=== PATIENT | female | born 1970 | race Caucasian/White ===

== ENCOUNTER 2018-12-28 08:47 | Emergency (ER) | payer BC ==
[~2018-12-28] VITALS: Ht 157.5 cm; Wt 45.4 kg
[2018-12-28] MEDS ORDERED: SODIUM CHLORIDE 0.9% 1000ML 1,000 ML IV SCH (09:15)
[2018-12-28 09:34] LABS: BASOPHILS % 0.3 % (0.0-1.0); HEMATOCRIT 45.4 % (34.2-44.1); HEMOGLOBIN 15.7 g/dL (12.0-16.0); LYMPHOCYTES # (AUTO) 0.8 (1.0-3.2); LYMPHOCYTES % 10.3 % (18.0-39.1); MEAN CORPUSCULAR HEMOGLOBIN 34.6 pg (28-32); MEAN CORPUSCULAR HGB CONC 34.6 g/dL (31-35); MONOCYTES # (AUTO) 0.5 (0.2-0.8); MONOCYTES % 5.8 % (4.4-11.3); NEUTROPHILS # (AUTO) 6.4 (2.1-6.9); NEUTROPHILS % 83.2 % (38.7-80.0); PLATELET COUNT 272 x10e3/uL (140-360); RED BLOOD COUNT 4.54 x10e6/uL (3.6-5.1)
[2018-12-28 09:52] LABS: ALBUMIN/GLOBULIN RATIO 0.9 (0.8-2.0); ANION GAP 21.2 mmol/L (8-16); CALCIUM 9.9 mg/dL (8.4-10.2); CREATININE, SERUM 0.99 mg/dL (0.57-1.11)
[2018-12-28 09:56] LABS: POTASSIUM 2.2 mmol/L (3.5-5.1)
[2018-12-28] MEDS ORDERED: POTASSIUM CHLORIDE 20 MEQ TAB CR PO STA (10:09)
[2018-12-28] MEDS ORDERED: POTASSIUM CHLORIDE 20MEQ/100ML 100 ML IV ONE (10:15)
[2018-12-28 11:28] LABS: COLOR,URINE YELLOW (YELLOW)
[2018-12-28 11:29] LABS: CLARITY,URINE SL CLOUDY (CLEAR); KETONES,URINE NEGATIVE (NEGATIVE); LEUKOCYTE ESTERASE ,URINE 1+ (NEGATIVE); NITRITE,URINE NEGATIVE (NEGATIVE); PROTEIN,URINE DIPSTICK 1+ (NEGATIVE)
[2018-12-28 11:30] LABS: BILIRUBIN,URINE NEGATIVE (NEGATIVE); PREGNANCY TEST, URINE NEGATIVE (NEGATIVE); URINE UROBILINOGEN 0.2 mg/dL (0.2 - 1)
[2018-12-28] MEDS ORDERED: SODIUM CHLORIDE 0.9% 250ML 250 ML IV ONE (11:30)
[2018-12-28] MEDS ORDERED: SODIUM CHLORIDE 0.9% 250ML 250 ML ONE (11:40)
[2018-12-28 11:44] LABS: BACTERIA,URINE MANY /HPF; RBC,URINE 21-50 /HPF (0-5); WBC,URINE (MAN) 21-50 /HPF (0-5)
[2018-12-28 11:45] LABS: EPITHELIAL CELLS,URINE MANY /LPF
[2018-12-28] MEDS ORDERED: SODIUM CHLORIDE 0.9% 500ML 500 ML ONE (12:36)
[2018-12-28] MEDS ORDERED: SODIUM CHLORIDE 0.9% 500ML 500 ML IV ONE (13:00)
[2018-12-28 15:35] LABS: ANION GAP 13.5 mmol/L (8-16); BLOOD UREA NITROGEN 12 mg/dL (7-26); BUN/CREATININE RATIO 17 (6-25); CALCIUM 8.3 mg/dL (8.4-10.2); CARBON DIOXIDE 30 mmol/L (22-29); CHLORIDE 94 mmol/L (98-107); CREATININE, SERUM 0.72 mg/dL (0.57-1.11); EST GLOMERULAR FILTRATION RATE > 60 ML/MIN (60-); GLUCOSE 101 mg/dL (74-118); SODIUM 135 mmol/L (136-145)
[2018-12-28 15:38] LABS: POTASSIUM 2.5 mmol/L (3.5-5.1)
--- NOTE | 2018-12-28 16:05 | NUR ---
call placed to Le[facility] WATTS regarding patient eloping with IV; Report completed; Per Dr. Lopez, patient decided to leave AMA; Instructed by MD that RN would be at bedside shortly with AMA form; went to room, all patient items and patient were gone.
--- NOTE | 2018-12-28 16:14 | NUR ---
Attempted to call patient on phone in chart, no answer and VM states "Do not leave a VM, because I will not check it, leave a text."
== END 2018-12-28 16:15 | disposition home or self-care (01) ==
LOC: ER 08:47
DX: E87.6 Hypokalemia (principal); K52.9 Noninfective gastroenteritis and colitis, unspecified; F17.210 Nicotine dependence, cigarettes, uncomplicated
CPT/HCPCS: 36415; 80048; 80053; 81001; 81025; 83735; 84443; 85025; 93005; 99283; J3480; J7030; J7040; J7050

== ENCOUNTER 2019-01-18 16:29 | Observation (INO) | payer BC ==
[~2019-01-18] VITALS: Ht 154.9 cm; Wt 53.6 kg
[2019-01-18] MEDS ORDERED: ONDANSETRON HCL INJ 2MG/ML 2ML 2 MG/ML VIAL IV STA (17:35)
[2019-01-18] MEDS ORDERED: SODIUM CHLORIDE 0.9% 1000ML 1,000 ML ONE (17:38)
[2019-01-18] MEDS ORDERED: SODIUM CHLORIDE 0.9% 1000ML 1,000 ML IV SCH ×2 (17:45→19:00)
[2019-01-18 18:14] LABS: BASOPHILS % 0.2 % (0.0-1.0); EOSINOPHILS # (AUTO) 0.2 (0.0-0.4); EOSINOPHILS % 1.8 % (0.0-6.0); HEMATOCRIT 44.4 % (34.2-44.1); LYMPHOCYTES # (AUTO) 0.6 (1.0-3.2); LYMPHOCYTES % 6.6 % (18.0-39.1); MEAN CORPUSCULAR VOLUME 97.2 fL (81-99); MONOCYTES # (AUTO) 0.5 (0.2-0.8); MONOCYTES % 5.2 % (4.4-11.3); NEUTROPHILS # (AUTO) 7.5 (2.1-6.9); NEUTROPHILS % 85.7 % (38.7-80.0); PLATELET COUNT 256 x10e3/uL (140-360); RED BLOOD COUNT 4.57 x10e6/uL (3.6-5.1)
--- NOTE | 2019-01-18 18:16 | NUR ---
Pt roomed in ER 1 at this time. Pt placed on the cardiac monitoring, pulse ox and NIBP. NAD noted at the present time.
[2019-01-18 18:22] LABS: INR 0.9; PROTHROMBIN TIME 12.6 seconds (11.9-14.5)
--- NOTE | 2019-01-18 18:24 | Diagnostic Imaging Report ---
A single frontal view of the chest. HISTORY: CHEST PAIN COMPARISON: None available. DISCUSSION: Portable technique, limits sensitivity of the exam. Overlying monitoring leads. Tubes/Lines: None Lungs and pleura: Prominence of the peribronchial estrogen markings. No evidence of a consolidative pneumonia or pulmonary alveolar edema. No definite pleural effusion or pneumothorax is identified. Heart and mediastinum: The cardiomediastinal silhouette appears unremarkable. Bones and soft tissues: Appear unremarkable, given this limited exam. IMPRESSION: 1. Findings which can be seen in setting of a nonspecific bronchitis. 2. No consolidative pneumonia. Signed by: Dr. Jose Marino D.O., M.M.M. on 01/18/2019 6:21 PM
[2019-01-18 18:27] LABS: PARTIAL THROMBOPLASTIN TIME 20.4 seconds (23.8-35.5)
[2019-01-18 18:31] LABS: ALANINE AMINOTRANSFERASE 88 IU/L (0-55); ALBUMIN 4.3 g/dL (3.5-5.0); ALBUMIN/GLOBULIN RATIO 1.1 (0.8-2.0); ALKALINE PHOSPHATASE 141 IU/L (40-150); ANION GAP 25.9 mmol/L (8-16); BLOOD UREA NITROGEN 9 mg/dL (7-26); BUN/CREATININE RATIO 9 (6-25); CARBON DIOXIDE 28 mmol/L (22-29); CHLORIDE 90 mmol/L (98-107); CREATINE KINASE 243 IU/L (29-168); CREATININE, SERUM 0.97 mg/dL (0.57-1.11); EST GLOMERULAR FILTRATION RATE > 60 ML/MIN (60-); GLUCOSE 217 mg/dL (74-118); SODIUM 141 mmol/L (136-145)
[2019-01-18 18:36] LABS: POTASSIUM 2.9 mmol/L (3.5-5.1)
[2019-01-18 18:43] LABS: MAGNESIUM 1.2 MG/DL (1.3-2.1)
[2019-01-18] MEDS ORDERED: POTASSIUM CHLORIDE 20 MEQ TAB CR PO ONE (18:57)
[2019-01-18] MEDS ORDERED: POTASSIUM CHLORIDE 20MEQ/100ML 100 ML IV ONE (19:00)
[2019-01-18] MEDS ORDERED: MAGNESIUM SULFATE 2GM/50ML 50 ML IV ONE (19:00)
[2019-01-18] MEDS ORDERED: POTASSIUM CHLORIDE 20MEQ/15ML UDC ONE (19:32)
[2019-01-18] MEDS ORDERED: CLONIDINE HCL 0.1 MG TAB PO PRN (19:45)
[2019-01-18] MEDS ORDERED: IBUPROFEN 200 MG TAB PO PRN (19:45)
[2019-01-18] MEDS ORDERED: ZOLPIDEM TARTRATE 5 MG TAB PO PRN ×2 (19:45→22:30)
[2019-01-18] MEDS ORDERED: HYDROCODONE/APAP 7.5MG-325MG 1 EA TAB PO PRN (19:45)
[2019-01-18] MEDS ORDERED: ACETAMINOPHEN 325 MG TAB PO PRN (19:45)
[2019-01-18] MEDS ORDERED: ENALAPRILAT IV INJ 1.25 MG/ML VIAL IV PRN (19:45)
[2019-01-18] MEDS ORDERED: DIPHENHYDRAMINE HCL INJ 50 MG/ML VIAL IV PRN (19:45)
--- OUTSIDE RECORDS SUMMARY | 2019-01-18 19:52 | XMS REPORT ---
Author Author [facility] Address Unknown Phone Unavailable Care Team Providers [facility] Name Role Phone Marie KAPADIA Unavailable Unavailable Problems This patient has no known problems. Allergies, Adverse Reactions, Alerts This patient has no known allergies or adverse reactions. Medications This patient has no known medications. Results Test Description Test Time Test Comments Text Results Atomic Results Result Comments CHEST SINGLE (PORTABLE) 2019-01-18 18:19:[address] [address] Patient Name: AMILCAR CELIS MR #: [id number] : 1970 Age/Sex: 48/F Req #: [id number] Adm Physician: Ordered by: DARIEL KAPADIA MD Report #: [id number] Location: ER Room/Bed: Procedure: [id number] DX/CHEST SINGLE (PORTABLE) Exam Date: 01/18/19 Exam Time: 1758 REPORT STATUS: Signed A single frontal view of the chest. HISTORY: AARTI ST PAIN COMPARISON: None available. DISCUSSION: Portable technique, limits sensitivity of the exam. Overlying monitoring leads. Tubes/Lines: None Lungs and pleura: Prominence of the peribronchial estrogen markings. No evidence of a consolidative pneumonia or pulmonary alveolar edema. No definite pleural effusion or pneumothorax is identified. Heart and mediastinum: The cardiomediastinal silhouette appears unremarkable. Bones and soft tissues: Appear unremarkable, given this limited exam. IMPRESSION: 1. Findings which can be seen in setting of a nonspecific bronchitis. 2. No consolidative pneumonia. Signed by: Dr. Cici Marino D.O., M.M.M. on 01/18/2019 6:21 PM Dictated By: CICI MARINO DO 20 Transcribed By: GARY on 01/18/191820 COPY TO: DARIEL KAPADIA MD
[2019-01-18] MEDS ORDERED: CHLORDIAZEPOXIDE HCL 25 MG CAP PO ONE (20:00)
[2019-01-18] MEDS ORDERED: IBUPROFEN 400 MG TAB PO PRN (20:30)
[2019-01-18] MEDS: LACTATED RINGER'S 1,000 ML IV SCH (22:07)
[2019-01-18] MEDS ORDERED: LIDOCAINE VISC 2% SOLN 15 ML UDC ONE (22:25)
[2019-01-18] MEDS ORDERED: MAGNESIUM/ALUMINUM/SIMETHICONE 30 ML UDC ONE (22:25)
[2019-01-18] MEDS ORDERED: BELLADONNA ALK/PHENOBARBITAL 5 ML UDC ONE (22:25)
--- NOTE | 2019-01-18 22:25 | NUR ---
PT COMPLAINS OF EPIGASTRIC PAIN, HUNG VILLAFANA AWARE, MEDICATED PER ORDERS.
[2019-01-18] MEDS ORDERED: LACTULOSE SYRUP 20 GM/30 ML UDC PO PRN (22:30)
[2019-01-18] MEDS ORDERED: DONNATAL/LIDOCAINE/MAALOX 30 ML SUSP PO ONE (22:30)
--- NOTE | 2019-01-18 22:52 | NUR ---
Pt received from ER. Pt A&O and in no apparent distress. Pt on room air and no tele. Pt has no complaints of pain. All safety measures ensured, bed alarm on, and pt call hector near. Pt encouraged to use call hector for assistance.
[2019-01-18 22:55] VITALS: BP 121/62
[2019-01-19] VITALS: BP 121/62
[2019-01-19 04:00] VITALS: BP 124/67
[2019-01-19] MEDS: LACTATED RINGER'S 1,000 ML IV SCH (05:56)
--- NOTE | 2019-01-19 06:05 | NUR ---
Pt has had 2-3 liquid like stools. Pt has no complaints of N/V and no abdominal pain. Pt stated that her stools are normally soft and can be liquid like at times. Also attempted to collect UA but pt has BM at same time and unable to submit non-contaminated specimen. Pt states she will continue to drink water and is aware she needs to collect urine.
[2019-01-19 06:31] LABS: ANION GAP 9.9 mmol/L (8-16); BLOOD UREA NITROGEN 8 mg/dL (7-26); BUN/CREATININE RATIO 12 (6-25); CALCIUM 8.6 mg/dL (8.4-10.2); CARBON DIOXIDE 29 mmol/L (22-29); CHLORIDE 102 mmol/L (98-107); CREATININE, SERUM 0.68 mg/dL (0.57-1.11); EST GLOMERULAR FILTRATION RATE > 60 ML/MIN (60-); GLUCOSE 83 mg/dL (74-118); MAGNESIUM 2.2 MG/DL (1.3-2.1); SODIUM 138 mmol/L (136-145)
[2019-01-19 06:41] LABS: POTASSIUM 2.9 mmol/L (3.5-5.1)
--- NOTE | 2019-01-19 06:42 | NUR ---
Call placed to Dr. Arshad to report critical lab. Awaiting callback
--- NOTE | 2019-01-19 06:48 | NUR ---
Dr. Arshad returned call and reported +K of 2.9. Orders for 40meq of +K to give now and repeat +K and mag labs at 4pm.
[2019-01-19] MEDS ORDERED: POTASSIUM CHLORIDE 20 MEQ TAB CR PO NR (07:09)
--- NOTE | 2019-01-19 07:14 | NUR ---
Bedside report given and walking rounds complete. Pt sleeping in bed and in no apparent distress. All safety measured and pt call hector near.
[2019-01-19 07:30] VITALS: BP 121/70
[2019-01-19] MEDS: FAMOTIDINE 20 MG/2 ML VIAL IV SCH ×2 (08:15→17:32)
[2019-01-19 09:20] VITALS: BP 121/70
[2019-01-19 10:34] LABS: AMPHETAMINES SCREEN,URINE NEGATIVE (NEGATIVE); PHENCYCLIDINE SCREEN,URINE NEGATIVE (NEGATIVE)
[2019-01-19 10:35] LABS: BENZODIAZEPINES SCREEN,URINE POSITIVE (NEGATIVE)
[2019-01-19 10:41] LABS: CLARITY,URINE SL CLOUDY (CLEAR); COLOR,URINE YELLOW (YELLOW); LEUKOCYTE ESTERASE ,URINE NEGATIVE (NEGATIVE); NITRITE,URINE NEGATIVE (NEGATIVE)
[2019-01-19 10:42] LABS: BILIRUBIN,URINE NEGATIVE (NEGATIVE); EPITHELIAL CELLS,URINE RARE /LPF; KETONES,URINE NEGATIVE (NEGATIVE); PROTEIN,URINE DIPSTICK NEGATIVE (NEGATIVE); URINE UROBILINOGEN 0.2 mg/dL (0.2 - 1)
[2019-01-19 11:16] VITALS: BP 125/66
[2019-01-19] MEDS ORDERED: POTASSIUM CHLORIDE 20 MEQ TAB CR PO ONE (14:20)
[2019-01-19] MEDS ORDERED: LOPERAMIDE HCL 2 MG CAP PO PRN (14:30)
[2019-01-19 15:07] VITALS: BP 135/77
--- NOTE | 2019-01-19 17:50 | NUR ---
patient discharged home. IV canula removed with tip intact, Potassium level is 3.6 normal. not in any distress, denies any pain, patient got all personnel belongings with her, she got transportation with [employer].
--- NOTE | 2019-01-19 18:50 | History and Physical ---
HISTORY OF PRESENT ILLNESS: Kaitlin Perez is a 48-year-old female with past medical history essentially negative for any medical condition. According to the patient, she came here with diarrhea. She was found to have hypokalemia, hypomagnesemia, and also multiple cramps all over her body. She had potassium initially replaced. She is feeling better. All the symptoms are gone. REVIEW OF SYSTEMS: CARDIOVASCULAR: No chest pain or palpitation. RESPIRATORY: No shortness of breath. No cough. GASTROINTESTINAL: No nausea or vomiting. She had diarrhea, which resolved. MUSCULOSKELETAL: She has cramps all over her body, which had completely resolved. ALLERGIES: SHE IS NOT ALLERGIC TO ANYTHING. SOCIAL HISTORY: She drinks alcohol. She claims that she does not smoke. PAST MEDICAL HISTORY: Negative for any significant medical condition. PHYSICAL EXAMINATION: VITAL SIGNS: Blood pressure 135/66, temperature 98.4, heart rate 87 per minute, respiratory rate 19 per minute, and oxygen saturation 99%. HEART: Regular rhythm. No murmur or added sound. LUNGS: Clear bilaterally. ABDOMEN: Soft. EXTREMITIES: No evidence of cyanosis, edema, or trauma. LABORATORY DATA: On the BMP; sodium 138, potassium 2.9, chloride 102, CO2 29, BUN 8, creatinine 0.66, and glucose 83. On the CBC; white count 8.73, hemoglobin 16.0, hematocrit 44.4, and platelet count 256,000. PT 12.6, INR 0.80, PTT 20.4. AST 105, ALT 88, total bilirubin 1.8, alkaline phosphatase 141. FINAL IMPRESSION: 1. Episode of hypokalemia. 2. Hypomagnesemia. 3. Acute diarrhea. 4. Rhabdomyolysis. 5. Elevated LFTs, most likely secondary to alcoholic hepatitis. PLAN OF TREATMENT: The patient has been given potassium, magnesium, and IV fluids. The patient wants to go home today. I going to recheck the potassium and magnesium level today and if they are back to normal, the patient may be able to go home. The patient is to quit drinking of course. Followup with the primary care physician in a week. MD REI Darling/STACI /[id number]
--- NOTE | 2019-01-20 14:24 | Discharge Summary ---
HISTORY: The patient is a 48-year-old female, who has a past medical history negative for any significant medical condition except for alcohol abuse. The patient came to the hospital complaining of diarrhea. She was found to have hypokalemia, hypomagnesemia, elevated CKs, elevated liver function test. Symptoms are completely resolved and the patient wants to go home today. We are going to recheck the potassium, magnesium level to make sure they are under normal limits before the patient leaves. PHYSICAL EXAMINATION: HEART: Showed regular rhythm. Normal S1, S2 sound. LUNGS: Clear bilaterally. ABDOMEN: Soft. EXTREMITIES: Show no evidence of cyanosis or hematoma. VITAL SIGNS: Blood pressure 135/66, temperature 98.4, heart rate 87 per minute, respiratory rate 19 per minute, and oxygen saturation 99%. FINAL IMPRESSION: 1. Hypokalemia. 2. Hypomagnesemia. 3. Acute diarrhea. 4. Rhabdomyolysis. 5. Alcoholic hepatitis. PLAN OF TREATMENT: After potassium and magnesium had been repleted, we want to recheck the potassium and magnesium today. The patient is to abstain from drinking of course and if the potassium and magnesium levels are back to normal, then the patient might be able to go home today. Follow up with her primary care physician. MD REI Darling/STACI /[id number]
== END 2019-01-19 17:50 | disposition home or self-care (01) ==
LOC: ER 16:29 → ERHOLD 19:47 → IMCU 22:51
PROVIDERS: ADMIT Internal Medicine; ATTEND Internal Medicine
DX: E87.6 Hypokalemia (principal); E83.42 Hypomagnesemia; R19.7 Diarrhea, unspecified; M62.82 Rhabdomyolysis; K70.10 Alcoholic hepatitis without ascites
CPT/HCPCS: 36415 ×2; 71045; 80048; 80053; 80307; 81001; 82150; 82550; 82553; 82948; 83690; 83735 ×2; 83880; 84132; 84484; 84702; 85025; 85610; 85730; 93005; 99284; G0378 ×2; J2405; J3475; J3480; J7030; J7121 ×2

== ENCOUNTER 2019-06-18 09:47 | Inpatient (IN) | payer BC ==
[~2019-06-18] VITALS: Ht 167.6 cm; Wt 52.3 kg
[2019-06-18 10:15] LABS: BASOPHILS % 0.1 % (0.0-1.0); EOSINOPHILS % 0.3 % (0.0-6.0); HEMATOCRIT 35.6 % (34.2-44.1); HEMOGLOBIN 12.7 g/dL (12.0-16.0); LYMPHOCYTES # (AUTO) 1.6 (1.0-3.2); LYMPHOCYTES % 21.8 % (18.0-39.1); MEAN CORPUSCULAR HEMOGLOBIN 34.7 pg (28-32); MEAN CORPUSCULAR HGB CONC 35.7 g/dL (31-35); MEAN CORPUSCULAR VOLUME 97.3 fL (81-99); MONOCYTES # (AUTO) 0.3 (0.2-0.8); MONOCYTES % 4.6 % (4.4-11.3); NEUTROPHILS # (AUTO) 5.2 (2.1-6.9); NEUTROPHILS % 72.6 % (38.7-80.0); PLATELET COUNT 142 x10e3/uL (140-360); RED BLOOD COUNT 3.66 x10e6/uL (3.6-5.1); RED CELL DISTRIBUTION WIDTH 11.5 % (11.7-14.4)
[2019-06-18] MEDS ORDERED: MULTIVITAMINS- 12 INJECTION 10 ML, FOLIC ACID MDV 5 MG, THIAMINE HCL INJ 100 MG in SODI... IV ONE (10:15)
[2019-06-18 10:27] LABS: ALBUMIN 3.7 g/dL (3.5-5.0); ALBUMIN/GLOBULIN RATIO 1.1 (0.8-2.0); CALCIUM 9.2 mg/dL (8.4-10.2); CREATININE, SERUM 1.6 mg/dL (0.57-1.11)
[2019-06-18 10:42] LABS: ANION GAP 19.4 mmol/L (8-16)
[2019-06-18 10:45] LABS: LIPASE 98 U/L (8-78)
[2019-06-18] MEDS ORDERED: POTASSIUM CHLORIDE 10MEQ/100ML 200 ML IV ONE (10:45)
[2019-06-18 10:46] LABS: POTASSIUM 2.4 mmol/L (3.5-5.1)
[2019-06-18] MEDS ORDERED: POTASSIUM CHLORIDE 20 MEQ TAB CR PO ONE ×2 (10:51→11:30)
[2019-06-18] MEDS ORDERED: POTASSIUM CHLORIDE 20MEQ/100ML 100 ML ONE (10:51)
--- NOTE | 2019-06-18 10:57 | NUR ---
PATIENT UNABLE TO SWALLOW TABLETS, REFUSED TO TRY. REQUESTED LIQUID
[2019-06-18 11:09] LABS: CREATINE KINASE MB 0.3 ng/mL (0-5.0)
--- NOTE | 2019-06-18 11:15 | NUR ---
RECIEVED REPORT FROM KEYLA CHEN; WALKING ROUNDS COMPLETED, PT UPDATED ON PLAN OF CARE; BED LOW/LOCKED, CALL LIGHT IN REACH, NO NEEDS VERBALIZED AT THIS TIME.
--- NOTE | 2019-06-18 11:20 | NUR ---
PATIENT REQUESTING FOOD. LUNCH TRAY ORDERED
[2019-06-18] MEDS ORDERED: ONDANSETRON HCL INJ 2MG/ML 2ML 2 MG/ML VIAL IV ONE (12:00)
[2019-06-18] MEDS ORDERED: LORAZEPAM INJ 2 MG/ML VIAL IV ONE (12:00)
[2019-06-18] MEDS ORDERED: POTASSIUM CHLORIDE 20MEQ/15ML UDC NG ONE (12:00)
[2019-06-18] MEDS ORDERED: LORAZEPAM INJ 2 MG/ML VIAL IV PRN (12:15)
[2019-06-18] MEDS: SODIUM CHLORIDE 0.9% 1000ML 1,000 ML IV SCH ×2 (13:35→21:24)
[2019-06-18 19:44] LABS: CREATINE KINASE MB 0.3 ng/mL (0-5.0)
[2019-06-18 20:00] VITALS: BP 145/89
[2019-06-18 20:01] LABS: ALBUMIN 3.2 g/dL (3.5-5.0); ALBUMIN/GLOBULIN RATIO 1.1 (0.8-2.0); ANION GAP 11.8 mmol/L (8-16); CALCIUM 8.7 mg/dL (8.4-10.2); CREATININE, SERUM 1.21 mg/dL (0.57-1.11)
[2019-06-18 20:38] LABS: POTASSIUM 2.8 mmol/L (3.5-5.1)
[2019-06-18 21:00] VITALS: BP 145/89
[2019-06-18] MEDS ORDERED: POTASSIUM CHLORIDE 20MEQ/15ML UDC PO ONE (22:15)
[2019-06-18] MEDS ORDERED: NICOTINE 14 MG/EA PATCH TOP ONE (23:30)
[2019-06-19] VITALS (8 sets, daily range): BP systolic 115–145; BP diastolic 76–89
[2019-06-19 03:55] LABS: BASOPHILS % 0.3 % (0.0-1.0); EOSINOPHILS % 0.6 % (0.0-6.0); HEMATOCRIT 30.5 % (34.2-44.1); HEMOGLOBIN 10.4 g/dL (12.0-16.0); LYMPHOCYTES % 30.2 % (18.0-39.1); MEAN CORPUSCULAR HEMOGLOBIN 34.4 pg (28-32); MEAN CORPUSCULAR HGB CONC 34.1 g/dL (31-35); MONOCYTES # (AUTO) 0.3 (0.2-0.8); MONOCYTES % 4.9 % (4.4-11.3); NEUTROPHILS # (AUTO) 4.3 (2.1-6.9); NEUTROPHILS % 63.7 % (38.7-80.0); PLATELET COUNT 121 x10e3/uL (140-360); RED BLOOD COUNT 3.02 x10e6/uL (3.6-5.1); RED CELL DISTRIBUTION WIDTH 11.9 % (11.7-14.4)
[2019-06-19 04:15] LABS: CREATINE KINASE MB 0.6 ng/mL (0-5.0)
[2019-06-19 04:33] LABS: ALANINE AMINOTRANSFERASE 165 IU/L (0-55); ALBUMIN 2.9 g/dL (3.5-5.0); ALBUMIN/GLOBULIN RATIO 1.1 (0.8-2.0); ALKALINE PHOSPHATASE 64 IU/L (40-150); BLOOD UREA NITROGEN 22 mg/dL (7-26); BUN/CREATININE RATIO 28 (6-25); CALCIUM 8.3 mg/dL (8.4-10.2); CARBON DIOXIDE 23 mmol/L (22-29); CHLORIDE 101 mmol/L (98-107); CREATININE, SERUM 0.78 mg/dL (0.57-1.11); EST GLOMERULAR FILTRATION RATE > 60 ML/MIN (60-); GLUCOSE 100 mg/dL (74-118); SODIUM 133 mmol/L (136-145)
[2019-06-19] MEDS ORDERED: POTASSIUM CHLORIDE 20 MEQ TAB CR PO STA (05:31)
[2019-06-19] MEDS: SODIUM CHLORIDE 0.9% 1000ML 1,000 ML IV SCH ×5 (05:38→19:41)
[2019-06-19] MEDS ORDERED: POTASSIUM CHLORIDE 20MEQ/15ML UDC PO STA (05:42)
[2019-06-19] MEDS: NICOTINE 14 MG/EA PATCH TOP SCH (08:18)
--- NOTE | 2019-06-19 09:10 | NUR ---
Called Dr Nash's office to notify of consult.
--- NOTE | 2019-06-19 09:13 | NUR ---
Transfer to room 215. Report called to Zeny RAMIRES. Transported with wheelchair, no complications noted.
--- NOTE | 2019-06-19 10:09 | Diagnostic Imaging Report ---
EXAM: US ABDOMEN COMPLETE INDICATION: Elevated LFTs. COMPARISON: None TECHNIQUE: Transverse and longitudinal gordon scale and color doppler sonographic images of the abdomen were obtained. FINDINGS: LIVER 14.9 cm in the right midclavicular line. Increased echogenicity of the liver with normal contour, no masses. SPLEEN 7.8 cm in maximum diameter. Normal echogenicity, no masses. GALLBLADDER No gallbladder wall thickening, distension, stone, or pericholecystic fluid. Negative reported sonographic Amaya's sign. BILE DUCTS No intra nor extra-hepatic biliary dilation. Common bile duct measures 0.2 cm PANCREAS: Visualized portions are normal. RIGHT KIDNEY: 11.6 cm Echogenicity: Normal Collecting System: No hydronephrosis Stones: None Cyst/Mass: None LEFT KIDNEY: 11.1 cm Echogenicity: Normal Collecting System: No hydronephrosis Stones: None Cyst/Mass: None VESSELS: Aorta: Visualized portions are within normal size limits Inferior Vena Cava: Visualized portions are normal Main Portal Vein: 1.0 cm, normal size with hepatopetal flow. FREE FLUID: None IMPRESSION: Hepatic steatosis. Signed by: Dr. Ramonita Zhang MD on 06/19/2019 10:06 AM
[2019-06-19] MEDS: PANTOPRAZOLE 40 MG 10ML VIAL IV SCH (17:16)
--- NOTE | 2019-06-19 19:42 | NUR ---
RECEIVED PT IN BED AOX3 .RESPIRATIONS ARE EVEN AND UNLABORED /DENIES PAIN .CALL LIGHT WITH IN REACH .CONTINUE TO MONITOR
[2019-06-20] VITALS (7 sets, daily range): BP systolic 118–168; BP diastolic 71–97
[2019-06-20 06:03] LABS: BASOPHILS % 0.6 % (0.0-1.0); EOSINOPHILS # (AUTO) 0.1 (0.0-0.4); EOSINOPHILS % 0.9 % (0.0-6.0); HEMATOCRIT 33.9 % (34.2-44.1); HEMOGLOBIN 11.4 g/dL (12.0-16.0); LYMPHOCYTES # (AUTO) 2.6 (1.0-3.2); LYMPHOCYTES % 37.3 % (18.0-39.1); MEAN CORPUSCULAR HEMOGLOBIN 34.3 pg (28-32); MEAN CORPUSCULAR HGB CONC 33.6 g/dL (31-35); MEAN CORPUSCULAR VOLUME 102.1 fL (81-99); MONOCYTES # (AUTO) 0.4 (0.2-0.8); MONOCYTES % 6.3 % (4.4-11.3); NEUTROPHILS # (AUTO) 3.8 (2.1-6.9); NEUTROPHILS % 54.5 % (38.7-80.0); PLATELET COUNT 130 x10e3/uL (140-360); RED BLOOD COUNT 3.32 x10e6/uL (3.6-5.1); RED CELL DISTRIBUTION WIDTH 11.7 % (11.7-14.4)
[2019-06-20 06:09] LABS: ALANINE AMINOTRANSFERASE 220 IU/L (0-55); ALBUMIN 3.1 g/dL (3.5-5.0); ALKALINE PHOSPHATASE 70 IU/L (40-150); ANION GAP 11.8 mmol/L (8-16); BLOOD UREA NITROGEN 9 mg/dL (7-26); BUN/CREATININE RATIO 13 (6-25); CALCIUM 8.8 mg/dL (8.4-10.2); CARBON DIOXIDE 29 mmol/L (22-29); CHLORIDE 98 mmol/L (98-107); CREATININE, SERUM 0.72 mg/dL (0.57-1.11); EST GLOMERULAR FILTRATION RATE > 60 ML/MIN (60-); GLUCOSE 76 mg/dL (74-118); SODIUM 136 mmol/L (136-145)
[2019-06-20 06:13] LABS: MAGNESIUM 1.1 MG/DL (1.3-2.1); POTASSIUM 2.8 mmol/L (3.5-5.1)
--- NOTE | 2019-06-20 07:00 | NUR ---
received am report from nurse and morning rounds done. pt is alert sitting up in bed, no s/s of distress. pt is complaining that the IV site is tender and red. new IV will need to be inserted. call light within reach and instructed pt to call nurse for help.
[2019-06-20] MEDS ORDERED: POTASSIUM CHLORIDE 20MEQ/100ML 200 ML IV ONE (07:15)
--- NOTE | 2019-06-20 07:43 | NUR ---
K-2.8 AND MG-1.[address] ARREOLA AND DR ARREOLA GIVEN ORDER TO GIVE K AND MG .PT RESTED DURING THE NIGHT .BEDSIDE REPORT GIVEN TO THE ONCOMING NURSE
[2019-06-20] MEDS ORDERED: MAGNESIUM SULFATE 2GM/50ML 50 ML IV ONE ×2 (07:45→09:45)
[2019-06-20] MEDS: PANTOPRAZOLE 40 MG 10ML VIAL IV SCH (08:28)
[2019-06-20] MEDS: NICOTINE 14 MG/EA PATCH TOP SCH (08:28)
[2019-06-20] MEDS ORDERED: LORAZEPAM INJ 2 MG/ML VIAL IM PRN (12:45)
[2019-06-20] MEDS ORDERED: LORAZEPAM 0.5 MG TAB PO PRN (12:45)
--- NOTE | 2019-06-20 15:21 | NUR ---
Nutrition Screen Note RD Recommendation for Physician: -Continue current diet per MD. -Consider M/ with minerals, B12, thiamine supplementation if medically feasible. Plan of Care: RD following, monitoring for tolerance and adequacy. Ensure Enlive TID. Nutrition reason for involvement: Nutrition Risk Trigger- MST 5 Primary Diagnose(s): Alcohol withdrawal PMH: No H and P recorded in EMR Ht: 66 in Wt: 115 lb BMI: 18.6 kg/m2 IBW: [address] Assessment 06/20: 49 YOF admitted for alcohol withdrawal with PMH listed below. Pt was seen resting in bed. Pt reported she has had a decreased appetite for about 6 months and lost 30 lbs. PT reports her UBW is 118-122 . Pt was admitted her in January and was 118 lbs, suggesting there has not been any significant weight loss. Pt reports she has been eating poorly d/t depression. Recommend Ensure, pt says she drinks this at home sometimes and would like to receive it in the hospital as well-spoke to nurse about supplement order. Pt reports she has been eating well here in the hospital so far. Pt did mention she does not eat any birds and that she can self select from the menu. Pt had no more questions or concerns. Pt has been consuming 100% of her meals per EMR. K and Mg are being replaced.Will continue to monitor. Chart reviewed. Labs and meds reviewed. Current Diet: regular Malnutrition Evaluation (06/20) The patient does not meet criteria for a specified degree of malnutrition at this time. Will re-evaluate at follow-up as appropriate. Energy intake: <75% of estimated energy requirements for >3 months Weight loss: -minor weight loss Fat loss: Mild Muscle loss: Mild Diet Education Needs Assessment: Diet education not indicated. Nutrition Care Level: mod Signed: Niharika Wood, RUFINA, LD
[2019-06-20 18:58] LABS: ALANINE AMINOTRANSFERASE 225 IU/L (0-55); ALBUMIN 3.1 g/dL (3.5-5.0); ALBUMIN/GLOBULIN RATIO 1.1 (0.8-2.0); ALKALINE PHOSPHATASE 62 IU/L (40-150); ANION GAP 12.2 mmol/L (8-16); BLOOD UREA NITROGEN 10 mg/dL (7-26); BUN/CREATININE RATIO 14 (6-25); CALCIUM 8.8 mg/dL (8.4-10.2); CARBON DIOXIDE 25 mmol/L (22-29); CHLORIDE 100 mmol/L (98-107); CREATININE, SERUM 0.74 mg/dL (0.57-1.11); EST GLOMERULAR FILTRATION RATE > 60 ML/MIN (60-); GLUCOSE 110 mg/dL (74-118); POTASSIUM 3.2 mmol/L (3.5-5.1); SODIUM 134 mmol/L (136-145)
--- NOTE | 2019-06-20 19:38 | NUR ---
PAGED AND SPOKE WITH DR ARREOLA NOTIFIED ABOUT PT REQUESTING TO BE DISCHARGED.ALSO NOTIFIED DR ARREOLA ABOUT PT'S POTASSIUM LEVEL OF 3.2,MAGNESIUM LEVEL OF 1.6 . N/O'S RECEIVED AND ENTERED.
[2019-06-20] MEDS ORDERED: POTASSIUM CHLORIDE 20MEQ/15ML UDC PO ONE (19:45)
--- NOTE | 2019-06-20 19:51 | Consultation ---
DATE OF CONSULTATION: 06/20/2019 Psychiatric Consultation The patient evaluated and events noted. REASON FOR CONSULTATION: To evaluate the patient's anxiety and alcohol withdrawal. HISTORY OF PRESENT ILLNESS: The patient is a 49-year-old female admitted to the hospital for alcohol withdrawal. Psychiatric consultation is called to evaluate patient for mood, psychosis, and alcohol withdrawal. Upon evaluation today, the patient was found to be lying on the bed. She is alert, awake, and oriented to situation, self, place and year. She is calm and cooperative. She is not confused. She is not agitated or restless. She admits to abusing alcohol for last 30 years. She claims she drinks about 4 drinks per day that consists of anything between beer, wine or liquor. She claims her last drink was on Thursday last week, which would be 7 or 8 days. She claims that she started to feel bad and asked her neighbor to call 911. The patient claims she has been feeling depressed and anxious due to ongoing divorce after 30 years of marriage. She denies feelings of hopelessness or helplessness. She denies any suicidal or homicidal ideation. She denies any hallucination. She reported poor sleep and poor appetite, which she attributes to the alcohol abuse. She has very mild tremors. The patient is reluctant to be on medication, but after discussion, she agrees to be started on some medication for mood and something to help her stay away from alcohol. PAST PSYCHIATRIC HISTORY: The patient denies past psychiatric history. She denies past suicide attempts. She drinks alcohol 3 or 4 days a week. She drinks about drinks per day and she claims she drinks anything that she has found in the house, which could be beer, wine, or liquor. She claims that her last drink was on Thursday. She denies any drug use. FAMILY HISTORY: The patient states her sister with bipolar. SOCIAL HISTORY: The patient states she lives alone. MENTAL STATUS EXAM: The patient is a middle-aged female. She is alert, awake, and oriented to situation. Mood is depressed and anxious. Affect is blunt. Psychomotor state is calm. She denies any suicidal or homicidal ideation. She denies any hallucination. Thought process is concrete, linear and goal oriented. No delusion or paranoia elicited. Insight and judgment are fair. Memory appears to be grossly intact. CURRENT MEDICATIONS: 1. Protonix. 2. Nicoderm. 3. Sodium chloride. LABORATORY DATA: Current labs; WBC 6.9, RBC 3.32, hemoglobin 11.4, hematocrit 33.9, platelets 130. Sodium 136, potassium 2.8, chloride 98, CO2 29, BUN 9, creatinine 0.72, AST 174, ALT 220. ASSESSMENT: 1. Adjustment disorder, mixed mood, depression, anxiety. 2. Alcohol abuse/dependence. PLAN: 1. Add Remeron 7.5 mg p.o. at bedtime. 2. Add Ativan 0.5 mg IM q.4 as needed for withdrawal. 3. Add Ativan 0.5 mg p.o. q.4 as needed. 4. Considered adding Topamax to help with the alcohol cessation. 5. Recommend alcohol cessation and alcohol counseling. 6. Recommend alcohol rehab. 7. Supportive therapy. Thank you for this consultation. Dictated by Reina Kennedy PA-C Arlyn Nash MD QTV/MODL /[id number]
--- NOTE | 2019-06-20 20:03 | NUR ---
IV CATH TO LEFT FA REMOVED WITH TIP INTACT,DRESSING APPLIED.PT DISCHARGED AT THIS TIME IN STABLE CONDITION WITH ALL HER BELONGINGS.PT'S TELE BOX RETURNED TO RESPONSIBLE DEPARTMENT.
[2019-06-20] MEDS ORDERED: MIRTAZAPINE 15 MG TAB PO SCH (21:00)
== END 2019-06-20 20:10 | disposition home or self-care (01) | DRG 897 ==
LOC: ER 09:47 → ERHOLD 12:05 → IMCU 19:52 → MED/SURG2 06-19 09:14
PROVIDERS: ADMIT Internal Medicine; ATTEND Internal Medicine
DX: F10.221 Alcohol dependence with intoxication delirium (principal); F10.231 Alcohol dependence with withdrawal delirium; Y90.0 Blood alcohol level of less than 20 mg/100 ml; E86.0 Dehydration; F41.9 Anxiety disorder, unspecified; K70.0 Alcoholic fatty liver; F43.23 Adjustment disorder with mixed anxiety and depressed mood
CPT/HCPCS: 36415; 76700; 80053; 80320; 82550; 82553; 83690; 83735; 84484; 84702; 85025; 93005; 99285; J2060; J2405; J3411; J3475; J3480; J7030

== ENCOUNTER 2019-07-06 09:04 | Emergency (ER) | payer BC ==
[~2019-07-06] VITALS: Ht 167.6 cm; Wt 52.2 kg
[2019-07-06] MEDS ORDERED: ASPIRIN 81 MG CHEW TAB PO ONE (09:30)
[2019-07-06] MEDS ORDERED: MULTIVITAMINS- 12 INJECTION 10 ML, FOLIC ACID MDV 5 MG, THIAMINE HCL INJ 100 MG in SODI... IV ONE (09:30)
[2019-07-06 09:36] LABS: EOSINOPHILS % 0.5 % (0.0-6.0); HEMATOCRIT 37.2 % (34.2-44.1); HEMOGLOBIN 12.8 g/dL (12.0-16.0); LYMPHOCYTES # (AUTO) 2.1 (1.0-3.2); LYMPHOCYTES % 51.2 % (18.0-39.1); MEAN CORPUSCULAR HEMOGLOBIN 34.9 pg (28-32); MEAN CORPUSCULAR HGB CONC 34.4 g/dL (31-35); MEAN CORPUSCULAR VOLUME 101.4 fL (81-99); MONOCYTES # (AUTO) 0.3 (0.2-0.8); MONOCYTES % 6.7 % (4.4-11.3); NEUTROPHILS # (AUTO) 1.7 (2.1-6.9); NEUTROPHILS % 40.4 % (38.7-80.0); PLATELET COUNT 240 x10e3/uL (140-360); RED BLOOD COUNT 3.67 x10e6/uL (3.6-5.1); RED CELL DISTRIBUTION WIDTH 13.1 % (11.7-14.4)
[2019-07-06] MEDS ORDERED: LORAZEPAM INJ 2 MG/ML VIAL IV ONE (09:45)
[2019-07-06 09:49] LABS: BILIRUBIN,URINE NEGATIVE (NEGATIVE); CLARITY,URINE SL CLOUDY (CLEAR); COLOR,URINE YELLOW (YELLOW); KETONES,URINE NEGATIVE (NEGATIVE); LEUKOCYTE ESTERASE ,URINE NEGATIVE (NEGATIVE); NITRITE,URINE NEGATIVE (NEGATIVE); PROTEIN,URINE DIPSTICK NEGATIVE (NEGATIVE); URINE UROBILINOGEN 0.2 mg/dL (0.2 - 1)
[2019-07-06 09:53] LABS: AMPHETAMINES SCREEN,URINE NEGATIVE (NEGATIVE); BENZODIAZEPINES SCREEN,URINE NEGATIVE (NEGATIVE); PHENCYCLIDINE SCREEN,URINE NEGATIVE (NEGATIVE)
[2019-07-06 09:59] LABS: ALANINE AMINOTRANSFERASE 112 IU/L (0-55); ALBUMIN 3.8 g/dL (3.5-5.0); ALKALINE PHOSPHATASE 93 IU/L (40-150); BLOOD UREA NITROGEN 6 mg/dL (7-26); BUN/CREATININE RATIO 9 (6-25); CALCIUM 9.7 mg/dL (8.4-10.2); CARBON DIOXIDE 28 mmol/L (22-29); CHLORIDE 101 mmol/L (98-107); CREATINE KINASE 122 IU/L (29-168); CREATININE, SERUM 0.69 mg/dL (0.57-1.11); EST GLOMERULAR FILTRATION RATE > 60 ML/MIN (60-); GLUCOSE 104 mg/dL (74-118); MAGNESIUM 1.9 MG/DL (1.3-2.1); SODIUM 143 mmol/L (136-145)
[2019-07-06 10:04] LABS: INR 0.77; PROTHROMBIN TIME 11.2 seconds (11.9-14.5)
[2019-07-06 10:05] LABS: PARTIAL THROMBOPLASTIN TIME 23.6 seconds (23.8-35.5)
[2019-07-06] MEDS ORDERED: POTASSIUM CHLORIDE 20 MEQ TAB CR PO STA (10:12)
[2019-07-06 10:15] LABS: AMORPHOUS SEDIMENT,URINE MANY (FEW); BACTERIA,URINE MODERATE /HPF; EPITHELIAL CELLS,URINE MODERATE /LPF; RBC,URINE 0-5 /HPF (0-5); WBC,URINE (MAN) 0-5 /HPF (0-5)
[2019-07-06 10:21] LABS: THYROID STIMULATING HORMONE 0.454 uIU/mL (0.350-4.940)
--- NOTE | 2019-07-06 11:15 | Diagnostic Imaging Report ---
EXAMINATION: CHEST SINGLE (PORTABLE) INDICATION: Chest pain COMPARISON: Chest radiograph of 01/18/2019 FINDINGS: LINES/TUBES:EKG leads overlie the chest. LUNGS:The lungs are well-inflated. No focal consolidation or pulmonary edema. PLEURA:No pleural effusion or pneumothorax. MEDIASTINUM:The cardiomediastinal silhouette appears normal in size and shape. BONES/SOFT TISSUES:No acute osseous injury. ABDOMEN:No free air under the diaphragm. IMPRESSION: No focal pneumonia or pulmonary edema. Signed by: Bud Gutierrez MD on 07/06/2019 11:11 AM
[2019-07-06 11:40] VITALS: BP 126/74
== END 2019-07-06 11:47 | disposition home or self-care (01) ==
LOC: ER 09:04
DX: F41.1 Generalized anxiety disorder (principal); F10.229 Alcohol dependence with intoxication, unspecified; F17.210 Nicotine dependence, cigarettes, uncomplicated
CPT/HCPCS: 36415; 71045; 80053; 80307; 80320; 81001; 82550; 82553; 83735; 83880; 84443; 84484; 85025; 85379; 85610; 85730; 87086; 93005; 99284; J2060; J3411; J7030

== ENCOUNTER 2019-10-11 11:30 | Emergency (ER) | payer BC ==
[~2019-10-11] VITALS: Ht 167.6 cm; Wt 52.2 kg
[2019-10-11] MEDS ORDERED: MULTIVITAMINS- 12 INJECTION 10 ML, FOLIC ACID MDV 5 MG, THIAMINE HCL INJ 100 MG in SODI... IV ONE (12:00)
[2019-10-11] MEDS ORDERED: ONDANSETRON HCL INJ 2MG/ML 2ML 2 MG/ML VIAL IV NR (12:15)
[2019-10-11] MEDS ORDERED: LORAZEPAM INJ 2 MG/ML VIAL IV NR (12:15)
--- NOTE | 2019-10-11 12:23 | Diagnostic Imaging Report ---
EXAMINATION: CHEST SINGLE (PORTABLE) INDICATION: Alcohol withdrawal, dehydration COMPARISON: Chest radiograph 07/06/2019 FINDINGS: LINES/TUBES:EKG leads overlie the chest. LUNGS:The lungs are well-inflated. No focal consolidation or pulmonary edema. PLEURA:No pleural effusion or pneumothorax. MEDIASTINUM:The cardiomediastinal silhouette appears normal in size and shape. BONES/SOFT TISSUES:No acute osseous injury. ABDOMEN:No free air under the diaphragm. IMPRESSION: No focal pneumonia or pulmonary edema. Signed by: Bud Gutierrez MD on 10/11/2019 12:20 PM
--- NOTE | 2019-10-11 12:39 | NUR ---
per patient, consumes alcohol daily normally but has recently been and reports that she has been drinkin more than normal. reports she last drank on thursday.
[2019-10-11 12:43] LABS: BASOPHILS % 0.1 % (0.0-1.0); HEMATOCRIT 34.1 % (34.2-44.1); HEMOGLOBIN 12.1 g/dL (12.0-16.0); LYMPHOCYTES # (AUTO) 0.6 (1.0-3.2); LYMPHOCYTES % 8.1 % (18.0-39.1); MEAN CORPUSCULAR HEMOGLOBIN 34.8 pg (28-32); MEAN CORPUSCULAR HGB CONC 35.5 g/dL (31-35); MONOCYTES # (AUTO) 0.4 (0.2-0.8); MONOCYTES % 4.6 % (4.4-11.3); NEUTROPHILS # (AUTO) 6.5 (2.1-6.9); NEUTROPHILS % 86.4 % (38.7-80.0); PLATELET COUNT 170 x10e3/uL (140-360); RED BLOOD COUNT 3.48 x10e6/uL (3.6-5.1); RED CELL DISTRIBUTION WIDTH 12.2 % (11.7-14.4)
[2019-10-11 13:14] LABS: ALANINE AMINOTRANSFERASE 71 IU/L (0-55); ALBUMIN/GLOBULIN RATIO 1.4 (0.8-2.0); ALKALINE PHOSPHATASE 72 IU/L (40-150); ANION GAP 24.7 mmol/L (8-16); BLOOD UREA NITROGEN 27 mg/dL (7-26); BUN/CREATININE RATIO 25 (6-25); CALCIUM 8.7 mg/dL (8.4-10.2); CARBON DIOXIDE 29 mmol/L (22-29); CHLORIDE 85 mmol/L (98-107); CREATINE KINASE 224 IU/L (29-168); CREATININE, SERUM 1.09 mg/dL (0.57-1.11); EST GLOMERULAR FILTRATION RATE 53 ML/MIN (60-); GLUCOSE 92 mg/dL (74-118); MAGNESIUM 1.2 MG/DL (1.3-2.1); SODIUM 136 mmol/L (136-145)
[2019-10-11 13:23] LABS: POTASSIUM 2.7 mmol/L (3.5-5.1)
[2019-10-11] MEDS ORDERED: POTASSIUM CHLORIDE 20 MEQ TAB CR PO STA (13:23)
[2019-10-11] MEDS ORDERED: POTASSIUM CHLORIDE 20MEQ/100ML 100 ML IV ONE (13:30)
[2019-10-11] MEDS ORDERED: SODIUM CHLORIDE 0.9% 500ML 500 ML ONE (14:28)
[2019-10-11 14:54] LABS: CLARITY,URINE SL CLOUDY (CLEAR); COLOR,URINE AMBER (YELLOW)
[2019-10-11 14:55] LABS: AMPHETAMINES SCREEN,URINE NEGATIVE (NEGATIVE); BENZODIAZEPINES SCREEN,URINE NEGATIVE (NEGATIVE); BILIRUBIN,URINE 3+ (NEGATIVE); KETONES,URINE 2+ (NEGATIVE); LEUKOCYTE ESTERASE ,URINE NEGATIVE (NEGATIVE); NITRITE,URINE NEGATIVE (NEGATIVE); PHENCYCLIDINE SCREEN,URINE NEGATIVE (NEGATIVE); PROTEIN,URINE DIPSTICK 3+ (NEGATIVE); URINE UROBILINOGEN 1 mg/dL (0.2 - 1)
[2019-10-11 15:03] LABS: AMORPHOUS SEDIMENT,URINE MODERATE (FEW); BACTERIA,URINE MODERATE /HPF; EPITHELIAL CELLS,URINE FEW /LPF
[2019-10-11] MEDS ORDERED: MAGNESIUM SULFATE 2GM/50ML 50 ML IV ONE (15:15)
== END 2019-10-11 18:36 | disposition home or self-care (01) ==
LOC: ER 11:30
DX: F10.10 Alcohol abuse, uncomplicated (principal); R11.2 Nausea with vomiting, unspecified; E86.0 Dehydration; R20.2 Paresthesia of skin
CPT/HCPCS: 36415; 71045; 80053; 80307; 80320; 81001; 82550; 82553; 83735; 84484; 85025; 93005; 99284; J2405; J3411; J3475; J3480; J7030; J7040

== ENCOUNTER 2020-02-04 04:18 | Observation (INO) | payer SELFPAY ==
[2020-02-04] VITALS (7 sets, daily range): BP systolic 112–152; BP diastolic 77–98
[~2020-02-04] VITALS: Ht 154.9 cm; Wt 45.1 kg
--- OUTSIDE RECORDS SUMMARY | 2020-02-04 04:20 | XMS REPORT | Clinical Summary ---
Author Author [facility] Address Unknown Phone Unavailable Care Team Providers Care Warehouse Associate Driver Name Role Phone Asked, No Pcp PCP Unavailable Allergies No Known Allergies Medications No known medications Active Problems Problem Noted Date Alcohol withdrawal syndrome without complication Alcoholic ketoacidosis 12/26/2019 Elevated LFTs 12/26/2019 Gastritis 12/26/2019 Encounters Care Team Description Date Type Specialty Noemi Heath MD Syed, Doug Burk, Alcohol withdrawal syndrome without comp lication (HCC) (Primary Dx); Other acute gastritis without hemorrhage; Elevated LFTs; Alcoholic ketoacidosis 12/25/2019 [facility] Internal Fl dicine - Encounter 12/28/2019 12/25/2019 Travel after 02/03/2019 Social History Date Tobacco Use Types Packs/Day Years Used Current Every Day Smoker 1.5 Smokeless Tobacco: Never Used Comments: started when pt was 11 Drinks/Week oz/Week Comments Alcohol Use a pint of vodka Yes Sex Assigned at Date Recorded Not on file Industry Job Start Date Occupation Not on file Not on file Not on file Travel End Travel History Travel Start No recent travel history available. Last Filed Vital Signs Reading Time Taken Comments Vital Sign 117/64 12/28/2019 7:42 PM CDT Blood Pressure 101 12/28/2019 7:42 PM CDT Pulse 36.9 C (98.4 F) 12/28/2019 7:42 PM CDT Temperature 16 12/28/2019 7:42 PM CDT Respiratory Rate 99% 12/28/2019 7:42 PM CDT Oxygen Saturation - - Inhaled Oxygen Concentration 49.9 kg (110 lb) 12/26/2019 12:41 AM CDT Weight 157.5 cm (5' 2") 12/26/2019 12:41 AM CDT Height 20.12 12/26/2019 12:41 AM CDT Body Mass Index Plan of Treatment Not on file Procedures Comments Procedure Name Priority Date/Time Associated Diag nosis MAGNESIUM LEVEL Routine 12/28/2019 5:40 AM CDT ESTIMATED GFR Routine 12/28/2019 5:40 AM CDT BASIC METABOLIC PANEL Routine 12/28/2019 5:40 AM CDT ESTIMATED GFR Routine 12/27/2019 5:00 AM CDT COMPREHENSIVE METABOLIC Routine 12/27/2019 PANEL 5:00 AM CDT PHOSPHORUS LEVEL Routine 12/26/2019 5:15 AM CDT ESTIMATED GFR Routine 12/26/2019 5:15 AM CDT BASIC METABOLIC PANEL Routine 12/26/2019 5:15 AM CDT ALCOHOL LEVEL, BLOOD STAT 12/25/2019 11:54 PM CDT MANUAL DIFFERENTIAL STAT 12/25/2019 11:05 PM CDT ESTIMATED GFR STAT 12/25/2019 11:05 PM CDT MAGNESIUM LEVEL STAT 12/25/2019 11:05 PM CDT LIPASE LEVEL STAT 12/25/2019 11:05 PM CDT COMPREHENSIVE METABOLIC STAT 12/25/2019 PANEL 11:05 PM CDT CBC WITH PLATELET AND STAT 12/25/2019 DIFFERENTIAL 11:05 PM CDT after 02/03/2019 Results * Estimated GFR (12/28/2019 5:40 AM CDT) Only the most recent of 4 results within the time period is included. Estimated GFR >=90 mL/min/1.73 m2 [facility] Comment: PENTECOSTAL CLE[facility] Interpretation G1 >=90 Normal or high G2 60-89 Mildly decreased G3a 45-59 Mildly to moderately decreased G3b 30-44 Moderately to severely decreased G4 15-29 Severely decreased G5 <15 Kidney failure The eGFR was calculated using the Chronic Kidney Disease Epidemiology Collaboration (CKD-EPI) equation. Interpretation is based on recommendations of the National Kidney Foundation-Kidney Disease Outcomes Quality Initiative (NKF-KDOQI) published in 2014. Specimen Performing Organization Address City/State/[facility] [email or web address] Ph one Number [facility] [place] [address] [place], [place] [address] PATHOLOGY AND GENOMIC MEDICINE [facility] [address] * Magnesium level (12/28/2019 5:40 AM CDT) Only the most recent of 2 results within the time period is included. Magnesium 1.4 (L) 1.6 - 2.6 mg/dL [facility] Specimen Blood Performing Organization Address City/[facility] Ph one Number [facility] DEPARTMENT OF [address] [place], [place] [address] [place] [phone] PATHOLOGY AND GENOMIC MEDICINE [facility] [address] * Basic metabolic panel (12/28/2019 5:40 AM CDT) Only the most recent of 2 results within the time period is included. Sodium 135 135 - 148 mEq/L [facility] Potassium 2.9 (LL) 3.5 - 5.0 mEq/L [facility] Comment: [facility] Results called to and read [facility] back by BUNNY VALVERDE @ NM3 at 12/28/2019 06:38 by _NR_. Chloride 96 (L) 98 - 112 mEq/L [facility] CO2 26 24 - 31 mEq/L [facility] Anion gap 13@ANIO 7 - 15 mEq/L [facility] BUN 9 6 - 20 mg/dL [facility] Creatinine 0.40 (L) 0.50 - 0.90 mg/dL [facility] Glucose 110 (H) 65 - 99 mg/dL [facility] Calcium 9.9 8.3 - 10.2 mg/dL [facility] Specimen Blood Performing Organization Address City/[facility] Ph one Number [facility] [place] [address] [place], [place] [address] PATHOLOGY AND GENOMIC MEDICINE [facility] [address] * Comprehensive metabolic panel (12/27/2019 5:00 AM CDT) Only the most recent of 2 results within the time period is included. Sodium 133 (L) 135 - 148 mEq/L [facility] Potassium 2.8 (LL) 3.5 - 5.0 mEq/L [facility] Comment: [facility] Results called to and read [facility] back by OSMIN VELOZ @ CO3 at 12/27/2019 06:11 by __NR. Chloride 91 (L) 98 - 112 mEq/L [facility] CO2 24 24 - 31 mEq/L [facility] Anion gap 18@ANIO (H) 7 - 15 mEq/L [facility] BUN 13 6 - 20 mg/dL [facility] Creatinine 0.60 0.50 - 0.90 mg/dL [facility] Glucose 94 65 - 99 mg/dL [facility] Calcium 9.8 8.3 - 10.2 mg/dL [facility] Protein 7.4 6.3 - 8.3 g/dL [facility] [place] Comment: [facility] Alpine 4.6-7.0 g/dL 1 week 4.4-7.6 g/dL 7 months-1year 5.1-7.3 g/dL 1-2 years 5.6-7.5 g/dL >3 years 6.0-8.0 g/dL 18-150 6.3-8.3 g/dL Albumin 4.5 3.5 - 5.0 g/dL [facility] A/G ratio 1.6 0.7 - 3.8 [facility] Alkaline 90 35 - 104 U/L [facility] phosphatase [facility] AST 152 (H) 10 - 35 U/L [facility] ALT 150 (H) 5 - 50 U/L [facility] Total bilirubin 1.3 (H) 0.0 - 1.2 mg/dL [facility] Specimen Blood Performing Organization Address City/State/Zipcode [place] [address] [address] [place], [place] [address] PATHOLOGY AND GENOMIC MEDICINE [facility] [address] * Phosphorus level (12/26/2019 5:15 AM CDT) Pathologist [facility] Phosphorus 2.7 2.4 - 4.5 mg/dL [facility] Specimen Blood Performing Organization Address City/[facility] Ph one Number [facility] [place] [address] [place], [place] [address] PATHOLOGY AND GENOMIC MEDICINE [facility] [id number] [place] [address] [place] [phone] [facility] * Alcohol level, blood (12/25/2019 11:54 PM CDT) Pathologist [facility] Alcohol 106.0 mg/dL [facility] Comment: [facility] None Detected Legal Intoxication in [place] 80 mg/dL (0.08%) - Whole Blood Toxic Concentration 200 mg/dL (0.2%) Potentially Fatal 350 - 500 mg/dL (0.35 - 0.5%) Alcohol percent 0.106 % [facility] Specimen Blood Performing Organization Address [facility] one Number [facility] DEPARTMENT OF [address] [place] [address] [place] [phone] PATHOLOGY AND GENOMIC MEDICINE [address] * Manual differential (12/25/2019 11:05 PM CDT) [facility] Manual PERFORMED [place] differential [facility] Neutrophils 76.0 (H) 39.0 - 69.0 % [facility] Lymphocytes 23.0 (L) 25.0 - 45.0 % [facility] Monocytes 1.0 0.0 - 10.0 % [facility] Eosinophils 0.0 0.0 - 5.0 % [facility] Basophils 0.0 0.0 - 1.0 % [facility] Metamyelocytes 0 % [facility] Promyelocytes 0 % [facility] Platelet slide Palmer adequate [facility] [place] review [facility] Specimen Performing Organization Address City/[facility] Ph one Number [facility] [place] [address] [place] [address] PATHOLOGY AND GENOMIC MEDICINE [facility] [address] * CBC with platelet and differential (12/25/2019 11:05 PM CDT) WBC 6.15 4.50 - 11.00 k/uL [facility] RBC 4.07 (L) 4.20 - 5.50 m/uL [facility] HGB 14.0 12.0 - 16.0 g/dL [facility] HCT 41.5 37.0 - 47.0 % [facility] MCV 102.0 (H) 82.0 - 100.[address] [facility] MCH 34.4 (H) 27.0 - 34.[address] [facility] MCHC 33.7 31.0 - 37.0 g/dL [facility] RDW - SD 50.3 37.0 - 55.[address] [facility] MPV 9.9 8.8 - 13.[address] [facility] Platelet count 359 150 - 400 k/uL [facility] Nucleated RBC 0.00 /[address] [facility] Neutrophils 76.0 (H) 39.0 - 69.0 % [facility] Lymphocytes 23.0 (L) 25.0 - 45.0 % [facility] Monocytes 1.0 0.0 - 10.0 % [facility] Eosinophils 0.0 0.0 - 5.0 % [facility] Basophils 0.0 0.0 - 1.0 % [facility] Specimen Blood Performing Organization Address City/[facility] Ph one Number [facility] DEPARTMENT OF [address] [place] [address] [place], [place] [address] PATHOLOGY AND GENOMIC MEDICINE [address] * Lipase level (12/25/2019 11:05 PM CDT) Lipase 41 13 - 60 U/L 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
--- OUTSIDE RECORDS SUMMARY | 2020-02-04 04:21 | XMS REPORT ---
Author Author [facility] t Organization [facility] Address [address] [place] [address] Phone Unavailable Care Team Providers Care Bill Of Lading Clerk Name Role Phone NO, PCP PCP Unavailable Noemi Heath MD Attphys Murali Bhargavi PALOMO Attphys ARMANI ARREOLA Attphys Unavailable Marie KAPADIA Attphys Unavailable NOEMI HEATH Admphys Unavailable ARMANI ARREOLA Admphys Unavailable Payers Payer Name Policy Type Policy Number Effective Date Expiration Date S karan [employer] Ppo [id number] I [facility] Problems Condition Name Condition Details Condition Category Status Onset Date Resolution Date Last Treatment Date Treating Clinician Comments Source Alcohol withdrawal syndrome without complication Alcoh ol withdrawal syndrome without complication Disease Active 2019-12-26 00:00:00 Gabriel Sorensen Alcoholic ketoacidosis Alcoholic ketoacidosis Disease Active 2019-12-26 00:00:[address] Elevated LFTs Elevated LFTs Disease Active 2019-12-26 00:00:00 Gabriel Sorensen Gastritis Gastritis Disease Active 2019-12-26 00:00:00 Gabriel Sorensen Dehydration Dehydration Problem Active [facility] Hypokalemia Hypokalemia Problem Active [facility] Hypomagnesemia Hypomagnesemia Problem Active [facility] Allergies, Adverse Reactions, Alerts Allergy Name Allergy Type Status Severity Reaction(s) Onset Date Inacti ve Date Treating Clinician Comments Source No Known Allergies DA Active U 2019-02-03 00:00:00 [facility] No Known Allergies DA Active U 2017-05-19 00:00:00 [facility] Social History Social Habit Start Date Stop Date Quantity Comments Source Sex Assigned At Leo Sorensen Cigarettes smoked current (pack per day) - Reported 00:00:00 2019-12-26 00:00:00 Gabriel Sorensen Alcohol intake 2019-12-26 00:00:00 2019-12-26 00:00:00 Current drinker of alcohol (finding) Gabriel Sorensen Tobacco Comment 2019-12-26 00:00:00 2019-12-26 00:00:00 started whe n pt was 11 Gabriel Sorensen Alcohol Comment 2019-12-25 00:00:00 2019-12-25 00:00:00 a pint of vod ka Gabriel Sorensen Smoking Status Start Date Stop Date Source Current every day smoker 2019-12-26 00:00:00 Leo Sorensen Medications This patient has no known medications. Vital Signs Vital Name Observation Time Observation Value Comments Source Systolic blood pressure 2019-12-28 19:42:32 117 mm[Hg] Gabriel Sorensen Diastolic blood pressure 2019-12-28 19:42:32 64 mm[Hg] Gabriel Sorensen Heart rate 2019-12-28 19:42:32 101 /min Gabriel Sorensen Body temperature 2019-12-28 19:42:32 36.89 Marcelle Elis ton [facility] Respiratory rate 2019-12-28 19:42:32 16 /min Elis Sorensen Oxygen saturation in Arterial blood by Pulse oximetry 12-27 19:42:32 99 /min Gabriel Sorensen Body height 2019-12-26 00:41:00 157.5 cm Gabriel Sorensen Body weight 2019-12-26 00:41:00 49.896 kg Gabriel Sorensen BMI 2019-12-26 00:41:00 20.12 kg/m2 Gabriel Sorensen Procedures Procedure Date / Time Performed Performing Clinician Sour e BASIC METABOLIC PANEL 2019-12-28 05:40:00 Noemi Heath ESTIMATED GFR 2019-12-28 05:40:00 Noemi Heath Meth odparminder MAGNESIUM LEVEL 2019-12-28 05:40:00 Noemi Heath Catherine odparminder COMPREHENSIVE METABOLIC PANEL 2019-12-27 05:00:00 Noemi Heath [facility] ESTIMATED GFR 2019-12-27 05:00:00 Noemi Heath Meth odparminder BASIC METABOLIC PANEL 2019-12-26 05:15:00 Darrin Lopez ESTIMATED GFR 2019-12-26 05:15:00 Darrin Lopez [facility] PHOSPHORUS LEVEL 2019-12-26 05:15:00 Noemi Heath Met esqueda ALCOHOL LEVEL, BLOOD 2019-12-25 23:54:00 Darrin Lopez CBC WITH PLATELET AND DIFFERENTIAL 2019-12-25 23:05:00 Hanh Lopez COMPREHENSIVE METABOLIC PANEL 2019-12-25 23:05:00 Elsa Lopez LIPASE LEVEL 2019-12-25 23:05:00 Darrin Lopez [facility] MAGNESIUM LEVEL 2019-12-25 23:05:00 Darrin Lopez [facility] ESTIMATED GFR 2019-12-25 23:05:00 Darrin Lopez [facility] MANUAL DIFFERENTIAL 2019-12-25 23:05:00 Darrin Lopez [facility] Computed tomography of brain without radiopaque contrast 00:00:00 ALYCIA HOWARD [facility] US abdomen complete 2019-06-19 00:00:00 ARMANI ARREOLA [facility] Encounters Start Date/Time End Date/Time Encounter Type Admission Type [facility] Care Department Encounter ID Source 2019-12-25 00:00:00 2019-12-28 00:00:00 Inpatient NOEMI HEATH [facility] [id number] Gabriel Sorensen 2019-12-14 21:19:00 2019-12-15 20:17:00 Discharged Inpatient [address] [facility] [id number] [facility] 2019-10-11 11:30:00 2019-10-11 18:36:00 Departed Emergency Room [address] [facility] [id number] [facility] 2019-07-06 09:04:00 2019-07-06 11:47:00 Departed Emergency Room [address] [facility] [id number] [facility] 2019-06-18 12:05:00 2019-06-20 20:10:00 Discharged Inpatient [address] [facility] [id number] [facility] 2019-01-18 19:47:00 2019-01-19 17:50:00 Discharged Inpatient (obs) [address] [facility] [id number] [facility] 2018-12-28 08:47:00 2018-12-28 16:15:00 Departed Emergency Room [facility] [id number] [facility] Results Test Description Test Time Test Comments Results Result Comments Source Magnesium level 2019-12-28 10:18:06 Test Item Magnesium (test code = 23182-2) 1.4 mg/dL 1.6-2.6 L Lab Interpretation (test code = 57294-0) [facility]normal [facility] tjebs3586-77-01 06:38:54* Test Item Value Reference Range Interpretation Comments Sodium (test code = 2951-2) 135 135- 148 mEq/L Potassium (test code = 2823-3) 2.9 3.5- 5.0 mEq/L LL Results called to and read back by BUNNY VALVERDE @ [facility] at 12/28/2019 06:38 by _NR_. Chloride (test code = 2075-0) 96 98- 112 mEq/L L CO2 (test code = 8-9) 26 24- 31 mEq/L Anion gap (test code = 62366-5) 13@ANIO 7- 15 mEq/L BUN (test code = 3094-0) 9 mg/dL 6-20 Creatinine (test code = 2160-0) 0.40 mg/dL 0.5-0.9 L Glucose (test code = 2345-7) 110 mg/dL 65-99 H Calcium (test code = 24047-2) 9.9 mg/dL 8.3-10.2 Lab Interpretation (test code = 43408-1) Abnormal [facility] [id number] 06:38:54* Test Item Value Reference Range Interpretation Comments Estimated GFR (test code = 5488) >=90 mL/min/1.73 m2 Catergory Units InterpretationG1 >=90 Normal or highG2 60-89 Mildly ltngguvsvP4x 45-59 Mildly to moderately gphasvgiqD6i 30-44 Moderately to severely decreasedG4 15-29 Severely decreasedG5 <15 Kidney failureThe eGFR was calculated using the Chronic Kidney Disease Epidemiology Collaboration (CKD-EPI) equation. Interpretation is based on recommendations of the National Kidney Foundation-Kidney Disease Outcomes Quality Initiative (NKF-KDOQI) published in 2014. [facility] jsjyq9638-09-43 06:12:15* Test Item Value Reference Range Interpretation Comments Sodium (test code = 2951-2) 133 135- 148 mEq/L L Potassium (test code = 2823-3) 2.8 3.5- 5.0 mEq/L LL Results called to and read back by OSMIN VELOZ @ [facility] at 12/27/2019 06:11 by __NR. Chloride (test code = 2075-0) 91 98- 112 mEq/L L CO2 (test code = 2027-9) 24 24- 31 mEq/L Anion gap (test code = 80045-8) 18@ANIO 7- 15 mEq/L H BUN (test code = 3094-0) 13 mg/dL 6-20 Creatinine (test code = 2160-0) 0.60 mg/dL 0.5-0.9 Glucose (test code = 2345-7) 94 mg/dL 65-99 Calcium (test code = 83535-9) 9.8 mg/dL 8.3-10.2 Protein (test code = 2885-2) 7.4 g/dL 6.3-8.3 - 4.6- 7.0 g/dL1 week 4.4-7.6 g/dL7 months-1year 5.1-7.3 g/dL1-2 years 5.6-7.5 g/dL>3 years 6.0-8.0 g/uV35-111 6.3-8.3 g/dL Albumin (test code = 1751-7) 4.5 g/dL 3.5-5 A/G ratio (test code = 1759-0) 1.6 0.7-3.8 Alkaline phosphatase (test code = 6768-6) 90 U/L 35-104 AST (test code = 1920-8) 152 U/L 10-35 H ALT (test code = 1742-6) 150 U/L 5-50 H Total bilirubin (test code = 1975-2) 1.3 mg/dL 0-1.2 H Lab Interpretation (test code = 42350-1) Abnormal [facility]osphorus zjrbi5013-21-08 10:20:20* Test Item Value Reference Range Interpretation Comments Phosphorus (test code = 2777-1) 2.7 mg/dL 2.4-4.5 [facility] MethodistAlcohol level, derts8094-00-84 00:02:11* Test Item Value Reference Range Interpretation Comments Alcohol percent (test code = 5643-2) 0.106 % Normal None DetectedLegal Intoxication in [place] 80 mg/dL (0.08%) - Whole BloodToxic Concentration 200 mg/dL (0.2%)Potentially Fatal 350 - 500 mg/dL (0.35 - 0.5%) [facility] with platelet and lyrcodbbosrh9052-69-86 23:51:51* Test Item Value Reference Range Interpretation Comments WBC (test code = 65463-1) 6.15 4.50- 11.00 k/uL RBC (test code = 27472-1) 4.07 m/uL 4.2-5.5 L HGB (test code = 718-7) 14.0 g/dL 12-16 HCT (test code = 4544-3) 41.5 % 37-47 MCV (test code = 787-2) 102.0 fL 82-100 H MCH (test code = 785-6) 34.4 pg 27-34 H MCHC (test code = 786-4) 33.7 g/dL 31-37 RDW - SD (test code = 06025-6) 50.3 fL 37-55 MPV (test code = 58473-1) 9.9 fL 8.8-13.2 Platelet count (test code = 50620-6) 359 150- 400 k/uL Nucleated RBC (test code = 57599-5) 0.00 /100 WBC Neutrophils (test code = 72281-3) 76.0 % 39-69 H Lymphocytes (test code = 54579-5) 23.0 % 25-45 L Monocytes (test code = 19772-3) 1.0 % 0-10 Eosinophils (test code = 34888-0) 0.0 % 0-5 Basophils (test code = 32543-9) 0.0 % 0-1 Lab Interpretation (test code = 23003-7) Abnormal [facility]Manual jnzhhrtdlohl0177-63-18 23:51:51* Test Item Value Reference Range Interpretation Comments Manual differential (test code = 06465-4) PERFORMED Neutrophils (test code = 00849-4) 76.0 % 39-69 H Lymphocytes (test code = 97795-4) 23.0 % 25-45 L Monocytes (test code = 79480-0) 1.0 % 0-10 Eosinophils (test code = 89664-8) 0.0 % 0-5 Basophils (test code = 25497-9) 0.0 % 0-1 Metamyelocytes (test code = 740-1) 0 % Promyelocytes (test code = 783-1) 0 % Platelet slide review (test code = 59914-0) Palmer adequate Lab Interpretation (test code = 93289-3) Abnormal [facility] MethodistLipase cvedx6083-73-78 23:35:59* Test Item Value Reference Range Interpretation Comments Lipase (test code = 3040-3) 41 U/L 13-60 [facility] MethodistBedside Lwnitpc4278-01-27 20:41:00* Test Item Value Reference Range Interpretation Comments Bedside Glucose (test code = 47955-3) 176 70-120 H Meter ID: [id number] Healthcare CenterPotassium Level 2019-12-15 15:04:00* Test Item Value Reference Range Interpretation Comments Potassium Level (test code = 2823-3) 3.1 3.5-5.1 L [facility] CenterMagnesium Ssure5365-73-22 06:25:00* Test Item Value Reference Range Interpretation Comments Magnesium Level (test code = 23186-8) 1.2 1.3-2.1 L [facility] Udwae2769-58-15 05:54:00* Test Item Value Reference Range Interpretation Comments Sodium Level (test code = 2951-2) 137 136-145 [facility] CenterChloride Moeig4890-96-16 05:54:00* Test Item Value Reference Range Interpretation Comments Chloride Level (test code = 2075-0) 101 98-107 [facility] CenterCarbon Dioxide Yucee5181-76-17 05:54:00* Test Item Value Reference Range Interpretation Comments Carbon Dioxide Level (test code = 2028-9) 28 22-29 [facility] CenterAnion Mbd7689-01-50 05:54:00* Test Item Value Reference Range Interpretation Comments Anion Gap (test code = 76554-5) 10.4 8-16 [facility] CenterBlood Urea Rsngjfty7637-93-40 05:54:00* Test Item Value Reference Range Interpretation Comments Blood Urea Nitrogen (test code = 3094-0) 10 7-26 [facility] CenterCreatinine2020-04-09 05:54:00* Test Item Value Reference Range Interpretation Comments Creatinine (test code = 2160-0) 0.63 0.57-1.11 [facility] CenterBUN/Creatinine Umbrp7774-87-94 05:54:00* Test Item Value Reference Range Interpretation Comments BUN/Creatinine Ratio (test code = 3097-3) 16 6-25 [facility] CenterEstimat Glomerular Filtration Rate 2019-12-15 05:54:00* Test Item Value Reference Range Interpretation Comments Estimat Glomerular Filtration Rate (test code = 804010129) > 60 >60 Ranges were taken from the National Kidney Disease Education Program and the [facility] Kidney Foundation literature.Reference ranges:60 or greater: Vgpecy16-05 ( for 3 consecutive months): Chronic kidney disease 15 or less: Kidney failureLamb Healthcare CenterGlucose Sdiyu6958-99-02 05:54:00* Test Item Value Reference Range Interpretation Comments Glucose Level (test code = SKJ1689) 85 74-118 [facility] CenterCalcium Jgydh1269-47-01 05:54:00* Test Item Value Reference Range Interpretation Comments Calcium Level (test code = 00674-7) 7.6 8.4-10.2 L [facility] CenterTotal Uwlttisio3689-17-20 05:54:00* Test Item Value Reference Range Interpretation Comments Total Bilirubin (test code = 1975-2) 1.0 0.2-1.2 [facility] CenterAspartate Amino Transf (AST/SGOT) 2019-12-15 05:54:00* Test Item Value Reference Range Interpretation Comments Aspartate Amino Transf (AST/SGOT) (test code = Aspartate Amino Transf (AST/SGOT)) 242 5-34 H [facility] CenterAlanine Aminotransferase (ALT/SGPT) 2019-12-15 05:54:00* Test Item Value Reference Range Interpretation Comments Alanine Aminotransferase (ALT/SGPT) (test code = 1742-6) 186 0-55 H [facility] CenterTotal Wskprgd8982-01-52 05:54:00* Test Item Value Reference Range Interpretation Comments Total Protein (test code = 2885-2) 6.0 6.5-8.1 L [facility] CenterAlbumin2020-04-09 05:54:00* Test Item Value Reference Range Interpretation Comments Albumin (test code = 1751-7) 3.2 3.5-5.0 L [facility] CenterGlobulin2020-04-09 05:54:00* Test Item Value Reference Range Interpretation Comments Globulin (test code = 69182-4) 2.8 2.3-3.5 [facility] CenterAlbumin/Globulin Zrtvc7066-63-35 05:54:00 * Test Item Value Reference Range Interpretation Comments Albumin/Globulin Ratio (test code = 1759-0) 1.1 0.8-2.0 [facility] CenterAlkaline Ippcnepiakm2461-66-28 05:54:00* Test Item Value Reference Range Interpretation Comments Alkaline Phosphatase (test code = 6768-6) 79 40-150 [facility] CenterWhite Blood Msger5010-76-02 05:39:00* Test Item Value Reference Range Interpretation Comments White Blood Count (test code = 6690-2) 7.05 4.8-10.8 [facility] CenterRed Blood Wvufe0527-93-51 05:39:00* Test Item Value Reference Range Interpretation Comments Red Blood Count (test code = 789-8) 3.37 3.6-5.1 L [facility] CenterHemoglobin2020-04-09 05:39:00* Test Item Value Reference Range Interpretation Comments Hemoglobin (test code = 46064-9) 11.9 12.0-16.0 L [facility] CenterHematocrit2020-04-09 05:39:00* Test Item Value Reference Range Interpretation Comments Hematocrit (test code = 4544-3) 33.6 34.2-44.1 L [facility] CenterMean Corpuscular Pritgk4016-90-13 05:39:00* Test Item Value Reference Range Interpretation Comments Mean Corpuscular Volume (test code = 787-2) 99.7 81-99 H [facility] CenterMean Corpuscular Tgkcamkjdq7074-54-38 05:39:00* Test Item Value Reference Range Interpretation Comments Mean Corpuscular Hemoglobin (test code = 785-6) 35.3 28-32 H [facility] CenterMean Corpuscular Hemoglobin Concent 2019-12-15 05:39:00* Test Item Value Reference Range Interpretation Comments Mean Corpuscular Hemoglobin Concent (test code = 786-4) 35.4 31-35 H [facility] CenterRed Cell Distribution Erkel5918-58-22 05:39:00* Test Item Value Reference Range Interpretation Comments Red Cell Distribution Width (test code = 07325-9) 12.2 11.7 -14.4 [facility] CenterPlatelet Mnghs8353-79-76 05:39:00* Test Item Value Reference Range Interpretation Comments Platelet Count (test code = 777-3) 140 140-360 [facility] CenterNeutrophils (%) (Auto)2019-12-15 05:39:00 * Test Item Value Reference Range Interpretation Comments Neutrophils (%) (Auto) (test code = 97464-0) 70.7 38.7-80.0 [facility] CenterLymphocytes (%) (Auto)2019-12-15 05:39:00 * Test Item Value Reference Range Interpretation Comments Lymphocytes (%) (Auto) (test code = 736-9) 24.7 18.0-39.1 [facility] CenterMonocytes (%) (Auto)2019-12-15 05:39:00* Test Item Value Reference Range Interpretation Comments Monocytes (%) (Auto) (test code = 5905-5) 3.8 4.4-11.3 L [facility] CenterEosinophils (%) (Auto)2019-12-15 05:39:00 * Test Item Value Reference Range Interpretation Comments Eosinophils (%) (Auto) (test code = 713-8) 0.1 0.0-6.0 [facility] CenterBasophils (%) (Auto)2019-12-15 05:39:00* Test Item Value Reference Range Interpretation Comments Basophils (%) (Auto) (test code = 706-2) 0.1 0.0-1.0 [facility] CenterIM GRANULOCYTES %2019-12-15 05:39:00* Test Item Value Reference Range Interpretation Comments IM GRANULOCYTES % (test code = IM GRANULOCYTES %) 0.6 0.0- 1.0 [facility] CenterNeutrophils # (Auto)2019-12-15 05:39:00* Test Item Value Reference Range Interpretation Comments Neutrophils # (Auto) (test code = 751-8) 5.0 2.1-6.9 [facility] CenterLymphocytes # (Auto)2019-12-15 05:39:00* Test Item Value Reference Range Interpretation Comments Lymphocytes # (Auto) (test code = 73305-3) 1.7 1.0-3.2 [facility] CenterMonocytes # (Auto)2019-12-15 05:39:00* Test Item Value Reference Range Interpretation Comments Monocytes # (Auto) (test code = 742-7) 0.3 0.2-0.8 [facility] CenterEosinophils # (Auto)2019-12-15 05:39:00* Test Item Value Reference Range Interpretation Comments Eosinophils # (Auto) (test code = 711-2) 0.0 0.0-0.4 [facility] CenterBasophils # (Auto)2019-12-15 05:39:00* Test Item Value Reference Range Interpretation Comments Basophils # (Auto) (test code = 704-7) 0.0 0.0-0.1 [facility] CenterAbsolute Immature Granulocyte (auto 2019-12-15 05:39:00* Test Item Value Reference Range Interpretation Comments Absolute Immature Granulocyte (auto (zneaida t code = Absolute Immature Granulocyte (auto) 0.04 0-0.1 [facility] CenterCT BRAIN YR3977-80-27 01:43:00 [place] [address] Patient Name: AMILCAR CELIS MR #: [id number] : 1970 Age/Sex: 49/F Req #: [id number] Adm Physician: ARMANI ARREOLA MD Ordered by: ALYCIA HOWARD DO Report #: [id number] Location: [facility] Procedure: [id number] CT/CT ARABELLA BAKER WO Exam Date: 12/14/19 Exam Time: 2245 REPORT STATUS: Signed History:Seizure, al cohol withdrawal Comparison studies: None Technique: Axial images were obtained from the skull base to the vertex. Coronal and sagittal images r econstructed from the axial data. Dose modulation, iterative reconstruction, a nd/or weight based adjustment of the mA/kV was utilized to reduce the radiati on dose to as low as reasonably achievable. Intravenous contrast: None Findings: Scalp/skull: No abnormalities. Extra-axial spaces: No masses. No fluid collections. Brain sulci: Mildly prominent. Ventric les: Mild compensatory dilatation. No hydrocephalus. Parenchyma: No abno rmal densities. No masses, hemorrhage, acute or chronic cortical vascular ins ults. Sellar/suprasellar region: No abnormalities. Craniocervical junctio n: Patent foramen magnum. No Chiari one malformation. Incidental findings: Atherosclerotic calcifications in the carotid siphons . Impression: 1. No acute abnormalities. 2. Mild age-related generalized volume loss. Signed by: Dr. Juan Carlos Levy M.D. on 12/15/2019 1:45 AM Dictated By : JUAN CARLOS LEVY MD, MD 4 Transcribed By: GARY on 12/15/19144 COPY TO: ALYCIA ZHU DO Urine [id number] 22:31:00* Test Item Value Reference Range Interpretation Comments Urine WBC (test code = 5821-4) 0-5 0-5 [facility] CenterUrine [id number] 22:31:00* Test Item Value Reference Range Interpretation Comments Urine RBC (test code = 26791-3) 0-5 0-5 [facility] CenterUrine Kepmjsje3038-34-22 22:31:00* Test Item Value Reference Range Interpretation Comments Urine Bacteria (test code = 93663-3) RARE NONE [facility] CenterUrine Epithelial Dfohj3628-08-95 22:31:00 * Test Item Value Reference Range Interpretation Comments Urine Epithelial Cells (test code = 99282-3) FEW NONE [facility] CenterUrine Transitional Epithelial Cells 2019-12-14 22:31:00* Test Item Value Reference Range Interpretation Comments Urine Transitional Epithelial Cells (test code = 8249-5) FEW NONE H [facility] CenterUrine Wyyor6141-42-86 22:31:00* Test Item Value Reference Range Interpretation Comments Urine Mucus (test code = 8247-9) FEW RARE H [facility] CenterUrine Xruqf3638-69-80 21:59:00* Test Item Value Reference Range Interpretation Comments Urine Color (test code = 5778-6) YELLOW YELLOW [facility] CenterUrine Onuwlew6513-96-64 21:59:00* Test Item Value Reference Range Interpretation Comments Urine Clarity (test code = 75353-0) CLOUDY CLEAR H [facility] CenterUrine Specific Wqqylsf0453-67-01 21:59:00 * Test Item Value Reference Range Interpretation Comments Urine Specific Millsap (test code = 5811-5) 1.020 1.010-1.02 5 [facility] CenterUrine [id number] 21:59:00* Test Item Value Reference Range Interpretation Comments Urine pH (test code = 22183-7) 7.5 5-7 [facility] CenterU[facility] Leukocyte Xtrwuypy0414-98-17 21:59:00* Test Item Value Reference Range Interpretation Comments Urine Leukocyte Esterase (test code = 5799-2) NEGATIVE NEGATIVE [facility] CenterUrine Msxqizi4655-24-50 21:59:00* Test Item Value Reference Range Interpretation Comments Urine Nitrite (test code = 33207-7) NEGATIVE NEGATIVE [facility] CenterUrine Cvnifyf3403-69-99 21:59:00* Test Item Value Reference Range Interpretation Comments Urine Protein (test code = 5804-0) 2+ NEGATIVE H [facility] CenterUrine Glucose (UA)2019-12-14 21:59:00* Test Item Value Reference Range Interpretation Comments Urine Glucose (UA) (test code = 2349-9) NEGATIVE NEGATIVE [facility] CenterUrine Wfentoi4836-95-53 21:59:00* Test Item Value Reference Range Interpretation Comments Urine Ketones (test code = 61811-8) TRACE NEGATIVE H [facility] CenterUrine Oxlsopxjmaeg5947-55-00 21:59:00* Test Item Value Reference Range Interpretation Comments Urine Urobilinogen (test code = 99919-0) 4 0.2-1 [facility] CenterUrine Eikfuhomi7556-60-93 21:59:00* Test Item Value Reference Range Interpretation Comments Urine Bilirubin (test code = 1978-6) MODERATE NEGATIVE [facility] CenterUrine Lgxnk6178-99-43 21:59:00* Test Item Value Reference Range Interpretation Comments Urine Blood (test code = 96370-8) TRACE NEGATIVE H [facility] CenterEthyl Alcohol Nauma3448-93-82 21:26:00* Test Item Value Reference Range Interpretation Comments Ethyl Alcohol Level (test code = 5643-2) < 10.0 0.0-10.0 [facility] CenterCHEST SINGLE (PORTABLE)2019-12-14 21:22:00 [facility] [address] [address] Patient Name: AMILCAR CELIS MR #: [id number] : 1970 Age/Sex: 49/F Req #: [id number] Adm Physician: Ordered by: ALYCIA HOWARD DO Report #: [id number] Location: ER Room/Bed: Procedure: [id number] DX/CHEST SINGLE (PORTABLE) Exam Date: 12/14/19 Exam Time: 27 08 REPORT STATUS: Signed EXAMINA TION: CHEST SINGLE (PORTABLE) INDICATION: Patient not communicating. COMPARISON: Chest radiograph 10/11/2019. FINDINGS: TUBES and LI ALEIDA: None. LUNGS: Low lung volumes. There is no evidence of pneumonia or pulmonary edema. PLEURA: No pleural effusion or pneumothorax. HEART AND MEDIASTINUM: The cardiomediastinal silhouette is unremarkable. BON ES AND SOFT TISSUES: No acute osseous lesion. Soft tissues are unremarkable. UPPER ABDOMEN: No free air under the diaphragm. IMPRESSION: No acute thoracic abnormality. Signed by: Dr. Zac Jasso MD on 12/14/2019 9:24 PM Dictated By: ZAC JASSO MD 23 COPY TO: ALYCIA HOWARD DO Creatine Kinase [id number] 21:14:00* Test Item Value Reference Range Interpretation Comments Creatine Kinase MB (test code = 40788-1) 0.70 0-5.0 [facility] CenterTroponin [id number] 21:14:00* Test Item Value Reference Range Interpretation Comments Troponin I (test code = 69722-1) < 0.001 0-0.300 [facility] CenterB-Type Natriuretic Jnbpven7914-73-12 21:12:00* Test Item Value Reference Range Interpretation Comments B-Type Natriuretic Peptide (test code = 40930-1) 19.6 0-100 [facility] CenterCreatine Xhogad9923-41-31 21:09:00* Test Item Value Reference Range Interpretation Comments Creatine Kinase (test code = 2157-6) 88 29-168 [facility] CenterUrine FPY8084-00-54 15:03:00* Test Item Value Reference Range Interpretation Comments Urine WBC (test code = 5821-4) NONE 0-5 [facility] CenterU[facility] IUI9640-54-57 15:03:00* Test Item Value Reference Range Interpretation Comments Urine RBC (test code = 27798-7) NONE 0-5 [facility] CenterU[facility] Gltkpckr5353-59-11 15:03:00* Test Item Value Reference Range Interpretation Comments Urine Bacteria (test code = 32718-7) MODERATE NONE H [facility] CenterU[facility] Epithelial Jsrqz8724-28-08 15:03:00 * Test Item Value Reference Range Interpretation Comments Urine Epithelial Cells (test code = 27038-8) FEW NONE [facility] CenterUrine Amorphous Nkimqtik5621-99-73 15:03:00* Test Item Value Reference Range Interpretation Comments Urine Amorphous Sediment (test code = 8246-1) MODERATE FEW H [facility] CenterUrine Amorphous Dwufevyh5291-55-59 15:03:00* Test Item Value Reference Range Interpretation Comments Urine Amorphous Sediment (test code = 8246-1) MODERATE FEW H [facility] CenterUrine Psfnt7847-24-43 14:56:00* Test Item Value Reference Range Interpretation Comments Urine Color (test code = 5778-6) ELLY YELLOW H [facility] CenterUrine Emcqnrf2672-74-81 14:56:00* Test Item Value Reference Range Interpretation Comments Urine Clarity (test code = 64634-5) SL CLOUDY CLEAR [facility] CenterUrine Specific Gyuqkxt1404-55-04 14:56:00 * Test Item Value Reference Range Interpretation Comments Urine Specific Millsap (test code = 5811-5) 1.020 1.010-1.02 5 [facility] CenterUrine eD0362-20-61 14:56:00* Test Item Value Reference Range Interpretation Comments Urine pH (test code = 73814-9) 8.5 5-7 [facility] Center[facility] Leukocyte Ikfjhzhw3510-63-17 14:56:00* Test Item Value Reference Range Interpretation Comments Urine Leukocyte Esterase (test code = 5799-2) NEGATIVE NEGATIVE [facility] CenterU[facility] Xuwerdp1007-14-29 14:56:00* Test Item Value Reference Range Interpretation Comments Urine Nitrite (test code = 34968-0) NEGATIVE NEGATIVE [facility] CenterU[facility] Sdrkaqc8616-17-27 14:56:00* Test Item Value Reference Range Interpretation Comments Urine Protein (test code = 5804-0) 3+ NEGATIVE H [facility] CenterU[facility] Glucose (UA)2019-10-11 14:56:00* Test Item Value Reference Range Interpretation Comments Urine Glucose (UA) (test code = 2349-9) NEGATIVE NEGATIVE [facility] CenterU[facility] Suvvznh5645-12-31 14:56:00* Test Item Value Reference Range Interpretation Comments Urine Ketones (test code = 15986-2) 2+ NEGATIVE H [facility] CenterU[facility] Opiates Jxeuly8517-03-44 14:56:00* Test Item Value Reference Range Interpretation Comments Urine Opiates Screen (test code = 06431-6) NEGATIVE NEGATIVE ALL TESTS PERFORMED MANUALLY ON NeurogesX TOX/SEE TESTLamb Healthcare CenterUrine Barbiturates Ikdvuv6952-79-83 14:56:00* Test Item Value Reference Range Interpretation Comments Urine Barbiturates Screen (test code = 134264642) NEGATIVE NEGA TIVE [facility] CenterUrine Phencyclidine Bbtudn3596-40-18 14:56:00* Test Item Value Reference Range Interpretation Comments Urine Phencyclidine Screen (test code = 22152-8) NEGATIVE NEGAT MERCEDEZ [facility] CenterUrine Amphetamines Kdjxdu9185-16-61 14:56:00* Test Item Value Reference Range Interpretation Comments Urine Amphetamines Screen (test code = 52346-4) NEGATIVE NEGATI VE [facility] CenterU[facility] Methamphetamines Gedfmg1385-29-15 14:56:00* Test Item Value Reference Range Interpretation Comments Urine Methamphetamines Screen (test code = Urine Metha mphetamines Screen) NEGATIVE NEGATIVE [facility] CenterU[facility] Benzodiazepines Wshpyj1354-96-44 14:56:00* Test Item Value Reference Range Interpretation Comments Urine Benzodiazepines Screen (test code = 12974-3) NEGATIVE NEG ATIVE [facility] CenterU[facility] Cocaine Mwtgks7073-56-78 14:56:00* Test Item Value Reference Range Interpretation Comments Urine Cocaine Screen (test code = 3398-5) NEGATIVE NEGATIVE [facility] CenterU[facility] Cannabinoids Buetmr3959-47-39 14:56:00* Test Item Value Reference Range Interpretation Comments Urine Cannabinoids Screen (test code = 10684-4) NEGATIVE NEGATI VE THESE RESULTS ARE FOR MEDICAL TREATMENT ONLYTHIS REPORT CONTAINS UNCONFIR MED SCREENING RESULTS*POSITIVE RESULTS WILL BE CONFIRMED BY REFERENCE LAB UPON R EQUEST CUT-OFFDRUG CLASS CONCENTRATION ng/mLAmphetamines 1000Methamphetamines 1000Cocaine 300Opiate 300Phencyc lidine 25Cannabinoid 50Barbiturates 300Benzodiazepine 300Methadone 300[facility] CenterUrine Methadone Pbxoyo7746-54-12 14:56:00* Test Item Value Reference Range Interpretation Comments Urine Methadone Screen (test code = 71830-3) NEGATIVE NEGATIVE THESE RESULTS ARE FOR MEDICAL TREATMENT ONLYTHIS REPORT CONTAINS UNCONFIR MED SCREENING RESULTS*POSITIVE RESULTS WILL BE CONFIRMED BY REFERENCE LAB UPON R EQUEST CUT-OFFDRUG CLASS CONCENTRATION ng/mLAmphetamines 1000Methamphetamines 1000Cocaine Metabolite 300Opiate 300Phencyc lidine 25Cannabinoid 50Barbiturates 300Benzodiazepine 300Methadone 300[facility] CenterUrine Fgpdityutewc6973-75-47 14:56:00* Test Item Value Reference Range Interpretation Comments Urine Urobilinogen (test code = 90853-0) 1 0.2-1 [facility] CenterU[facility] Akbadrymc7748-18-30 14:56:00* Test Item Value Reference Range Interpretation Comments Urine Bilirubin (test code = 1978-6) 3+ NEGATIVE H [facility] CenterUrine Avmom0985-20-92 14:56:00* Test Item Value Reference Range Interpretation Comments Urine Blood (test code = 70760-1) NEGATIVE NEGATIVE [facility] Opiates Zgijnz4310-17-82 14:56:00* Test Item Value Reference Range Interpretation Comments Urine Opiates Screen (test code = 47949-1) NEGATIVE NEGATIVE ALL TESTS PERFORMED MANUALLY ON NeurogesX TOX/SEE TESTLamb Healthcare CenterUrine Barbiturates Ywgspc1773-52-18 14:56:00* Test Item Value Reference Range Interpretation Comments Urine Barbiturates Screen (test code = 886867573) NEGATIVE NEGA TIVE [facility] CenterU[facility] Phencyclidine Kbjcxl2297-12-72 14:56:00* Test Item Value Reference Range Interpretation Comments Urine Phencyclidine Screen (test code = 13954-0) NEGATIVE NEGAT MERCEDEZ [facility] CenterUrine Amphetamines Tzzprr5009-00-72 14:56:00* Test Item Value Reference Range Interpretation Comments Urine Amphetamines Screen (test code = 06941-8) NEGATIVE NEGATI VE [facility] CenterUrine Methamphetamines Qsaoiy0795-74-07 14:56:00* Test Item Value Reference Range Interpretation Comments Urine Methamphetamines Screen (test code = Urine Metha mphetamines Screen) NEGATIVE NEGATIVE [facility] CenterUrine Benzodiazepines Gfuxan5921-48-44 14:56:00* Test Item Value Reference Range Interpretation Comments Urine Benzodiazepines Screen (test code = 41611-3) NEGATIVE NEG ATIVE [facility] CenterUrine Cocaine Acfxxu5437-60-31 14:56:00* Test Item Value Reference Range Interpretation Comments Urine Cocaine Screen (test code = 3398-5) NEGATIVE NEGATIVE [facility] CenterUrine Cannabinoids Jrmoie2850-60-42 14:56:00* Test Item Value Reference Range Interpretation Comments Urine Cannabinoids Screen (test code = 06909-9) NEGATIVE NEGATI VE THESE RESULTS ARE FOR MEDICAL TREATMENT ONLYTHIS REPORT CONTAINS UNCONFIR MED SCREENING RESULTS*POSITIVE RESULTS WILL BE CONFIRMED BY REFERENCE LAB UPON R EQUEST CUT-OFFDRUG CLASS CONCENTRATION ng/mLAmphetamines 1000Methamphetamines 1000Cocaine 300Opiate 300Phencyc lidine 25Cannabinoid 50Barbiturates 300Benzodiazepine 300Methadone 300[facility] CenterUrine Methadone Xxfyns5096-97-27 14:56:00* Test Item Value Reference Range Interpretation Comments Urine Methadone Screen (test code = 78417-9) NEGATIVE NEGATIVE THESE RESULTS ARE FOR MEDICAL TREATMENT ONLYTHIS REPORT CONTAINS UNCONFIR MED SCREENING RESULTS*POSITIVE RESULTS WILL BE CONFIRMED BY REFERENCE LAB UPON R EQUEST CUT-OFFDRUG CLASS CONCENTRATION ng/mLAmphetamines 1000Methamphetamines 1000Cocaine Metabolite 300Opiate 300Phencyc lidine 25Cannabinoid 50Barbiturates 300Benzodiazepine 300Methadone 300[facility] CenterEthyl Alcohol Doktr7968-94-18 13:40:00* Test Item Value Reference Range Interpretation Comments Ethyl Alcohol Level (test code = 5643-2) < 10.0 0.0-10.0 [facility] Radbj2177-49-73 13:23:00* Test Item Value Reference Range Interpretation Comments Sodium Level (test code = 2951-2) 136 136-145 [facility] CenterPotassium Lagur2900-10-17 13:23:00* Test Item Value Reference Range Interpretation Comments Potassium Level (test code = 2823-3) 2.7 3.5-5.1 LL Results repeated and called to Sirena Mckinley at 1321 on 10/11/19 by Nolvia edwards. Read back and verified.[facility] CenterChloride Level 2019-10-11 13:23:00* Test Item Value Reference Range Interpretation Comments Chloride Level (test code = 2075-0) 85 98-107 L [facility] CenterCarbon Dioxide Vxprp2257-27-75 13:23:00* Test Item Value Reference Range Interpretation Comments Carbon Dioxide Level (test code = 2028-9) 29 22-29 [facility] CenterAnion Ibb0438-49-98 13:23:00* Test Item Value Reference Range Interpretation Comments Anion Gap (test code = 53569-3) 24.7 8-16 H [facility] CenterBlood Urea Jkudllgy7890-25-01 13:23:00* Test Item Value Reference Range Interpretation Comments Blood Urea Nitrogen (test code = 3094-0) 27 7-26 H [facility] CenterCreatinine2020-02-04 13:23:00* Test Item Value Reference Range Interpretation Comments Creatinine (test code = 2160-0) 1.09 0.57-1.11 [facility] CenterBUN/Creatinine Wwadk7012-37-79 13:23:00* Test Item Value Reference Range Interpretation Comments BUN/Creatinine Ratio (test code = 3097-3) 25 6-25 [facility] CenterEstimat Glomerular Filtration Rate 2019-10-11 13:23:00* Test Item Value Reference Range Interpretation Comments Estimat Glomerular Filtration Rate (test code = 034672395) 53 >60 L Ranges were taken from the National Kidney Disease Education Program and the [facility] literature.Reference ranges:60 or greater: Awtpwn05-19 ( for 3 consecutive months): Chronic kidney disease 15 or less: Kidney failureLamb Healthcare CenterGlucose Dviar4007-12-11 13:23:00* Test Item Value Reference Range Interpretation Comments Glucose Level (test code = DHU0110) 92 74-118 [facility] CenterCalcium Jnibu2945-30-59 13:23:00* Test Item Value Reference Range Interpretation Comments Calcium Level (test code = 19950-5) 8.7 8.4-10.2 [facility] CenterMagnesium Wlnrr7410-92-31 13:23:00* Test Item Value Reference Range Interpretation Comments Magnesium Level (test code = 87388-9) 1.2 1.3-2.1 L [facility] CenterTotal Ktjkmgtnv1237-10-28 13:23:00* Test Item Value Reference Range Interpretation Comments Total Bilirubin (test code = 1975-2) 2.0 0.2-1.2 H [facility] CenterAspartate Amino Transf (AST/SGOT) 2019-10-11 13:23:00* Test Item Value Reference Range Interpretation Comments Aspartate Amino Transf (AST/SGOT) (test code = Aspartate Amino Transf (AST/SGOT)) 99 5-34 H [facility] CenterAlanine Aminotransferase (ALT/SGPT) 2019-10-11 13:23:00* Test Item Value Reference Range Interpretation Comments Alanine Aminotransferase (ALT/SGPT) (test code = 1742-6) 71 0-55 [facility] Emeqmlv0107-95-43 13:23:00* Test Item Value Reference Range Interpretation Comments Total Protein (test code = 2885-2) 6.8 6.5-8.1 [facility] CenterAlbumin2020-02-04 13:23:00* Test Item Value Reference Range Interpretation Comments Albumin (test code = 1751-7) 4.0 3.5-5.0 [facility] CenterGlobulin2020-02-04 13:23:00* Test Item Value Reference Range Interpretation Comments Globulin (test code = 21305-6) 2.8 2.3-3.5 [facility] CenterAlbumin/Globulin Eyvsr8806-55-75 13:23:00 * Test Item Value Reference Range Interpretation Comments Albumin/Globulin Ratio (test code = 1759-0) 1.4 0.8-2.0 [facility] CenterAlkaline Cpvpoisixbl4174-78-05 13:23:00* Test Item Value Reference Range Interpretation Comments Alkaline Phosphatase (test code = 6768-6) 72 40-150 [facility] CenterCreatine Hldleu1343-58-00 13:23:00* Test Item Value Reference Range Interpretation Comments Creatine Kinase (test code = 2157-6) 224 29-168 H [facility] CenterCreatine Kinase CB6553-16-47 13:23:00* Test Item Value Reference Range Interpretation Comments Creatine Kinase MB (test code = 25359-2) 0.60 0-5.0 [facility] CenterTroponin W7473-92-90 13:23:00* Test Item Value Reference Range Interpretation Comments Troponin I (test code = OHL5985) < 0.001 0-0.300 [facility] CenterWhite Blood Hjyzy5572-98-00 12:50:00* Test Item Value Reference Range Interpretation Comments White Blood Count (test code = 6690-2) 7.54 4.8-10.8 [facility] CenterRed Blood Zsmyo1907-55-52 12:50:00* Test Item Value Reference Range Interpretation Comments Red Blood Count (test code = 789-8) 3.48 3.6-5.1 L [facility] CenterHemoglobin2020-02-04 12:50:00* Test Item Value Reference Range Interpretation Comments Hemoglobin (test code = 56431-7) 12.1 12.0-16.0 [facility] CenterHematocrit2020-02-04 12:50:00* Test Item Value Reference Range Interpretation Comments Hematocrit (test code = 4544-3) 34.1 34.2-44.1 L [facility] CenterMean Corpuscular Loaqrw7331-80-56 12:50:00* Test Item Value Reference Range Interpretation Comments Mean Corpuscular Volume (test code = 787-2) 98.0 81-99 [facility] CenterMean Corpuscular Ltwftclwyp4019-80-54 12:50:00* Test Item Value Reference Range Interpretation Comments Mean Corpuscular Hemoglobin (test code = 785-6) 34.8 28-32 H [facility] CenterMean Corpuscular Hemoglobin Concent 2019-10-11 12:50:00* Test Item Value Reference Range Interpretation Comments Mean Corpuscular Hemoglobin Concent (test code = 786-4) 35.5 31-35 H [facility] CenterRed Cell Distribution Mcgzd6238-82-63 12:50:00* Test Item Value Reference Range Interpretation Comments Red Cell Distribution Width (test code = 50943-2) 12.2 11.7 -14.4 [facility] CenterPlatelet Dygmj5509-26-62 12:50:00* Test Item Value Reference Range Interpretation Comments Platelet Count (test code = 777-3) 170 140-360 [facility] CenterNeutrophils (%) (Auto)2019-10-11 12:50:00 * Test Item Value Reference Range Interpretation Comments Neutrophils (%) (Auto) (test code = 47113-4) 86.4 38.7-80.0 H [facility] CenterLymphocytes (%) (Auto)2019-10-11 12:50:00 * Test Item Value Reference Range Interpretation Comments Lymphocytes (%) (Auto) (test code = 736-9) 8.1 18.0-39.1 L [facility] CenterMonocytes (%) (Auto)2019-10-11 12:50:00* Test Item Value Reference Range Interpretation Comments Monocytes (%) (Auto) (test code = 5905-5) 4.6 4.4-11.3 [facility] CenterEosinophils (%) (Auto)2019-10-11 12:50:00 * Test Item Value Reference Range Interpretation Comments Eosinophils (%) (Auto) (test code = 713-8) 0.0 0.0-6.0 [facility] CenterBasophils (%) (Auto)2019-10-11 12:50:00* Test Item Value Reference Range Interpretation Comments Basophils (%) (Auto) (test code = 706-2) 0.1 0.0-1.0 [facility] CenterIM GRANULOCYTES %2019-10-11 12:50:00* Test Item Value Reference Range Interpretation Comments IM GRANULOCYTES % (test code = IM GRANULOCYTES %) 0.8 0.0- 1.0 [facility] CenterNeutrophils # (Auto)2019-10-11 12:50:00* Test Item Value Reference Range Interpretation Comments Neutrophils # (Auto) (test code = 751-8) 6.5 2.1-6.9 [facility] CenterLymphocytes # (Auto)2019-10-11 12:50:00* Test Item Value Reference Range Interpretation Comments Lymphocytes # (Auto) (test code = 11770-5) 0.6 1.0-3.2 L [facility] CenterMonocytes # (Auto)2019-10-11 12:50:00* Test Item Value Reference Range Interpretation Comments Monocytes # (Auto) (test code = 742-7) 0.4 0.2-0.8 [facility] CenterEosinophils # (Auto)2019-10-11 12:50:00* Test Item Value Reference Range Interpretation Comments Eosinophils # (Auto) (test code = 711-2) 0.0 0.0-0.4 [facility] CenterBasophils # (Auto)2019-10-11 12:50:00* Test Item Value Reference Range Interpretation Comments Basophils # (Auto) (test code = 704-7) 0.0 0.0-0.1 [facility] CenterAbsolute Immature Granulocyte (auto 2019-10-11 12:50:00* Test Item Value Reference Range Interpretation Comments Absolute Immature Granulocyte (auto (zenaida t code = Absolute Immature Granulocyte (auto) 0.06 0-0.1 [facility] CenterCHEST SINGLE (PORTABLE)2019-10-11 12:19:00 [place] [address] Patient Name: AMILCAR CELIS MR #: [id number] : 1970 Age/Sex: 49/F Req #: [id number] Adm Physician: Ordered by: SIRENA MCKINLEY NP Report #: [id number] Location: ER Room/Bed: Procedure: [id number] DX/CH EST SINGLE (PORTABLE) Exam Date: 10/11/19 Exam Time: 1150 REPORT STATUS: Signed EXAM INATION: CHEST SINGLE (PORTABLE) INDICATION: Alcohol withdrawal, dehyd ration COMPARISON: Chest radiograph 07/06/2019 FINDINGS: PRASANNA ES/TUBES:EKG leads overlie the chest. LUNGS:The lungs are well-inflated. No focal consolidation or pulmonary edema. PLEURA:No pleural effusion or pneu mothorax. MEDIASTINUM:The cardiomediastinal silhouette appears normal in si ze and shape. BONES/SOFT TISSUES:No acute osseous injury. ABDOMEN:No f ree air under the diaphragm. IMPRESSION: No focal pneumonia or pulmon sunday edema. Signed by: Pascual Shah MD on 10/11/2019 12:20 PM Dictated B y: PASCUAL SHAH MD [address] scribed By: GARY on 10/11/19 1220 COPY TO: SIRENA MCKINLEY NP CHEST SINGLE (PORTABLE)2019-07-06 11:10:00 [place] [address] Patient Name: AMILCAR CELIS MR #: [id number] : 1970 Age/Sex: 49/F Req #: [id number] Adm Physician: Ordered by: DARIEL KAPADIA MD Report #: [id number] Location: ER Room/Bed: Procedure: [id number] DX/CHES T SINGLE (PORTABLE) Exam Date: 07/06/19 Exam Time: 1 040 REPORT STATUS: Signed EXAMIN ATION: CHEST SINGLE (PORTABLE) INDICATION: Chest pain COMPARISON: Chest radiograph of 01/18/2019 FINDINGS: LINES/TUBES:EKG leads o verlie the chest. LUNGS:The lungs are well-inflated. No focal consolidation or pulmonary edema. PLEURA:No pleural effusion or pneumothorax. MEDIA STINUM:The cardiomediastinal silhouette appears normal in size and shape. B ONES/SOFT TISSUES:No acute osseous injury. ABDOMEN:No free air under the di aphragm. IMPRESSION: No focal pneumonia or pulmonary edema. Sign ed by: Pascual Shah MD on 07/06/2019 11:11 AM Dictated By: PASCUAL SHAH MD 1111 Transcribed By: KANDACE Cowart on 07/06/19 1111 COPY TO: DARIEL KAPADIA MD Troponin I 2019-07-06 10:37:00* Test Item Value Reference Range Interpretation Comments Troponin I (test code = HZU3493) < 0.001 0-0.300 [facility] CenterThyroid Stimulating Hormone (TSH) 2019-07-06 10:37:00* Test Item Value Reference Range Interpretation Comments Thyroid Stimulating Hormone (TSH) (test code = 40228-1) 0.454 0.350-4.940 [facility] CenterThyroid Stimulating Hormone (TSH) 2019-07-06 10:37:00* Test Item Value Reference Range Interpretation Comments Thyroid Stimulating Hormone (TSH) (test code = 17906-9) 0.454 0.350-4.940 [facility] CenterThyroid Stimulating Hormone (TSH) 2019-07-06 10:37:00* Test Item Value Reference Range Interpretation Comments Thyroid Stimulating Hormone (TSH) (test code = 72153-4) 0.454 0.350-4.940 [facility] CenterD-Dimer Quantitative (PE/DVT)2019-07-06 10:16:00* Test Item Value Reference Range Interpretation Comments D-Dimer Quantitative (PE/DVT) (test code = 03384-7) 0.40 0. 00-0.45 As with all in vitro diagnostic tests, the test results should be interpreted by the physician in conjunction with clinical findings and other test results.Test results are reported in NEW D-dimer units(ug/mLFEU).[facility] CenterUrine ZHE8872-33-79 10:16:00* Test Item Value Reference Range Interpretation Comments Urine WBC (test code = 5821-4) 0-5 0-5 [facility] CenterUrine MXO6885-55-54 10:16:00* Test Item Value Reference Range Interpretation Comments Urine RBC (test code = 62498-7) 0-5 0-5 [facility] CenterUrine Qmepvywf7957-38-97 10:16:00* Test Item Value Reference Range Interpretation Comments Urine Bacteria (test code = 54602-1) MODERATE NONE H [facility] CenterUrine Epithelial Ustog2068-94-23 10:16:00 * Test Item Value Reference Range Interpretation Comments Urine Epithelial Cells (test code = 54857-4) MODERATE NONE [facility] CenterUrine Transitional Epithelial Cells 2019-07-06 10:16:00* Test Item Value Reference Range Interpretation Comments Urine Transitional Epithelial Cells (test code = 8249-5) NONE NONE [facility] CenterUrine Amorphous Bbseodsq5422-95-57 10:16:00* Test Item Value Reference Range Interpretation Comments Urine Amorphous Sediment (test code = 8246-1) MANY FEW H [facility] CenterB-Type Natriuretic Awyctah4827-47-36 10:16:00* Test Item Value Reference Range Interpretation Comments B-Type Natriuretic Peptide (test code = 17721-8) < 10.0 0-100 [facility] CenterD-Dimer Quantitative (PE/DVT)2019-07-06 10:16:00* Test Item Value Reference Range Interpretation Comments D-Dimer Quantitative (PE/DVT) (test code = 88714-0) 0.40 0. 00-0.45 As with all in vitro diagnostic tests, the test results should be interpreted by the physician in conjunction with clinical findings and other test results.Test results are reported in NEW D-dimer units(ug/mLFEU).[facility] CenterUrine Transitional Epithelial Blcvj9077-83-73 10:16:00* Test Item Value Reference Range Interpretation Comments Urine Transitional Epithelial Cells (test code = 8249-5) NONE NONE [facility] CenterB-Type Natriuretic Aceidvl2981-47-82 10:16:00* Test Item Value Reference Range Interpretation Comments B-Type Natriuretic Peptide (test code = 57043-8) < 10.0 0-100 [facility] CenterD-Dimer Quantitative (PE/DVT)2019-07-06 10:16:00* Test Item Value Reference Range Interpretation Comments D-Dimer Quantitative (PE/DVT) (test code = 36426-4) 0.40 0. 00-0.45 As with all in vitro diagnostic tests, the test results should be interpreted by the physician in conjunction with clinical findings and other test results.Test results are reported in NEW D-dimer units(ug/mLFEU).[facility] CenterProthrombin Xgji0908-70-90 10:06:00* Test Item Value Reference Range Interpretation Comments Prothrombin Time (test code = 5902-2) 11.2 11.9-14.5 L [facility] CenterProthromb Time International Ratio 2019-07-06 10:06:00* Test Item Value Reference Range Interpretation Comments Prothromb Time International Ratio (test code = 6301-6) 0.77 Oral Anticoagulant Therapy INR Values:1. Low Intensity Therapy 1.5 - 2.02 . Moderate Intensity Therapy 2.0 - 3.03. High Intensity Therapy(1) 2.5 - 3. 54. High Intensity Therapy(2) 3.0 - 4.05. Panic Value INR > 5.0 [facility] CenterActivated Partial Thromboplast Time 2019-07-06 10:06:00* Test Item Value Reference Range Interpretation Comments Activated Partial Thromboplast Time (test code = 77585-7) 23.6 23.8-35.5 L [facility] CenterProthrombin Alfm2802-68-73 10:06:00* Test Item Value Reference Range Interpretation Comments Prothrombin Time (test code = 5902-2) 11.2 11.9-14.5 L [facility] CenterProthromb Time International Ratio 2019-07-06 10:06:00* Test Item Value Reference Range Interpretation Comments Prothromb Time International Ratio (test code = 6301-6) 0.77 Oral Anticoagulant Therapy INR Values:1. Low Intensity Therapy 1.5 - 2.02 . Moderate Intensity Therapy 2.0 - 3.03. High Intensity Therapy(1) 2.5 - 3. 54. High Intensity Therapy(2) 3.0 - 4.05. Panic Value INR > 5.0 [facility] CenterActivated Partial Thromboplast Time 2019-07-06 10:06:00* Test Item Value Reference Range Interpretation Comments Activated Partial Thromboplast Time (test code = 47951-1) 23.6 23.8-35.5 L [facility] CenterProthrombin Drii3943-13-27 10:06:00* Test Item Value Reference Range Interpretation Comments Prothrombin Time (test code = 5902-2) 11.2 11.9-14.5 L [facility] CenterProthromb Time International Ratio 2019-07-06 10:06:00* Test Item Value Reference Range Interpretation Comments Prothromb Time International Ratio (test code = 6301-6) 0.77 Oral Anticoagulant Therapy INR Values:1. Low Intensity Therapy 1.5 - 2.02 . Moderate Intensity Therapy 2.0 - 3.03. High Intensity Therapy(1) 2.5 - 3. 54. High Intensity Therapy(2) 3.0 - 4.05. Panic Value INR > 5.0 [facility] CenterActivated Partial Thromboplast Time 2019-07-06 10:06:00* Test Item Value Reference Range Interpretation Comments Activated Partial Thromboplast Time (test code = 72403-1) 23.6 23.8-35.5 L [facility] Vuxbg1914-49-49 10:00:00* Test Item Value Reference Range Interpretation Comments Sodium Level (test code = 2951-2) 143 136-145 [facility] CenterPotassium Vdkax2011-67-23 10:00:00* Test Item Value Reference Range Interpretation Comments Potassium Level (test code = 2823-3) 3.0 3.5-5.1 L [facility] CenterChloride Yoruu8371-87-40 10:00:00* Test Item Value Reference Range Interpretation Comments Chloride Level (test code = 2075-0) 101 98-107 [facility] CenterCarbon Dioxide Bsgtm0161-73-42 10:00:00* Test Item Value Reference Range Interpretation Comments Carbon Dioxide Level (test code = 8-9) 28 22-29 [facility] CenterAnion Dsz8907-71-53 10:00:00* Test Item Value Reference Range Interpretation Comments Anion Gap (test code = 73007-9) 17.0 8-16 H [facility] CenterBlood Urea Mktkozxm4386-72-88 10:00:00* Test Item Value Reference Range Interpretation Comments Blood Urea Nitrogen (test code = 3094-0) 6 7-26 L [facility] CenterCreatinine2019-10-30 10:00:00* Test Item Value Reference Range Interpretation Comments Creatinine (test code = 2160-0) 0.69 0.57-1.11 [facility] CenterBUN/Creatinine Nceki8317-96-21 10:00:00* Test Item Value Reference Range Interpretation Comments BUN/Creatinine Ratio (test code = 3097-3) 9 6-25 [facility] CenterEstimat Glomerular Filtration Rate 2019-07-06 10:00:00* Test Item Value Reference Range Interpretation Comments Estimat Glomerular Filtration Rate (test code = 163747812) > 60 >60 Ranges were taken from the National Kidney Disease Education Program and the [facility] literature.Reference ranges:60 or greater: Dgnfni36-42 ( for 3 consecutive months): Chronic kidney disease 15 or less: Kidney failureLamb Healthcare CenterGlucose Lufum0003-64-74 10:00:00* Test Item Value Reference Range Interpretation Comments Glucose Level (test code = IEC6994) 104 74-118 [facility] CenterCalcium Hlgkm2257-37-72 10:00:00* Test Item Value Reference Range Interpretation Comments Calcium Level (test code = 92358-8) 9.7 8.4-10.2 [facility] CenterMagnesium Ztvyl7129-32-82 10:00:00* Test Item Value Reference Range Interpretation Comments Magnesium Level (test code = 97170-9) 1.9 1.3-2.1 [facility] CenterTotal Dsvosmtml3583-04-47 10:00:00* Test Item Value Reference Range Interpretation Comments Total Bilirubin (test code = 1975-2) 0.3 0.2-1.2 [facility] CenterAspartate Amino Transf (AST/SGOT) 2019-07-06 10:00:00* Test Item Value Reference Range Interpretation Comments Aspartate Amino Transf (AST/SGOT) (test code = Aspartate Amino Transf (AST/SGOT)) 166 5-34 H [facility] CenterAlanine Aminotransferase (ALT/SGPT) 2019-07-06 10:00:00* Test Item Value Reference Range Interpretation Comments Alanine Aminotransferase (ALT/SGPT) (test code = 1742-6) 112 0-55 H [facility] CenterTotal Nfvwdwb0702-73-25 10:00:00* Test Item Value Reference Range Interpretation Comments Total Protein (test code = 2885-2) 7.6 6.5-8.1 [facility] CenterAlbumin2019-10-30 10:00:00* Test Item Value Reference Range Interpretation Comments Albumin (test code = 1751-7) 3.8 3.5-5.0 [facility] CenterGlobulin2019-10-30 10:00:00* Test Item Value Reference Range Interpretation Comments Globulin (test code = 24290-2) 3.8 2.3-3.5 H [facility] CenterAlbumin/Globulin Oazzl3129-47-26 10:00:00 * Test Item Value Reference Range Interpretation Comments Albumin/Globulin Ratio (test code = 1759-0) 1.0 0.8-2.0 [facility] CenterAlkaline Lqpklzlpdya4186-37-27 10:00:00* Test Item Value Reference Range Interpretation Comments Alkaline Phosphatase (test code = 6768-6) 93 40-150 [facility] CenterCreatine Iyijbq7287-37-62 10:00:00* Test Item Value Reference Range Interpretation Comments Creatine Kinase (test code = 2157-6) 122 29-168 [facility] CenterEthyl Alcohol Gapuv9841-63-05 09:59:00* Test Item Value Reference Range Interpretation Comments Ethyl Alcohol Level (test code = 5643-2) 265.2 0.0-10.0 H [facility] CenterUrine Opiates Cngbpn2800-79-45 09:53:00* Test Item Value Reference Range Interpretation Comments Urine Opiates Screen (test code = 00424-6) NEGATIVE NEGATIVE ALL TESTS PERFORMED MANUALLY ON BIORAD TOX/SEE TESTLamb Healthcare CenterUrine Barbiturates Htohdu5944-68-86 09:53:00* Test Item Value Reference Range Interpretation Comments Urine Barbiturates Screen (test code = 816306206) NEGATIVE NEGA TIVE [facility] CenterUrine Phencyclidine Yrdayr2363-28-63 09:53:00* Test Item Value Reference Range Interpretation Comments Urine Phencyclidine Screen (test code = 57536-4) NEGATIVE NEGAT MERCEDEZ [facility] CenterUrine Amphetamines Eyajrc5228-32-36 09:53:00* Test Item Value Reference Range Interpretation Comments Urine Amphetamines Screen (test code = 50733-3) NEGATIVE NEGATI VE [facility] CenterUrine Methamphetamines Ejxpsi5138-33-46 09:53:00* Test Item Value Reference Range Interpretation Comments Urine Methamphetamines Screen (test code = Urine Metha mphetamines Screen) NEGATIVE NEGATIVE [facility] CenterUrine Benzodiazepines Lbfees6937-83-52 09:53:00* Test Item Value Reference Range Interpretation Comments Urine Benzodiazepines Screen (test code = 15515-8) NEGATIVE NEG ATIVE [facility] CenterUrine Cocaine Nuklss0953-63-50 09:53:00* Test Item Value Reference Range Interpretation Comments Urine Cocaine Screen (test code = 3398-5) NEGATIVE NEGATIVE [facility] CenterUrine Cannabinoids Tuolsk1323-68-66 09:53:00* Test Item Value Reference Range Interpretation Comments Urine Cannabinoids Screen (test code = 30969-5) NEGATIVE NEGATI VE THESE RESULTS ARE FOR MEDICAL TREATMENT ONLYTHIS REPORT CONTAINS UNCONFIR MED SCREENING RESULTS*POSITIVE RESULTS WILL BE CONFIRMED BY REFERENCE LAB UPON R EQUEST CUT-OFFDRUG CLASS CONCENTRATION ng/mLAmphetamines 1000Methamphetamines 1000Cocaine 300Opiate 300Phencyc lidine 25Cannabinoid 50Barbiturates 300Benzodiazepine 300Methadone 300[facility] HospitalU[facility] Methadone Iaxyvj5787-83-61 09:53:00* Test Item Value Reference Range Interpretation Comments Urine Methadone Screen (test code = 94110-8) NEGATIVE NEGATIVE THESE RESULTS ARE FOR MEDICAL TREATMENT ONLYTHIS REPORT CONTAINS UNCONFIR MED SCREENING RESULTS*POSITIVE RESULTS WILL BE CONFIRMED BY REFERENCE LAB UPON R EQUEST CUT-OFFDRUG CLASS CONCENTRATION ng/mLAmphetamines 1000Methamphetamines 1000Cocaine Metabolite 300Opiate 300Phencyc lidine 25Cannabinoid 50Barbiturates 300Benzodiazepine 300Methadone 300[facility] HospitalUrine Ndsuc9489-86-51 09:50:00* Test Item Value Reference Range Interpretation Comments Urine Color (test code = 5778-6) YELLOW YELLOW [facility] CenterUrine Crscczn8212-56-69 09:50:00* Test Item Value Reference Range Interpretation Comments Urine Clarity (test code = 96958-9) SL CLOUDY CLEAR [facility] CenterUrine Specific Nopndjn4400-98-72 09:50:00 * Test Item Value Reference Range Interpretation Comments Urine Specific Millsap (test code = 5811-5) 1.015 1.010-1.02 5 [facility] CenterUrine kD0140-26-71 09:50:00* Test Item Value Reference Range Interpretation Comments Urine pH (test code = 13351-0) 7 5-7 [facility] CenterUrine Leukocyte Uikxbcpl6744-06-01 09:50:00* Test Item Value Reference Range Interpretation Comments Urine Leukocyte Esterase (test code = 91186-0) NEGATIVE NEGATIV E [facility] CenterUrine Osywrmw3706-54-78 09:50:00* Test Item Value Reference Range Interpretation Comments Urine Nitrite (test code = 70399-1) NEGATIVE NEGATIVE [facility] CenterUrine Jfgbmwy4612-57-73 09:50:00* Test Item Value Reference Range Interpretation Comments Urine Protein (test code = 47774-7) NEGATIVE NEGATIVE [facility] CenterUrine Glucose (UA)2019-07-06 09:50:00* Test Item Value Reference Range Interpretation Comments Urine Glucose (UA) (test code = 34325-0) NEGATIVE NEGATIVE [facility] CenterUrine Htaxgct7085-87-77 09:50:00* Test Item Value Reference Range Interpretation Comments Urine Ketones (test code = 66195-4) NEGATIVE NEGATIVE [facility] CenterUrine Mnouhwblcaaq9861-50-60 09:50:00* Test Item Value Reference Range Interpretation Comments Urine Urobilinogen (test code = 63862-5) 0.2 0.2-1 [facility] CenterUrine Otulfrrpn9149-59-58 09:50:00* Test Item Value Reference Range Interpretation Comments Urine Bilirubin (test code = 1977-8) NEGATIVE NEGATIVE [facility] CenterUrine Xgiwl5367-20-18 09:50:00* Test Item Value Reference Range Interpretation Comments Urine Blood (test code = 68166-6) NEGATIVE NEGATIVE [facility] CenterWhite Blood Mnzfy0473-81-74 09:37:00* Test Item Value Reference Range Interpretation Comments White Blood Count (test code = 6690-2) 4.18 4.8-10.8 L [facility] CenterRed Blood Imwou5187-67-26 09:37:00* Test Item Value Reference Range Interpretation Comments Red Blood Count (test code = 789-8) 3.67 3.6-5.1 [facility] CenterHemoglobin2019-10-30 09:37:00* Test Item Value Reference Range Interpretation Comments Hemoglobin (test code = 53109-6) 12.8 12.0-16.0 [facility] CenterHematocrit2019-10-30 09:37:00* Test Item Value Reference Range Interpretation Comments Hematocrit (test code = 4544-3) 37.2 34.2-44.1 [facility] CenterMean Corpuscular Nxqmjm5639-90-65 09:37:00* Test Item Value Reference Range Interpretation Comments Mean Corpuscular Volume (test code = 787-2) 101.4 81-99 H [facility] CenterMean Corpuscular Fejzqxicty1094-33-64 09:37:00* Test Item Value Reference Range Interpretation Comments Mean Corpuscular Hemoglobin (test code = 785-6) 34.9 28-32 H [facility] CenterMean Corpuscular Hemoglobin Concent 2019-07-06 09:37:00* Test Item Value Reference Range Interpretation Comments Mean Corpuscular Hemoglobin Concent (test code = 786-4) 34.4 31-35 [facility] CenterRed Cell Distribution Avnxn7695-93-90 09:37:00* Test Item Value Reference Range Interpretation Comments Red Cell Distribution Width (test code = 79198-4) 13.1 11.7 -14.4 [facility] CenterPlatelet Veqzy1328-01-87 09:37:00* Test Item Value Reference Range Interpretation Comments Platelet Count (test code = 777-3) 240 140-360 [facility] CenterNeutrophils (%) (Auto)2019-07-06 09:37:00 * Test Item Value Reference Range Interpretation Comments Neutrophils (%) (Auto) (test code = 02016-7) 40.4 38.7-80.0 [facility] CenterLymphocytes (%) (Auto)2019-07-06 09:37:00 * Test Item Value Reference Range Interpretation Comments Lymphocytes (%) (Auto) (test code = 736-9) 51.2 18.0-39.1 H [facility] CenterMonocytes (%) (Auto)2019-07-06 09:37:00* Test Item Value Reference Range Interpretation Comments Monocytes (%) (Auto) (test code = 5905-5) 6.7 4.4-11.3 [facility] CenterEosinophils (%) (Auto)2019-07-06 09:37:00 * Test Item Value Reference Range Interpretation Comments Eosinophils (%) (Auto) (test code = 713-8) 0.5 0.0-6.0 [facility] CenterBasophils (%) (Auto)2019-07-06 09:37:00* Test Item Value Reference Range Interpretation Comments Basophils (%) (Auto) (test code = 706-2) 1.0 0.0-1.0 [facility] CenterIM GRANULOCYTES %2019-07-06 09:37:00* Test Item Value Reference Range Interpretation Comments IM GRANULOCYTES % (test code = IM GRANULOCYTES %) 0.2 0.0- 1.0 [facility] CenterNeutrophils # (Auto)2019-07-06 09:37:00* Test Item Value Reference Range Interpretation Comments Neutrophils # (Auto) (test code = 751-8) 1.7 2.1-6.9 L [facility] CenterLymphocytes # (Auto)2019-07-06 09:37:00* Test Item Value Reference Range Interpretation Comments Lymphocytes # (Auto) (test code = 44396-9) 2.1 1.0-3.2 [facility] CenterMonocytes # (Auto)2019-07-06 09:37:00* Test Item Value Reference Range Interpretation Comments Monocytes # (Auto) (test code = 742-7) 0.3 0.2-0.8 [facility] CenterEosinophils # (Auto)2019-07-06 09:37:00* Test Item Value Reference Range Interpretation Comments Eosinophils # (Auto) (test code = 711-2) 0.0 0.0-0.4 [facility] CenterBasophils # (Auto)2019-07-06 09:37:00* Test Item Value Reference Range Interpretation Comments Basophils # (Auto) (test code = 704-7) 0.0 0.0-0.1 [facility] CenterAbsolute Immature Granulocyte (auto 2019-07-06 09:37:00* Test Item Value Reference Range Interpretation Comments Absolute Immature Granulocyte (auto (zenaida t code = Absolute Immature Granulocyte (auto) 0.01 0-0.1 [facility] CenterMagnesium Hweuj1303-25-24 19:25:00* Test Item Value Reference Range Interpretation Comments Magnesium Level (test code = 56116-5) 1.6 1.3-2.1 [facility] Bwkwd7278-62-03 18:59:00* Test Item Value Reference Range Interpretation Comments Sodium Level (test code = 2951-2) 134 136-145 L [facility] CenterPotassium Apotq5022-52-60 18:59:00* Test Item Value Reference Range Interpretation Comments Potassium Level (test code = 2823-3) 3.2 3.5-5.1 L [facility] CenterChloride Fyjdc9121-83-22 18:59:00* Test Item Value Reference Range Interpretation Comments Chloride Level (test code = 2075-0) 100 98-107 [facility] CenterCarbon Dioxide Hjbvy9545-94-21 18:59:00* Test Item Value Reference Range Interpretation Comments Carbon Dioxide Level (test code = 2028-9) 25 22-29 [facility] CenterAnion Yjf9757-81-37 18:59:00* Test Item Value Reference Range Interpretation Comments Anion Gap (test code = 87583-6) 12.2 8-16 [facility] CenterBlood Urea Gkewtwso5393-69-92 18:59:00* Test Item Value Reference Range Interpretation Comments Blood Urea Nitrogen (test code = 3094-0) 10 7-26 [facility] CenterCreatinine2019-10-14 18:59:00* Test Item Value Reference Range Interpretation Comments Creatinine (test code = 2160-0) 0.74 0.57-1.11 [facility] CenterBUN/Creatinine Arqkj4226-51-59 18:59:00* Test Item Value Reference Range Interpretation Comments BUN/Creatinine Ratio (test code = 3097-3) 14 6-25 [facility] CenterEstimat Glomerular Filtration Rate 2019-06-20 18:59:00* Test Item Value Reference Range Interpretation Comments Estimat Glomerular Filtration Rate (test code = 523188112) > 60 >60 Ranges were taken from the National Kidney Disease Education Program and the [facility] Kid[facility] literature.Reference ranges:60 or greater: Ucjmma57-90 ( for 3 consecutive months): Chronic kidney disease 15 or less: Kidney failureLamb Healthcare CenterGlucose Jadlm6900-45-31 18:59:00* Test Item Value Reference Range Interpretation Comments Glucose Level (test code = DFQ5961) 110 74-118 [facility] CenterCalcium Hvicj1718-85-90 18:59:00* Test Item Value Reference Range Interpretation Comments Calcium Level (test code = 45210-9) 8.8 8.4-10.2 [facility] CenterTotal Hfoudsuag6706-03-12 18:59:00* Test Item Value Reference Range Interpretation Comments Total Bilirubin (test code = 1975-2) 0.5 0.2-1.2 [facility] CenterAspartate Amino Transf (AST/SGOT) 2019-06-20 18:59:00* Test Item Value Reference Range Interpretation Comments Aspartate Amino Transf (AST/SGOT) (test code = Aspartate Amino Transf (AST/SGOT)) 153 5-34 H [facility] CenterAlanine Aminotransferase (ALT/SGPT) 2019-06-20 18:59:00* Test Item Value Reference Range Interpretation Comments Alanine Aminotransferase (ALT/SGPT) (test code = 1742-6) 225 0-55 H [facility] CenterTotal Jhqlyya8945-15-59 18:59:00* Test Item Value Reference Range Interpretation Comments Total Protein (test code = 2885-2) 5.9 6.5-8.1 L [facility] CenterAlbumin2019-10-14 18:59:00* Test Item Value Reference Range Interpretation Comments Albumin (test code = 1751-7) 3.1 3.5-5.0 L [facility] CenterGlobulin2019-10-14 18:59:00* Test Item Value Reference Range Interpretation Comments Globulin (test code = 37506-8) 2.8 2.3-3.5 [facility] CenterAlbumin/Globulin Gslsx5199-34-54 18:59:00 * Test Item Value Reference Range Interpretation Comments Albumin/Globulin Ratio (test code = 1759-0) 1.1 0.8-2.0 [facility] CenterAlkaline Eqrcrgbxjwm8437-57-39 18:59:00* Test Item Value Reference Range Interpretation Comments Alkaline Phosphatase (test code = 6768-6) 62 40-150 [facility] CenterWhite Blood Dggtm1762-01-10 06:17:00* Test Item Value Reference Range Interpretation Comments White Blood Count (test code = 6690-2) 6.94 4.8-10.8 [facility] CenterRed Blood Aifun6218-22-77 06:17:00* Test Item Value Reference Range Interpretation Comments Red Blood Count (test code = 789-8) 3.32 3.6-5.1 L [facility] CenterHemoglobin2019-10-14 06:17:00* Test Item Value Reference Range Interpretation Comments Hemoglobin (test code = 49599-0) 11.4 12.0-16.0 L [facility] CenterHematocrit2019-10-14 06:17:00* Test Item Value Reference Range Interpretation Comments Hematocrit (test code = 4544-3) 33.9 34.2-44.1 L [facility] CenterMean Corpuscular Hgjucb8675-60-61 06:17:00* Test Item Value Reference Range Interpretation Comments Mean Corpuscular Volume (test code = 787-2) 102.1 81-99 H [facility] CenterMean Corpuscular Hmkyvczcjd9787-30-44 06:17:00* Test Item Value Reference Range Interpretation Comments Mean Corpuscular Hemoglobin (test code = 785-6) 34.3 28-32 H [facility] Corpuscular Hemoglobin Concent 2019-06-20 06:17:00* Test Item Value Reference Range Interpretation Comments Mean Corpuscular Hemoglobin Concent (test code = 786-4) 33.6 31-35 [facility] CenterRed Cell Distribution Knker1760-96-88 06:17:00* Test Item Value Reference Range Interpretation Comments Red Cell Distribution Width (test code = 98023-6) 11.7 11.7 -14.4 [facility] CenterPlatelet Wrqop5604-03-65 06:17:00* Test Item Value Reference Range Interpretation Comments Platelet Count (test code = 777-3) 130 140-360 L [facility] CenterNeutrophils (%) (Auto)2019-06-20 06:17:00 * Test Item Value Reference Range Interpretation Comments Neutrophils (%) (Auto) (test code = 82892-9) 54.5 38.7-80.0 [facility] CenterLymphocytes (%) (Auto)2019-06-20 06:17:00 * Test Item Value Reference Range Interpretation Comments Lymphocytes (%) (Auto) (test code = 736-9) 37.3 18.0-39.1 [facility] CenterMonocytes (%) (Auto)2019-06-20 06:17:00* Test Item Value Reference Range Interpretation Comments Monocytes (%) (Auto) (test code = 5905-5) 6.3 4.4-11.3 [facility] CenterEosinophils (%) (Auto)2019-06-20 06:17:00 * Test Item Value Reference Range Interpretation Comments Eosinophils (%) (Auto) (test code = 713-8) 0.9 0.0-6.0 [facility] CenterBasophils (%) (Auto)2019-06-20 06:17:00* Test Item Value Reference Range Interpretation Comments Basophils (%) (Auto) (test code = 706-2) 0.6 0.0-1.0 [facility] CenterIM GRANULOCYTES %2019-06-20 06:17:00* Test Item Value Reference Range Interpretation Comments IM GRANULOCYTES % (test code = IM GRANULOCYTES %) 0.4 0.0- 1.0 [facility] CenterNeutrophils # (Auto)2019-06-20 06:17:00* Test Item Value Reference Range Interpretation Comments Neutrophils # (Auto) (test code = 751-8) 3.8 2.1-6.9 [facility] CenterLymphocytes # (Auto)2019-06-20 06:17:00* Test Item Value Reference Range Interpretation Comments Lymphocytes # (Auto) (test code = 29224-4) 2.6 1.0-3.2 [facility] CenterMonocytes # (Auto)2019-06-20 06:17:00* Test Item Value Reference Range Interpretation Comments Monocytes # (Auto) (test code = 742-7) 0.4 0.2-0.8 [facility] CenterEosinophils # (Auto)2019-06-20 06:17:00* Test Item Value Reference Range Interpretation Comments Eosinophils # (Auto) (test code = 711-2) 0.1 0.0-0.4 [facility] CenterBasophils # (Auto)2019-06-20 06:17:00* Test Item Value Reference Range Interpretation Comments Basophils # (Auto) (test code = 704-7) 0.0 0.0-0.1 [facility] CenterAbsolute Immature Granulocyte (auto 2019-06-20 06:17:00* Test Item Value Reference Range Interpretation Comments Absolute Immature Granulocyte (auto (zenaida t code = Absolute Immature Granulocyte (auto) 0.03 0-0.1 [facility] CenterUS ABDOMEN ABDPBUPL2424-49-35 10:03:00 [place] [address] Patient Name: AMILCAR CELIS MR #: [id number] : 1970 Age/Sex: 49/F Req #: [id number] Adm Physician: ARMANI ARREOLA MD Ordered by: ARMANI ARREOLA MD Report #: [id number] Location: MED/SURG[address] [place] [address]/Bed: [facility] Procedure: [id number] US/US AB DARDEN COMPLETE Exam Date: 06/19/19 Exam Time: 928 REPORT STATUS: Signed EXAM: US AB DARDEN COMPLETE INDICATION: Elevated LFTs. COMPARISON: None OMID HNIQUE: Transverse and longitudinal gordon scale and color doppler sonographic i mages of the abdomen were obtained. FINDINGS: LIVER 14.9 cm in the ri ght midclavicular line. Increased echogenicity of the liver with normal contou r, no masses. SPLEEN 7.8 cm in maximum diameter. Normal echogenicity, n o masses. GALLBLADDER No gallbladder wall thickening, distension, stone, or pericholecystic fluid. Negative reported sonographic Amaya's sign. BI LE DUCTS No intra nor extra-hepatic biliary dilation. Common bile duct measu res 0.2 cm PANCREAS: Visualized portions are normal. RIGHT KIDNEY: 11. 6 cm Echogenicity: Normal Collecting System: No hydronephrosis Stones: N one Cyst/Mass: None LEFT KIDNEY: 11.1 cm Echogenicity: Normal Collect ing System: No hydronephrosis Stones: None Cyst/Mass: None VESSELS: Aorta: Visualized portions are within normal size limits Inferior Vena Cava: Visualized portions are normal Main Portal Vein: 1.0 cm, normal size with hepa topetal flow. FREE FLUID: None IMPRESSION: Hepatic steatosis. S igned by: Dr. Zac Jasso MD on 06/19/2019 10:06 AM Dictated By: ZAC AMARAL MD 1006 Transcribed By: GARY on 06/19/19 1006 COPY TO: ARMANI ARREOLA MD Creatine Ppaabp3911-31-43 04:17:00* Test Item Value Reference Range Interpretation Comments Creatine Kinase (test code = 2157-6) 54 29-168 [facility] CenterCreatine Kinase LX2102-06-52 04:17:00* Test Item Value Reference Range Interpretation Comments Creatine Kinase MB (test code = 27750-3) 0.60 0-5.0 [facility] CenterTroponin D5059-76-87 04:17:00* Test Item Value Reference Range Interpretation Comments Troponin I (test code = FLB4702) 0.002 0-0.300 [facility] CenterCreatine Kinase OJ6660-06-10 04:17:00* Test Item Value Reference Range Interpretation Comments Creatine Kinase MB (test code = 91184-4) 0.60 0-5.0 [facility] CenterLipase2019-10-12 10:46:00* Test Item Value Reference Range Interpretation Comments Lipase (test code = 3040-3) 98 8-78 H [facility] CenterLipase2019-10-12 10:46:00* Test Item Value Reference Range Interpretation Comments Lipase (test code = 3040-3) 98 8-78 H [facility]2019-10-12 10:46:00* Test Item Value Reference Range Interpretation Comments Lipase (test code = 3040-3) 98 8-78 H [facility] CenterLipase2019-10-12 10:46:00* Test Item Value Reference Range Interpretation Comments Lipase (test code = 3040-3) 98 8-78 H [facility] Chorionic Gonadotropin, Qual 2019-06-18 10:44:00* Test Item Value Reference Range Interpretation Comments Human Chorionic Gonadotropin, Qual (test code = 2118-8) NEGATIVE NEGATIVE [facility] Chorionic Gonadotropin, [facility] 2019-06-18 10:44:00* Test Item Value Reference Range Interpretation Comments Human Chorionic Gonadotropin, Qual (test code = 2118-8) NEGATIVE NEGATIVE [facility] Chorionic Gonadotropin, [facility] 2019-06-18 10:44:00* Test Item Value Reference Range Interpretation Comments Human Chorionic Gonadotropin, Qual (test code = 2118-8) NEGATIVE NEGATIVE [facility] Chorionic Gonadotropin, [facility] 2019-06-18 10:44:00* Test Item Value Reference Range Interpretation Comments Human Chorionic Gonadotropin, Qual (test code = 2118-8) NEGATIVE NEGATIVE [facility] CenterEthyl Alcohol Ouvku5730-39-73 10:33:00* Test Item Value Reference Range Interpretation Comments Ethyl Alcohol Level (test code = 5643-2) < 10.0 0.0-10.0 [facility] [id number] 18:02:00 * Test Item Value Reference Range Interpretation Comments SODIUM (test code = NA) 144 mmol/L 136-145 N POTASSIUM (test code = K) 2.7 mmol/L 3.5-5.1 Re sults called to [id number] by V.LAB.HP 05/02/19 1801Critical results verified and read back by Nurse? Y CHLORIDE (test code = CL) 102.0 mmol/L 98-107 N CARBON DIOXIDE (test code = CO2) 24.0 mmol/L 21-32 N ANION GAP (test code = GAP) 20.7 10-20 H GLUCOSE (test code = GLU) 133 mg/dL 74-106 H BLOOD UREA NITROGEN (test code = BUN) 9 mg/dL 7-18 N GLOMERULAR FILTRATION RATE (test code = GFR) > 60 mL/min >=60 Estimated GFR by using Modified MDRD formula.Chronic kidney disease is defined as either kidney damageor GFR <60 mL/min/1.73 m2 for >3 months. CREATININE (test code = CREAT) 0.60 mg/dL 0.55-1.02 N Note change in reference range due to change in reagent. BUN/CREATININE RATIO (test code = BUN/CREA) 15.0 10-20 N CALCIUM (test code = CA) 9.4 mg/dL 8.5-10.1 N HEPATIC FUNCTION [id number] 18:02:00* Test Item Value Reference Range Interpretation Comments TOTAL PROTEIN (test code = PROT) 7.9 gram/dL 6.4-8.2 N ALBUMIN (test code = ALB) 3.9 g/dL 3.4-5.0 N GLOBULIN (test code = GLOB) 4.0 gram/dL 2.7-4.2 N ALBUMIN/GLOBULIN RATIO (test code = A/G) 1.0 0.75-1.50 N BILIRUBIN TOTAL (test code = BILT) 1.10 mg/dL 0.0-1.0 H BILIRUBIN DIRECT (test code = BILD) 0.31 mg/dL 0.0-0.20 H SGOT/AST (test code = AST) 120 IUnit/L 15-37 H SGPT/ALT (test code = ALT) 94 IUnit/L 12-78 H ALKALINE PHOSPHATASE TOTAL (test code = ALKP) 101 IUnit/L 45-117 N Note change in reference range due to change in reagent. [id number] 18:02:00* Test Item Value Reference Range Interpretation Comments LIPASE (test code = LIP) 203 U/L 73.0-393.0 N HCG SERUM [id number] 18:02:00* Test Item Value Reference Range Interpretation Comments HCG SERUM QUAL (test code = HCGQL) NEGATIVE NEGATIVE This HCGQL test is NOT applicable for MALE patients.Check with nurse about probable order error.If Tumor Marker Test needed, nurse should order test "HCGTU"(Test #550.40118) [id number] 18:02:00* Test Item Value Reference Range Interpretation Comments TROPONIN-I (test code = TROPI) <0.015 ng/mL 0-0.045 N CBC W/O [id number] 17:57:00* Test Item Value Reference Range Interpretation Comments WHITE BLOOD CELL (test code = WBC) 6.5 K/mm3 4.5-12.5 N RED BLOOD CELL (test code = RBC) 3.84 mill/mm3 3.7-5.2 N HEMOGLOBIN (test code = HGB) 13.3 gram/dL 11.5-15.5 N HEMATOCRIT (test code = HCT) 37.9 % 36.0-46.0 N MEAN CELL VOLUME (test code = MCV) 98.7 fL 80-98 H MEAN CELL HGB (test code = MCH) 34.6 picogram 27.0-33.0 H MEAN CELL HGB CONCETRATION (test code = MCHC) 35.1 gram/dL 33.0-36. 0 N RED CELL DISTRIBUTION WIDTH (test code = RDW) 13.2 % 11.6-16. 2 N PLATELET COUNT (test code = PLT) 191 K/mm3 150-450 N MEAN PLATELET VOLUME (test code = MPV) 10.1 fL 6.7-11.0 N BASIC METABOLIC [id number] 17:44:00* Test Item Value Reference Range Interpretation Comments SODIUM (test code = NA) mmol/L 136-145 POTASSIUM (test code = K) mmol/L 3.5-5.1 CHLORIDE (test code = CL) mmol/L 98-107 CARBON DIOXIDE (test code = CO2) mmol/L 21-32 ANION GAP (test code = GAP) 10-20 GLUCOSE (test code = GLU) mg/dL 74-106 BLOOD UREA NITROGEN (test code = BUN) mg/dL 7-18 GLOMERULAR FILTRATION RATE (test code = GFR) mL/min >=60 CREATININE (test code = CREAT) mg/dL 0.55-1.02 BUN/CREATININE RATIO (test code = BUN/CREA) 10-20 CALCIUM (test code = CA) mg/dL 8.5-10.1 HEPATIC FUNCTION [id number] 17:44:00* Test Item Value Reference Range Interpretation Comments TOTAL PROTEIN (test code = PROT) gram/dL 6.4-8.2 ALBUMIN (test code = ALB) g/dL 3.4-5.0 GLOBULIN (test code = GLOB) gram/dL 2.7-4.2 ALBUMIN/GLOBULIN RATIO (test code = A/G) 0.75-1.50 BILIRUBIN TOTAL (test code = BILT) mg/dL 0.0-1.0 BILIRUBIN DIRECT (test code = BILD) mg/dL 0.0-0.20 SGOT/AST (test code = AST) IUnit/L 15-37 SGPT/ALT (test code = ALT) IUnit/L 12-78 ALKALINE PHOSPHATASE TOTAL (test code = ALKP) IUnit/L 45-117 [id number] 17:44:00* Test Item Value Reference Range Interpretation Comments LIPASE (test code = LIP) U/L 73.0-393.0 HCG SERUM [id number] 17:44:00* Test Item Value Reference Range Interpretation Comments HCG SERUM QUAL (test code = HCGQL) NEGATIVE NEGATIVE This HCGQL test is NOT applicable for MALE patients.Check with nurse about probable order error.If Tumor Marker Test needed, nurse should order test "HCGTU"(Test #550.09086) [id number] 17:44:00* Test Item Value Reference Range Interpretation Comments TROPONIN-I (test code = TROPI) ng/mL 0-0.045 CBC W/O [id number] 17:31:00* Test Item Value Reference Range Interpretation Comments WHITE BLOOD CELL (test code = WBC) K/mm3 4.5-12.5 RED BLOOD CELL (test code = RBC) mill/mm3 3.7-5.2 HEMOGLOBIN (test code = HGB) 13.3 gram/dL 11.5-15.5 N HEMATOCRIT (test code = HCT) 37.9 % 36.0-46.0 N MEAN CELL VOLUME (test code = MCV) fL 80-98 MEAN CELL HGB (test code = MCH) picogram 27.0-33.0 MEAN CELL HGB CONCETRATION (test code = MCHC) gram/dL 33.0-36. 0 RED CELL DISTRIBUTION WIDTH (test code = RDW) % 11.6-16. 2 PLATELET COUNT (test code = PLT) K/mm3 150-450 MEAN PLATELET VOLUME (test code = MPV) fL 6.7-11.0 BASIC METABOLIC [id number] 19:52:00* Test Item Value Reference Range Interpretation Comments SODIUM (test code = NA) 139 mmol/L 136-145 N POTASSIUM (test code = K) 2.7 mmol/L 3.5-5.1 [facility] sults called to [id number] by V.LAB. 03/02/19 1952Critical results verified and read back by Nurse? Y CHLORIDE (test code = CL) 101.0 mmol/L 98-107 N CARBON DIOXIDE (test code = CO2) 31.0 mmol/L 21-32 N ANION GAP (test code = GAP) 9.7 10-20 L GLUCOSE (test code = GLU) 100 mg/dL 74-106 N BLOOD UREA NITROGEN (test code = BUN) 6 mg/dL 7-18 L GLOMERULAR FILTRATION RATE (test code = GFR) > 60 mL/min >=60 Estimated GFR by using Modified MDRD formula.Chronic kidney disease is defined as either kidney damageor GFR <60 mL/min/1.73 m2 for >3 months. CREATININE (test code = CREAT) 0.70 mg/dL 0.55-1.02 N Note change in reference range due to change in reagent. BUN/CREATININE RATIO (test code = BUN/CREA) 8.6 10-20 L CALCIUM (test code = CA) 8.1 mg/dL 8.5-10.1 L COMPREHENSIVE METABOLIC [id number] 09:51:00* Test Item Value Reference Range Interpretation Comments SODIUM (test code = NA) 138 mmol/L 136-145 N POTASSIUM (test code = K) 2.5 mmol/L 3.5-5.1 LL Re sults called to [id number] by YAN 03/02/19 0951Critical results verified and read back by Nurse? Y CHLORIDE (test code = CL) 97.0 mmol/L 98-107 L CARBON DIOXIDE (test code = CO2) 34.0 mmol/L 21-32 H ANION GAP (test code = GAP) 9.5 10-20 L GLUCOSE (test code = GLU) 79 mg/dL 74-106 N BLOOD UREA NITROGEN (test code = BUN) 8 mg/dL 7-18 N GLOMERULAR FILTRATION RATE (test code = GFR) > 60 mL/min >=60 Estimated GFR by using Modified MDRD formula.Chronic kidney disease is defined as either kidney damageor GFR <60 mL/min/1.73 m2 for >3 months. CREATININE (test code = CREAT) 0.70 mg/dL 0.55-1.02 N Note change in reference range due to change in reagent. BUN/CREATININE RATIO (test code = BUN/CREA) 11.4 10-20 N TOTAL PROTEIN (test code = PROT) 6.4 gram/dL 6.4-8.2 N ALBUMIN (test code = ALB) 3.1 g/dL 3.4-5.0 L GLOBULIN (test code = GLOB) 3.3 gram/dL 2.7-4.2 N ALBUMIN/GLOBULIN RATIO (test code = A/G) 0.9 0.75-1.50 N CALCIUM (test code = CA) 8.0 mg/dL 8.5-10.1 L BILIRUBIN TOTAL (test code = BILT) 1.40 mg/dL 0.0-1.0 H SGOT/AST (test code = AST) 85 IUnit/L 15-37 H SGPT/ALT (test code = ALT) 56 IUnit/L 12-78 N ALKALINE PHOSPHATASE TOTAL (test code = ALKP) 86 IUnit/L 45-117 N Note change in reference range due to change in reagent. [id number] 09:38:00* Test Item Value Reference Range Interpretation Comments PHOSPHORUS (test code = PHOS) mg/dL 2.5-4.9 [id number] 09:38:00* Test Item Value Reference Range Interpretation Comments MAGNESIUM (test code = MAG) 2.0 mg/dL 1.8-2.4 N [id number] 09:38:00* Test Item Value Reference Range Interpretation Comments PHOSPHORUS (test code = PHOS) 2.4 mg/dL 2.5-4.9 L [id number] 09:38:00* Test Item Value Reference Range Interpretation Comments MAGNESIUM (test code = MAG) 2.0 mg/dL 1.8-2.4 N URINALYSIS [id number] 07:59:00* Test Item Value Reference Range Interpretation Comments UA COLOR (test code = COLU) Light-[place]ander YELLOW UA APPEARANCE (test code = APPU) Cloudy CLEAR A UA GLUCOSE DIPSTICK (test code = DGLUU) NEGATIVE mg/dL NEGATIVE UA BILIRUBIN DIPSTICK (test code = BILU) NEGATIVE mg/dL NEGATIVE UA KETONE DIPSTICK (test code = KETU) 20 (1+) mg/dL NEGATIVE A UA SPECIFIC GRAVITY (test code = SGU) 1.020 1.001-1.035 UA BLOOD DIPSTICK (test code = STEPHANIE) Negative mg/dL NEGATIVE UA PH DIPSTICK (test code = CINDY) 8.0 5.0-8.0 UA PROTEIN DIPSTICK (test code = PROU) 50 (1+) mg/dL NEGATIVE A UA UROBILINIOGEN DIPSTICK (test code = URO) 3.0 (1+) mg/dL NEGATIVE A UA NITRITE DIPSTICK (test code = MICAH) NEGATIVE NEGATIVE UA LEUKOCYTE ESTERASE W REFLEX (test code = LEUUR) NEGATIVE Sanjay/uL NEGATIVE UA WBC (test code = WBCU) per HPF 0-5 UA RBC (test code = RBCU) per HPF 0-5 UA EPITHELIAL CELLS (test code = EPIU) per HPF Few UA BACTERIA (test code = BACU) per HPF NONE Urine Source? Clean CatchURINALYSIS [id number] 07:59:00* Test Item Value Reference Range Interpretation Comments UA COLOR (test code = COLU) [place] YELLOW UA APPEARANCE (test code = APPU) Cloudy CLEAR A UA GLUCOSE DIPSTICK (test code = DGLUU) NEGATIVE mg/dL NEGATIVE UA BILIRUBIN DIPSTICK (test code = BILU) NEGATIVE mg/dL NEGATIVE UA KETONE DIPSTICK (test code = KETU) 20 (1+) mg/dL NEGATIVE A UA SPECIFIC GRAVITY (test code = SGU) 1.020 1.001-1.035 UA BLOOD DIPSTICK (test code = STEPHANIE) Negative mg/dL NEGATIVE UA PH DIPSTICK (test code = CINDY) 8.0 5.0-8.0 UA PROTEIN DIPSTICK (test code = PROU) 50 (1+) mg/dL NEGATIVE A UA UROBILINIOGEN DIPSTICK (test code = URO) 3.0 (1+) mg/dL NEGATIVE A UA NITRITE DIPSTICK (test code = MICAH) NEGATIVE NEGATIVE UA LEUKOCYTE ESTERASE W REFLEX (test code = LEUUR) NEGATIVE Sanjay/uL NEGATIVE UA WBC (test code = WBCU) 0-5 per HPF 0-5 UA RBC (test code = RBCU) 0-2 #/HPF 0-5 UA EPITHELIAL CELLS (test code = EPIU) FEW per HPF FEW UA BACTERIA (test code = BACU) FEW #/HPF NONE UA HYALINE CAST (test code = HYALU) 3-5 #/LPF 0-5 UA MUCUS (test code = MUCU) MANY #/LPF FEW A Urine Source? Clean CatchBASIC METABOLIC [id number] 21:49:00* Test Item Value Reference Range Interpretation Comments SODIUM (test code = NA) 137 mmol/L 136-145 N POTASSIUM (test code = K) 2.2 mmol/L 3.5-5.1 LL Re sults called to KEITH/ROJ9147or V.LAB. 03/01/192148Critical results verified and read back by Nurse? Y CHLORIDE (test code = CL) 93.0 mmol/L 98-107 L CARBON DIOXIDE (test code = CO2) 36.0 mmol/L 21-32 H ANION GAP (test code = GAP) 10.2 10-20 N GLUCOSE (test code = GLU) 115 mg/dL 74-106 H BLOOD UREA NITROGEN (test code = BUN) 15 mg/dL 7-18 N GLOMERULAR FILTRATION RATE (test code = GFR) > 60 mL/min >=60 Estimated GFR by using Modified MDRD formula.Chronic kidney disease is defined as either kidney damageor GFR <60 mL/min/1.73 m2 for >3 months. CREATININE (test code = CREAT) 0.90 mg/dL 0.55-1.02 N Note change in reference range due to change in reagent. BUN/CREATININE RATIO (test code = BUN/CREA) 16.7 10-20 N CALCIUM (test code = CA) 8.3 mg/dL 8.5-10.1 L HEPATIC FUNCTION [id number] 21:49:00* Test Item Value Reference Range Interpretation Comments TOTAL PROTEIN (test code = PROT) 7.3 gram/dL 6.4-8.2 N ALBUMIN (test code = ALB) 3.7 g/dL 3.4-5.0 N GLOBULIN (test code = GLOB) 3.6 gram/dL 2.7-4.2 N ALBUMIN/GLOBULIN RATIO (test code = A/G) 1.0 0.75-1.50 N BILIRUBIN TOTAL (test code = BILT) 1.60 mg/dL 0.0-1.0 H BILIRUBIN DIRECT (test code = BILD) 0.55 mg/dL 0.0-0.20 H SGOT/AST (test code = AST) 69 IUnit/L 15-37 H SGPT/ALT (test code = ALT) 62 IUnit/L 12-78 N ALKALINE PHOSPHATASE TOTAL (test code = ALKP) 97 IUnit/L 45-117 N Note change in reference range due to change in reagent. [id number] 21:49:00* Test Item Value Reference Range Interpretation Comments PHOSPHORUS (test code = PHOS) 1.7 mg/dL 2.5-4.9 L CREATINE KINASE (CK)2019-03-01 21:49:00* Test Item Value Reference Range Interpretation Comments CREATINE KINASE (CK) (test code = CK) 354 IUnit/L 26-208 H [id number] 21:49:00* Test Item Value Reference Range Interpretation Comments LIPASE (test code = LIP) 184 U/L 73.0-393.0 N [id number] 21:49:00* Test Item Value Reference Range Interpretation Comments MAGNESIUM (test code = MAG) 1.4 mg/dL 1.8-2.4 L CBC W/O [id number] 21:12:00* Test Item Value Reference Range Interpretation Comments WHITE BLOOD CELL (test code = WBC) 7.5 K/mm3 4.5-12.5 N RED BLOOD CELL (test code = RBC) 3.85 mill/mm3 3.7-5.2 N HEMOGLOBIN (test code = HGB) 13.2 gram/dL 11.5-15.5 N HEMATOCRIT (test code = HCT) 37.8 % 36.0-46.0 N MEAN CELL VOLUME (test code = MCV) 98.2 fL 80-98 H MEAN CELL HGB (test code = MCH) 34.3 picogram 27.0-33.0 H MEAN CELL HGB CONCETRATION (test code = MCHC) 34.9 gram/dL 33.0-36. 0 N RED CELL DISTRIBUTION WIDTH (test code = RDW) 13.2 % 11.6-16. 2 N PLATELET COUNT (test code = PLT) 173 K/mm3 150-450 N MEAN PLATELET VOLUME (test code = MPV) 10.3 fL 6.7-11.0 N CBC W/O [id number] 21:00:00* Test Item Value Reference Range Interpretation Comments WHITE BLOOD CELL (test code = WBC) K/mm3 4.5-12.5 RED BLOOD CELL (test code = RBC) mill/mm3 3.7-5.2 HEMOGLOBIN (test code = HGB) 13.2 gram/dL 11.5-15.5 N HEMATOCRIT (test code = HCT) 37.8 % 36.0-46.0 N MEAN CELL VOLUME (test code = MCV) fL 80-98 MEAN CELL HGB (test code = MCH) picogram 27.0-33.0 MEAN CELL HGB CONCETRATION (test code = MCHC) gram/dL 33.0-36. 0 RED CELL DISTRIBUTION WIDTH (test code = RDW) % 11.6-16. 2 PLATELET COUNT (test code = PLT) K/mm3 150-450 MEAN PLATELET VOLUME (test code = MPV) fL 6.7-11.0 TROPONIN I [id number] 09:50:00* Test Item Value Reference Range Interpretation Comments TROPONIN I RAPID (test code = TROPIRAP) 0.00 ng/mL <0.08 Please Note New Reference Range 0.00-0.079 ng/mL - Negative>or= 0.08 ng/mL - Positive The use of serial sampling and testing protocol is arecommended practice.An elevated troponin level alone is often not sufficient fordiagnosis of myocardial infarction. Troponin results obtained by different assays may vary.Evaluation of the extent of myocardial damage based onincrease of troponin would be valid only if similarmethodology is used. BASIC METABOLIC [id number] 08:06:00* Test Item Value Reference Range Interpretation Comments SODIUM (test code = NA) 138 mmol/L 136-145 N POTASSIUM (test code = K) 3.6 mmol/L 3.5-5.1 N CHLORIDE (test code = CL) 104.0 mmol/L 98-107 N CARBON DIOXIDE (test code = CO2) 22.0 mmol/L 21-32 N ANION GAP (test code = GAP) 15.6 10-20 N GLUCOSE (test code = GLU) 81 mg/dL 74-106 N BLOOD UREA NITROGEN (test code = BUN) 7 mg/dL 7-18 N GLOMERULAR FILTRATION RATE (test code = GFR) > 60 mL/min >=60 Estimated GFR by using Modified MDRD formula.Chronic kidney disease is defined as either kidney damageor GFR <60 mL/min/1.73 m2 for >3 months. CREATININE (test code = CREAT) 0.60 mg/dL 0.55-1.02 N Note change in reference range due to change in reagent. BUN/CREATININE RATIO (test code = BUN/CREA) 11.7 10-20 N CALCIUM (test code = CA) 8.9 mg/dL 8.5-10.1 N [id number] 08:06:00* Test Item Value Reference Range Interpretation Comments TROPONIN-I (test code = TROPI) <0.015 ng/mL 0-0.045 N [id number] 08:06:00* Test Item Value Reference Range Interpretation Comments ALCOHOL (test code = ALC) 223 mg/dL 0.0-3.0 H -- INTERPRETIVE DATA NOTE: POSITIVE SCREENING RESULTS SHOULD BE CONSIDERED PRESUMPTIVE.WHEN COLLECTED FOR MEDICAL PURPOSES ONLY. SPECIMEN WILL NOTBE COLLECTED BY CHAIN OF CUSTODY.IF A CONFIRMATION OF POSITIVE RESULTS IS DESIRED, ACONFIRMATION TEST MUST BE REQUESTED BY THE PHYSICIAN AT ANADDITIONAL CHARGE TO THE PATIENT. [id number] 07:57:00* Test Item Value Reference Range Interpretation Comments MAGNESIUM (test code = MAG) 1.9 mg/dL 1.8-2.4 N BASIC METABOLIC [id number] 07:55:00* Test Item Value Reference Range Interpretation Comments SODIUM (test code = NA) 138 mmol/L 136-145 N POTASSIUM (test code = K) 3.6 mmol/L 3.5-5.1 N CHLORIDE (test code = CL) 104.0 mmol/L 98-107 N CARBON DIOXIDE (test code = CO2) mmol/L 21-32 ANION GAP (test code = GAP) 10-20 GLUCOSE (test code = GLU) mg/dL 74-106 BLOOD UREA NITROGEN (test code = BUN) mg/dL 7-18 GLOMERULAR FILTRATION RATE (test code = GFR) mL/min >=60 CREATININE (test code = CREAT) mg/dL 0.55-1.02 BUN/CREATININE RATIO (test code = BUN/CREA) 10-20 CALCIUM (test code = CA) mg/dL 8.5-10.1 [id number] 07:55:00* Test Item Value Reference Range Interpretation Comments TROPONIN-I (test code = TROPI) ng/mL 0-0.045 [id number] 07:55:00* Test Item Value Reference Range Interpretation Comments ALCOHOL (test code = ALC) mg/dL 0-3 CBC W/O [id number] 07:47:00* Test Item Value Reference Range Interpretation Comments WHITE BLOOD CELL (test code = WBC) 4.8 K/mm3 4.5-12.5 N RED BLOOD CELL (test code = RBC) 4.19 mill/mm3 3.7-5.2 N HEMOGLOBIN (test code = HGB) 14.2 gram/dL 11.5-15.5 N HEMATOCRIT (test code = HCT) 42.4 % 36.0-46.0 N MEAN CELL VOLUME (test code = MCV) 101.2 fL 80-98 H MEAN CELL HGB (test code = MCH) 33.9 picogram 27.0-33.0 H MEAN CELL HGB CONCETRATION (test code = MCHC) 33.5 gram/dL 33.0-36. 0 N RED CELL DISTRIBUTION WIDTH (test code = RDW) 12.6 % 11.6-16. 2 N PLATELET COUNT (test code = PLT) 379 K/mm3 150-450 N MEAN PLATELET VOLUME (test code = MPV) 9.3 fL 6.7-11.0 N - XR CHEST 1 [id number] 07:37:00 FAX: Ankur Sinclair DO [place]: B St: PRE Name: AMILCAR HARRINGTON [facility] : [birth year] Age/S: 48/F [address] [facility] Unit #: [id number] Loc: [place] [address] Phys: Ankur Sinclair DO Acct: [id number] Dis Date: Status: PRE ER PHONE #: [phone] Exam Date: 02/03/2019719 FAX #: [phone] Reason: CHEST PAIN EXAMS: CPT CODE: [id number] XR CHEST 1 V 88810 HISTORY: CHEST PAIN TECHNIQUE: AP chest x-ray COMPARISON: None FINDINGS: No airspace consolidation or pleural effusion. Normal heart size. Mediastinal silhouette is unremarkable. Mild thoracic levoscoliosis. IMPRESSION: No radiographic evidence of acute card iopulmonary process. Electronically Signed by Heidi Fonseca D.O. on 01/07 at 0737 Reported and signed by: Heidi Fonseca D.O. CC: Ankur Sinclair DO Technologist: NITHYA THOMAS JR Trnscrd Date/Time/By: 02/03/2019 (0737) : By: [email or web address] Orig Print D/T: S: (0700) PAGE 1 Signed Repo rt Bedside [id number] 08:31:00* Test Item Value Reference Range Interpretation Comments Bedside Glucose (test code = 35828-4) 299 70-120 H Meter ID: [id number] Glucose 2019-01-21 08:31:00* Test Item Value Reference Range Interpretation Comments Bedside Glucose (test code = 16988-0) 299 70-120 H Meter ID: [id number] Scott & [facility] Glucose 2019-01-21 08:31:00* Test Item Value Reference Range Interpretation Comments Bedside Glucose (test code = 74499-1) 299 70-120 H Meter ID: [id number] Healthcare CenterMagnesium Level 2019-01-19 16:03:00* Test Item Value Reference Range Interpretation Comments Magnesium Level (test code = 62760-8) 1.8 1.3-2.1 [facility] [id number] 16:02:00* Test Item Value Reference Range Interpretation Comments Potassium Level (test code = 2823-3) 3.6 3.5-5.1 [facility] Center[facility] [id number] 10:42:00* Test Item Value Reference Range Interpretation Comments Urine Color (test code = 5778-6) YELLOW YELLOW [facility] Center[facility] [id number] 10:42:00* Test Item Value Reference Range Interpretation Comments Urine Clarity (test code = 41567-3) SL CLOUDY CLEAR [facility] CenterU[facility] Specific [id number] 10:42:00 * Test Item Value Reference Range Interpretation Comments Urine Specific [place] (test code = 5811-5) 1.020 1.010-1.02 5 [facility] Center[facility] [id number] 10:42:00* Test Item Value Reference Range Interpretation Comments Urine pH (test code = 92101-8) 8 5-7 H [facility] Leukocyte [id number] 10:42:00* Test Item Value Reference Range Interpretation Comments Urine Leukocyte Esterase (test code = 5799-2) NEGATIVE NEGATIVE [facility] Center[facility] [id number] 10:42:00* Test Item Value Reference Range Interpretation Comments Urine Nitrite (test code = 00735-0) NEGATIVE NEGATIVE [facility] [id number] 10:42:00* Test Item Value Reference Range Interpretation Comments Urine Protein (test code = 5804-0) NEGATIVE NEGATIVE [facility] Glucose (UA)2019-01-19 10:42:00* Test Item Value Reference Range Interpretation Comments Urine Glucose (UA) (test code = 2349-9) NEGATIVE NEGATIVE [facility] [id number] 10:42:00* Test Item Value Reference Range Interpretation Comments Urine Ketones (test code = 23583-5) NEGATIVE NEGATIVE [facility] [id number] 10:42:00* Test Item Value Reference Range Interpretation Comments Urine Urobilinogen (test code = 26366-3) 0.2 0.2-1 [facility] [id number] 10:42:00* Test Item Value Reference Range Interpretation Comments Urine Bilirubin (test code = 1978-6) NEGATIVE NEGATIVE [facility] [id number] 10:42:00* Test Item Value Reference Range Interpretation Comments Urine Blood (test code = 25156-5) NEGATIVE NEGATIVE [facility] [id number] 10:42:00* Test Item Value Reference Range Interpretation Comments Urine WBC (test code = 5821-4) NONE 0-5 [facility] [id number] 10:42:00* Test Item Value Reference Range Interpretation Comments Urine RBC (test code = 54541-5) NONE 0-5 [facility] Kqnlodzm6545-02-14 10:42:00* Test Item Value Reference Range Interpretation Comments Urine Bacteria (test code = 11307-1) NONE NONE [facility] Epithelial [id number] 10:42:00 * Test Item Value Reference Range Interpretation Comments Urine Epithelial Cells (test code = 62998-0) RARE NONE [facility] [id number] 10:42:00* Test Item Value Reference Range Interpretation Comments Urine Color (test code = 5778-6) YELLOW YELLOW [facility] [id number] 10:42:00* Test Item Value Reference Range Interpretation Comments Urine Clarity (test code = 22317-4) SL CLOUDY CLEAR [facility] Zjadpvj0180-83-61 10:42:00 * Test Item Value Reference Range Interpretation Comments Urine Specific [place] (test code = 5811-5) 1.020 1.010-1.02 5 [facility] [id number] 10:42:00* Test Item Value Reference Range Interpretation Comments Urine pH (test code = 00748-2) 8 5-7 [facility] Leukocyte Eapgvpva2008-93-93 10:42:00* Test Item Value Reference Range Interpretation Comments Urine Leukocyte Esterase (test code = 5799-2) NEGATIVE NEGATIVE [facility] Aqxpohq9627-79-27 10:42:00* Test Item Value Reference Range Interpretation Comments Urine Nitrite (test code = 80346-4) NEGATIVE NEGATIVE [facility] [id number] 10:42:00* Test Item Value Reference Range Interpretation Comments Urine Protein (test code = 5804-0) NEGATIVE NEGATIVE [facility] Glucose (UA)2019-01-19 10:42:00* Test Item Value Reference Range Interpretation Comments Urine Glucose (UA) (test code = 2349-9) NEGATIVE [facility]GATIVE [facility] Dllpanf3732-32-74 10:42:00* Test Item Value Reference Range Interpretation Comments Urine Ketones (test code = 21435-4) NEGATIVE NEGATIVE [facility] Piqunwfedwod0418-09-46 10:42:00* Test Item Value Reference Range Interpretation Comments Urine Urobilinogen (test code = 85164-6) 0.2 0.2-1 [facility] Zcgfxgnjj1969-51-35 10:42:00* Test Item Value Reference Range Interpretation Comments Urine Bilirubin (test code = 1978-6) NEGATIVE NEGATIVE [facility] Xtnld7521-81-59 10:42:00* Test Item Value Reference Range Interpretation Comments Urine Blood (test code = 49365-6) NEGATIVE [facility]GATIVE [facility] [id number] 10:42:00* Test Item Value Reference Range Interpretation Comments Urine WBC (test code = 5821-4) NONE 0-5 [facility] Center[facility] [id number] 10:42:00* Test Item Value Reference Range Interpretation Comments Urine RBC (test code = 17022-5) NONE 0-5 [facility] CenterU[facility] Ckxyylin6144-38-37 10:42:00* Test Item Value Reference Range Interpretation Comments Urine Bacteria (test code = 28042-6) NONE NONE [facility] CenterUrine Epithelial Soxse2183-55-85 10:42:00 * Test Item Value Reference Range Interpretation Comments Urine Epithelial Cells (test code = 51757-3) RARE NONE [facility] CenterUrine Opiates Lzerpe9628-35-70 10:36:00* Test Item Value Reference Range Interpretation Comments Urine Opiates Screen (test code = 60878-1) NEGATIVE NEGATIVE ALL TESTS PERFORMED MANUALLY ON NeurogesX TOX/SEE TESTLamb Healthcare CenterUrine Barbiturates Xfmgiu8991-58-21 10:36:00* Test Item Value Reference Range Interpretation Comments Urine Barbiturates Screen (test code = 837392591) POSITIVE NEGA TIVE H This test provides only a screen. Positive results should be repeated by a confi rmatory test.[facility] CenterUrine Phencyclidine Screen 2019-01-19 10:36:00* Test Item Value Reference Range Interpretation Comments Urine Phencyclidine Screen (test code = 55117-2) NEGATIVE NEGAT MERCEDEZ [facility] CenterUrine Amphetamines Ixrsvk3007-43-22 10:36:00* Test Item Value Reference Range Interpretation Comments Urine Amphetamines Screen (test code = 53860-1) NEGATIVE NEGATI VE [facility] CenterUrine Methamphetamines Yzrlti0930-57-41 10:36:00* Test Item Value Reference Range Interpretation Comments Urine Methamphetamines Screen (test code = Urine Metha mphetamines Screen) NEGATIVE NEGATIVE [facility] CenterUrine Benzodiazepines Itofao8465-88-45 10:36:00* Test Item Value Reference Range Interpretation Comments Urine Benzodiazepines Screen (test code = 15921-9) POSITIVE NEG ATIVE H This test provides only a screen. Positive results should be repeated by a confi rmatory test.[facility] CenterUrine Cocaine Screen 2019-01-19 10:36:00* Test Item Value Reference Range Interpretation Comments Urine Cocaine Screen (test code = 3398-5) NEGATIVE NEGATIVE [facility] CenterUrine Cannabinoids Zzawra1223-51-09 10:36:00* Test Item Value Reference Range Interpretation Comments Urine Cannabinoids Screen (test code = 29358-4) NEGATIVE NEGATI VE THESE RESULTS ARE FOR MEDICAL TREATMENT ONLYTHIS REPORT CONTAINS UNCONFIR MED SCREENING RESULTS*POSITIVE RESULTS WILL BE CONFIRMED BY REFERENCE LAB UPON R EQUEST CUT-OFFDRUG CLASS CONCENTRATION ng/mLAmphetamines 1000Methamphetamines 1000Cocaine 300Opiate 300Phencyc lidine 25Cannabinoid 50Barbiturates 300Benzodiazepine 300Methadone 300[facility] Meth[facility]one Ebvyxr4049-70-48 10:36:00* Test Item Value Reference Range Interpretation Comments Urine Methadone Screen (test code = 84800-1) NEGATIVE NEGATIVE This test provides only a screen. Positive results should be repeated by a confi rmatory test.THESE RESULTS ARE FOR MEDICAL TREATMENT ONLYTHIS REPORT CONT AINS UNCONFIRMED SCREENING RESULTS*POSITIVE RESULTS WILL BE CONFIRMED BY REFEREN CE LAB UPON REQUEST CUT-OFFDRUG CLASS CON CENTRATION ng/mLAmphetamines 1000Methamp hetamines 1000Cocaine Metabolite 300Opiate 300Phencyclidine 25Cannabinoid 50Barbiturates 300Benzodiazepine 300Methadone 30 0[facility] CenterUrine Opiates Wjnonp0642-82-65 10:36:00 * Test Item Value Reference Range Interpretation Comments Urine Opiates Screen (test code = 72976-7) NEGATIVE NEGATIVE ALL TESTS PERFORMED MANUALLY ON NeurogesX TOX/SEE TESTLamb Healthcare CenterUrine Barbiturates Hkytdn6323-35-76 10:36:00* Test Item Value Reference Range Interpretation Comments Urine Barbiturates Screen (test code = 030134057) POSITIVE NEGA TIVE H This test provides only a screen. Positive results should be repeated by a confi rmatory test.[facility] CenterUrine Phencyclidine Screen 2019-01-19 10:36:00* Test Item Value Reference Range Interpretation Comments Urine Phencyclidine Screen (test code = 98125-3) NEGATIVE NEGAT MERCEDEZ [facility] CenterUrine Amphetamines Zxzrpg8654-37-83 10:36:00* Test Item Value Reference Range Interpretation Comments Urine Amphetamines Screen (test code = 28485-8) NEGATIVE NEGATI VE [facility] CenterUrine Methamphetamines Kqdhxh2058-57-22 10:36:00* Test Item Value Reference Range Interpretation Comments Urine Methamphetamines Screen (test code = Urine Metha mphetamines Screen) NEGATIVE NEGATIVE [facility] CenterUrine Benzodiazepines Zhfflf3468-72-82 10:36:00* Test Item Value Reference Range Interpretation Comments Urine Benzodiazepines Screen (test code = 23918-5) POSITIVE NEG ATIVE H This test provides only a screen. Positive results should be repeated by a confi rmatory test.[facility] CenterUrine Cocaine Screen 2019-01-19 10:36:00* Test Item Value Reference Range Interpretation Comments Urine Cocaine Screen (test code = 3398-5) NEGATIVE NEGATIVE [facility] CenterUrine Cannabinoids Tiodfi4744-55-14 10:36:00* Test Item Value Reference Range Interpretation Comments Urine Cannabinoids Screen (test code = 03168-8) NEGATIVE NEGATI VE THESE RESULTS ARE FOR MEDICAL TREATMENT ONLYTHIS REPORT CONTAINS UNCONFIR MED SCREENING RESULTS*POSITIVE RESULTS WILL BE CONFIRMED BY REFERENCE LAB UPON R EQUEST CUT-OFFDRUG CLASS CONCENTRATION ng/mLAmphetamines 1000Methamphetamines 1000Cocaine 300Opiate 300Phencyc lidine 25Cannabinoid 50Barbiturates 300Benzodiazepine 300Methadone 300[facility] HospitalU[facility] Methadone Wwqeoi1465-51-00 10:36:00* Test Item Value Reference Range Interpretation Comments Urine Methadone Screen (test code = 92622-5) NEGATIVE NEGATIVE This test provides only a screen. Positive results should be repeated by a confi rmatory test.THESE RESULTS ARE FOR MEDICAL TREATMENT ONLYTHIS REPORT CONT AINS UNCONFIRMED SCREENING RESULTS*POSITIVE RESULTS WILL BE CONFIRMED BY REFEREN CE LAB UPON REQUEST CUT-OFFDRUG CLASS CON CENTRATION ng/mLAmphetamines 1000Methamp hetamines 1000Cocaine Metabolite 300Opiate 300Phencyclidine 25Cannabinoid 50Barbiturates 300Benzodiazepine 300Methadone 30 0[facility]odium Vwokz2136-91-85 06:41:00* Test Item Value Reference Range Interpretation Comments Sodium Level (test code = 2951-2) 138 136-145 [facility] CenterChloride Cfzla8049-83-04 06:41:00* Test Item Value Reference Range Interpretation Comments Chloride Level (test code = 2075-0) 102 98-107 [facility] CenterCarbon Dioxide Zpgqh5140-17-75 06:41:00* Test Item Value Reference Range Interpretation Comments Carbon Dioxide Level (test code = 2028-9) 29 22-29 [facility] CenterAnion Jbe8309-85-15 06:41:00* Test Item Value Reference Range Interpretation Comments Anion Gap (test code = 33680-0) 9.9 8-16 [facility] CenterBlood Urea Jyrntzkf3433-05-51 06:41:00* Test Item Value Reference Range Interpretation Comments Blood Urea Nitrogen (test code = 3094-0) 8 7-26 [facility] CenterCreatinine2019-05-15 06:41:00* Test Item Value Reference Range Interpretation Comments Creatinine (test code = 2160-0) 0.68 0.57-1.11 [facility] CenterBUN/Creatinine Alypb0648-34-56 06:41:00* Test Item Value Reference Range Interpretation Comments BUN/Creatinine Ratio (test code = 3097-3) 12 6-25 [facility] CenterEstimat Glomerular Filtration Rate 2019-01-19 06:41:00* Test Item Value Reference Range Interpretation Comments Estimat Glomerular Filtration Rate (test code = 027408336) > 60 >60 Ranges were taken from the National Kidney Disease Education Program and the [facility] Foundation literature.Reference ranges:60 or greater: Ganjij90-06 ( for 3 consecutive months): Chronic kidney disease 15 or less: Kidney failureLamb Healthcare CenterGlucose Tyrap9294-12-19 06:41:00* Test Item Value Reference Range Interpretation Comments Glucose Level (test code = SZB0108) 83 74-118 [facility] CenterCalcium Optio2835-00-96 06:41:00* Test Item Value Reference Range Interpretation Comments Calcium Level (test code = 47659-3) 8.6 8.4-10.2 [facility] CenterB-Type Natriuretic Eubvskg5591-71-75 18:49:00* Test Item Value Reference Range Interpretation Comments B-Type Natriuretic Peptide (test code = 01555-6) 10.9 0-100 [facility] CenterB-Type Natriuretic Nclvxnb5851-86-02 18:49:00* Test Item Value Reference Range Interpretation Comments B-Type Natriuretic Peptide (test code = 10466-7) 10.9 0-100 [facility] CenterAmylase Ddwfb0953-09-34 18:44:00* Test Item Value Reference Range Interpretation Comments Amylase Level (test code = 1798-8) 116 25-125 [facility] CenterLipase2019-05-14 18:44:00* Test Item Value Reference Range Interpretation Comments Lipase (test code = 3040-3) 33 8-78 [facility] CenterAmylase Qkdqj1155-13-35 18:44:00* Test Item Value Reference Range Interpretation Comments Amylase Level (test code = 1798-8) 116 25-125 [facility] CenterAmylase Mzdih3132-31-17 18:44:00* Test Item Value Reference Range Interpretation Comments Amylase Level (test code = 1798-8) 116 25-125 [facility] CenterAmylase Zedsz3800-96-37 18:44:00* Test Item Value Reference Range Interpretation Comments Amylase Level (test code = 1798-8) 116 25-125 [facility] CenterCreatine Kinase ZT6317-88-91 18:38:00* Test Item Value Reference Range Interpretation Comments Creatine Kinase MB (test code = 50390-0) 1.10 0-5.0 [facility] CenterTroponin I9382-97-78 18:38:00* Test Item Value Reference Range Interpretation Comments Troponin I (test code = WQQ6406) < 0.001 0-0.300 [facility] CenterTotal Tzblbjgxy8828-56-27 18:37:00* Test Item Value Reference Range Interpretation Comments Total Bilirubin (test code = 1975-2) 1.8 0.2-1.2 H [facility] CenterAspartate Amino Transf (AST/SGOT) 2019-01-18 18:37:00* Test Item Value Reference Range Interpretation Comments Aspartate Amino Transf (AST/SGOT) (test code = Aspartate Amino Transf (AST/SGOT)) 105 5-34 H [facility] CenterAlanine Aminotransferase (ALT/SGPT) 2019-01-18 18:37:00* Test Item Value Reference Range Interpretation Comments Alanine Aminotransferase (ALT/SGPT) (test code = 1742-6) 88 0-55 H [facility] Gldbyem5876-24-75 18:37:00* Test Item Value Reference Range Interpretation Comments Total Protein (test code = 2885-2) 8.3 6.5-8.1 H [facility] CenterAlbumin2019-05-14 18:37:00* Test Item Value Reference Range Interpretation Comments Albumin (test code = 1751-7) 4.3 3.5-5.0 [facility] CenterGlobulin2019-05-14 18:37:00* Test Item Value Reference Range Interpretation Comments Globulin (test code = 05249-1) 4.0 2.3-3.5 H [facility] CenterAlbumin/Globulin Mkpza3560-47-98 18:37:00 * Test Item Value Reference Range Interpretation Comments Albumin/Globulin Ratio (test code = 1759-0) 1.1 0.8-2.0 [facility] CenterAlkaline Fcvtxxrgpgs0945-85-55 18:37:00* Test Item Value Reference Range Interpretation Comments Alkaline Phosphatase (test code = 6768-6) 141 40-150 [facility] CenterCreatine Skhhky8617-67-50 18:37:00* Test Item Value Reference Range Interpretation Comments Creatine Kinase (test code = 2157-6) 243 29-168 H [facility] CenterHuman Chorionic Gonadotropin, Qual 2019-01-18 18:31:00* Test Item Value Reference Range Interpretation Comments Human Chorionic Gonadotropin, Qual (test code = 2118-8) NEGATIVE NEGATIVE [facility] CenterProthrombin Tltj5539-98-98 18:27:00* Test Item Value Reference Range Interpretation Comments Prothrombin Time (test code = 5902-2) 12.6 11.9-14.5 [facility] CenterProthromb Time International Ratio 2019-01-18 18:27:00* Test Item Value Reference Range Interpretation Comments Prothromb Time International Ratio (test code = 6301-6) 0.90 Oral Anticoagulant Therapy INR Values:1. Low Intensity Therapy 1.5 - 2.02 . Moderate Intensity Therapy 2.0 - 3.03. High Intensity Therapy(1) 2.5 - 3. 54. High Intensity Therapy(2) 3.0 - 4.05. Panic Value INR > 5.0 [facility] CenterActivated Partial Thromboplast Time 2019-01-18 18:27:00* Test Item Value Reference Range Interpretation Comments Activated Partial Thromboplast Time (test code = 83014-8) 20.4 23.8-35.5 L NO CLOT DETECTED [facility] CenterProthrombin Time 2019-01-18 18:27:00* Test Item Value Reference Range Interpretation Comments Prothrombin Time (test code = 5902-2) 12.6 11.9-14.5 [facility] CenterProthromb Time International Ratio 2019-01-18 18:27:00* Test Item Value Reference Range Interpretation Comments Prothromb Time International Ratio (test code = 6301-6) 0.90 Oral Anticoagulant Therapy INR Values:1. Low Intensity Therapy 1.5 - 2.02 . Moderate Intensity Therapy 2.0 - 3.03. High Intensity Therapy(1) 2.5 - 3. 54. High Intensity Therapy(2) 3.0 - 4.05. Panic Value INR > 5.0 [facility] CenterActivated Partial Thromboplast Time 2019-01-18 18:27:00* Test Item Value Reference Range Interpretation Comments Activated Partial Thromboplast Time (test code = 21061-6) 20.4 23.8-35.5 L NO CLOT DETECTED [facility] CenterCHEST SINGLE (PORTABLE) 2019-01-18 18:19:00 [place] [address] Patient Name: AMILCAR CELIS MR #: [id number] : 1970 Age/Sex: 48/F Req #: [id number] Adm Physician: Ordered by: DARIEL KAPADIA MD Report #: [id number] Location: ER Room/Bed: Procedure: [id number] DX/CHES T SINGLE (PORTABLE) Exam Date: 01/18/19 Exam Time: 1 758 REPORT STATUS: Signed A sing le frontal view of the chest. HISTORY: CHEST PAIN COMPARISON: None a vailable. DISCUSSION: Portable technique, limits sensitivity of the exam. Overlying monitoring leads. Tubes/Lines: None Lungs and pleura: Prominence of the peribronchial estrogen markings. No evidence of a con solidative pneumonia or pulmonary alveolar edema. No definite pleural effusion or pneumothorax is identified. Heart and mediastinum: The cardiomedias tinal silhouette appears unremarkable. Bones and soft tissues: Appear u nremarkable, given this limited exam. IMPRESSION: 1. Findings which can be seen in setting of a nonspecific bronchitis. 2. No consolidative pneum onia. Signed by: Dr. Jose Yee D.O., M.M.M. on 01/18/2019 6:2 1 PM Dictated By: JOSE YEE DO 20 Transcribed By: GARY on 01/18/191820 COPY TO: DARIEL SHEIKH MD White Blood Yuloy7275-57-29 18:15:00* Test Item Value Reference Range Interpretation Comments White Blood Count (test code = 6690-2) 8.73 4.8-10.8 [facility] CenterRed Blood Joffw5472-80-52 18:15:00* Test Item Value Reference Range Interpretation Comments Red Blood Count (test code = 789-8) 4.57 3.6-5.1 [facility] CenterHemoglobin2019-05-14 18:15:00* Test Item Value Reference Range Interpretation Comments Hemoglobin (test code = 84269-8) 16.0 12.0-16.0 [facility] CenterHematocrit2019-05-14 18:15:00* Test Item Value Reference Range Interpretation Comments Hematocrit (test code = 4544-3) 44.4 34.2-44.1 H [facility] CenterMean Corpuscular Vcrbdz8966-89-82 18:15:00* Test Item Value Reference Range Interpretation Comments Mean Corpuscular Volume (test code = 787-2) 97.2 81-99 [facility] CenterMean Corpuscular Hfpmvidkli8861-63-92 18:15:00* Test Item Value Reference Range Interpretation Comments Mean Corpuscular Hemoglobin (test code = 785-6) 35.0 28-32 H [facility] CenterMean Corpuscular Hemoglobin Concent 2019-01-18 18:15:00* Test Item Value Reference Range Interpretation Comments Mean Corpuscular Hemoglobin Concent (test code = 786-4) 36.0 31-35 H [facility] CenterRed Cell Distribution Jrolb5295-40-08 18:15:00* Test Item Value Reference Range Interpretation Comments Red Cell Distribution Width (test code = 54041-6) 13.0 11.7 -14.4 [facility] CenterPlatelet Eubsh0931-21-71 18:15:00* Test Item Value Reference Range Interpretation Comments Platelet Count (test code = 777-3) 256 140-360 [facility] CenterNeutrophils (%) (Auto)2019-01-18 18:15:00 * Test Item Value Reference Range Interpretation Comments Neutrophils (%) (Auto) (test code = 08786-7) 85.7 38.7-80.0 H [facility] CenterLymphocytes (%) (Auto)2019-01-18 18:15:00 * Test Item Value Reference Range Interpretation Comments Lymphocytes (%) (Auto) (test code = 736-9) 6.6 18.0-39.1 L [facility] CenterMonocytes (%) (Auto)2019-01-18 18:15:00* Test Item Value Reference Range Interpretation Comments Monocytes (%) (Auto) (test code = 5905-5) 5.2 4.4-11.3 [facility] CenterEosinophils (%) (Auto)2019-01-18 18:15:00 * Test Item Value Reference Range Interpretation Comments Eosinophils (%) (Auto) (test code = 713-8) 1.8 0.0-6.0 [facility] CenterBasophils (%) (Auto)2019-01-18 18:15:00* Test Item Value Reference Range Interpretation Comments Basophils (%) (Auto) (test code = 706-2) 0.2 0.0-1.0 [facility] CenterIM GRANULOCYTES %2019-01-18 18:15:00* Test Item Value Reference Range Interpretation Comments IM GRANULOCYTES % (test code = IM GRANULOCYTES %) 0.5 0.0- 1.0 [facility] CenterNeutrophils # (Auto)2019-01-18 18:15:00* Test Item Value Reference Range Interpretation Comments Neutrophils # (Auto) (test code = 751-8) 7.5 2.1-6.9 H [facility] CenterLymphocytes # (Auto)2019-01-18 18:15:00* Test Item Value Reference Range Interpretation Comments Lymphocytes # (Auto) (test code = 45147-5) 0.6 1.0-3.2 L [facility] CenterMonocytes # (Auto)2019-01-18 18:15:00* Test Item Value Reference Range Interpretation Comments Monocytes # (Auto) (test code = 742-7) 0.5 0.2-0.8 [facility] CenterEosinophils # (Auto)2019-01-18 18:15:00* Test Item Value Reference Range Interpretation Comments Eosinophils # (Auto) (test code = 711-2) 0.2 0.0-0.4 [facility] CenterBasophils # (Auto)2019-01-18 18:15:00* Test Item Value Reference Range Interpretation Comments Basophils # (Auto) (test code = 704-7) 0.0 0.0-0.1 [facility] CenterAbsolute Immature Granulocyte (auto 2019-01-18 18:15:00* Test Item Value Reference Range Interpretation Comments Absolute Immature Granulocyte (auto (zenaida t code = Absolute Immature Granulocyte (auto) 0.04 0-0.1 [facility]odium Kmqdx6658-35-43 15:38:00* Test Item Value Reference Range Interpretation Comments Sodium Level (test code = 2951-2) 135 136-145 L [facility] CenterPotassium Wauip6757-97-50 15:38:00* Test Item Value Reference Range Interpretation Comments Potassium Level (test code = 2823-3) 2.5 3.5-5.1 LL Results repeated and called to CRISTIAN MOISE at 1536 on 12/28/18 by DANE GAGNON. Read back and verified.[facility] CenterChloride Qcabl0120-26-16 15:38:00* Test Item Value Reference Range Interpretation Comments Chloride Level (test code = 2075-0) 94 98-107 L [facility] CenterCarbon Dioxide Uldfb4720-44-96 15:38:00* Test Item Value Reference Range Interpretation Comments Carbon Dioxide Level (test code = 2028-9) 30 22-29 H [facility] CenterAnion Dhi7450-93-26 15:38:00* Test Item Value Reference Range Interpretation Comments Anion Gap (test code = 70330-2) 13.5 8-16 [facility] CenterBlood Urea Owhzqznk2079-41-60 15:38:00* Test Item Value Reference Range Interpretation Comments Blood Urea Nitrogen (test code = 3094-0) 12 7-26 [facility] CenterCreatinine2019-04-23 15:38:00* Test Item Value Reference Range Interpretation Comments Creatinine (test code = 2160-0) 0.72 0.57-1.11 [facility] CenterBUN/Creatinine Issbr6485-99-40 15:38:00* Test Item Value Reference Range Interpretation Comments BUN/Creatinine Ratio (test code = 3097-3) 17 6-25 [facility] CenterEstimat Glomerular Filtration Rate 2018-12-28 15:38:00* Test Item Value Reference Range Interpretation Comments Estimat Glomerular Filtration Rate (test code = 806198468) > 60 >60 Ranges were taken from the National Kidney Disease Education Program and the [facility] Kidney Foundation literature.Reference ranges:60 or greater: Dkrfhs07-95 ( for 3 consecutive months): Chronic kidney disease 15 or less: Kidney failureLamb Healthcare CenterGlucose Dyslm8360-61-84 15:38:00* Test Item Value Reference Range Interpretation Comments Glucose Level (test code = LJA3759) 101 74-118 [facility] CenterCalcium Tghlc7138-56-36 15:38:00* Test Item Value Reference Range Interpretation Comments Calcium Level (test code = 70093-5) 8.3 8.4-10.2 L [facility] CenterThyroid Stimulating Hormone (TSH) 2018-12-28 12:09:00* Test Item Value Reference Range Interpretation Comments Thyroid Stimulating Hormone (TSH) (test code = 51979-4) 1.087 0.350-4.940 [facility] CenterThyroid Stimulating Hormone (TSH) 2018-12-28 12:09:00* Test Item Value Reference Range Interpretation Comments Thyroid Stimulating Hormone (TSH) (test code = 16963-2) 1.087 0.350-4.940 [facility] CenterThyroid Stimulating Hormone (TSH) 2018-12-28 12:09:00* Test Item Value Reference Range Interpretation Comments Thyroid Stimulating Hormone (TSH) (test code = 93561-3) 1.087 0.350-4.940 [facility] CenterUrine RCM0584-13-29 11:45:00* Test Item Value Reference Range Interpretation Comments Urine WBC (test code = 5821-4) 21-50 0-5 H [facility] CenterUrine LLD1409-20-46 11:45:00* Test Item Value Reference Range Interpretation Comments Urine RBC (test code = 05901-0) 21-50 0-5 H [facility] CenterUrine Yfaxavhu1195-14-87 11:45:00* Test Item Value Reference Range Interpretation Comments Urine Bacteria (test code = 15989-2) MANY NONE H [facility] CenterUrine Epithelial Ugekg3444-49-40 11:45:00 * Test Item Value Reference Range Interpretation Comments Urine Epithelial Cells (test code = 94487-3) MANY NONE [facility] CenterUrine Czffj3922-64-45 11:30:00* Test Item Value Reference Range Interpretation Comments Urine Color (test code = 5778-6) YELLOW YELLOW [facility] CenterUrine Yecbzqm5546-13-50 11:30:00* Test Item Value Reference Range Interpretation Comments Urine Clarity (test code = 55668-7) SL CLOUDY CLEAR [facility] CenterUrine Specific Bilkwrc7307-26-29 11:30:00 * Test Item Value Reference Range Interpretation Comments Urine Specific Millsap (test code = 5811-5) 1.025 1.010-1.02 5 [facility] CenterUrine gE0702-20-18 11:30:00* Test Item Value Reference Range Interpretation Comments Urine pH (test code = 36518-9) 5 5-7 [facility] CenterUrine Leukocyte Puebfsai1378-97-80 11:30:00* Test Item Value Reference Range Interpretation Comments Urine Leukocyte Esterase (test code = 5799-2) 1+ NEGATIVE H [facility] CenterUrine Cybahbr4846-08-63 11:30:00* Test Item Value Reference Range Interpretation Comments Urine Nitrite (test code = 48243-1) NEGATIVE NEGATIVE [facility] CenterUrine Blbwlae7282-00-59 11:30:00* Test Item Value Reference Range Interpretation Comments Urine Protein (test code = 5804-0) 1+ NEGATIVE H [facility] CenterUrine Glucose (UA)2018-12-28 11:30:00* Test Item Value Reference Range Interpretation Comments Urine Glucose (UA) (test code = 2349-9) NEGATIVE NEGATIVE [facility] CenterUrine Xnikrbx5395-13-05 11:30:00* Test Item Value Reference Range Interpretation Comments Urine Ketones (test code = 71949-7) NEGATIVE NEGATIVE [facility] CenterUrine Thfvticqfoxj7231-39-68 11:30:00* Test Item Value Reference Range Interpretation Comments Urine Urobilinogen (test code = 13256-9) 0.2 0.2-1 [facility] CenterUrine Xykzrhrfy3344-47-90 11:30:00* Test Item Value Reference Range Interpretation Comments Urine Bilirubin (test code = 1978-6) NEGATIVE NEGATIVE [facility] Pvoew1254-83-43 11:30:00* Test Item Value Reference Range Interpretation Comments Urine Blood (test code = 33793-4) 3+ NEGATIVE H [facility] Avfc7918-88-03 11:30:00* Test Item Value Reference Range Interpretation Comments Urine Test (test code = 2106-3) NEGATIVE NEGATIVE [facility] Nyym9498-48-98 11:30:00* Test Item Value Reference Range Interpretation Comments Urine Test (test code = 2106-3) NEGATIVE NEGATIVE [facility] CenterUrine Ykvj1154-75-30 11:30:00* Test Item Value Reference Range Interpretation Comments Urine Test (test code = 2106-3) NEGATIVE NEGATIVE [facility] Najl9680-73-25 11:30:00* Test Item Value Reference Range Interpretation Comments Urine Test (test code = 2106-3) NEGATIVE NEGATIVE [facility] CenterUrine Kged5949-99-94 11:30:00* Test Item Value Reference Range Interpretation Comments Urine Test (test code = 2106-3) NEGATIVE NEGATIVE [facility] [id number] 11:17:00* Test Item Value Reference Range Interpretation Comments Magnesium Level (test code = 59817-4) 1.5 1.3-2.1 [facility] CenterTotal [id number] 09:56:00* Test Item Value Reference Range Interpretation Comments Total Bilirubin (test code = 1975-2) 1.9 0.2-1.2 H [facility] CenterAspartate Amino Transf (AST/SGOT) 2018-12-28 09:56:00* Test Item Value Reference Range Interpretation Comments Aspartate Amino Transf (AST/SGOT) (test code = Aspartate Amino Transf (AST/SGOT)) 70 5-34 H [facility] CenterAlanine Aminotransferase (ALT/SGPT) 2018-12-28 09:56:00* Test Item Value Reference Range Interpretation Comments Alanine Aminotransferase (ALT/SGPT) (test code = 1742-6) 51 0-55 [facility] CenterTotal [id number] 09:56:00* Test Item Value Reference Range Interpretation Comments Total Protein (test code = 2885-2) 8.3 6.5-8.1 H [facility] CenterAlbumin2019-04-23 09:56:00* Test Item Value Reference Range Interpretation Comments Albumin (test code = 1751-7) 4.0 3.5-5.0 [facility] CenterGlobulin2019-04-23 09:56:00* Test Item Value Reference Range Interpretation Comments Globulin (test code = 27811-5) 4.3 2.3-3.5 H [facility] CenterAlbumin/Globulin [id number] 09:56:00 * Test Item Value Reference Range Interpretation Comments Albumin/Globulin Ratio (test code = 1759-0) 0.9 0.8-2.0 [facility] CenterAlkaline [id number] 09:56:00* Test Item Value Reference Range Interpretation Comments Alkaline Phosphatase (test code = 6768-6) 117 40-150 [facility] CenterWhite Blood [id number] 09:38:00* Test Item Value Reference Range Interpretation Comments White Blood Count (test code = 6690-2) 7.74 4.8-10.8 [facility] CenterRed Blood [id number] 09:38:00* Test Item Value Reference Range Interpretation Comments Red Blood Count (test code = 789-8) 4.54 3.6-5.1 [facility] CenterHemoglobin2019-04-23 09:38:00* Test Item Value Reference Range Interpretation Comments Hemoglobin (test code = 41062-7) 15.7 12.0-16.0 [facility] CenterHematocrit2019-04-23 09:38:00* Test Item Value Reference Range Interpretation Comments Hematocrit (test code = 4544-3) 45.4 34.2-44.1 H [facility] CenterMean Corpuscular [id number] 09:38:00* Test Item Value Reference Range Interpretation Comments Mean Corpuscular Volume (test code = 787-2) 100.0 81-99 H [facility] CenterMean Corpuscular [id number] 09:38:00* Test Item Value Reference Range Interpretation Comments Mean Corpuscular Hemoglobin (test code = 785-6) 34.6 28-32 H [facility] CenterMean Corpuscular Hemoglobin Concent 2018-12-28 09:38:00* Test Item Value Reference Range Interpretation Comments Mean Corpuscular Hemoglobin Concent (test code = 786-4) 34.6 31-35 [facility] CenterRed Cell Distribution [id number] 09:38:00* Test Item Value Reference Range Interpretation Comments Red Cell Distribution Width (test code = 93311-0) 13.0 11.7 -14.4 [facility] CenterPlatelet [id number] 09:38:00* Test Item Value Reference Range Interpretation Comments Platelet Count (test code = 777-3) 272 140-360 [facility] CenterNeutrophils (%) (Auto)2018-12-28 09:38:00 * Test Item Value Reference Range Interpretation Comments Neutrophils (%) (Auto) (test code = 13318-7) 83.2 38.7-80.0 H [facility] CenterLymphocytes (%) (Auto)2018-12-28 09:38:00 * Test Item Value Reference Range Interpretation Comments Lymphocytes (%) (Auto) (test code = 736-9) 10.3 18.0-39.1 L [facility] CenterMonocytes (%) (Auto)2018-12-28 09:38:00* Test Item Value Reference Range Interpretation Comments Monocytes (%) (Auto) (test code = 5905-5) 5.8 4.4-11.3 [facility] CenterEosinophils (%) (Auto)2018-12-28 09:38:00 * Test Item Value Reference Range Interpretation Comments Eosinophils (%) (Auto) (test code = 713-8) 0.0 0.0-6.0 [facility] CenterBasophils (%) (Auto)2018-12-28 09:38:00* Test Item Value Reference Range Interpretation Comments Basophils (%) (Auto) (test code = 706-2) 0.3 0.0-1.0 [facility] CenterIM GRANULOCYTES %2018-12-28 09:38:00* Test Item Value Reference Range Interpretation Comments IM GRANULOCYTES % (test code = IM GRANULOCYTES %) 0.4 0.0- 1.0 [facility] CenterNeutrophils # (Auto)2018-12-28 09:38:00* Test Item Value Reference Range Interpretation Comments Neutrophils # (Auto) (test code = 751-8) 6.4 2.1-6.9 [facility] CenterLymphocytes # (Auto)2018-12-28 09:38:00* Test Item Value Reference Range Interpretation Comments Lymphocytes # (Auto) (test code = 13140-6) 0.8 1.0-3.2 L [facility] CenterMonocytes # (Auto)2018-12-28 09:38:00* Test Item Value Reference Range Interpretation Comments Monocytes # (Auto) (test code = 742-7) 0.5 0.2-0.8 [facility] CenterEosinophils # (Auto)2018-12-28 09:38:00* Test Item Value Reference Range Interpretation Comments Eosinophils # (Auto) (test code = 711-2) 0.0 0.0-0.4 [facility] CenterBasophils # (Auto)2018-12-28 09:38:00* Test Item Value Reference Range Interpretation Comments Basophils # (Auto) (test code = 704-7) 0.0 0.0-0.1 [facility] CenterAbsolute Immature Granulocyte (auto 2018-12-28 09:38:00* Test Item Value Reference Range Interpretation Comments Absolute Immature Granulocyte (auto (zenaida t code = Absolute Immature Granulocyte (auto) 0.03 0-0.1 [facility]
--- NOTE | 2020-02-04 04:30 | NUR ---
pt arrived by ems, transferred to [facility]. pt noted c fist clenched. pt states that unable to relax arms. no tremors noted at this time. pt states that stop drinking 2 days ago and is "severely dehydrated" and requesting "two banana bags and two bags of iv fluids." md at bedside and informed pt of plan of care.
[2020-02-04] MEDS ORDERED: SODIUM CHLORIDE 0.9% 1000ML 1,000 ML IV STA (04:38)
[2020-02-04] MEDS ORDERED: LORAZEPAM INJ 2 MG/ML VIAL IV ONE (05:00)
[2020-02-04 05:09] LABS: BASOPHILS % 0.3 % (0.0-1.0); HEMATOCRIT 38.8 % (34.2-44.1); HEMOGLOBIN 13.2 g/dL (12.0-16.0); LYMPHOCYTES # (AUTO) 1.1 (1.0-3.2); LYMPHOCYTES % 30.1 % (18.0-39.1); MEAN CORPUSCULAR HEMOGLOBIN 34.1 pg (28-32); MEAN CORPUSCULAR VOLUME 100.3 fL (81-99); MONOCYTES # (AUTO) 0.3 (0.2-0.8); MONOCYTES % 7.2 % (4.4-11.3); NEUTROPHILS # (AUTO) 2.3 (2.1-6.9); NEUTROPHILS % 61.9 % (38.7-80.0); PLATELET COUNT 143 x10e3/uL (140-360); RED BLOOD COUNT 3.87 x10e6/uL (3.6-5.1); RED CELL DISTRIBUTION WIDTH 12.5 % (11.7-14.4)
[2020-02-04 05:18] LABS: ALANINE AMINOTRANSFERASE 105 IU/L (0-55); ALBUMIN 4.3 g/dL (3.5-5.0); ALBUMIN/GLOBULIN RATIO 1.1 (0.8-2.0); ALKALINE PHOSPHATASE 98 IU/L (40-150); ANION GAP 25.5 mmol/L (8-16); BLOOD UREA NITROGEN 13 mg/dL (7-26); BUN/CREATININE RATIO 14 (6-25); CALCIUM 9.3 mg/dL (8.4-10.2); CARBON DIOXIDE 31 mmol/L (22-29); CHLORIDE 87 mmol/L (98-107); EST GLOMERULAR FILTRATION RATE > 60 ML/MIN (60-); GLUCOSE 110 mg/dL (74-118); SODIUM 141 mmol/L (136-145)
[2020-02-04 05:20] LABS: POTASSIUM 2.5 mmol/L (3.5-5.1)
[2020-02-04] MEDS ORDERED: POTASSIUM CHLORIDE 20 MEQ TAB CR PO STA (06:00)
[2020-02-04] MEDS ORDERED: LORAZEPAM INJ 2 MG/ML VIAL IV PRN ×2 (06:30→11:45)
--- NOTE | 2020-02-04 06:59 | Emergency Department Note ---
History of Present Illnes History of Present Illness Chief Complaint: Alcohol Abuse/Intoxication History of Present Illness This is a 49 year old female arrives to the ED stating she is withdrawing from alcohol and needs 2 L of MS and 2 banana bag and subsequently wants to go home. Patient admits to a pint per day of vodka daily, last drink 4 days ago. Patient states she has tried Alcoholics Anonymous with no success. Patient denies any chest pain shortness of breath or any other complaints. . Historian: Patient, Physician Executive/EMS Arrival Mode: Alexei Past Medical/Family History Physician Review I have reviewed the patient's past medical and family history. Any updates have been documented here. Past Medical History Recent Fever: No Clinical Suspicion of Infectio: No New/Unexplained Change in Ment: No Past Medical History: None Other Medical History: ETOH ABUSE Past Surgical History: Back Surgery Other Surgery: UTERINE SURGERY Social History Smoking Cessation: Current every day smoker Counseling Performed: Yes Alcohol Use: Daily Any Illegal Drug Use: No TB Exposure/Symptoms: No Physically hurt or threatened: No Family History Family history of heart diseas: No Other Last Tetanus: UNK Any Pre-Existing Lines (PICC,: No Is patient up to date on immun: Yes Last Flu: utd Last Pneumovax: utd Review of Systems Review of Systems Review of other systems All other systems reviewed and negative. Physical Exam Related Data Allergies: Coded Allergies: No Known Allergies (Unverified , 01/18/19) Triage Vital Signs Vital Signs Date Time Temp Pulse Resp B/P (MAP) Pulse Ox O2 Delivery O2 Flow Rate FiO2 02/04/20 04:30 98.2 109 17 158/97 98 Vital signs reviewed: Yes Physical Exam CONSTITUTIONAL Constitutional: well-developed, well-nourished HENT HENT: normocephalic, atraumatic, oropharynx clear/moist, nose normal HENT L/R: left ext ear normal, right ext ear normal EYES Eyes: PERRL, conjunctivae normal NECK Neck: ROM normal PULMONARY Pulmonary: effort normal, breath sounds normal CARDIOVASCULAR Cardiovascular: regular rhythm, heart sounds normal, capillary refill normal, normal rate, tachycardia GASTROINTESTINAL Abdominal: soft, nontender, bowel sounds normal GENITOURINARY Genitourinary: exam deferred SKIN Skin: warm, dry MUSCULOSKELETAL Musculoskeletal: ROM normal NEUROLOGICAL Neurological: alert, oriented x 3, no gross motor or sensory deficits PSYCHOLOGICAL Results Laboratory Result Diagram: 02/04/20 0402 02/04/20 0402 Laboratory Laboratory Tests Test 02/04/20 06:00 02/04/20 04:02 White Blood Count 3.76 x10e3/uL (4.8-10.8) Red Blood Count 3.87 x10e6/uL (3.6-5.1) Hemoglobin 13.2 g/dL (12.0-16.0) Hematocrit 38.8 % (34.2-44.1) Mean Corpuscular Volume 100.3 fL (81-99) Mean Corpuscular Hemoglobin 34.1 pg (28-32) Mean Corpuscular Hemoglobin Concent 34.0 g/dL (31-35) Red Cell Distribution Width 12.5 % (11.7-14.4) Platelet Count 143 x10e3/uL (140-360) Neutrophils (%) (Auto) 61.9 % (38.7-80.0) Lymphocytes (%) (Auto) 30.1 % (18.0-39.1) Monocytes (%) (Auto) 7.2 % (4.4-11.3) Eosinophils (%) (Auto) 0.0 % (0.0-6.0) Basophils (%) (Auto) 0.3 % (0.0-1.0) Neutrophils # (Auto) 2.3 (2.1-6.9) Lymphocytes # (Auto) 1.1 (1.0-3.2) Monocytes # (Auto) 0.3 (0.2-0.8) Eosinophils # (Auto) 0.0 (0.0-0.4) Basophils # (Auto) 0.0 (0.0-0.1) Absolute Immature Granulocyte (auto 0.02 x10e3/uL (0-0.1) Sodium Level 141 mmol/L (136-145) Potassium Level 2.5 mmol/L (3.5-5.1) Chloride Level 87 mmol/L (98-107) Carbon Dioxide Level 31 mmol/L (22-29) Anion Gap 25.5 mmol/L (8-16) Blood Urea Nitrogen 13 mg/dL (7-26) Creatinine 0.90 mg/dL (0.57-1.11) Estimat Glomerular Filtration Rate > 60 ML/MIN (60-) BUN/Creatinine Ratio 14 (6-25) Glucose Level 110 mg/dL (74-118) Calcium Level 9.3 mg/dL (8.4-10.2) Total Bilirubin 1.7 mg/dL (0.2-1.2) Aspartate Amino Transf (AST/SGOT) 180 IU/L (5-34) Alanine Aminotransferase (ALT/SGPT) 105 IU/L (0-55) Alkaline Phosphatase 98 IU/L (40-150) Total Protein 8.3 g/dL (6.5-8.1) Albumin 4.3 g/dL (3.5-5.0) Globulin 4.0 g/dL (2.3-3.5) Albumin/Globulin Ratio 1.1 (0.8-2.0) Ethyl Alcohol Level < 10.0 mg/dL (0.0-10.0) Lab results reviewed: Yes Laboratory comments Hypokalemia noted, by mouth replacement given Critical Care Time Subsequent provider I assumed direction of critical care for this patient from another provider of my specialty. Assessment & Plan Assessment & Plan Final Impression: (1) Hypokalemia (2) Alcohol withdrawal Assessment & Plan CBC, CMP Potassium noted to be low replaced orally Patient given Ativan to prevent DTs Fluid resuscitation done patient admitted Last Vital Signs Date Time Temp Pulse Resp B/P (MAP) Pulse Ox O2 Delivery O2 Flow Rate FiO2 02/04/20 06:45 96 16 117/74 96 02/04/20 04:30 98.2 Medications in the ED Sodium Chloride 1,000 ml @ 0 mls/hr Q0M STAT IV Last administered on 02/04/20at 04:46; Admin Dose 1,000 MLS/HR; Start 02/04/20 at 04:38; Stop 02/04/20 at 04:51; Status DC Lorazepam 2 mg ONCE ONCE IV Last administered on 02/04/20at 04:56; Admin Dose 2 MG; Start 02/04/20 at 05:00; Stop 02/04/20 at 05:11; Status DC Potassium Chloride 40 meq NOW STAT PO Last administered on 02/04/20at 06:11; Admin Dose 40 MEQ; Start 02/04/20 at 06:00; Stop 02/04/20 at 06:31; Status DC Lorazepam 2 mg Q8H PRN IV AGITATION; Start 02/04/20 at 06:30; Stop 02/11/20 at 06:29 JOEL KLINE, February 04, 2020 06:59
--- OUTSIDE RECORDS SUMMARY | 2020-02-04 07:57 | XMS REPORT | Clinical Summary ---
Author Author [facility] Address Unknown Phone Unavailable Care Team Providers Care Emotional Disabilities Teacher Name Role Phone Asked, No Pcp PCP [...] without hemorrhage; Elevated LFTs; Alcoholic ketoacidosis 12/25/2019 [facility] Internal [place] dicine - Encounter 12/28/2019 12/25/2019 Travel after [...] is included. Estimated GFR >=90 mL/min/1.73 m2 [place] Comment: JAIN CLEAR Catergory [facility] Interpretation G1 >=90 Normal or high G2 [...] published in 2014. Specimen Performing Organization Address City/State/Rustcode Ph one Number [facility] [place] [address] [place], [place] [address] PATHOLOGY AND GENOMIC MEDICINE [facility] [address] [address] * Magnesium level (12/28/2019 5:40 AM CDT) Only the most recent of 2 results within the time period is included. Magnesium 1.4 (L) 1.6 - 2.6 mg/dL [facility] Specimen Blood Performing Organization Address City/[facility] Ph one Number [facility] DEPARTMENT OF [address] [place] [address] [place] [phone] PATHOLOGY AND GENOMIC MEDICINE [facility] [address] * Basic metabolic panel (12/28/2019 5:40 AM CDT) Only the most recent of 2 results within the time period is included. Sodium 135 135 - 148 mEq/L [facility] Potassium 2.9 (LL) 3.5 - 5.0 mEq/L [place] Comment: [facility] Results called to and read [facility] back by BUNNY VALVERDE @ NM3 at 12/28/2019 06:38 by _NR_. Chloride 96 (L) 98 - 112 mEq/L [facility] CO2 26 24 - 31 mEq/L [facility] Anion gap 13@ANIO 7 - 15 mEq/L [facility] BUN 9 6 - 20 mg/dL [facility] Creatinine 0.40 (L) 0.50 - 0.90 mg/dL [facility] Glucose 110 (H) 65 - 99 mg/dL [facility] Calcium 9.9 8.3 - 10.2 mg/dL [facility] Specimen Blood Performing Organization Address City/[facility] Ph one Number [facility] [place] [address] [address] [place] [address] PATHOLOGY AND GENOMIC MEDICINE [facility] [address] * Comprehensive metabolic panel (12/27/2019 5:00 AM CDT) Only the most recent of 2 results within the time period is included. Sodium 133 (L) 135 - 148 mEq/L [facility] Potassium 2.8 (LL) 3.5 - 5.0 mEq/L [place] Comment: [facility] Results called to and read [facility] back by OSMIN VELOZ @ AR3 at 12/27/2019 06:11 by __NR. Chloride 91 (L) 98 - 112 mEq/L [facility] CO2 24 24 - 31 mEq/L [facility] Anion gap 18@ANIO (H) 7 - 15 mEq/L [facility] BUN 13 6 - 20 mg/dL [facility] Creatinine 0.60 0.50 - 0.90 mg/dL [facility] Glucose 94 65 - 99 mg/dL [facility] Calcium 9.8 8.3 - 10.2 mg/dL [facility] Protein 7.4 6.3 - 8.3 g/dL [place] Comment: [facility] [place] 4.6-7.0 g/dL 1 week 4.4-7.6 g/dL 7 months-1year 5.1-7.3 g/dL 1-2 years 5.6-7.5 g/dL >3 years 6.0-8.0 g/dL 18-150 6.3-8.3 g/dL Albumin 4.5 3.5 - 5.0 g/dL [facility] A/G ratio 1.6 0.7 - 3.8 [facility] Alkaline 90 35 - 104 U/L [place] phosphatase [facility] AST 152 (H) 10 - 35 U/L [facility] ALT 150 (H) 5 - 50 U/L [facility] Total bilirubin 1.3 (H) 0.0 - 1.2 mg/dL [facility] Specimen Blood Performing Organization Address City/State/Zipcode [place] [facility] [address] [employer] [place] [address] PATHOLOGY AND GENOMIC MEDICINE [facility] [address] [employer] [address] * Phosphorus level (12/26/2019 5:15 AM CDT) Pathologist [facility] Phosphorus 2.7 2.4 - 4.5 mg/dL [facility] Specimen Blood Performing Organization Address City/[facility] Ph one Number [facility] [place] [address] [address] [place] [address] PATHOLOGY AND GENOMIC MEDICINE [facility] [id number] [place] [address] [place] [phone] [facility] * Alcohol level, blood (12/25/2019 11:54 PM CDT) Pathologist [facility] Alcohol 106.0 mg/dL [place] Comment: [facility] None Detected Legal Intoxication in [place] 80 mg/dL (0.08%) - Whole Blood Toxic Concentration 200 mg/dL (0.2%) Potentially Fatal 350 - 500 mg/dL (0.35 - 0.5%) Alcohol percent 0.106 % [facility] Specimen Blood Performing Organization Address [facility] one Number [facility] DEPARTMENT OF [address] [place] [address] [place] [phone] PATHOLOGY AND GENOMIC MEDICINE [address] * Manual differential (12/25/2019 11:05 PM CDT) [facility] [address] Manual PERFORMED [place] differential [facility] Neutrophils 76.0 (H) 39.0 - 69.0 % [facility] Lymphocytes 23.0 (L) 25.0 - 45.0 % [facility] Monocytes 1.0 0.0 - 10.0 % [facility] Eosinophils 0.0 0.0 - 5.0 % [facility] Basophils 0.0 0.0 - 1.0 % [facility] Metamyelocytes 0 % [facility] Promyelocytes 0 % [facility] Platelet slide Palmer adequate [place] review [facility] Specimen Performing Organization Address City/[facility] Ph one Number [facility] [place] [address] [place] [address] PATHOLOGY AND GENOMIC MEDICINE [facility] [address] [employer] [address] * CBC with platelet and differential (12/25/2019 11:05 PM CDT) WBC 6.15 4.50 - 11.00 k/uL [facility] RBC 4.07 (L) 4.20 - 5.50 m/uL [facility] HGB 14.0 12.0 - 16.0 g/dL [facility] HCT 41.5 37.0 - 47.0 % [facility] MCV 102.0 (H) 82.0 - 100.0 fL [facility] MCH 34.4 (H) 27.0 - 34.0 pg [facility] MCHC 33.7 31.0 - 37.0 g/dL [facility] RDW - SD 50.3 37.0 - 55.0 fL [facility] MPV 9.9 8.8 - 13.2 fL [facility] Platelet count 359 150 - 400 k/uL [facility] Nucleated RBC 0.00 /100 WBC [facility] Neutrophils 76.0 (H) 39.0 - 69.0 % [facility] Lymphocytes 23.0 (L) 25.0 - 45.0 % [facility] Monocytes 1.0 0.0 - 10.0 % [facility] Eosinophils 0.0 0.0 - 5.0 % [facility] Basophils 0.0 0.0 - 1.0 % [facility] Specimen Blood Performing Organization Address City/[facility] Ph one Number [facility] DEPARTMENT OF [address] [place] [address] [place], [place] [address] PATHOLOGY AND GENOMIC MEDICINE [address] * Lipase level (12/25/2019 11:05 PM CDT) Lipase 41 13 - 60 U/L [facility] Specimen Blood Performing Organization Address City/[facility] Ph one Number [facility] [place] [id number] [place] [address] [place] [address] PATHOLOGY AND GENOMIC MEDICINE [facility] [id number] [place] [address] after 02/03/2019 Advance Directives For more information, please contact: [phone] 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
--- OUTSIDE RECORDS SUMMARY | 2020-02-04 07:58 | XMS REPORT ---
Author Author [facility] t Organization [facility] Address [address] [place] [address] Phone Unavailable Care Team Providers Care Volleyball Assembler Name Role Phone NO, PCP PCP Unavailable Noemi Heath MD Attphys Bhargavi Carrion DO Attphys ARMANI ARREOLA Attphys Unavailable Marie KAPADIA Attphys Unavailable NOEMI HEATH Admphys Unavailable ARMANI ARREOLA Admphys Unavailable Payers Payer Name Policy Type Policy Number Effective Date Expiration Date S [employer] Ppo [id number] I [facility] Problems Condition Name Condition Details Condition Category Status Onset Date Resolution Date Last Treatment Date Treating Clinician Comments Source Alcohol withdrawal syndrome without complication Alcoh ol withdrawal syndrome without complication Disease Active 2019-12-26 00:00:00 Gabriel Sorensen Alcoholic ketoacidosis Alcoholic ketoacidosis Disease Active 2019-12-26 00:00:[address] Elevated LFTs Elevated LFTs Disease Active 2019-12-26 00:00:00 Gabriel Sorensen Gastritis Gastritis Disease Active 2019-12-26 00:00:00 Gabriel Sorensen Dehydration Dehydration Problem Active [facility] Hypokalemia Hypokalemia Problem Active [facility] Hypomagnesemia Hypomagnesemia Problem Active [facility] Allergies, Adverse Reactions, Alerts Allergy Name Allergy Type Status Severity Reaction(s) Onset Date Inacti ve Date Treating Clinician Comments Source No Known Allergies DA Active U 2019-02-03 00:00:00 [facility] No Known Allergies DA Active U 2017-05-19 00:00:00 [facility] Social History Social Habit Start Date Stop [...] Body temperature 2019-12-28 19:42:32 36.89 Marcelle Elis Sorensen Respiratory rate 2019-12-28 19:42:32 16 /min Elis [...] Heath Meth odparminder MAGNESIUM LEVEL 2019-12-28 05:40:00 Noeim Heath Catherine odparminder COMPREHENSIVE METABOLIC PANEL 2019-12-27 05:00:00 Noemi Heath Yarsani ESTIMATED GFR 2019-12-27 05:00:00 Noemi Heath Catherine odparminder BASIC METABOLIC PANEL 2019-12-26 05:15:00 Darrin Lopez ESTIMATED GFR 2019-12-26 05:15:00 Darrin Lopez Yarsani PHOSPHORUS LEVEL 2019-12-26 05:15:00 Noemi Heath Met esqueda ALCOHOL LEVEL, BLOOD 2019-12-25 23:54:00 Darrin Lopez CBC WITH PLATELET AND DIFFERENTIAL 2019-12-25 23:05:00 Hanh Lopez COMPREHENSIVE METABOLIC PANEL 2019-12-25 23:05:00 Elsa Lopez LIPASE LEVEL 2019-12-25 23:05:00 Darrin Lopez Yarsani MAGNESIUM LEVEL 2019-12-25 23:05:00 Darrin Lopez ESTIMATED GFR 2019-12-25 23:05:00 Darrin Lopez Yarsani MANUAL DIFFERENTIAL 2019-12-25 23:05:00 Darrin Lopez Yarsani Computed tomography of brain without radiopaque contrast 00:00:00 ALYCIA HOWARD [facility] US abdomen complete 2019-06-19 00:00:00 ARMANI ARREOLA [facility] Encounters Start Date/Time End Date/Time [facility] ID Source 2019-12-25 00:00:00 2019-12-28 00:00:00 Inpatient NOEMI HEATH [facility] [id number] Gabriel Sorensen 2019-12-14 21:19:00 2019-12-15 20:17:00 Discharged Inpatient 1 ARMANI ARREOLA [facility] [id number] [facility] 2019-10-11 11:30:00 2019-10-11 18:36:00 Departed Emergency Room 1 DARIEL KAPADIA [facility] [id number] [facility] 2019-07-06 09:04:00 2019-07-06 11:47:00 Departed Emergency Room 1 DARIEL KAPADIA [facility] [id number] [facility] 2019-06-18 12:05:00 2019-06-20 20:10:00 Discharged Inpatient 1 ARMANI ARREOLA [facility] [id number] [facility] 2019-01-18 19:47:00 2019-01-19 17:50:00 [facility] [id number] [facility] 2018-12-28 08:47:00 2018-12-28 16:15:00 Departed Emergency Room [facility] [id number] [facility] Results Test Description Test Time Test Comments Results Result Comments Source Magnesium level 2019-12-28 10:18:06 Test Item Magnesium (test code = 42265-8) 1.4 mg/dL 1.6-2.6 L Lab Interpretation (test code = 53443-1) Abnormal [place] [facility] iwoit0989-87-99 06:38:54* Test Item Value Reference Range Interpretation Comments Sodium (test code = 2951-2) 135 135- 148 mEq/L Potassium (test code = 2823-3) 2.9 3.5- 5.0 mEq/L LL Results called to and read back by BUNNY VALVERDE @ [facility] at 12/28/2019 06:38 by _NR_. Chloride (test code = 2075-0) 96 98- 112 mEq/L L CO2 (test code = 2027-9) 26 24- 31 mEq/L Anion gap (test code = 95515-0) 13@ANIO 7- 15 mEq/L BUN (test code = 3094-0) 9 mg/dL 6-20 Creatinine (test code = 2160-0) 0.40 mg/dL 0.5-0.9 L Glucose (test code = 2345-7) 110 mg/dL 65-99 H Calcium (test code = 09299-4) 9.9 mg/dL 8.3-10.2 Lab Interpretation (test code = 58508-4) Abnormal [facility] MethodistEstimated [id number] 06:38:54* Test Item Value Reference Range Interpretation Comments Estimated GFR (test code = 5488) >=90 mL/min/1.73 m2 Catergory Units InterpretationG1 >=90 Normal or highG2 60-89 Mildly bamruvgjdK9x 45-59 Mildly to moderately eiyfxrdlmQ5g 30-44 Moderately to severely decreasedG4 15-29 Severely decreasedG5 <15 Kidney failureThe eGFR was calculated using the Chronic Kidney Disease Epidemiology Collaboration (CKD-EPI) equation. Interpretation is based on recommendations of the National Kidney Foundation-Kidney Disease Outcomes Quality Initiative (NKF-KDOQI) published in 2014. [facility]Com[facility] metabolic rgcto8187-70-77 06:12:15* Test Item Value Reference Range Interpretation Comments Sodium (test code = 2951-2) 133 135- 148 mEq/L L Potassium (test code = 2823-3) 2.8 3.5- 5.0 mEq/L LL Results called to and read back by OSMIN VELOZ @ [facility] at 12/27/2019 06:11 by __NR. Chloride (test code = 2075-0) 91 98- 112 mEq/L L CO2 (test code = 2027-9) 24 24- 31 mEq/L Anion gap (test code = 30984-5) 18@ANIO 7- 15 mEq/L H BUN (test code = 3094-0) 13 mg/dL 6-20 Creatinine (test code = 2160-0) 0.60 mg/dL 0.5-0.9 Glucose (test code = 2345-7) 94 mg/dL 65-99 Calcium (test code = 12799-2) 9.8 mg/dL 8.3-10.2 Protein (test code = 2885-2) 7.4 g/dL 6.3-8.3 -[place] 4.6- 7.0 g/dL1 week 4.4-7.6 g/dL7 months-1year 5.1-7.3 g/dL1-2 years 5.6-7.5 g/dL>3 years 6.0-8.0 g/cF25-725 6.3-8.3 g/dL Albumin (test code = 1751-7) 4.5 g/dL 3.5-5 A/G ratio (test code = 1759-0) 1.6 0.7-3.8 Alkaline phosphatase (test code = 6768-6) 90 U/L 35-104 AST (test code = 1920-8) 152 U/L 10-35 H ALT (test code = 1742-6) 150 U/L 5-50 H Total bilirubin (test code = 1975-2) 1.3 mg/dL 0-1.2 H Lab Interpretation (test code = 90819-7) Abnormal [place] MethodistPhosphorus cepot7500-98-88 10:20:20* Test Item Value Reference Range Interpretation Comments Phosphorus (test code = 2777-1) 2.7 mg/dL 2.4-4.5 [place] MethodistAlcohol level, bweby8391-00-82 00:02:11* Test Item Value Reference Range Interpretation Comments Alcohol percent (test code = 5643-2) 0.106 % Normal None DetectedLegal Intoxication in [place] 80 mg/dL (0.08%) - Whole BloodToxic Concentration 200 mg/dL (0.2%)Potentially Fatal 350 - 500 mg/dL (0.35 - 0.5%) [place] [facility] MethodistCBC with platelet and gbvvznrqtobx0861-63-59 23:51:51* Test Item Value Reference Range Interpretation Comments WBC (test code = 17070-3) 6.15 4.50- 11.00 k/uL RBC (test code = 63224-5) 4.07 m/uL 4.2-5.5 L HGB (test code = 718-7) 14.0 g/dL 12-16 HCT (test code = 4544-3) 41.5 % 37-47 MCV (test code = 787-2) 102.0 fL 82-100 H MCH (test code = 785-6) 34.4 pg 27-34 H MCHC (test code = 786-4) 33.7 g/dL 31-37 RDW - SD (test code = 62110-5) 50.3 fL 37-55 MPV (test code = 10302-3) 9.9 fL 8.8-13.2 Platelet count (test code = 46239-8) 359 150- 400 k/uL Nucleated RBC (test code = 96376-6) 0.00 /100 WBC Neutrophils (test code = 03397-7) 76.0 % 39-69 H Lymphocytes (test code = 97092-7) 23.0 % 25-45 L Monocytes (test code = 20313-8) 1.0 % 0-10 Eosinophils (test code = 99194-5) 0.0 % 0-5 Basophils (test code = 40233-3) 0.0 % 0-1 Lab Interpretation (test code = 23168-7) Abnormal [place] MethodistManual rdajhgnirpgi3743-70-31 23:51:51* Test Item Value Reference Range Interpretation Comments Manual differential (test code = 08585-7) PERFORMED Neutrophils (test code = 65289-7) 76.0 % 39-69 H Lymphocytes (test code = 24251-7) 23.0 % 25-45 L Monocytes (test code = 32605-8) 1.0 % 0-10 Eosinophils (test code = 20223-7) 0.0 % 0-5 Basophils (test code = 04388-1) 0.0 % 0-1 Metamyelocytes (test code = 740-1) 0 % Promyelocytes (test code = 783-1) 0 % Platelet slide review (test code = 47632-1) Palmer adequate Lab Interpretation (test code = 24474-6) Abnormal [place] MethodistLipase bghqz0933-98-68 23:35:59* Test Item Value Reference Range Interpretation Comments Lipase (test code = 3040-3) 41 U/L 13-60 [place] MethodistBedside Plthwnh4793-96-86 20:41:00* Test Item Value Reference Range Interpretation Comments Bedside Glucose (test code = 14039-1) 176 70-120 H Meter ID: [id number] Hospitals of [facility] CampusPotassium Level 2019-12-15 15:04:00* Test Item Value Reference Range Interpretation Comments Potassium Level (test code = 2823-3) 3.1 3.5-5.1 L [facility] CampusMagnesium Vzali7042-86-97 06:25:00* Test Item Value Reference Range Interpretation Comments Magnesium Level (test code = 27273-8) 1.2 1.3-2.1 L [facility]woododium Nnxtr6032-49-17 05:54:00* Test Item Value Reference Range Interpretation Comments Sodium Level (test code = 2951-2) 137 136-145 [facility] CampusChloride Xmzut7426-18-97 05:54:00* Test Item Value Reference Range Interpretation Comments Chloride Level (test code = 2075-0) 101 98-107 [facility] CampusCarbon Dioxide Ifxgy5546-53-68 05:54:00* Test Item Value Reference Range Interpretation Comments Carbon Dioxide Level (test code = 2028-9) 28 22-29 [facility] CampusAnion Ybg0453-00-11 05:54:00* Test Item Value Reference Range Interpretation Comments Anion Gap (test code = 33283-4) 10.4 8-16 [facility] CampusBlood Urea Fcnvmcqe7920-38-54 05:54:00* Test Item Value Reference Range Interpretation Comments Blood Urea Nitrogen (test code = 3094-0) 10 7-26 [facility] CampusCreatinine2020-04-09 05:54:00* Test Item Value Reference Range Interpretation Comments Creatinine (test code = 2160-0) 0.63 0.57-1.11 [facility] CampusBUN/Creatinine Smtzi8005-52-11 05:54:00* Test Item Value Reference Range Interpretation Comments BUN/Creatinine Ratio (test code = 3097-3) 16 6-25 [facility] CampusEstimat Glomerular Filtration Rate 2019-12-15 05:54:00* Test Item Value Reference Range Interpretation Comments Estimat Glomerular Filtration Rate (test code = 074010512) > 60 >60 Ranges were taken from the National Kidney Disease Education Program and the [facility] Kid[facility] Foundation literature.Reference ranges:60 or greater: Kjhkif36-57 ( for 3 consecutive months): Chronic kidney disease 15 or less: Kidney failureThe Hospitals of Providence Memorial CampusGlucose Aawqe1105-44-95 05:54:00* Test Item Value Reference Range Interpretation Comments Glucose Level (test code = BVD5938) 85 74-118 [facility] CampusCalcium Hottm0365-90-97 05:54:00* Test Item Value Reference Range Interpretation Comments Calcium Level (test code = 29698-8) 7.6 8.4-10.2 L [facility] CampusTotal Ypicagbgu5715-80-01 05:54:00* Test Item Value Reference Range Interpretation Comments Total Bilirubin (test code = 1975-2) 1.0 0.2-1.2 [facility] CampusAspartate Amino Transf (AST/SGOT) 2019-12-15 05:54:00* Test Item Value Reference Range Interpretation Comments Aspartate Amino Transf (AST/SGOT) (test code = Aspartate Amino Transf (AST/SGOT)) 242 5-34 H [facility] CampusAlanine Aminotransferase (ALT/SGPT) 2019-12-15 05:54:00* Test Item Value Reference Range Interpretation Comments Alanine Aminotransferase (ALT/SGPT) (test code = 1742-6) 186 0-55 H [facility] CampusTotal Ltxlqcw9850-36-87 05:54:00* Test Item Value Reference Range Interpretation Comments Total Protein (test code = 2885-2) 6.0 6.5-8.1 L [facility] CampusAlbumin2020-04-09 05:54:00* Test Item Value Reference Range Interpretation Comments Albumin (test code = 1751-7) 3.2 3.5-5.0 L [facility] CampusGlobulin2020-04-09 05:54:00* Test Item Value Reference Range Interpretation Comments Globulin (test code = 98163-3) 2.8 2.3-3.5 [facility] CampusAlbumin/Globulin Bikai1810-38-47 05:54:00 * Test Item Value Reference Range Interpretation Comments Albumin/Globulin Ratio (test code = 1759-0) 1.1 0.8-2.0 [facility] CampusAlkaline Tsghnutztpq6552-79-96 05:54:00* Test Item Value Reference Range Interpretation Comments Alkaline Phosphatase (test code = 6768-6) 79 40-150 [facility] CampusWhite Blood Pqdui9000-78-46 05:39:00* Test Item Value Reference Range Interpretation Comments White Blood Count (test code = 6690-2) 7.05 4.8-10.8 [facility] CampusRed Blood Oidng9186-87-08 05:39:00* Test Item Value Reference Range Interpretation Comments Red Blood Count (test code = 789-8) 3.37 3.6-5.1 L [facility] CampusHemoglobin2020-04-09 05:39:00* Test Item Value Reference Range Interpretation Comments Hemoglobin (test code = 16584-4) 11.9 12.0-16.0 L [facility] CampusHematocrit2020-04-09 05:39:00* Test Item Value Reference Range Interpretation Comments Hematocrit (test code = 4544-3) 33.6 34.2-44.1 L [facility] CampusMean Corpuscular Jnnoci9720-74-46 05:39:00* Test Item Value Reference Range Interpretation Comments Mean Corpuscular Volume (test code = 787-2) 99.7 81-99 H [facility] CampusMean Corpuscular Ockyrevtjf1385-53-49 05:39:00* Test Item Value Reference Range Interpretation Comments Mean Corpuscular Hemoglobin (test code = 785-6) 35.3 28-32 H [facility] CampusMean Corpuscular Hemoglobin Concent 2019-12-15 05:39:00* Test Item Value Reference Range Interpretation Comments Mean Corpuscular Hemoglobin Concent (test code = 786-4) 35.4 31-35 H [facility] CampusRed Cell Distribution Bqhni6897-85-51 05:39:00* Test Item Value Reference Range Interpretation Comments Red Cell Distribution Width (test code = 56287-2) 12.2 11.7 -14.4 [facility] CampusPlatelet Pxnpw0931-53-26 05:39:00* Test Item Value Reference Range Interpretation Comments Platelet Count (test code = 777-3) 140 140-360 [facility] CampusNeutrophils (%) (Auto)2019-12-15 05:39:00 * Test Item Value Reference Range Interpretation Comments Neutrophils (%) (Auto) (test code = 74082-1) 70.7 38.7-80.0 [facility] CampusLymphocytes (%) (Auto)2019-12-15 05:39:00 * Test Item Value Reference Range Interpretation Comments Lymphocytes (%) (Auto) (test code = 736-9) 24.7 18.0-39.1 [facility] CampusMonocytes (%) (Auto)2019-12-15 05:39:00* Test Item Value Reference Range Interpretation Comments Monocytes (%) (Auto) (test code = 5905-5) 3.8 4.4-11.3 L [facility] CampusEosinophils (%) (Auto)2019-12-15 05:39:00 * Test Item Value Reference Range Interpretation Comments Eosinophils (%) (Auto) (test code = 713-8) 0.1 0.0-6.0 [facility] CampusBasophils (%) (Auto)2019-12-15 05:39:00* Test Item Value Reference Range Interpretation Comments Basophils (%) (Auto) (test code = 706-2) 0.1 0.0-1.0 [facility] CampusIM GRANULOCYTES %2019-12-15 05:39:00* Test Item Value Reference Range Interpretation Comments IM GRANULOCYTES % (test code = IM GRANULOCYTES %) 0.6 0.0- 1.0 [facility] CampusNeutrophils # (Auto)2019-12-15 05:39:00* Test Item Value Reference Range Interpretation Comments Neutrophils # (Auto) (test code = 751-8) 5.0 2.1-6.9 [facility] CampusLymphocytes # (Auto)2019-12-15 05:39:00* Test Item Value Reference Range Interpretation Comments Lymphocytes # (Auto) (test code = 94841-9) 1.7 1.0-3.2 [facility] CampusMonocytes # (Auto)2019-12-15 05:39:00* Test Item Value Reference Range Interpretation Comments Monocytes # (Auto) (test code = 742-7) 0.3 0.2-0.8 [facility] CampusEosinophils # (Auto)2019-12-15 05:39:00* Test Item Value Reference Range Interpretation Comments Eosinophils # (Auto) (test code = 711-2) 0.0 0.0-0.4 [facility] CampusBasophils # (Auto)2019-12-15 05:39:00* Test Item Value Reference Range Interpretation Comments Basophils # (Auto) (test code = 704-7) 0.0 0.0-0.1 [facility] CampusAbsolute Immature Granulocyte (auto 2019-12-15 05:39:00* Test Item Value Reference Range Interpretation Comments Absolute Immature Granulocyte (auto (zenaida t code = Absolute Immature Granulocyte (auto) 0.04 0-0.1 [facility] CampusCT BRAIN PW6850-29-27 01:43:00 [place] [address] Patient Name: AMILCAR CELIS MR #: [id number] : 1970 Age/Sex: 49/F Req #: [id number] Adm Physician: ARMANI ARREOLA MD Ordered by: ALYCIA HOWARD DO Report #: [id number] Location: [facility]/Bed: [place] [address] Procedure: [id number] CT/CT ARABELLA BAKER WO Exam Date: 12/14/19 Exam Time: 2765 REPORT STATUS: Signed History:Seizure, al cohol withdrawal [...] 12/15/19144 COPY TO: ALYCIA ZHU DO Urine WVT3090-88-47 22:31:00* Test Item Value Reference Range Interpretation Comments Urine WBC (test code = 5821-4) 0-5 0-5 [facility] CampusUrine EMG2546-56-02 22:31:00* Test Item Value Reference Range Interpretation Comments Urine RBC (test code = 26398-1) 0-5 0-5 [facility] CampusUrine Xrjoolog7012-07-59 22:31:00* Test Item Value Reference Range Interpretation Comments Urine Bacteria (test code = 50118-3) RARE NONE [facility] CampusUrine Epithelial Axnrw4553-89-66 22:31:00 * Test Item Value Reference Range Interpretation Comments Urine Epithelial Cells (test code = 43890-9) FEW NONE [facility] CampusUrine Transitional Epithelial Cells 2019-12-14 22:31:00* Test Item Value Reference Range Interpretation Comments Urine Transitional Epithelial Cells (test code = 8249-5) FEW NONE H [facility] CampusUrine Jnoyi4617-82-98 22:31:00* Test Item Value Reference Range Interpretation Comments Urine Mucus (test code = 8247-9) FEW RARE H [facility] CampusUrine Ailrl7395-91-28 21:59:00* Test Item Value Reference Range Interpretation Comments Urine Color (test code = 5778-6) YELLOW YELLOW [facility] CampusUrine Yawqffv7219-30-56 21:59:00* Test Item Value Reference Range Interpretation Comments Urine Clarity (test code = 12156-2) CLOUDY CLEAR H [facility] CampusUrine Specific Bialhyb9467-15-73 21:59:00 * Test Item Value Reference Range Interpretation Comments Urine Specific [place] (test code = 5811-5) 1.020 1.010-1.02 5 [facility] CampusUrine eV2424-93-01 21:59:00* Test Item Value Reference Range Interpretation Comments Urine pH (test code = 98523-4) 7.5 5-7 [facility] CampusU[facility] Leukocyte Ryceissf9019-55-28 21:59:00* Test Item Value Reference Range Interpretation Comments Urine Leukocyte Esterase (test code = 5799-2) NEGATIVE NEGATIVE [facility] CampusUrine Mhkepuy5840-16-09 21:59:00* Test Item Value Reference Range Interpretation Comments Urine Nitrite (test code = 78413-5) NEGATIVE NEGATIVE [facility] CampusUrine Nrbdcrx7479-45-67 21:59:00* Test Item Value Reference Range Interpretation Comments Urine Protein (test code = 5804-0) 2+ NEGATIVE H [facility] CampusUrine Glucose (UA)2019-12-14 21:59:00* Test Item Value Reference Range Interpretation Comments Urine Glucose (UA) (test code = 2349-9) NEGATIVE NEGATIVE [facility] CampusUrine Ujgqzhd2153-35-70 21:59:00* Test Item Value Reference Range Interpretation Comments Urine Ketones (test code = 03470-9) TRACE NEGATIVE H [facility] CampusUrine Nlnwruagvbuh2589-69-20 21:59:00* Test Item Value Reference Range Interpretation Comments Urine Urobilinogen (test code = 37509-9) 4 0.2-1 [facility] CampusUrine Kikktiqvy3050-42-24 21:59:00* Test Item Value Reference Range Interpretation Comments Urine Bilirubin (test code = 1978-6) MODERATE NEGATIVE [facility] CampusUrine Crdqx3684-46-79 21:59:00* Test Item Value Reference Range Interpretation Comments Urine Blood (test code = 71717-4) TRACE NEGATIVE H [facility] CampusEthyl Alcohol Xjhlq6249-00-16 21:26:00* Test Item Value Reference Range Interpretation Comments Ethyl Alcohol Level (test code = 5643-2) < 10.0 0.0-10.0 [facility] CampusCHEST SINGLE (PORTABLE)2019-12-14 21:22:00 [facility] [address] [place] [address] Patient Name: AMILCAR CELIS MR #: [id number] : 1970 Age/Sex: 49/F Req #: [id number] Adm Physician: Ordered by: ALYCIA HOWARD DO Report #: [id number] Location: ER Room/Bed: Procedure: [id number] DX/CHEST SINGLE (PORTABLE) Exam Date: 12/14/19 Exam [...] COPY TO: ALYCIA HOWARD DO Creatine Kinase [id number] 21:14:00* Test Item Value Reference Range Interpretation Comments Creatine Kinase MB (test code = 39166-9) 0.70 0-5.0 [facility] CampusTroponin J6443-49-64 21:14:00* Test Item Value Reference Range Interpretation Comments Troponin I (test code = 43952-2) < 0.001 0-0.300 [facility] CampusB-Type Natriuretic Ycwseuy9682-18-67 21:12:00* Test Item Value Reference Range Interpretation Comments B-Type Natriuretic Peptide (test code = 24559-7) 19.6 0-100 [facility] CampusCreatine Thhcbs4735-83-55 21:09:00* Test Item Value Reference Range Interpretation Comments Creatine Kinase (test code = 2157-6) 88 29-168 [facility] CampusUrine OQI8069-88-13 15:03:00* Test Item Value Reference Range Interpretation Comments Urine WBC (test code = 5821-4) NONE 0-5 [facility] CampusUrine YFQ1204-30-65 15:03:00* Test Item Value Reference Range Interpretation Comments Urine RBC (test code = 30785-9) NONE 0-5 [facility] CampusUrine Wfucwuiw4961-57-19 15:03:00* Test Item Value Reference Range Interpretation Comments Urine Bacteria (test code = 32737-7) MODERATE NONE H [facility] CampusUrine Epithelial Rlruc5742-95-97 15:03:00 * Test Item Value Reference Range Interpretation Comments Urine Epithelial Cells (test code = 77704-5) FEW NONE [facility] CampusUrine Amorphous Hglevqip4600-36-25 15:03:00* Test Item Value Reference Range Interpretation Comments Urine Amorphous Sediment (test code = 8246-1) MODERATE FEW H [facility] CampusUrine Amorphous Tzwyqhbg9276-97-96 15:03:00* Test Item Value Reference Range Interpretation Comments Urine Amorphous Sediment (test code = 8246-1) MODERATE FEW H [facility] CampusUrine Tccxx2268-76-81 14:56:00* Test Item Value Reference Range Interpretation Comments Urine Color (test code = 5778-6) ELLY YELLOW H [facility] CampusUrine Uohivkk0264-56-34 14:56:00* Test Item Value Reference Range Interpretation Comments Urine Clarity (test code = 94875-2) SL CLOUDY CLEAR [facility] Specific Bkktmtt5626-16-32 14:56:00 * Test Item Value Reference Range Interpretation Comments Urine Specific [place] (test code = 5811-5) 1.020 1.010-1.02 5 [facility] yR5983-92-99 14:56:00* Test Item Value Reference Range Interpretation Comments Urine pH (test code = 66255-8) 8.5 5-7 [facility] Leukocyte Sfrskqqp3042-26-76 14:56:00* Test Item Value Reference Range Interpretation Comments Urine Leukocyte Esterase (test code = 5799-2) NEGATIVE NEGATIVE [facility] Yoeffmw8279-05-96 14:56:00* Test Item Value Reference Range Interpretation Comments Urine Nitrite (test code = 50887-4) NEGATIVE NEGATIVE [facility] Lxbgoih4069-33-71 14:56:00* Test Item Value Reference Range Interpretation Comments Urine Protein (test code = 5804-0) 3+ NEGATIVE H [facility] CampusUrine Glucose (UA)2019-10-11 14:56:00* Test Item Value Reference Range Interpretation Comments Urine Glucose (UA) (test code = 2349-9) NEGATIVE NEGATIVE [facility] Psehowd4105-96-37 14:56:00* Test Item Value Reference Range Interpretation Comments Urine Ketones (test code = 73603-0) 2+ NEGATIVE H [facility] CampusU[facility] Opiates Oillyi5030-03-08 14:56:00* Test Item Value Reference Range Interpretation Comments Urine Opiates Screen (test code = 32382-0) NEGATIVE NEGATIVE ALL TESTS PERFORMED MANUALLY ON [employer] TOX/SEE TESTThe [facility]als [facility] CampusUrine Barbiturates Blxlgt7579-50-47 14:56:00* Test Item Value Reference Range Interpretation Comments Urine Barbiturates Screen (test code = 974136262) NEGATIVE NEGA TIVE [facility] Phencyclidine Ougodf8361-51-84 14:56:00* Test Item Value Reference Range Interpretation Comments Urine Phencyclidine Screen (test code = 43701-5) NEGATIVE NEGAT MERCEDEZ [facility] CampusU[facility] Amphetamines Dknvhq1951-90-22 14:56:00* Test Item Value Reference Range Interpretation Comments Urine Amphetamines Screen (test code = 98980-5) NEGATIVE NEGATI VE [facility] CampusU[facility] Methamphetamines Cdbluw3421-38-69 14:56:00* Test Item Value Reference Range Interpretation Comments Urine Methamphetamines Screen (test code = Urine Metha mphetamines Screen) NEGATIVE NEGATIVE [facility] CampusU[facility] Benzodiazepines Kdeams9327-06-40 14:56:00* Test Item Value Reference Range Interpretation Comments Urine Benzodiazepines Screen (test code = 92841-7) NEGATIVE NEG ATIVE [facility] CampusU[facility] Cocaine Ueexcy4376-50-43 14:56:00* Test Item Value Reference Range Interpretation Comments Urine Cocaine Screen (test code = 3398-5) NEGATIVE NEGATIVE [facility] CampusU[facility] Cannabinoids Bhijrt7766-40-08 14:56:00* Test Item Value Reference Range Interpretation Comments Urine Cannabinoids Screen (test code = 44580-0) NEGATIVE NEGATI VE THESE RESULTS ARE FOR MEDICAL TREATMENT ONLYTHIS REPORT CONTAINS UNCONFIR MED SCREENING RESULTS*POSITIVE RESULTS WILL BE CONFIRMED BY REFERENCE LAB UPON R EQUEST CUT-OFFDRUG CLASS CONCENTRATION ng/mLAmphetamines 1000Methamphetamines 1000Cocaine 300Opiate 300Phencyc lidine 25Cannabinoid 50Barbiturates 300Benzodiazepine 300Methadone 300[facility] CampusUrine Methadone Rxzsba9817-13-26 14:56:00* Test Item Value Reference Range Interpretation Comments Urine Methadone Screen (test code = 39178-0) NEGATIVE NEGATIVE THESE RESULTS ARE FOR MEDICAL TREATMENT ONLYTHIS REPORT CONTAINS UNCONFIR MED SCREENING RESULTS*POSITIVE RESULTS WILL BE CONFIRMED BY REFERENCE LAB UPON R EQUEST CUT-OFFDRUG CLASS CONCENTRATION ng/mLAmphetamines 1000Methamphetamines 1000Cocaine Metabolite 300Opiate 300Phencyc lidine 25Cannabinoid 50Barbiturates 300Benzodiazepine 300Methadone 300[facility] CampusUrine Kaugbtryngzr8929-26-73 14:56:00* Test Item Value Reference Range Interpretation Comments Urine Urobilinogen (test code = 31860-6) 1 0.2-1 [facility] Vvsddfhnc2634-42-55 14:56:00* Test Item Value Reference Range Interpretation Comments Urine Bilirubin (test code = 1978-6) 3+ NEGATIVE H [facility] CampusUrine Gyods0583-10-30 14:56:00* Test Item Value Reference Range Interpretation Comments Urine Blood (test code = 11352-1) NEGATIVE NEGATIVE [facility] Opiates Hmmvtw3695-86-47 14:56:00* Test Item Value Reference Range Interpretation Comments Urine Opiates Screen (test code = 14919-6) NEGATIVE NEGATIVE ALL TESTS PERFORMED MANUALLY ON [employer] TOX/SEE TESTThe [facility]als of [facility] CampusUrine Barbiturates Kwebpa2308-11-07 14:56:00* Test Item Value Reference Range Interpretation Comments Urine Barbiturates Screen (test code = 185174565) NEGATIVE NEGA TIVE [facility] CampusUrine Phencyclidine Lmgvdc1038-69-97 14:56:00* Test Item Value Reference Range Interpretation Comments Urine Phencyclidine Screen (test code = 63762-8) NEGATIVE NEGAT MERCEDEZ [facility] CampusUrine Amphetamines Hxwngy4775-83-70 14:56:00* Test Item Value Reference Range Interpretation Comments Urine Amphetamines Screen (test code = 08059-0) NEGATIVE NEGATI VE [facility] CampusUrine Methamphetamines Guclrx4190-09-90 14:56:00* Test Item Value Reference Range Interpretation Comments Urine Methamphetamines Screen (test code = Urine Metha mphetamines Screen) NEGATIVE NEGATIVE [facility] CampusUrine Benzodiazepines Vtytqk6694-34-40 14:56:00* Test Item Value Reference Range Interpretation Comments Urine Benzodiazepines Screen (test code = 19804-9) NEGATIVE NEG ATIVE [facility] CampusU[facility] Cocaine Bwprdj2007-94-63 14:56:00* Test Item Value Reference Range Interpretation Comments Urine Cocaine Screen (test code = 3398-5) NEGATIVE NEGATIVE [facility] CampusUrine Cannabinoids Fseqzz1987-59-82 14:56:00* Test Item Value Reference Range Interpretation Comments Urine Cannabinoids Screen (test code = 46755-7) NEGATIVE NEGATI VE THESE RESULTS ARE FOR MEDICAL TREATMENT ONLYTHIS REPORT CONTAINS UNCONFIR MED SCREENING RESULTS*POSITIVE RESULTS WILL BE CONFIRMED BY REFERENCE LAB UPON R EQUEST CUT-OFFDRUG CLASS CONCENTRATION ng/mLAmphetamines 1000Methamphetamines 1000Cocaine 300Opiate 300Phencyc lidine 25Cannabinoid 50Barbiturates 300Benzodiazepine 300Methadone 300[facility] CampusUrine Methadone Gaadcs7573-97-74 14:56:00* Test Item Value Reference Range Interpretation Comments Urine Methadone Screen (test code = 95648-2) NEGATIVE NEGATIVE THESE RESULTS ARE FOR MEDICAL TREATMENT ONLYTHIS REPORT CONTAINS UNCONFIR MED SCREENING RESULTS*POSITIVE RESULTS WILL BE CONFIRMED BY REFERENCE LAB UPON R EQUEST CUT-OFFDRUG CLASS CONCENTRATION ng/mLAmphetamines 1000Methamphetamines 1000Cocaine Metabolite 300Opiate 300Phencyc lidine 25Cannabinoid 50Barbiturates 300Benzodiazepine 300Methadone 300[facility] CampusEthyl Alcohol Uevno2036-86-25 13:40:00* Test Item Value Reference Range Interpretation Comments Ethyl Alcohol Level (test code = 5643-2) < 10.0 0.0-10.0 [facility]wood[facility] Qefxa6995-38-29 13:23:00* Test Item Value Reference Range Interpretation Comments Sodium Level (test code = 2951-2) 136 136-145 [facility] CampusPotassium Bglrz7681-94-70 13:23:00* Test Item Value Reference Range Interpretation Comments Potassium Level (test code = 2823-3) 2.7 3.5-5.1 LL Results repeated and called to Sirena Mckinley at 1321 on 10/11/19 by Nolvia edwards. Read back and verified.[facility] CampusChloride Level 2019-10-11 13:23:00* Test Item Value Reference Range Interpretation Comments Chloride Level (test code = 2075-0) 85 98-107 L [facility] CampusCarbon Dioxide Rcgcw0342-30-04 13:23:00* Test Item Value Reference Range Interpretation Comments Carbon Dioxide Level (test code = 2028-9) 29 22-29 [facility] CampusAnion Rwe0044-99-17 13:23:00* Test Item Value Reference Range Interpretation Comments Anion Gap (test code = 66005-9) 24.7 8-16 H [facility] CampusBlood Urea Vqzjmxij6954-28-29 13:23:00* Test Item Value Reference Range Interpretation Comments Blood Urea Nitrogen (test code = 3094-0) 27 7-26 H [facility] CampusCreatinine2020-02-04 13:23:00* Test Item Value Reference Range Interpretation Comments Creatinine (test code = 2160-0) 1.09 0.57-1.11 [facility] CampusBUN/Creatinine Inowg8316-62-79 13:23:00* Test Item Value Reference Range Interpretation Comments BUN/Creatinine Ratio (test code = 3097-3) 25 6-25 [facility] CampusEstimat Glomerular Filtration Rate 2019-10-11 13:23:00* Test Item Value Reference Range Interpretation Comments Estimat Glomerular Filtration Rate (test code = 542813530) 53 >60 L Ranges were taken from the National Kidney Disease Education Program and the [facility] [employer] literature.Reference ranges:60 or greater: Cmpypr65-42 ( for 3 consecutive months): Chronic kidney disease 15 or less: Kidney failureThe Hospitals of [facility] CampusGlucose Bwsxb4424-84-17 13:23:00* Test Item Value Reference Range Interpretation Comments Glucose Level (test code = ZAZ0089) 92 74-118 [facility] CampusCalcium Brhya9556-33-66 13:23:00* Test Item Value Reference Range Interpretation Comments Calcium Level (test code = 99169-3) 8.7 8.4-10.2 [facility] CampusMagnesium Xvehg4976-40-68 13:23:00* Test Item Value Reference Range Interpretation Comments Magnesium Level (test code = 18398-4) 1.2 1.3-2.1 L [facility] CampusTotal Ahbaquvdt9125-00-37 13:23:00* Test Item Value Reference Range Interpretation Comments Total Bilirubin (test code = 1975-2) 2.0 0.2-1.2 H [facility] CampusAspartate Amino Transf (AST/SGOT) 2019-10-11 13:23:00* Test Item Value Reference Range Interpretation Comments Aspartate Amino Transf (AST/SGOT) (test code = Aspartate Amino Transf (AST/SGOT)) 99 5-34 H [facility] CampusAlanine Aminotransferase (ALT/SGPT) 2019-10-11 13:23:00* Test Item Value Reference Range Interpretation Comments Alanine Aminotransferase (ALT/SGPT) (test code = 1742-6) 71 0-55 H [facility] CampusTotal Anbifnu5797-00-72 13:23:00* Test Item Value Reference Range Interpretation Comments Total Protein (test code = 2885-2) 6.8 6.5-8.1 [facility] CampusAlbumin2020-02-04 13:23:00* Test Item Value Reference Range Interpretation Comments Albumin (test code = 1751-7) 4.0 3.5-5.0 [facility] CampusGlobulin2020-02-04 13:23:00* Test Item Value Reference Range Interpretation Comments Globulin (test code = 72627-2) 2.8 2.3-3.5 [facility] CampusAlbumin/Globulin Jtcwk4343-25-43 13:23:00 * Test Item Value Reference Range Interpretation Comments Albumin/Globulin Ratio (test code = 1759-0) 1.4 0.8-2.0 [facility] CampusAlkaline Ulavyfvjwgf6512-66-55 13:23:00* Test Item Value Reference Range Interpretation Comments Alkaline Phosphatase (test code = 6768-6) 72 40-150 [facility] CampusCreatine Qxolrp6430-21-03 13:23:00* Test Item Value Reference Range Interpretation Comments Creatine Kinase (test code = 2157-6) 224 29-168 H [facility] CampusCreatine Kinase MZ5205-60-72 13:23:00* Test Item Value Reference Range Interpretation Comments Creatine Kinase MB (test code = 31389-2) 0.60 0-5.0 [facility] CampusTroponin D6837-10-29 13:23:00* Test Item Value Reference Range Interpretation Comments Troponin I (test code = XAN6836) < 0.001 0-0.300 [facility] CampusWhite Blood Caqqs4094-79-92 12:50:00* Test Item Value Reference Range Interpretation Comments White Blood Count (test code = 6690-2) 7.54 4.8-10.8 [facility] CampusRed Blood Kkvhn3515-91-40 12:50:00* Test Item Value Reference Range Interpretation Comments Red Blood Count (test code = 789-8) 3.48 3.6-5.1 L [facility] CampusHemoglobin2020-02-04 12:50:00* Test Item Value Reference Range Interpretation Comments Hemoglobin (test code = 08567-0) 12.1 12.0-16.0 [facility] CampusHematocrit2020-02-04 12:50:00* Test Item Value Reference Range Interpretation Comments Hematocrit (test code = 4544-3) 34.1 34.2-44.1 L [facility] CampusMean Corpuscular Kkhyzl7889-85-62 12:50:00* Test Item Value Reference Range Interpretation Comments Mean Corpuscular Volume (test code = 787-2) 98.0 81-99 [facility] CampusMean Corpuscular Iwfulndpiv3962-16-97 12:50:00* Test Item Value Reference Range Interpretation Comments Mean Corpuscular Hemoglobin (test code = 785-6) 34.8 28-32 H [facility] CampusMean Corpuscular Hemoglobin Concent 2019-10-11 12:50:00* Test Item Value Reference Range Interpretation Comments Mean Corpuscular Hemoglobin Concent (test code = 786-4) 35.5 31-35 H [facility] CampusRed Cell Distribution Izqlt2858-13-85 12:50:00* Test Item Value Reference Range Interpretation Comments Red Cell Distribution Width (test code = 38855-0) 12.2 11.7 -14.4 [facility] CampusPlatelet Dtxnu9334-70-71 12:50:00* Test Item Value Reference Range Interpretation Comments Platelet Count (test code = 777-3) 170 140-360 [facility] CampusNeutrophils (%) (Auto)2019-10-11 12:50:00 * Test Item Value Reference Range Interpretation Comments Neutrophils (%) (Auto) (test code = 89815-6) 86.4 38.7-80.0 H [facility] CampusLymphocytes (%) (Auto)2019-10-11 12:50:00 * Test Item Value Reference Range Interpretation Comments Lymphocytes (%) (Auto) (test code = 736-9) 8.1 18.0-39.1 L [facility] CampusMonocytes (%) (Auto)2019-10-11 12:50:00* Test Item Value Reference Range Interpretation Comments Monocytes (%) (Auto) (test code = 5905-5) 4.6 4.4-11.3 [facility] CampusEosinophils (%) (Auto)2019-10-11 12:50:00 * Test Item Value Reference Range Interpretation Comments Eosinophils (%) (Auto) (test code = 713-8) 0.0 0.0-6.0 [facility] CampusBasophils (%) (Auto)2019-10-11 12:50:00* Test Item Value Reference Range Interpretation Comments Basophils (%) (Auto) (test code = 706-2) 0.1 0.0-1.0 [facility] CampusIM GRANULOCYTES %2019-10-11 12:50:00* Test Item Value Reference Range Interpretation Comments IM GRANULOCYTES % (test code = IM GRANULOCYTES %) 0.8 0.0- 1.0 [facility] CampusNeutrophils # (Auto)2019-10-11 12:50:00* Test Item Value Reference Range Interpretation Comments Neutrophils # (Auto) (test code = 751-8) 6.5 2.1-6.9 [facility] CampusLymphocytes # (Auto)2019-10-11 12:50:00* Test Item Value Reference Range Interpretation Comments Lymphocytes # (Auto) (test code = 98340-1) 0.6 1.0-3.2 L [facility] CampusMonocytes # (Auto)2019-10-11 12:50:00* Test Item Value Reference Range Interpretation Comments Monocytes # (Auto) (test code = 742-7) 0.4 0.2-0.8 [facility] CampusEosinophils # (Auto)2019-10-11 12:50:00* Test Item Value Reference Range Interpretation Comments Eosinophils # (Auto) (test code = 711-2) 0.0 0.0-0.4 [facility] CampusBasophils # (Auto)2019-10-11 12:50:00* Test Item Value Reference Range Interpretation Comments Basophils # (Auto) (test code = 704-7) 0.0 0.0-0.1 [facility] CampusAbsolute Immature Granulocyte (auto 2019-10-11 12:50:00* Test Item Value Reference Range Interpretation Comments Absolute Immature Granulocyte (auto (zenaida t code = Absolute Immature Granulocyte (auto) 0.06 0-0.1 [facility] CampusCHEST SINGLE (PORTABLE)2019-10-11 12:19:00 [facility] [address] [place] [address] Patient Name: AMILCAR CELIS MR #: [id number] : 1970 Age/Sex: 49/F Req #: [id number] Adm Physician: Ordered by: SIRENA MCKINLEY NP Report #: [id number] Location: ER Room/Bed: Procedure: [id number] DX/CH EST SINGLE (PORTABLE) Exam Date: 10/11/19 [...] SIRENA MCKINLEY NP CHEST SINGLE (PORTABLE)2019-07-06 11:10:00 [place] [address] Patient Name: AMILCAR CELIS MR #: [id number] : 1970 Age/Sex: 49/F Req #: [id number] Adm Physician: Ordered by: DARIEL KAPADIA MD Report #: [id number] Location: ER Room/Bed: Procedure: [id number] DX/CHES T SINGLE (PORTABLE) Exam Date: 07/06/19 [...] Interpretation Comments Troponin I (test code = HGN1298) < 0.001 0-0.300 [facility] CampusThyroid Stimulating Hormone (TSH) 2019-07-06 10:37:00* Test Item Value Reference Range Interpretation Comments Thyroid Stimulating Hormone (TSH) (test code = 39195-4) 0.454 0.350-4.940 [facility] CampusThyroid Stimulating Hormone (TSH) 2019-07-06 10:37:00* Test Item Value Reference Range Interpretation Comments Thyroid Stimulating Hormone (TSH) (test code = 46395-1) 0.454 0.350-4.940 [facility] CampusThyroid Stimulating Hormone (TSH) 2019-07-06 10:37:00* Test Item Value Reference Range Interpretation Comments Thyroid Stimulating Hormone (TSH) (test code = 79957-7) 0.454 0.350-4.940 [facility] CampusD-Dimer Quantitative (PE/DVT)2019-07-06 10:16:00* Test Item Value Reference Range Interpretation Comments D-Dimer Quantitative (PE/DVT) (test code = 60190-2) 0.40 0. 00-0.45 As with all in vitro diagnostic tests, the test results should be interpreted by the physician in conjunction with clinical findings and other test results.Test results are reported in NEW D-dimer units(ug/mLFEU).[facility] CampusUrine NQF9824-71-83 10:16:00* Test Item Value Reference Range Interpretation Comments Urine WBC (test code = 5821-4) 0-5 0-5 [facility] CampusUrine MAU5321-70-59 10:16:00* Test Item Value Reference Range Interpretation Comments Urine RBC (test code = 60091-1) 0-5 0-5 [facility] CampusUrine Lcfvpxoz1580-07-65 10:16:00* Test Item Value Reference Range Interpretation Comments Urine Bacteria (test code = 93349-6) MODERATE NONE H [facility] CampusUrine Epithelial Hcvhh2610-60-79 10:16:00 * Test Item Value Reference Range Interpretation Comments Urine Epithelial Cells (test code = 69134-4) MODERATE NONE [facility] CampusUrine Transitional Epithelial Cells 2019-07-06 10:16:00* Test Item Value Reference Range Interpretation Comments Urine Transitional Epithelial Cells (test code = 8249-5) NONE NONE [facility] CampusUrine Amorphous Lgxjgbje0021-02-02 10:16:00* Test Item Value Reference Range Interpretation Comments Urine Amorphous Sediment (test code = 8246-1) MANY FEW H [facility] CampusB-Type Natriuretic Sueutpp2592-76-92 10:16:00* Test Item Value Reference Range Interpretation Comments B-Type Natriuretic Peptide (test code = 89909-2) < 10.0 0-100 [facility] CampusD-Dimer Quantitative (PE/DVT)2019-07-06 10:16:00* Test Item Value Reference Range Interpretation Comments D-Dimer Quantitative (PE/DVT) (test code = 72495-1) 0.40 0. 00-0.45 As with all in vitro diagnostic tests, the test results should be interpreted by the physician in conjunction with clinical findings and other test results.Test results are reported in NEW D-dimer units(ug/mLFEU).[facility] CampusUrine Transitional Epithelial Ktmbl3771-74-03 10:16:00* Test Item Value Reference Range Interpretation Comments Urine Transitional Epithelial Cells (test code = 8249-5) NONE NONE [facility] CampusB-Type Natriuretic Yxxguop1534-53-04 10:16:00* Test Item Value Reference Range Interpretation Comments B-Type Natriuretic Peptide (test code = 01375-7) < 10.0 0-100 [facility] CampusD-Dimer Quantitative (PE/DVT)2019-07-06 10:16:00* Test Item Value Reference Range Interpretation Comments D-Dimer Quantitative (PE/DVT) (test code = 16853-2) 0.40 0. 00-0.45 As with all in vitro diagnostic tests, the test results should be interpreted by the physician in conjunction with clinical findings and other test results.Test results are reported in NEW D-dimer units(ug/mLFEU).[facility] CampusProthrombin Pbny5947-35-22 10:06:00* Test Item Value Reference Range Interpretation Comments Prothrombin Time (test code = 5902-2) 11.2 11.9-14.5 L [facility] CampusProthromb Time International Ratio 2019-07-06 10:06:00* Test Item Value Reference Range Interpretation Comments Prothromb Time International Ratio (test code = 6301-6) 0.77 Oral Anticoagulant Therapy INR Values:1. Low Intensity Therapy 1.5 - 2.02 . Moderate Intensity Therapy 2.0 - 3.03. High Intensity Therapy(1) 2.5 - 3. 54. High Intensity Therapy(2) 3.0 - 4.05. Panic Value INR > 5.0 [facility] CampusActivated Partial Thromboplast Time 2019-07-06 10:06:00* Test Item Value Reference Range Interpretation Comments Activated Partial Thromboplast Time (test code = 25554-4) 23.6 23.8-35.5 L [facility] CampusProthrombin Hxds3045-63-39 10:06:00* Test Item Value Reference Range Interpretation Comments Prothrombin Time (test code = 5902-2) 11.2 11.9-14.5 L [facility] CampusProthromb Time International Ratio 2019-07-06 10:06:00* Test Item Value Reference Range Interpretation Comments Prothromb Time International Ratio (test code = 6301-6) 0.77 Oral Anticoagulant Therapy INR Values:1. Low Intensity Therapy 1.5 - 2.02 . Moderate Intensity Therapy 2.0 - 3.03. High Intensity Therapy(1) 2.5 - 3. 54. High Intensity Therapy(2) 3.0 - 4.05. Panic Value INR > 5.0 [facility] CampusActivated Partial Thromboplast Time 2019-07-06 10:06:00* Test Item Value Reference Range Interpretation Comments Activated Partial Thromboplast Time (test code = 86017-2) 23.6 23.8-35.5 L [facility] CampusProthrombin Rtzn9201-68-29 10:06:00* Test Item Value Reference Range Interpretation Comments Prothrombin Time (test code = 5902-2) 11.2 11.9-14.5 L [facility] CampusProthromb Time International Ratio 2019-07-06 10:06:00* Test Item Value Reference Range Interpretation Comments Prothromb Time International Ratio (test code = 6301-6) 0.77 Oral Anticoagulant Therapy INR Values:1. Low Intensity Therapy 1.5 - 2.02 . Moderate Intensity Therapy 2.0 - 3.03. High Intensity Therapy(1) 2.5 - 3. 54. High Intensity Therapy(2) 3.0 - 4.05. Panic Value INR > 5.0 [facility] CampusActivated Partial Thromboplast Time 2019-07-06 10:06:00* Test Item Value Reference Range Interpretation Comments Activated Partial Thromboplast Time (test code = 72775-7) 23.6 23.8-35.5 L [facility] Brownwoododium Vawrg3300-51-82 10:00:00* Test Item Value Reference Range Interpretation Comments Sodium Level (test code = 2951-2) 143 136-145 [facility] CampusPotassium Znpyd0612-51-01 10:00:00* Test Item Value Reference Range Interpretation Comments Potassium Level (test code = 2823-3) 3.0 3.5-5.1 L [facility] CampusChloride Kpjbw7339-18-30 10:00:00* Test Item Value Reference Range Interpretation Comments Chloride Level (test code = 2075-0) 101 98-107 [facility] CampusCarbon Dioxide Xevgo7440-54-94 10:00:00* Test Item Value Reference Range Interpretation Comments Carbon Dioxide Level (test code = 8-9) 28 22-29 [facility] CampusAnion Cji8037-56-92 10:00:00* Test Item Value Reference Range Interpretation Comments Anion Gap (test code = 18621-7) 17.0 8-16 H [facility] CampusBlood Urea Ysgynwvb6687-46-51 10:00:00* Test Item Value Reference Range Interpretation Comments Blood Urea Nitrogen (test code = 3094-0) 6 7-26 L [facility] CampusCreatinine2019-10-30 10:00:00* Test Item Value Reference Range Interpretation Comments Creatinine (test code = 2160-0) 0.69 0.57-1.11 [facility] CampusBUN/Creatinine Ieulh8488-70-73 10:00:00* Test Item Value Reference Range Interpretation Comments BUN/Creatinine Ratio (test code = 3097-3) 9 6-25 [facility] CampusEstimat Glomerular Filtration Rate 2019-07-06 10:00:00* Test Item Value Reference Range Interpretation Comments Estimat Glomerular Filtration Rate (test code = 968095161) > 60 >60 Ranges were taken from the National Kidney Disease Education Program and the [facility] literature.Reference ranges:60 or greater: Cobbpo17-86 ( for 3 consecutive months): Chronic kidney disease 15 or less: Kidney failureThe Hospitals of Providence Memorial CampusGlucose Frbdx4624-98-20 10:00:00* Test Item Value Reference Range Interpretation Comments Glucose Level (test code = BFH5098) 104 74-118 [facility] CampusCalcium Hlbrh0268-30-78 10:00:00* Test Item Value Reference Range Interpretation Comments Calcium Level (test code = 71842-6) 9.7 8.4-10.2 [facility] CampusMagnesium Dswxe0524-43-24 10:00:00* Test Item Value Reference Range Interpretation Comments Magnesium Level (test code = 15333-9) 1.9 1.3-2.1 [facility] CampusTotal Texyonytw2273-57-84 10:00:00* Test Item Value Reference Range Interpretation Comments Total Bilirubin (test code = 1975-2) 0.3 0.2-1.2 [facility] CampusAspartate Amino Transf (AST/SGOT) 2019-07-06 10:00:00* Test Item Value Reference Range Interpretation Comments Aspartate Amino Transf (AST/SGOT) (test code = Aspartate Amino Transf (AST/SGOT)) 166 5-34 H [facility] CampusAlanine Aminotransferase (ALT/SGPT) 2019-07-06 10:00:00* Test Item Value Reference Range Interpretation Comments Alanine Aminotransferase (ALT/SGPT) (test code = 1742-6) 112 0-55 H [facility] CampusTotal Ilpqdkj3526-21-49 10:00:00* Test Item Value Reference Range Interpretation Comments Total Protein (test code = 2885-2) 7.6 6.5-8.1 [facility] CampusAlbumin2019-10-30 10:00:00* Test Item Value Reference Range Interpretation Comments Albumin (test code = 1751-7) 3.8 3.5-5.0 [facility] CampusGlobulin2019-10-30 10:00:00* Test Item Value Reference Range Interpretation Comments Globulin (test code = 98259-4) 3.8 2.3-3.5 H [facility] CampusAlbumin/Globulin Rvxpx1791-70-84 10:00:00 * Test Item Value Reference Range Interpretation Comments Albumin/Globulin Ratio (test code = 1759-0) 1.0 0.8-2.0 [facility] CampusAlkaline Apqbrirbvuk6660-39-92 10:00:00* Test Item Value Reference Range Interpretation Comments Alkaline Phosphatase (test code = 6768-6) 93 40-150 [facility] CampusCreatine Aqftoq5655-98-73 10:00:00* Test Item Value Reference Range Interpretation Comments Creatine Kinase (test code = 2157-6) 122 29-168 [facility] CampusEthyl Alcohol Trlus4683-06-43 09:59:00* Test Item Value Reference Range Interpretation Comments Ethyl Alcohol Level (test code = 5643-2) 265.2 0.0-10.0 H [facility] CampusUrine Opiates Vshzwr2712-94-58 09:53:00* Test Item Value Reference Range Interpretation Comments Urine Opiates Screen (test code = 84504-4) NEGATIVE NEGATIVE ALL TESTS PERFORMED MANUALLY ON [employer] TOX/SEE TESTThe Hospitals of Providence Memorial CampusUrine Barbiturates Hzsjod3470-23-35 09:53:00* Test Item Value Reference Range Interpretation Comments Urine Barbiturates Screen (test code = 610730269) NEGATIVE NEGA TIVE [facility] CampusUrine Phencyclidine Braiun1425-36-52 09:53:00* Test Item Value Reference Range Interpretation Comments Urine Phencyclidine Screen (test code = 14733-0) NEGATIVE NEGAT MERCDEEZ [facility] CampusUrine Amphetamines Heawrq8584-72-15 09:53:00* Test Item Value Reference Range Interpretation Comments Urine Amphetamines Screen (test code = 70853-9) NEGATIVE NEGATI VE [facility] CampusUrine Methamphetamines Ujsdnl1407-72-80 09:53:00* Test Item Value Reference Range Interpretation Comments Urine Methamphetamines Screen (test code = Urine Metha mphetamines Screen) NEGATIVE NEGATIVE [facility] CampusUrine Benzodiazepines Rbgnxj7616-98-21 09:53:00* Test Item Value Reference Range Interpretation Comments Urine Benzodiazepines Screen (test code = 80681-9) NEGATIVE NEG ATIVE [facility] CampusUrine Cocaine Fdwsux7819-05-82 09:53:00* Test Item Value Reference Range Interpretation Comments Urine Cocaine Screen (test code = 3398-5) NEGATIVE NEGATIVE [facility] CampusUrine Cannabinoids Qshooq5150-04-68 09:53:00* Test Item Value Reference Range Interpretation Comments Urine Cannabinoids Screen (test code = 49736-3) NEGATIVE NEGATI VE THESE RESULTS ARE FOR MEDICAL TREATMENT ONLYTHIS REPORT CONTAINS UNCONFIR MED SCREENING RESULTS*POSITIVE RESULTS WILL BE CONFIRMED BY REFERENCE LAB UPON R EQUEST CUT-OFFDRUG CLASS CONCENTRATION ng/mLAmphetamines 1000Methamphetamines 1000Cocaine 300Opiate 300Phencyc lidine 25Cannabinoid 50Barbiturates 300Benzodiazepine 300Methadone 300[facility] Meth[facility]one Jvcdgb2070-21-71 09:53:00* Test Item Value Reference Range Interpretation Comments Urine Methadone Screen (test code = 38913-3) NEGATIVE NEGATIVE THESE RESULTS ARE FOR MEDICAL TREATMENT ONLYTHIS REPORT CONTAINS UNCONFIR MED SCREENING RESULTS*POSITIVE RESULTS WILL BE CONFIRMED BY REFERENCE LAB UPON R EQUEST CUT-OFFDRUG CLASS CONCENTRATION ng/mLAmphetamines 1000Methamphetamines 1000Cocaine Metabolite 300Opiate 300Phencyc lidine 25Cannabinoid 50Barbiturates 300Benzodiazepine 300Methadone 300[facility] AtlantaUrine Gzkmk2036-13-82 09:50:00* Test Item Value Reference Range Interpretation Comments Urine Color (test code = 5778-6) YELLOW YELLOW [facility] CampusUrine Lcftfso2115-79-07 09:50:00* Test Item Value Reference Range Interpretation Comments Urine Clarity (test code = 23540-7) SL CLOUDY CLEAR [facility] CampusUrine Specific Kdyuhnv7077-68-29 09:50:00 * Test Item Value Reference Range Interpretation Comments Urine Specific [place] (test code = 5811-5) 1.015 1.010-1.02 5 [facility] CampusUrine gB6036-01-95 09:50:00* Test Item Value Reference Range Interpretation Comments Urine pH (test code = 94835-4) 7 5-7 [facility] CampusUrine Leukocyte Xffnzxiz1676-63-70 09:50:00* Test Item Value Reference Range Interpretation Comments Urine Leukocyte Esterase (test code = 28471-5) NEGATIVE NEGATIV E [facility] CampusUrine Gepbqrx8336-96-35 09:50:00* Test Item Value Reference Range Interpretation Comments Urine Nitrite (test code = 20275-3) NEGATIVE NEGATIVE [facility] CampusUrine Ygavzgb5569-71-70 09:50:00* Test Item Value Reference Range Interpretation Comments Urine Protein (test code = 81431-8) NEGATIVE NEGATIVE [facility] CampusUrine Glucose (UA)2019-07-06 09:50:00* Test Item Value Reference Range Interpretation Comments Urine Glucose (UA) (test code = 85555-7) NEGATIVE NEGATIVE [facility] CampusUrine Mazdjbo9237-80-76 09:50:00* Test Item Value Reference Range Interpretation Comments Urine Ketones (test code = 76820-2) NEGATIVE NEGATIVE [facility] CampusUrine Rxodykyvrynj0596-63-75 09:50:00* Test Item Value Reference Range Interpretation Comments Urine Urobilinogen (test code = 93407-2) 0.2 0.2-1 [facility] CampusUrine Xfhygvewl5216-58-49 09:50:00* Test Item Value Reference Range Interpretation Comments Urine Bilirubin (test code = 1977-8) NEGATIVE NEGATIVE [facility] CampusUrine Oquoy4121-31-91 09:50:00* Test Item Value Reference Range Interpretation Comments Urine Blood (test code = 18482-2) NEGATIVE NEGATIVE [facility] CampusWhite Blood Jwbeb4429-68-75 09:37:00* Test Item Value Reference Range Interpretation Comments White Blood Count (test code = 6690-2) 4.18 4.8-10.8 L [facility] CampusRed Blood Fmjta3118-48-06 09:37:00* Test Item Value Reference Range Interpretation Comments Red Blood Count (test code = 789-8) 3.67 3.6-5.1 [facility] CampusHemoglobin2019-10-30 09:37:00* Test Item Value Reference Range Interpretation Comments Hemoglobin (test code = 79317-1) 12.8 12.0-16.0 [facility] CampusHematocrit2019-10-30 09:37:00* Test Item Value Reference Range Interpretation Comments Hematocrit (test code = 4544-3) 37.2 34.2-44.1 [facility] CampusMean Corpuscular Vpwipe2126-44-01 09:37:00* Test Item Value Reference Range Interpretation Comments Mean Corpuscular Volume (test code = 787-2) 101.4 81-99 H [facility] CampusMean Corpuscular Emsbelnqwr2830-43-78 09:37:00* Test Item Value Reference Range Interpretation Comments Mean Corpuscular Hemoglobin (test code = 785-6) 34.9 28-32 H [facility] CampusMean Corpuscular Hemoglobin Concent 2019-07-06 09:37:00* Test Item Value Reference Range Interpretation Comments Mean Corpuscular Hemoglobin Concent (test code = 786-4) 34.4 31-35 [facility] CampusRed Cell Distribution Xgbui3037-53-02 09:37:00* Test Item Value Reference Range Interpretation Comments Red Cell Distribution Width (test code = 79353-2) 13.1 11.7 -14.4 [facility] CampusPlatelet Weuhg2162-77-73 09:37:00* Test Item Value Reference Range Interpretation Comments Platelet Count (test code = 777-3) 240 140-360 [facility] CampusNeutrophils (%) (Auto)2019-07-06 09:37:00 * Test Item Value Reference Range Interpretation Comments Neutrophils (%) (Auto) (test code = 22375-0) 40.4 38.7-80.0 [facility] CampusLymphocytes (%) (Auto)2019-07-06 09:37:00 * Test Item Value Reference Range Interpretation Comments Lymphocytes (%) (Auto) (test code = 736-9) 51.2 18.0-39.1 H [facility] CampusMonocytes (%) (Auto)2019-07-06 09:37:00* Test Item Value Reference Range Interpretation Comments Monocytes (%) (Auto) (test code = 5905-5) 6.7 4.4-11.3 [facility] CampusEosinophils (%) (Auto)2019-07-06 09:37:00 * Test Item Value Reference Range Interpretation Comments Eosinophils (%) (Auto) (test code = 713-8) 0.5 0.0-6.0 [facility] CampusBasophils (%) (Auto)2019-07-06 09:37:00* Test Item Value Reference Range Interpretation Comments Basophils (%) (Auto) (test code = 706-2) 1.0 0.0-1.0 [facility] CampusIM GRANULOCYTES %2019-07-06 09:37:00* Test Item Value Reference Range Interpretation Comments IM GRANULOCYTES % (test code = IM GRANULOCYTES %) 0.2 0.0- 1.0 [facility] CampusNeutrophils # (Auto)2019-07-06 09:37:00* Test Item Value Reference Range Interpretation Comments Neutrophils # (Auto) (test code = 751-8) 1.7 2.1-6.9 L [facility] CampusLymphocytes # (Auto)2019-07-06 09:37:00* Test Item Value Reference Range Interpretation Comments Lymphocytes # (Auto) (test code = 67920-3) 2.1 1.0-3.2 [facility] CampusMonocytes # (Auto)2019-07-06 09:37:00* Test Item Value Reference Range Interpretation Comments Monocytes # (Auto) (test code = 742-7) 0.3 0.2-0.8 [facility] CampusEosinophils # (Auto)2019-07-06 09:37:00* Test Item Value Reference Range Interpretation Comments Eosinophils # (Auto) (test code = 711-2) 0.0 0.0-0.4 [facility] CampusBasophils # (Auto)2019-07-06 09:37:00* Test Item Value Reference Range Interpretation Comments Basophils # (Auto) (test code = 704-7) 0.0 0.0-0.1 [facility] CampusAbsolute Immature Granulocyte (auto 2019-07-06 09:37:00* Test Item Value Reference Range Interpretation Comments Absolute Immature Granulocyte (auto (zenaida t code = Absolute Immature Granulocyte (auto) 0.01 0-0.1 [facility] CampusMagnesium Afupf1060-28-52 19:25:00* Test Item Value Reference Range Interpretation Comments Magnesium Level (test code = 23168-2) 1.6 1.3-2.1 [facility] Brownwoododium Hdjfn5562-22-84 18:59:00* Test Item Value Reference Range Interpretation Comments Sodium Level (test code = 2951-2) 134 136-145 L [facility] CampusPotassium Rifqy3437-87-72 18:59:00* Test Item Value Reference Range Interpretation Comments Potassium Level (test code = 2823-3) 3.2 3.5-5.1 L [facility] CampusChloride Xafzl2321-19-30 18:59:00* Test Item Value Reference Range Interpretation Comments Chloride Level (test code = 2075-0) 100 98-107 [facility] CampusCarbon Dioxide Yeyyp6223-26-84 18:59:00* Test Item Value Reference Range Interpretation Comments Carbon Dioxide Level (test code = 2028-9) 25 22-29 [facility] CampusAnion Uwl7005-26-54 18:59:00* Test Item Value Reference Range Interpretation Comments Anion Gap (test code = 49658-4) 12.2 8-16 [facility] CampusBlood Urea Kkilhdbo8705-46-40 18:59:00* Test Item Value Reference Range Interpretation Comments Blood Urea Nitrogen (test code = 3094-0) 10 7-26 [facility] CampusCreatinine2019-10-14 18:59:00* Test Item Value Reference Range Interpretation Comments Creatinine (test code = 2160-0) 0.74 0.57-1.11 [facility] CampusBUN/Creatinine Nqjzl8204-50-91 18:59:00* Test Item Value Reference Range Interpretation Comments BUN/Creatinine Ratio (test code = 3097-3) 14 6-25 [facility] CampusEstimat Glomerular Filtration Rate 2019-06-20 18:59:00* Test Item Value Reference Range Interpretation Comments Estimat Glomerular Filtration Rate (test code = 757682193) > 60 >60 Ranges were taken from the National Kidney Disease Education Program and the [facility] literature.Reference ranges:60 or greater: Ndgzwi60-05 ( for 3 consecutive months): Chronic kidney disease 15 or less: Kidney failureThe Hospitals of [facility] CampusGlucose Iwwzz2815-28-43 18:59:00* Test Item Value Reference Range Interpretation Comments Glucose Level (test code = RKK5517) 110 74-118 [facility] CampusCalcium Cpthj9305-31-83 18:59:00* Test Item Value Reference Range Interpretation Comments Calcium Level (test code = 52632-5) 8.8 8.4-10.2 [facility] CampusTotal Cyqvkasnl8336-93-14 18:59:00* Test Item Value Reference Range Interpretation Comments Total Bilirubin (test code = 1975-2) 0.5 0.2-1.2 [facility] CampusAspartate Amino Transf (AST/SGOT) 2019-06-20 18:59:00* Test Item Value Reference Range Interpretation Comments Aspartate Amino Transf (AST/SGOT) (test code = Aspartate Amino Transf (AST/SGOT)) 153 5-34 H [facility] CampusAlanine Aminotransferase (ALT/SGPT) 2019-06-20 18:59:00* Test Item Value Reference Range Interpretation Comments Alanine Aminotransferase (ALT/SGPT) (test code = 1742-6) 225 0-55 H [facility] CampusTotal Cdzhkfj0076-27-90 18:59:00* Test Item Value Reference Range Interpretation Comments Total Protein (test code = 2885-2) 5.9 6.5-8.1 L [facility] CampusAlbumin2019-10-14 18:59:00* Test Item Value Reference Range Interpretation Comments Albumin (test code = 1751-7) 3.1 3.5-5.0 L [facility] CampusGlobulin2019-10-14 18:59:00* Test Item Value Reference Range Interpretation Comments Globulin (test code = 24602-1) 2.8 2.3-3.5 [facility] CampusAlbumin/Globulin Hblkk8809-19-76 18:59:00 * Test Item Value Reference Range Interpretation Comments Albumin/Globulin Ratio (test code = 1759-0) 1.1 0.8-2.0 [facility] CampusAlkaline Kmlzlahcmrg7699-33-53 18:59:00* Test Item Value Reference Range Interpretation Comments Alkaline Phosphatase (test code = 6768-6) 62 40-150 [facility] CampusWhite Blood Wucpy3848-05-10 06:17:00* Test Item Value Reference Range Interpretation Comments White Blood Count (test code = 6690-2) 6.94 4.8-10.8 [facility] CampusRed Blood Kxlre3624-82-90 06:17:00* Test Item Value Reference Range Interpretation Comments Red Blood Count (test code = 789-8) 3.32 3.6-5.1 L [facility] CampusHemoglobin2019-10-14 06:17:00* Test Item Value Reference Range Interpretation Comments Hemoglobin (test code = 06056-5) 11.4 12.0-16.0 L [facility] CampusHematocrit2019-10-14 06:17:00* Test Item Value Reference Range Interpretation Comments Hematocrit (test code = 4544-3) 33.9 34.2-44.1 L [facility] CampusMean Corpuscular Bqyvua8186-59-72 06:17:00* Test Item Value Reference Range Interpretation Comments Mean Corpuscular Volume (test code = 787-2) 102.1 81-99 H [facility] CampusMean Corpuscular Jsbfstspgw5724-64-32 06:17:00* Test Item Value Reference Range Interpretation Comments Mean Corpuscular Hemoglobin (test code = 785-6) 34.3 28-32 H [facility] CampusMean Corpuscular Hemoglobin Concent 2019-06-20 06:17:00* Test Item Value Reference Range Interpretation Comments Mean Corpuscular Hemoglobin Concent (test code = 786-4) 33.6 31-35 [facility] CampusRed Cell Distribution Flktu5749-28-55 06:17:00* Test Item Value Reference Range Interpretation Comments Red Cell Distribution Width (test code = 07768-5) 11.7 11.7 -14.4 [facility] CampusPlatelet Prgiu8409-76-04 06:17:00* Test Item Value Reference Range Interpretation Comments Platelet Count (test code = 777-3) 130 140-360 L [facility] CampusNeutrophils (%) (Auto)2019-06-20 06:17:00 * Test Item Value Reference Range Interpretation Comments Neutrophils (%) (Auto) (test code = 01763-5) 54.5 38.7-80.0 [facility] CampusLymphocytes (%) (Auto)2019-06-20 06:17:00 * Test Item Value Reference Range Interpretation Comments Lymphocytes (%) (Auto) (test code = 736-9) 37.3 18.0-39.1 [facility] CampusMonocytes (%) (Auto)2019-06-20 06:17:00* Test Item Value Reference Range Interpretation Comments Monocytes (%) (Auto) (test code = 5905-5) 6.3 4.4-11.3 [facility] CampusEosinophils (%) (Auto)2019-06-20 06:17:00 * Test Item Value Reference Range Interpretation Comments Eosinophils (%) (Auto) (test code = 713-8) 0.9 0.0-6.0 [facility] CampusBasophils (%) (Auto)2019-06-20 06:17:00* Test Item Value Reference Range Interpretation Comments Basophils (%) (Auto) (test code = 706-2) 0.6 0.0-1.0 [facility] CampusIM GRANULOCYTES %2019-06-20 06:17:00* Test Item Value Reference Range Interpretation Comments IM GRANULOCYTES % (test code = IM GRANULOCYTES %) 0.4 0.0- 1.0 [facility] CampusNeutrophils # (Auto)2019-06-20 06:17:00* Test Item Value Reference Range Interpretation Comments Neutrophils # (Auto) (test code = 751-8) 3.8 2.1-6.9 [facility] CampusLymphocytes # (Auto)2019-06-20 06:17:00* Test Item Value Reference Range Interpretation Comments Lymphocytes # (Auto) (test code = 09881-4) 2.6 1.0-3.2 [facility] CampusMonocytes # (Auto)2019-06-20 06:17:00* Test Item Value Reference Range Interpretation Comments Monocytes # (Auto) (test code = 742-7) 0.4 0.2-0.8 [facility] CampusEosinophils # (Auto)2019-06-20 06:17:00* Test Item Value Reference Range Interpretation Comments Eosinophils # (Auto) (test code = 711-2) 0.1 0.0-0.4 [facility] CampusBasophils # (Auto)2019-06-20 06:17:00* Test Item Value Reference Range Interpretation Comments Basophils # (Auto) (test code = 704-7) 0.0 0.0-0.1 [facility] CampusAbsolute Immature Granulocyte (auto 2019-06-20 06:17:00* Test Item Value Reference Range Interpretation Comments Absolute Immature Granulocyte (auto (zenaida t code = Absolute Immature Granulocyte (auto) 0.03 0-0.1 [facility] CampusUS ABDOMEN OVEMWBQG2449-96-17 10:03:00 [place] [address] Patient Name: AMILCAR CELIS MR #: [id number] : 1970 Age/Sex: 49/F Req #: [id number] Adm Physician: ARMANI ARREOLA MD Ordered by: ARMANI ARREOLA MD Report #: [id number] Location: MED/SURG[address] [place] [address]/Bed: [facility] Procedure: [id number] US/US AB DARDEN COMPLETE Exam Date: 06/19/19 Exam Time: 928 REPORT STATUS: Signed EXAM: US AB DARDEN COMPLETE INDICATION: Elevated LFTs. COMPARISON: None OMID HNIQUE: Transverse and longitudinal gordon scale and color doppler sonographic i mages of the abdomen were obtained. FINDINGS: LIVER 14.9 [facility] midclavicular line. Increased echogenicity of the liver [...] 1006 COPY TO: ARMANI ARREOLA MD Creatine Eacugd7543-28-21 04:17:00* Test Item Value Reference Range Interpretation Comments Creatine Kinase (test code = 2157-6) 54 29-168 [facility] CampusCreatine Kinase VL2395-38-86 04:17:00* Test Item Value Reference Range Interpretation Comments Creatine Kinase MB (test code = 11383-3) 0.60 0-5.0 [facility] CampusTroponin E3073-67-67 04:17:00* Test Item Value Reference Range Interpretation Comments Troponin I (test code = TFH8408) 0.002 0-0.300 [facility] CampusCreatine Kinase AL1714-44-16 04:17:00* Test Item Value Reference Range Interpretation Comments Creatine Kinase MB (test code = 39335-2) 0.60 0-5.0 [facility] CampusLipase2019-10-12 10:46:00* Test Item Value Reference Range Interpretation Comments Lipase (test code = 3040-3) 98 8-78 [facility] 10:46:00* Test Item Value Reference Range Interpretation Comments Lipase (test code = 3040-3) 98 8-78 H [facility] CampusLipase2019-10-12 10:46:00* Test Item Value Reference Range Interpretation Comments Lipase (test code = 3040-3) 98 8-78 H [facility] CampusLipase2019-10-12 10:46:00* Test Item Value Reference Range Interpretation Comments Lipase (test code = 3040-3) 98 8-78 H [facility] Chorionic Gonadotropin, Qual 2019-06-18 10:44:00* Test Item Value Reference Range Interpretation Comments Human Chorionic Gonadotropin, Qual (test code = 2118-8) NEGATIVE NEGATIVE [facility] Chorionic Gonadotropin, Qual 2019-06-18 10:44:00* Test Item Value Reference Range Interpretation Comments Human Chorionic Gonadotropin, Qual (test code = 2118-8) NEGATIVE NEGATIVE [facility] Chorionic Gonadotropin, Qual 2019-06-18 10:44:00* Test Item Value Reference Range Interpretation Comments Human Chorionic Gonadotropin, Qual (test code = 2118-8) NEGATIVE NEGATIVE [facility] Chorionic Gonadotropin, [facility] 2019-06-18 10:44:00* Test Item Value Reference Range Interpretation Comments Human Chorionic Gonadotropin, Qual (test code = 2118-8) NEGATIVE NEGATIVE [facility] CampusEthyl Alcohol Ekhgx8447-90-27 10:33:00* Test Item Value Reference Range Interpretation Comments Ethyl Alcohol Level (test code = 5643-2) < 10.0 0.0-10.0 [facility] CampusBASIC METABOLIC [id number] 18:02:00 * Test Item Value Reference Range Interpretation Comments SODIUM (test code = NA) 144 mmol/L 136-145 N POTASSIUM (test code = K) 2.7 mmol/L 3.5-5.1 Re sults called to [id number] by V.LAB. 05/02/19 1801Critical results verified and read back [...] CA) 9.4 mg/dL 8.5-10.1 N HEPATIC FUNCTION [id number] 18:02:00* Test Item Value Reference Range Interpretation [...] reference range due to change in reagent. [id number] 18:02:00* Test Item Value Reference Range Interpretation Comments LIPASE (test code = LIP) 203 U/L 73.0-393.0 N HCG SERUM [id number] 18:02:00* Test Item Value Reference Range Interpretation Comments HCG SERUM QUAL (test code = HCGQL) NEGATIVE NEGATIVE This HCGQL test is NOT applicable for MALE patients.Check with nurse about probable order error.If Tumor Marker Test needed, nurse should order test "HCGTU"(Test #550.00826) [id number] 18:02:00* Test Item Value Reference Range Interpretation Comments TROPONIN-I (test code = TROPI) <0.015 ng/mL 0-0.045 N CBC W/O [id number] 17:57:00* Test Item Value Reference Range Interpretation [...] MPV) 10.1 fL 6.7-11.0 N BASIC METABOLIC [id number] 17:44:00* Test Item Value Reference Range Interpretation [...] code = CA) mg/dL 8.5-10.1 HEPATIC FUNCTION [id number] 17:44:00* Test Item Value Reference Range Interpretation [...] TOTAL (test code = ALKP) IUnit/L 45-117 [id number] 17:44:00* Test Item Value Reference Range Interpretation Comments LIPASE (test code = LIP) U/L 73.0-393.0 HCG SERUM [id number] 17:44:00* Test Item Value Reference Range Interpretation Comments HCG SERUM QUAL (test code = HCGQL) NEGATIVE NEGATIVE This HCGQL test is NOT applicable for MALE patients.Check with nurse about probable order error.If Tumor Marker Test needed, nurse should order test "HCGTU"(Test #550.19815) [id number] 17:44:00* Test Item Value Reference Range Interpretation Comments TROPONIN-I (test code = TROPI) ng/mL 0-0.045 CBC W/O [id number] 17:31:00* Test Item Value Reference Range Interpretation [...] code = MPV) fL 6.7-11.0 BASIC METABOLIC [id number] 19:52:00* Test Item Value Reference Range Interpretation Comments SODIUM (test code = NA) 139 mmol/L 136-145 N POTASSIUM (test code = K) 2.7 mmol/L 3.5-5.1 [facility] sults called to [id number] by VConclusive AnalyticsLAB. 03/02/19 1952Critical results verified and read back [...] CA) 8.1 mg/dL 8.5-10.1 L COMPREHENSIVE METABOLIC [id number] 09:51:00* Test Item Value Reference Range Interpretation Comments SODIUM (test code = NA) 138 mmol/L 136-145 N POTASSIUM (test code = K) 2.5 mmol/L 3.5-5.1 Re sults called to [id number] by YAN 03/02/19 0951Critical results verified and [...] reference range due to change in reagent. [id number] 09:38:00* Test Item Value Reference Range Interpretation Comments PHOSPHORUS (test code = PHOS) mg/dL 2.5-4.9 [id number] 09:38:00* Test Item Value Reference Range Interpretation Comments MAGNESIUM (test code = MAG) 2.0 mg/dL 1.8-2.4 N [id number] 09:38:00* Test Item Value Reference Range Interpretation Comments PHOSPHORUS (test code = PHOS) 2.4 mg/dL 2.5-4.9 L [id number] 09:38:00* Test Item Value Reference Range Interpretation Comments MAGNESIUM (test code = MAG) 2.0 mg/dL 1.8-2.4 N URINALYSIS [id number] 07:59:00* Test Item Value Reference Range Interpretation Comments UA COLOR (test code = COLU) Light-[place] YELLOW UA APPEARANCE (test code = APPU) [...] per HPF NONE Urine Source? Clean CatchURINALYSIS [id number] 07:59:00* Test Item Value Reference Range Interpretation Comments UA COLOR (test code = COLU) Light-[place] YELLOW UA APPEARANCE (test code = APPU) [...] FEW A Urine Source? Clean CatchBASIC METABOLIC [id number] 21:49:00* Test Item Value Reference Range Interpretation Comments SODIUM (test code = NA) 137 mmol/L 136-145 N POTASSIUM (test code = K) 2.2 mmol/L 3.5-5.1 Re sults called to KEITH/[id number] V.LAB. 03/01/192148Critical results verified and read back [...] CA) 8.3 mg/dL 8.5-10.1 L HEPATIC FUNCTION [id number] 21:49:00* Test Item Value Reference Range Interpretation [...] reference range due to change in reagent. [id number] 21:49:00* Test Item Value Reference Range Interpretation Comments PHOSPHORUS (test code = PHOS) 1.7 mg/dL 2.5-4.9 L CREATINE KINASE (CK)2019-03-01 21:49:00* Test Item Value Reference Range Interpretation Comments CREATINE KINASE (CK) (test code = CK) 354 IUnit/L 26-208 H [id number] 21:49:00* Test Item Value Reference Range Interpretation Comments LIPASE (test code = LIP) 184 U/L 73.0-393.0 N [id number] 21:49:00* Test Item Value Reference Range Interpretation Comments MAGNESIUM (test code = MAG) 1.4 mg/dL 1.8-2.4 L CBC W/O [id number] 21:12:00* Test Item Value Reference Range Interpretation [...] MPV) 10.3 fL 6.7-11.0 N CBC W/O [id number] 21:00:00* Test Item Value Reference Range Interpretation [...] code = MPV) fL 6.7-11.0 TROPONIN I [id number] 09:50:00* Test Item Value Reference Range Interpretation [...] only if similarmethodology is used. BASIC METABOLIC [id number] 08:06:00* Test Item Value Reference Range Interpretation [...] code = CA) 8.9 mg/dL 8.5-10.1 N [id number] 08:06:00* Test Item Value Reference Range Interpretation Comments TROPONIN-I (test code = TROPI) <0.015 ng/mL 0-0.045 N [id number] 08:06:00* Test Item Value Reference Range Interpretation Comments ALCOHOL (test code = ALC) 223 mg/dL 0.0-3.0 H -- INTERPRETIVE DATA NOTE: POSITIVE SCREENING RESULTS SHOULD BE CONSIDERED PRESUMPTIVE.WHEN COLLECTED FOR MEDICAL PURPOSES ONLY. SPECIMEN WILL NOTBE COLLECTED BY CHAIN OF CUSTODY.IF A CONFIRMATION OF POSITIVE RESULTS IS DESIRED, ACONFIRMATION TEST MUST BE REQUESTED BY THE PHYSICIAN AT ANADDITIONAL CHARGE TO THE PATIENT. [id number] 07:57:00* Test Item Value Reference Range Interpretation Comments MAGNESIUM (test code = MAG) 1.9 mg/dL 1.8-2.4 N BASIC METABOLIC [id number] 07:55:00* Test Item Value Reference Range Interpretation [...] CALCIUM (test code = CA) mg/dL 8.5-10.1 [id number] 07:55:00* Test Item Value Reference Range Interpretation Comments TROPONIN-I (test code = TROPI) ng/mL 0-0.045 [id number] 07:55:00* Test Item Value Reference Range Interpretation Comments ALCOHOL (test code = ALC) mg/dL 0-3 CBC W/O [id number] 07:47:00* Test Item Value Reference Range Interpretation [...] fL 6.7-11.0 N - XR CHEST 1 [id number] 07:37:00 FAX: Ankur Sinclair DO [place]: B St: PRE Name: AMILCAR HARRINGTON [facility] : [birth year] Age/S: 48/F [address] [facility] Unit #: [id number] Loc: [place] [address] Phys: Ankur Sinclair DO Acct: [id number] Dis Date: Status: PRE ER PHONE #: [phone] Exam Date: 02/03/2019719 FAX #: [phone] Reason: CHEST PAIN EXAMS: CPT CODE: [id number] XR CHEST 1 V 81277 HISTORY: CHEST PAIN TECHNIQUE: AP chest x-ray [...] : By: [email or web address] Orig Print D/T: S: (0748) PAGE 1 Signed Repo rt Bedside Vbucocy5850-25-69 08:31:00* Test Item Value Reference Range Interpretation Comments Bedside Glucose (test code = 28721-0) 299 70-120 H Meter ID: [id number] [facility] Glucose 2019-01-21 08:31:00* Test Item Value Reference Range Interpretation Comments Bedside Glucose (test code = 41123-5) 299 70-120 H Meter ID: [id number] Glucose 2019-01-21 08:31:00* Test Item Value Reference Range Interpretation Comments Bedside Glucose (test code = 79493-2) 299 70-120 H Meter ID: [id number] [facility]als [facility] CampusMagnesium Level 2019-01-19 16:03:00* Test Item Value Reference Range Interpretation Comments Magnesium Level (test code = 40652-7) 1.8 1.3-2.1 [facility] CampusPotassium Pjdlp5370-29-05 16:02:00* Test Item Value Reference Range Interpretation Comments Potassium Level (test code = 2823-3) 3.6 3.5-5.1 [facility] CampusUrine Ovrvh7310-25-05 10:42:00* Test Item Value Reference Range Interpretation Comments Urine Color (test code = 5778-6) YELLOW YELLOW [facility] CampusUrine Xjgubah1097-06-16 10:42:00* Test Item Value Reference Range Interpretation Comments Urine Clarity (test code = 88173-7) SL CLOUDY CLEAR [facility] CampusUrine Specific Iwuzlgx7766-69-31 10:42:00 * Test Item Value Reference Range Interpretation Comments Urine Specific [place] (test code = 5811-5) 1.020 1.010-1.02 5 [facility] CampusUrine [id number] 10:42:00* Test Item Value Reference Range Interpretation Comments Urine pH (test code = 79785-3) 8 5-7 H [facility] CampusUrine Leukocyte Ztsldnnn7311-30-28 10:42:00* Test Item Value Reference Range Interpretation Comments Urine Leukocyte Esterase (test code = 5799-2) NEGATIVE NEGATIVE [facility] CampusUrine Xnudugj5643-98-19 10:42:00* Test Item Value Reference Range Interpretation Comments Urine Nitrite (test code = 74308-6) NEGATIVE NEGATIVE [facility] Ajofqvf5802-39-98 10:42:00* Test Item Value Reference Range Interpretation Comments Urine Protein (test code = 5804-0) NEGATIVE NEGATIVE [facility] Glucose (UA)2019-01-19 10:42:00* Test Item Value Reference Range Interpretation Comments Urine Glucose (UA) (test code = 2349-9) NEGATIVE NEGATIVE [facility] Xdyisor0275-61-56 10:42:00* Test Item Value Reference Range Interpretation Comments Urine Ketones (test code = 27184-3) NEGATIVE NEGATIVE [facility] Zrivrrzvvhng1778-66-43 10:42:00* Test Item Value Reference Range Interpretation Comments Urine Urobilinogen (test code = 84526-0) 0.2 0.2-1 [facility] Pwdocjkgq0051-87-00 10:42:00* Test Item Value Reference Range Interpretation Comments Urine Bilirubin (test code = 1978-6) NEGATIVE NEGATIVE [facility] Owqun3013-41-21 10:42:00* Test Item Value Reference Range Interpretation Comments Urine Blood (test code = 86889-4) NEGATIVE NEGATIVE [facility] CampusU[facility] [id number] 10:42:00* Test Item Value Reference Range Interpretation Comments Urine WBC (test code = 5821-4) NONE 0-5 [facility] CampusU[facility] [id number] 10:42:00* Test Item Value Reference Range Interpretation Comments Urine RBC (test code = 65198-8) NONE 0-5 [facility] CampusU[facility] Bpwwnpwq7245-37-23 10:42:00* Test Item Value Reference Range Interpretation Comments Urine Bacteria (test code = 69901-1) NONE NONE [facility] CampusU[facility] Epithelial Hkrvo1466-90-23 10:42:00 * Test Item Value Reference Range Interpretation Comments Urine Epithelial Cells (test code = 72062-4) RARE NONE [facility] Ztpfc0876-52-55 10:42:00* Test Item Value Reference Range Interpretation Comments Urine Color (test code = 5778-6) YELLOW YELLOW [facility] Zskoewh3051-39-11 10:42:00* Test Item Value Reference Range Interpretation Comments Urine Clarity (test code = 60443-7) SL CLOUDY CLEAR [facility] Specific Vmfvxyo5529-69-11 10:42:00 * Test Item Value Reference Range Interpretation Comments Urine Specific [place] (test code = 5811-5) 1.020 1.010-1.02 5 [facility] CampusUrine [id number] 10:42:00* Test Item Value Reference Range Interpretation Comments Urine pH (test code = 86808-2) 8 5-7 H [facility] Leukocyte Lgwzatkb2621-71-23 10:42:00* Test Item Value Reference Range Interpretation Comments Urine Leukocyte Esterase (test code = 5799-2) NEGATIVE NEGATIVE [facility] Thhccdm7269-93-69 10:42:00* Test Item Value Reference Range Interpretation Comments Urine Nitrite (test code = 43886-3) NEGATIVE NEGATIVE [facility] Ivtuhxh7092-97-33 10:42:00* Test Item Value Reference Range Interpretation Comments Urine Protein (test code = 5804-0) NEGATIVE NEGATIVE [facility] Glucose (UA)2019-01-19 10:42:00* Test Item Value Reference Range Interpretation Comments Urine Glucose (UA) (test code = 2349-9) NEGATIVE NEGATIVE [facility] Exroolu2492-42-86 10:42:00* Test Item Value Reference Range Interpretation Comments Urine Ketones (test code = 63551-4) NEGATIVE NEGATIVE [facility] Xrphjtutchho4753-17-51 10:42:00* Test Item Value Reference Range Interpretation Comments Urine Urobilinogen (test code = 96415-4) 0.2 0.2-1 [facility] Nlmlbpdtb3596-09-91 10:42:00* Test Item Value Reference Range Interpretation Comments Urine Bilirubin (test code = 1978-6) NEGATIVE NEGATIVE [facility] Xahjg3353-03-92 10:42:00* Test Item Value Reference Range Interpretation Comments Urine Blood (test code = 03007-6) NEGATIVE NEGATIVE [facility] CampusU[facility] YWH5014-68-01 10:42:00* Test Item Value Reference Range Interpretation Comments Urine WBC (test code = 5821-4) NONE 0-5 [facility] CampusU[facility] WWW3506-15-35 10:42:00* Test Item Value Reference Range Interpretation Comments Urine RBC (test code = 86658-3) NONE 0-5 [facility] CampusU[facility] Ugcuvvcz8411-99-07 10:42:00* Test Item Value Reference Range Interpretation Comments Urine Bacteria (test code = 72973-9) NONE NONE [facility] CampusU[facility] Epithelial Tgfpo2086-33-26 10:42:00 * Test Item Value Reference Range Interpretation Comments Urine Epithelial Cells (test code = 74470-5) RARE NONE [facility] CampusUrine Opiates Fbwhun5960-86-13 10:36:00* Test Item Value Reference Range Interpretation Comments Urine Opiates Screen (test code = 45033-2) NEGATIVE NEGATIVE ALL TESTS PERFORMED MANUALLY ON [employer] TOX/SEE TESTThe Hospitals of [facility] CampusUrine Barbiturates Huflbr0858-05-84 10:36:00* Test Item Value Reference Range Interpretation Comments Urine Barbiturates Screen (test code = 030834322) POSITIVE NEGA TIVE H This test provides only a screen. Positive results should be repeated by a confi rmatory test.[facility] CampusUrine Phencyclidine Screen 2019-01-19 10:36:00* Test Item Value Reference Range Interpretation Comments Urine Phencyclidine Screen (test code = 85859-7) NEGATIVE NEGAT MERCEDEZ [facility] CampusU[facility] Amphetamines Holkuu0594-38-45 10:36:00* Test Item Value Reference Range Interpretation Comments Urine Amphetamines Screen (test code = 97465-2) NEGATIVE NEGATI VE [facility] CampusU[facility] Methamphetamines Hghzua4130-11-75 10:36:00* Test Item Value Reference Range Interpretation Comments Urine Methamphetamines Screen (test code = Urine Metha mphetamines Screen) NEGATIVE NEGATIVE [facility] CampusU[facility] Benzodiazepines Pbnupc3010-57-20 10:36:00* Test Item Value Reference Range Interpretation Comments Urine Benzodiazepines Screen (test code = 42991-2) POSITIVE NEG ATIVE H This test provides only a screen. Positive results should be repeated by a confi rmatory test.[facility] CampusU[facility] Cocaine Screen 2019-01-19 10:36:00* Test Item Value Reference Range Interpretation Comments Urine Cocaine Screen (test code = 3398-5) NEGATIVE NEGATIVE [facility] CampusU[facility] Cannabinoids Avajso4286-32-12 10:36:00* Test Item Value Reference Range Interpretation Comments Urine Cannabinoids Screen (test code = 03223-5) NEGATIVE NEGATI VE THESE RESULTS ARE FOR MEDICAL TREATMENT ONLYTHIS REPORT CONTAINS UNCONFIR MED SCREENING RESULTS*POSITIVE RESULTS WILL BE CONFIRMED BY REFERENCE LAB UPON R EQUEST CUT-OFFDRUG CLASS CONCENTRATION ng/mLAmphetamines 1000Methamphetamines 1000Cocaine 300Opiate 300Phencyc lidine 25Cannabinoid 50Barbiturates 300Benzodiazepine 300Methadone 300[facility] CampusUrine Methadone Pbdeag3102-17-40 10:36:00* Test Item Value Reference Range Interpretation Comments Urine Methadone Screen (test code = 20706-2) NEGATIVE NEGATIVE This test provides only a screen. Positive results should be repeated by a confi rmatory test.THESE RESULTS ARE FOR MEDICAL TREATMENT ONLYTHIS REPORT CONT AINS UNCONFIRMED SCREENING RESULTS*POSITIVE RESULTS WILL BE CONFIRMED BY REFEREN CE LAB UPON REQUEST CUT-OFFDRUG CLASS CON CENTRATION ng/mLAmphetamines 1000Methamp hetamines 1000Cocaine Metabolite 300Opiate 300Phencyclidine 25Cannabinoid 50Barbiturates 300Benzodiazepine 300Methadone 30 0[facility] CampusUrine Opiates Xyqcuw6608-78-40 10:36:00 * Test Item Value Reference Range Interpretation Comments Urine Opiates Screen (test code = 36744-0) NEGATIVE NEGATIVE ALL TESTS PERFORMED MANUALLY ON [employer] TOX/SEE TESTThe Hospitals of [facility] CampusUrine Barbiturates Uzxscf3628-81-08 10:36:00* Test Item Value Reference Range Interpretation Comments Urine Barbiturates Screen (test code = 961846977) POSITIVE NEGA TIVE H This test provides only a screen. Positive results should be repeated by a confi rmatory test.[facility] CampusU[facility] Phencyclidine Screen 2019-01-19 10:36:00* Test Item Value Reference Range Interpretation Comments Urine Phencyclidine Screen (test code = 53260-2) NEGATIVE NEGAT MERCEDEZ [facility] CampusU[facility] Amphetamines Fujzbf6933-51-80 10:36:00* Test Item Value Reference Range Interpretation Comments Urine Amphetamines Screen (test code = 58543-9) NEGATIVE NEGATI VE [facility] CampusU[facility] Methamphetamines Jxfjnt3311-70-96 10:36:00* Test Item Value Reference Range Interpretation Comments Urine Methamphetamines Screen (test code = Urine Metha mphetamines Screen) NEGATIVE NEGATIVE [facility] CampusUrine Benzodiazepines Qbvyaa9624-75-13 10:36:00* Test Item Value Reference Range Interpretation Comments Urine Benzodiazepines Screen (test code = 27381-8) POSITIVE NEG ATIVE H This test provides only a screen. Positive results should be repeated by a confi rmatory test.[facility] CampusUrine Cocaine Screen 2019-01-19 10:36:00* Test Item Value Reference Range Interpretation Comments Urine Cocaine Screen (test code = 3398-5) NEGATIVE NEGATIVE [facility] CampusU[facility] Cannabinoids Nexikj5447-21-88 10:36:00* Test Item Value Reference Range Interpretation Comments Urine Cannabinoids Screen (test code = 29698-3) NEGATIVE NEGATI VE THESE RESULTS ARE FOR MEDICAL TREATMENT ONLYTHIS REPORT CONTAINS UNCONFIR MED SCREENING RESULTS*POSITIVE RESULTS WILL BE CONFIRMED BY REFERENCE LAB UPON R EQUEST CUT-OFFDRUG CLASS CONCENTRATION ng/mLAmphetamines 1000Methamphetamines 1000Cocaine 300Opiate 300Phencyc lidine 25Cannabinoid 50Barbiturates 300Benzodiazepine 300Methadone 300[facility] Iwnaau8380-87-36 10:36:00* Test Item Value Reference Range Interpretation Comments Urine Methadone Screen (test code = 86347-3) NEGATIVE NEGATIVE This test provides only a screen. Positive results should be repeated by a confi rmatory test.THESE RESULTS ARE FOR MEDICAL TREATMENT ONLYTHIS REPORT CONT AINS UNCONFIRMED SCREENING RESULTS*POSITIVE RESULTS WILL BE CONFIRMED BY REFEREN CE LAB UPON REQUEST CUT-OFFDRUG CLASS CON CENTRATION ng/mLAmphetamines 1000Methamp hetamines 1000Cocaine Metabolite 300Opiate 300Phencyclidine 25Cannabinoid 50Barbiturates 300Benzodiazepine 300Methadone 30 0[facility] Brownwoododium Wshjm1113-40-30 06:41:00* Test Item Value Reference Range Interpretation Comments Sodium Level (test code = 2951-2) 138 136-145 [facility] CampusChloride Sjdlb7814-62-90 06:41:00* Test Item Value Reference Range Interpretation Comments Chloride Level (test code = 2075-0) 102 98-107 [facility] CampusCarbon Dioxide Jfyag9715-94-57 06:41:00* Test Item Value Reference Range Interpretation Comments Carbon Dioxide Level (test code = 2028-9) 29 22-29 [facility] CampusAnion Zqi8583-53-80 06:41:00* Test Item Value Reference Range Interpretation Comments Anion Gap (test code = 01599-4) 9.9 8-16 [facility] CampusBlood Urea Ghicfnva2155-93-11 06:41:00* Test Item Value Reference Range Interpretation Comments Blood Urea Nitrogen (test code = 3094-0) 8 7-26 [facility] CampusCreatinine2019-05-15 06:41:00* Test Item Value Reference Range Interpretation Comments Creatinine (test code = 2160-0) 0.68 0.57-1.11 [facility] CampusBUN/Creatinine Xvrwy4846-22-00 06:41:00* Test Item Value Reference Range Interpretation Comments BUN/Creatinine Ratio (test code = 3097-3) 12 6-25 [facility] CampusEstimat Glomerular Filtration Rate 2019-01-19 06:41:00* Test Item Value Reference Range Interpretation Comments Estimat Glomerular Filtration Rate (test code = 286187416) > 60 >60 Ranges were taken from the National Kidney Disease Education Program and the [facility] [employer] literature.Reference ranges:60 or greater: Gkgbzz26-72 ( for 3 consecutive months): Chronic kidney disease 15 or less: Kidney failureThe Hospitals of Providence Memorial CampusGlucose Ozanz9423-29-01 06:41:00* Test Item Value Reference Range Interpretation Comments Glucose Level (test code = GCG8366) 83 74-118 [facility] CampusCalcium Hqcgn8357-03-67 06:41:00* Test Item Value Reference Range Interpretation Comments Calcium Level (test code = 78917-2) 8.6 8.4-10.2 [facility] CampusB-Type Natriuretic Zkstvke1531-26-64 18:49:00* Test Item Value Reference Range Interpretation Comments B-Type Natriuretic Peptide (test code = 19307-9) 10.9 0-100 [facility] CampusB-Type Natriuretic Uamplrh9848-33-13 18:49:00* Test Item Value Reference Range Interpretation Comments B-Type Natriuretic Peptide (test code = 78163-8) 10.9 0-100 [facility] CampusAmylase Eycfa0241-18-40 18:44:00* Test Item Value Reference Range Interpretation Comments Amylase Level (test code = 1798-8) 116 25-125 [facility] CampusLipase2019-05-14 18:44:00* Test Item Value Reference Range Interpretation Comments Lipase (test code = 3040-3) 33 8-78 [facility] CampusAmylase Fidne2307-64-82 18:44:00* Test Item Value Reference Range Interpretation Comments Amylase Level (test code = 1798-8) 116 25-125 [facility] CampusAmylase Nsomv0275-68-88 18:44:00* Test Item Value Reference Range Interpretation Comments Amylase Level (test code = 1798-8) 116 25-125 [facility] CampusAmylase Lwqwm5699-05-18 18:44:00* Test Item Value Reference Range Interpretation Comments Amylase Level (test code = 1798-8) 116 25-125 [facility] CampusCreatine Kinase FY6122-33-60 18:38:00* Test Item Value Reference Range Interpretation Comments Creatine Kinase MB (test code = 55038-4) 1.10 0-5.0 [facility] CampusTroponin R6414-11-91 18:38:00* Test Item Value Reference Range Interpretation Comments Troponin I (test code = BVC9066) < 0.001 0-0.300 [facility] CampusTotal Xuwsxjbva8768-50-65 18:37:00* Test Item Value Reference Range Interpretation Comments Total Bilirubin (test code = 1975-2) 1.8 0.2-1.2 H [facility] CampusAspartate Amino Transf (AST/SGOT) 2019-01-18 18:37:00* Test Item Value Reference Range Interpretation Comments Aspartate Amino Transf (AST/SGOT) (test code = Aspartate Amino Transf (AST/SGOT)) 105 5-34 H [facility] CampusAlanine Aminotransferase (ALT/SGPT) 2019-01-18 18:37:00* Test Item Value Reference Range Interpretation Comments Alanine Aminotransferase (ALT/SGPT) (test code = 1742-6) 88 0-55 H [facility] Xskcytr2651-38-03 18:37:00* Test Item Value Reference Range Interpretation Comments Total Protein (test code = 2885-2) 8.3 6.5-8.1 H [facility] CampusAlbumin2019-05-14 18:37:00* Test Item Value Reference Range Interpretation Comments Albumin (test code = 1751-7) 4.3 3.5-5.0 [facility] CampusGlobulin2019-05-14 18:37:00* Test Item Value Reference Range Interpretation Comments Globulin (test code = 36649-7) 4.0 2.3-3.5 H [facility] CampusAlbumin/Globulin Xgweh6611-82-75 18:37:00 * Test Item Value Reference Range Interpretation Comments Albumin/Globulin Ratio (test code = 1759-0) 1.1 0.8-2.0 [facility] CampusAlkaline Qjualyohiyt1287-82-77 18:37:00* Test Item Value Reference Range Interpretation Comments Alkaline Phosphatase (test code = 6768-6) 141 40-150 [facility] CampusCreatine Sxloer3247-29-05 18:37:00* Test Item Value Reference Range Interpretation Comments Creatine Kinase (test code = 2157-6) 243 29-168 H [facility] CampusHuman Chorionic Gonadotropin, Qual 2019-01-18 18:31:00* Test Item Value Reference Range Interpretation Comments Human Chorionic Gonadotropin, Qual (test code = 2118-8) NEGATIVE NEGATIVE [facility] CampusProthrombin Tjjo5525-45-35 18:27:00* Test Item Value Reference Range Interpretation Comments Prothrombin Time (test code = 5902-2) 12.6 11.9-14.5 [facility] CampusProthromb Time International Ratio 2019-01-18 18:27:00* Test Item Value Reference Range Interpretation Comments Prothromb Time International Ratio (test code = 6301-6) 0.90 Oral Anticoagulant Therapy INR Values:1. Low Intensity Therapy 1.5 - 2.02 . Moderate Intensity Therapy 2.0 - 3.03. High Intensity Therapy(1) 2.5 - 3. 54. High Intensity Therapy(2) 3.0 - 4.05. Panic Value INR > 5.0 [facility] CampusActivated Partial Thromboplast Time 2019-01-18 18:27:00* Test Item Value Reference Range Interpretation Comments Activated Partial Thromboplast Time (test code = 02957-3) 20.4 23.8-35.5 L NO CLOT DETECTED [facility] CampusProthrombin Time 2019-01-18 18:27:00* Test Item Value Reference Range Interpretation Comments Prothrombin Time (test code = 5902-2) 12.6 11.9-14.5 [facility] CampusProthromb Time International Ratio 2019-01-18 18:27:00* Test Item Value Reference Range Interpretation Comments Prothromb Time International Ratio (test code = 6301-6) 0.90 Oral Anticoagulant Therapy INR Values:1. Low Intensity Therapy 1.5 - 2.02 . Moderate Intensity Therapy 2.0 - 3.03. High Intensity Therapy(1) 2.5 - 3. 54. High Intensity Therapy(2) 3.0 - 4.05. Panic Value INR > 5.0 [facility] CampusActivated Partial Thromboplast Time 2019-01-18 18:27:00* Test Item Value Reference Range Interpretation Comments Activated Partial Thromboplast Time (test code = 46634-2) 20.4 23.8-35.5 L NO CLOT DETECTED [facility] CampusCHEST SINGLE (PORTABLE) 2019-01-18 18:19:00 [place] [address] Patient Name: AMILCAR CELIS MR #: [id number] : 1970 Age/Sex: 48/F Req #: [id number] Adm Physician: Ordered by: DARIEL KAPADIA MD Report #: [id number] Location: ER Room/Bed: Procedure: [id number] DX/CHES T SINGLE (PORTABLE) Exam Date: 01/18/19 [...] COPY TO: DARIEL SHEIKH MD White Blood Kqbob8503-85-50 18:15:00* Test Item Value Reference Range Interpretation Comments White Blood Count (test code = 6690-2) 8.73 4.8-10.8 [facility] CampusRed Blood Hyumu5240-39-72 18:15:00* Test Item Value Reference Range Interpretation Comments Red Blood Count (test code = 789-8) 4.57 3.6-5.1 [facility] CampusHemoglobin2019-05-14 18:15:00* Test Item Value Reference Range Interpretation Comments Hemoglobin (test code = 19320-4) 16.0 12.0-16.0 [facility] CampusHematocrit2019-05-14 18:15:00* Test Item Value Reference Range Interpretation Comments Hematocrit (test code = 4544-3) 44.4 34.2-44.1 H [facility] CampusMean Corpuscular Jigiqk0382-41-20 18:15:00* Test Item Value Reference Range Interpretation Comments Mean Corpuscular Volume (test code = 787-2) 97.2 81-99 [facility] CampusMean Corpuscular Bfluoegmdp2482-71-50 18:15:00* Test Item Value Reference Range Interpretation Comments Mean Corpuscular Hemoglobin (test code = 785-6) 35.0 28-32 H [facility] CampusMean Corpuscular Hemoglobin Concent 2019-01-18 18:15:00* Test Item Value Reference Range Interpretation Comments Mean Corpuscular Hemoglobin Concent (test code = 786-4) 36.0 31-35 H [facility] CampusRed Cell Distribution Vlujg3976-04-68 18:15:00* Test Item Value Reference Range Interpretation Comments Red Cell Distribution Width (test code = 12787-3) 13.0 11.7 -14.4 [facility] CampusPlatelet Tedln2467-43-64 18:15:00* Test Item Value Reference Range Interpretation Comments Platelet Count (test code = 777-3) 256 140-360 [facility] CampusNeutrophils (%) (Auto)2019-01-18 18:15:00 * Test Item Value Reference Range Interpretation Comments Neutrophils (%) (Auto) (test code = 20634-9) 85.7 38.7-80.0 H [facility] CampusLymphocytes (%) (Auto)2019-01-18 18:15:00 * Test Item Value Reference Range Interpretation Comments Lymphocytes (%) (Auto) (test code = 736-9) 6.6 18.0-39.1 L [facility] CampusMonocytes (%) (Auto)2019-01-18 18:15:00* Test Item Value Reference Range Interpretation Comments Monocytes (%) (Auto) (test code = 5905-5) 5.2 4.4-11.3 [facility] CampusEosinophils (%) (Auto)2019-01-18 18:15:00 * Test Item Value Reference Range Interpretation Comments Eosinophils (%) (Auto) (test code = 713-8) 1.8 0.0-6.0 [facility] CampusBasophils (%) (Auto)2019-01-18 18:15:00* Test Item Value Reference Range Interpretation Comments Basophils (%) (Auto) (test code = 706-2) 0.2 0.0-1.0 [facility] CampusIM GRANULOCYTES %2019-01-18 18:15:00* Test Item Value Reference Range Interpretation Comments IM GRANULOCYTES % (test code = IM GRANULOCYTES %) 0.5 0.0- 1.0 [facility] CampusNeutrophils # (Auto)2019-01-18 18:15:00* Test Item Value Reference Range Interpretation Comments Neutrophils # (Auto) (test code = 751-8) 7.5 2.1-6.9 H [facility] CampusLymphocytes # (Auto)2019-01-18 18:15:00* Test Item Value Reference Range Interpretation Comments Lymphocytes # (Auto) (test code = 92565-3) 0.6 1.0-3.2 L [facility] CampusMonocytes # (Auto)2019-01-18 18:15:00* Test Item Value Reference Range Interpretation Comments Monocytes # (Auto) (test code = 742-7) 0.5 0.2-0.8 [facility] CampusEosinophils # (Auto)2019-01-18 18:15:00* Test Item Value Reference Range Interpretation Comments Eosinophils # (Auto) (test code = 711-2) 0.2 0.0-0.4 [facility] CampusBasophils # (Auto)2019-01-18 18:15:00* Test Item Value Reference Range Interpretation Comments Basophils # (Auto) (test code = 704-7) 0.0 0.0-0.1 [facility] CampusAbsolute Immature Granulocyte (auto 2019-01-18 18:15:00* Test Item Value Reference Range Interpretation Comments Absolute Immature Granulocyte (auto (zenaida t code = Absolute Immature Granulocyte (auto) 0.04 0-0.1 [facility]woododium Botwz0834-19-82 15:38:00* Test Item Value Reference Range Interpretation Comments Sodium Level (test code = 2951-2) 135 136-145 L [facility] CampusPotassium Ouchb6539-78-19 15:38:00* Test Item Value Reference Range Interpretation Comments Potassium Level (test code = 2823-3) 2.5 3.5-5.1 LL Results repeated and called to CRISTIAN MOISE at 1536 on 12/28/18 by DANE GAGNON. Read back and verified.[facility] CampusChloride Zvkdb8213-35-20 15:38:00* Test Item Value Reference Range Interpretation Comments Chloride Level (test code = 2075-0) 94 98-107 L [facility] CampusCarbon Dioxide Ofytd7089-57-01 15:38:00* Test Item Value Reference Range Interpretation Comments Carbon Dioxide Level (test code = 2028-9) 30 22-29 H [facility] CampusAnion Pzk5010-99-44 15:38:00* Test Item Value Reference Range Interpretation Comments Anion Gap (test code = 53214-5) 13.5 8-16 [facility] CampusBlood Urea Zzvvcrxj2070-36-42 15:38:00* Test Item Value Reference Range Interpretation Comments Blood Urea Nitrogen (test code = 3094-0) 12 7-26 [facility] CampusCreatinine2019-04-23 15:38:00* Test Item Value Reference Range Interpretation Comments Creatinine (test code = 2160-0) 0.72 0.57-1.11 [facility] CampusBUN/Creatinine Shitp6757-56-30 15:38:00* Test Item Value Reference Range Interpretation Comments BUN/Creatinine Ratio (test code = 3097-3) 17 6-25 [facility] CampusEstimat Glomerular Filtration Rate 2018-12-28 15:38:00* Test Item Value Reference Range Interpretation Comments Estimat Glomerular Filtration Rate (test code = 243760004) > 60 >60 Ranges were taken from the National Kidney Disease Education Program and the [facility]ney Foundation literature.Reference ranges:60 or greater: Rsugtn62-94 ( for 3 consecutive months): Chronic kidney disease 15 or less: Kidney failureThe Hospitals of Providence Memorial CampusGlucose Jkzte3698-62-17 15:38:00* Test Item Value Reference Range Interpretation Comments Glucose Level (test code = HWU4715) 101 74-118 [facility] CampusCalcium Fqxvz1662-96-70 15:38:00* Test Item Value Reference Range Interpretation Comments Calcium Level (test code = 35874-5) 8.3 8.4-10.2 L [facility] CampusThyroid Stimulating Hormone (TSH) 2018-12-28 12:09:00* Test Item Value Reference Range Interpretation Comments Thyroid Stimulating Hormone (TSH) (test code = 37413-5) 1.087 0.350-4.940 [facility] CampusThyroid Stimulating Hormone (TSH) 2018-12-28 12:09:00* Test Item Value Reference Range Interpretation Comments Thyroid Stimulating Hormone (TSH) (test code = 58126-6) 1.087 0.350-4.940 [facility] CampusThyroid Stimulating Hormone (TSH) 2018-12-28 12:09:00* Test Item Value Reference Range Interpretation Comments Thyroid Stimulating Hormone (TSH) (test code = 77688-9) 1.087 0.350-4.940 [facility] CampusUrine VDV0469-63-37 11:45:00* Test Item Value Reference Range Interpretation Comments Urine WBC (test code = 5821-4) 21-50 0-5 H [facility] CampusUrine YPI6668-54-70 11:45:00* Test Item Value Reference Range Interpretation Comments Urine RBC (test code = 36711-2) 21-50 0-5 H [facility] CampusUrine Ygopwrmw3229-92-80 11:45:00* Test Item Value Reference Range Interpretation Comments Urine Bacteria (test code = 00226-8) MANY NONE H [facility] CampusUrine Epithelial Sxhzi1677-08-96 11:45:00 * Test Item Value Reference Range Interpretation Comments Urine Epithelial Cells (test code = 01440-3) MANY NONE [facility] CampusUrine Bufve7474-20-87 11:30:00* Test Item Value Reference Range Interpretation Comments Urine Color (test code = 5778-6) YELLOW YELLOW [facility] CampusUrine Msbrnry4365-11-28 11:30:00* Test Item Value Reference Range Interpretation Comments Urine Clarity (test code = 19652-2) SL CLOUDY CLEAR [facility] CampusUrine Specific Jggpxui6220-79-26 11:30:00 * Test Item Value Reference Range Interpretation Comments Urine Specific [place] (test code = 5811-5) 1.025 1.010-1.02 5 [facility] CampusUrine vH4231-08-88 11:30:00* Test Item Value Reference Range Interpretation Comments Urine pH (test code = 87722-5) 5 5-7 [facility] CampusUrine Leukocyte Zrvcamzr5488-66-06 11:30:00* Test Item Value Reference Range Interpretation Comments Urine Leukocyte Esterase (test code = 5799-2) 1+ NEGATIVE H [facility] CampusUrine Dasgtlo7973-42-33 11:30:00* Test Item Value Reference Range Interpretation Comments Urine Nitrite (test code = 96806-8) NEGATIVE NEGATIVE [facility] CampusUrine Srxbopd1549-98-28 11:30:00* Test Item Value Reference Range Interpretation Comments Urine Protein (test code = 5804-0) 1+ NEGATIVE H [facility] CampusUrine Glucose (UA)2018-12-28 11:30:00* Test Item Value Reference Range Interpretation Comments Urine Glucose (UA) (test code = 2349-9) NEGATIVE NEGATIVE [facility] CampusUrine Jxpuluc7881-93-41 11:30:00* Test Item Value Reference Range Interpretation Comments Urine Ketones (test code = 51830-4) NEGATIVE NEGATIVE [facility] Ztlcovqcjyui4543-04-37 11:30:00* Test Item Value Reference Range Interpretation Comments Urine Urobilinogen (test code = 94107-4) 0.2 0.2-1 [facility] CampusUrine Ftmwpvwbf0800-98-22 11:30:00* Test Item Value Reference Range Interpretation Comments Urine Bilirubin (test code = 1978-6) NEGATIVE NEGATIVE [facility] Ypwjr3348-45-76 11:30:00* Test Item Value Reference Range Interpretation Comments Urine Blood (test code = 08827-5) 3+ NEGATIVE H [facility] Ielq0729-89-40 11:30:00* Test Item Value Reference Range Interpretation Comments Urine Test (test code = 2106-3) NEGATIVE NEGATIVE [facility] Rmba1194-04-66 11:30:00* Test Item Value Reference Range Interpretation Comments Urine Test (test code = 2106-3) NEGATIVE NEGATIVE [facility] CampusUrine Pliz4438-68-88 11:30:00* Test Item Value Reference Range Interpretation Comments Urine Test (test code = 2106-3) NEGATIVE NEGATIVE [facility] Onra8476-73-52 11:30:00* Test Item Value Reference Range Interpretation Comments Urine Test (test code = 2106-3) NEGATIVE NEGATIVE [facility] CampusUrine Wcsh3052-35-92 11:30:00* Test Item Value Reference Range Interpretation Comments Urine Test (test code = 2106-3) NEGATIVE NEGATIVE [facility] CampusMagnesium Lgixc7913-51-62 11:17:00* Test Item Value Reference Range Interpretation Comments Magnesium Level (test code = 56407-5) 1.5 1.3-2.1 [facility] CampusTotal Wkckrepco6047-67-60 09:56:00* Test Item Value Reference Range Interpretation Comments Total Bilirubin (test code = 1975-2) 1.9 0.2-1.2 H [facility] CampusAspartate Amino Transf (AST/SGOT) 2018-12-28 09:56:00* Test Item Value Reference Range Interpretation Comments Aspartate Amino Transf (AST/SGOT) (test code = Aspartate Amino Transf (AST/SGOT)) 70 5-34 H [facility] CampusAlanine Aminotransferase (ALT/SGPT) 2018-12-28 09:56:00* Test Item Value Reference Range Interpretation Comments Alanine Aminotransferase (ALT/SGPT) (test code = 1742-6) 51 0-55 [facility] CampusTotal Owjtkzl5961-56-85 09:56:00* Test Item Value Reference Range Interpretation Comments Total Protein (test code = 2885-2) 8.3 6.5-8.1 H [facility] CampusAlbumin2019-04-23 09:56:00* Test Item Value Reference Range Interpretation Comments Albumin (test code = 1751-7) 4.0 3.5-5.0 [facility] CampusGlobulin2019-04-23 09:56:00* Test Item Value Reference Range Interpretation Comments Globulin (test code = 82522-2) 4.3 2.3-3.5 H [facility] CampusAlbumin/Globulin Dpqzx2364-89-11 09:56:00 * Test Item Value Reference Range Interpretation Comments Albumin/Globulin Ratio (test code = 1759-0) 0.9 0.8-2.0 [facility] CampusAlkaline Utdhmatdugp8307-27-77 09:56:00* Test Item Value Reference Range Interpretation Comments Alkaline Phosphatase (test code = 6768-6) 117 40-150 [facility] CampusWhite Blood Ovurp7245-70-05 09:38:00* Test Item Value Reference Range Interpretation Comments White Blood Count (test code = 6690-2) 7.74 4.8-10.8 [facility] CampusRed Blood Mjkap6266-40-84 09:38:00* Test Item Value Reference Range Interpretation Comments Red Blood Count (test code = 789-8) 4.54 3.6-5.1 [facility] CampusHemoglobin2019-04-23 09:38:00* Test Item Value Reference Range Interpretation Comments Hemoglobin (test code = 37795-3) 15.7 12.0-16.0 [facility] CampusHematocrit2019-04-23 09:38:00* Test Item Value Reference Range Interpretation Comments Hematocrit (test code = 4544-3) 45.4 34.2-44.1 H [facility] CampusMean Corpuscular Kypokk9339-80-70 09:38:00* Test Item Value Reference Range Interpretation Comments Mean Corpuscular Volume (test code = 787-2) 100.0 81-99 H [facility] CampusMean Corpuscular Epkjhmehfy2503-43-88 09:38:00* Test Item Value Reference Range Interpretation Comments Mean Corpuscular Hemoglobin (test code = 785-6) 34.6 28-32 H [facility] CampusMean Corpuscular Hemoglobin Concent 2018-12-28 09:38:00* Test Item Value Reference Range Interpretation Comments Mean Corpuscular Hemoglobin Concent (test code = 786-4) 34.6 31-35 [facility] CampusRed Cell Distribution Eqljf0258-48-02 09:38:00* Test Item Value Reference Range Interpretation Comments Red Cell Distribution Width (test code = 92940-1) 13.0 11.7 -14.4 [facility] CampusPlatelet Kvmqq6770-62-78 09:38:00* Test Item Value Reference Range Interpretation Comments Platelet Count (test code = 777-3) 272 140-360 [facility] CampusNeutrophils (%) (Auto)2018-12-28 09:38:00 * Test Item Value Reference Range Interpretation Comments Neutrophils (%) (Auto) (test code = 82169-5) 83.2 38.7-80.0 H [facility] CampusLymphocytes (%) (Auto)2018-12-28 09:38:00 * Test Item Value Reference Range Interpretation Comments Lymphocytes (%) (Auto) (test code = 736-9) 10.3 18.0-39.1 L [facility] CampusMonocytes (%) (Auto)2018-12-28 09:38:00* Test Item Value Reference Range Interpretation Comments Monocytes (%) (Auto) (test code = 5905-5) 5.8 4.4-11.3 [facility] CampusEosinophils (%) (Auto)2018-12-28 09:38:00 * Test Item Value Reference Range Interpretation Comments Eosinophils (%) (Auto) (test code = 713-8) 0.0 0.0-6.0 [facility] CampusBasophils (%) (Auto)2018-12-28 09:38:00* Test Item Value Reference Range Interpretation Comments Basophils (%) (Auto) (test code = 706-2) 0.3 0.0-1.0 [facility] CampusIM GRANULOCYTES %2018-12-28 09:38:00* Test Item Value Reference Range Interpretation Comments IM GRANULOCYTES % (test code = IM GRANULOCYTES %) 0.4 0.0- 1.0 [facility] CampusNeutrophils # (Auto)2018-12-28 09:38:00* Test Item Value Reference Range Interpretation Comments Neutrophils # (Auto) (test code = 751-8) 6.4 2.1-6.9 [facility] CampusLymphocytes # (Auto)2018-12-28 09:38:00* Test Item Value Reference Range Interpretation Comments Lymphocytes # (Auto) (test code = 08799-5) 0.8 1.0-3.2 L [facility] CampusMonocytes # (Auto)2018-12-28 09:38:00* Test Item Value Reference Range Interpretation Comments Monocytes # (Auto) (test code = 742-7) 0.5 0.2-0.8 [facility] CampusEosinophils # (Auto)2018-12-28 09:38:00* Test Item Value Reference Range Interpretation Comments Eosinophils # (Auto) (test code = 711-2) 0.0 0.0-0.4 [facility] CampusBasophils # (Auto)2018-12-28 09:38:00* Test Item Value Reference Range Interpretation Comments Basophils # (Auto) (test code = 704-7) 0.0 0.0-0.1 [facility] CampusAbsolute Immature Granulocyte (auto 2018-12-28 09:38:00* Test Item Value Reference Range Interpretation Comments Absolute Immature Granulocyte (auto (zenaida t code = Absolute Immature Granulocyte (auto) 0.03 0-0.1 [facility]
--- NOTE | 2020-02-04 10:30 | NUR ---
RCD PT FROM ER BY BED PT IS ALERT AND ORIENTED VITALS CHECKED PT RESTING ON BED IV PATENT BY SALINE FLUSH ADMISSION ASSESSMENT AND HISTORY DONE PT DENIED ANY KIND OF PAIN.INSTRUCTED THE PT AND REGARDING HOSPITAL POLICY AND ROUTINE AND VISITING POLICY BED LOW AND LOCKED CALL LIGHT IN REACH PT SAID SHE DONT NEED ANY VISITORS AND SHE SIGNED THE PAPER
[2020-02-04] MEDS ORDERED: POTASSIUM CHLORIDE 20MEQ/100ML 300 ML IV ONE (11:45)
[2020-02-04] MEDS ORDERED: MAGNESIUM SULF 1GRAM/DEXTROSE 100 ML IV ONE (12:00)
[2020-02-04] MEDS ORDERED: ACETAMINOPHEN 325 MG TAB PO PRN (12:00)
[2020-02-04] MEDS ORDERED: ONDANSETRON HCL INJ 2MG/ML 2ML 2 MG/ML VIAL IV PRN (12:00)
[2020-02-04] MEDS ORDERED: HYDRALAZINE HCL 20 MG/ML VIAL IV PRN (12:00)
[2020-02-04] MEDS: CHLORDIAZEPOXIDE HCL 25 MG CAP PO SCH ×2 (12:00→18:00)
[2020-02-04] MEDS ORDERED: SODIUM CHLORIDE 0.9% 1000ML 1,000 ML ONE (12:17)
[2020-02-04] MEDS ORDERED: FAMOTIDINE 20 MG/2 ML VIAL IV SCH (17:00)
--- NOTE | 2020-02-04 18:42 | NUR ---
PT RESTING ON BED BED SIDE REPORT GIVEN TO ONCOMING NURSE
--- NOTE | 2020-02-04 20:30 | NUR ---
PATIENT RESTING IN BED AOX4, NO SIGNS OF DISTRESS NOTED. IV FLUIDS RUNNING AT ORDERED RATE AND PATIENT VOICES NO PAIN AT THIS TIME. BED IS IN LOWEST POSITION, BOTH SIDE RAILS ARE UP, CALL LIGHT IS WITHIN EASY REACH, WILL CONTINUE TO MONITOR.
[2020-02-05] MEDS: CHLORDIAZEPOXIDE HCL 25 MG CAP PO SCH
--- NOTE | 2020-02-05 00:25 | NUR ---
PATIENT HAS DECIDED TO GO AMA, SHE IS AOX4, SHOWS NO SIGNS OF DISTRESS AND HAS LEFT THE BUILDING. MULTIPLE ATTEMPTS WERE MADE TO ENCOURAGE PATIENT TO STAY FOR HER SAFETY AND EDUCATED HER ON POTASSIUM LEVEL. GUSTAVO JEFFERY WAS INFORMED OF PATIENTS DESIRE TO LEAVE AND INVAS TECH WAS INFORMED WELL. IV WAS REMOVED BY PATIENT NO EXCESS BLEEDING NOTED AFTER ASSESSMENT. WHEELCHAIR ACCESS WAS OFFERED AND PATIENT REFUSED, WALKED SAFELY OUT OF ROOM IN TO ELEVATORS. INFORMED THAT SHE WILL CALL AN UBER LANCE CREWMEMBER/MLRS SERGEANT TO GET HOME.
--- NOTE | 2020-02-05 11:23 | Discharge Summary ---
ADMISSION DIAGNOSES: Ethyl alcohol abuse, hypokalemia, and transaminitis secondary to her ethyl alcohol abuse. DISCHARGE DIAGNOSES: Ethyl alcohol abuse, hypokalemia, and transaminitis secondary to her ethyl alcohol abuse. MEDICAL HISTORY: EtOH abuse. SURGICAL HISTORY: None. FAMILY HISTORY: None. SOCIAL HISTORY: The patient admits to smoking 1 pack cigarettes a day and drinking one pint of vodka per day or a six-pack of beer a day. HOSPITAL COURSE: A 49-year-old female, admits with complaints of two days of vomiting because she is trying to quit drinking alcohol. She drinks one pint of vodka a day. Her last drink was two days ago. On admission, the patient's ETOH was less than 10. Potassium was 2.5. Liver enzymes were elevated. The patient was started on Librium and lorazepam p.r.n. withdrawal. Electrolytes were replenished and the patient was started on a diet. The patient is tolerating diet and demanding to leave AMA despite being encouraged to stay. The patient understands risks associated with going AMA and accepts responsibility. Dictated by Alia Delcid NP MD SHADY Pollard/MODL /[id number]
== END 2020-02-05 00:44 | disposition left against medical advice (07) ==
LOC: ER 04:18 → ERHOLD 05:27 → MED/SURG2 09:40
PROVIDERS: ADMIT Internal Medicine; ATTEND Internal Medicine
DX: F10.229 Alcohol dependence with intoxication, unspecified (principal); F10.288 Alcohol dependence with other alcohol-induced disorder; Y90.0 Blood alcohol level of less than 20 mg/100 ml; F17.210 Nicotine dependence, cigarettes, uncomplicated; E87.6 Hypokalemia; R74.0 Nonspecific elevation of levels of transaminase and lactic acid dehydrogenase [LDH]; Z11.59 Encounter for screening for other viral diseases
CPT/HCPCS: 36415; 80053; 80320; 83690; 85025; 87635; 99284; G0378; J0360; J2060; J3475; J3480; J7030

== ENCOUNTER 2020-07-16 13:52 | Emergency (ER) | payer SELFPAY ==
[~2020-07-16] VITALS: Ht 157.5 cm; Wt 52.2 kg
--- OUTSIDE RECORDS SUMMARY | 2020-07-16 14:01 | XMS REPORT | Clinical Summary ---
Author Author [facility] [place] [facility] Address Unknown Phone Unavailable Care Team Providers Care Lapeler Name Role Phone Asked, No Pcp PCP Unavailable Allergies No Known Active Allergies Medications No known medications Active Problems Problem Noted Date Alcohol withdrawal syndrome without complication Alcoholic ketoacidosis 12/26/2019 Elevated LFTs 12/26/2019 Gastritis 12/26/2019 Encounters Care Team Description Date Type Specialty Noemi Heath MD Syed, Doug Burk, Alcohol withdrawal syndrome without comp lication (HCC) (Primary Dx); Other acute gastritis without hemorrhage; Elevated LFTs; Alcoholic ketoacidosis 12/25/2019 [facility] Internal Al dicine - Encounter 12/28/2019 12/25/2019 Travel after 07/16/2019 Medical History Medical History Date Comments Hypertension Social History Date Tobacco Use Types Packs/Day Years Used Current Every Day Smoker 1.5 Smokeless Tobacco: Never Used Comments: started when pt was 11 Drinks/Week oz/Week Comments Alcohol Use a pint of vodka Yes Sex Assigned at Date Recorded Not on file Last Filed Vital Signs Reading Time Taken [...] STAT 12/25/2019 DIFFERENTIAL 11:05 PM CDT after 07/16/2019 Results * Estimated GFR (12/28/2019 5:40 AM CDT) Only the most recent of 4 results within the time period is included. Pathologist [facility] Estimated GFR >=90 mL/min/1.73 m2 [place] Comment: RELIGIOUS CLEAR [facility] Interpretation G1 >=90 Normal or high [...] published in 2014. Specimen Performing Organization Address City/State/ZIP Code P nisha Number [facility] DEPARTMENT [address] [place], [place] [address] PATHOLOGY AND GENOMIC MEDICINE [address] * Magnesium level (12/28/2019 5:40 AM CDT) Only the most recent of 2 results within the time period is included. Pathologist [facility] Magnesium 1.4 (L) 1.6 - 2.6 mg/dL [facility] Specimen Blood Performing Organization Address [facility] P nisha Number [address] [place] [address] PATHOLOGY [address] * Basic metabolic panel (12/28/2019 5:40 AM CDT) Only the most recent of 2 results within the time period is included. Pathologist [facility] Sodium 135 135 - 148 mEq/L [facility] Potassium 2.9 (LL) 3.5 - 5.0 mEq/L [place] Comment: [facility] Results called to and read [facility] back by BUNNY VALVERDE @ NC3 at 12/28/2019 06:38 by _NR_. Chloride 96 (L) 98 - 112 mEq/L [facility] CO2 26 24 - 31 mEq/L [facility] Anion gap 13@ANIO 7 - 15 mEq/L [facility] BUN 9 6 - 20 mg/dL [facility] Creatinine 0.40 (L) 0.50 - 0.90 mg/dL [facility] Glucose 110 (H) 65 - 99 mg/dL [facility] Calcium 9.9 8.3 - 10.2 mg/dL [facility] Specimen Blood Performing Organization Address City/State/ZIP Code P nisha Number [facility] DEPARTMENT [address] [place], [place] [address] PATHOLOGY AND GENOMIC MEDICINE [address] * Comprehensive metabolic panel (12/27/2019 5:00 AM CDT) Only the most recent of 2 results within the time period is included. Sodium 133 (L) 135 - 148 mEq/L [facility] Potassium 2.8 (LL) 3.5 - 5.0 mEq/L [place] Comment: [facility] Results called to and read [facility] back by OSMIN MAGDIEL @ NC3 at 12/27/2019 06:11 by __NR. Chloride 91 (L) 98 - 112 mEq/L [facility] CO2 24 24 - 31 mEq/L [facility] Anion gap 18@ANIO (H) 7 - 15 mEq/L [facility] BUN 13 6 - 20 mg/dL [facility] Creatinine 0.60 0.50 - 0.90 mg/dL [facility] Glucose 94 65 - 99 mg/dL [facility] Calcium 9.8 8.3 - 10.2 mg/dL [facility] Protein 7.4 6.3 - 8.3 g/dL [place] Comment: [facility] Smith 4.6-7.0 g/dL 1 week 4.4-7.6 g/dL 7 months-1year 5.1-7.3 g/dL 1-2 years 5.6-7.5 g/dL >3 years 6.0-8.0 g/dL 18-150 6.3-8.3 g/dL Albumin 4.5 3.5 - 5.0 g/dL [facility] A/G ratio 1.6 0.7 - 3.8 [facility] Alkaline 90 35 - 104 U/L [place] phosphatase [facility] AST 152 (H) 10 - 35 U/L [facility] ALT 150 (H) 5 - 50 U/L [facility] Total bilirubin 1.3 (H) 0.0 - 1.2 mg/dL [facility] Specimen Blood Performing Organization Address City/State/ZIP Code [place] [address] [place] [address] PATHOLOGY AND GENOMIC MEDICINE [facility] [address] [place] [address] [facility] * Phosphorus level (12/26/2019 5:15 AM CDT) Pathologist [facility] Phosphorus 2.7 2.4 - 4.5 mg/dL [facility] Specimen Blood Performing Organization Address City/[facility]/ZIP [facility] P nisha Number [address] [place], [place] [address] PATHOLOGY AND GENOMIC MEDICINE [address] * Alcohol level, blood (12/25/2019 11:54 PM CDT) [facility] Alcohol 106.0 mg/dL [place] Comment: [facility] None Detected Legal Intoxication in [place] 80 mg/dL (0.08%) - Whole Blood Toxic Concentration 200 mg/dL (0.2%) Potentially Fatal 350 - 500 mg/dL (0.35 - 0.5%) Alcohol percent 0.106 % [facility] Specimen Blood Performing Organization Address [facility] P nisha Number [address] [place] [phone] PATHOLOGY AND [facility] MEDICINE [address] * Manual differential (12/25/2019 11:05 PM CDT) [facility] Manual PERFORMED [facility] Neutrophils 76.0 (H) 39.0 - 69.0 % [facility] Lymphocytes 23.0 (L) 25.0 - 45.0 % [facility] Monocytes 1.0 0.0 - 10.0 % [facility] Eosinophils 0.0 0.0 - 5.0 % [facility] Basophils 0.0 0.0 - 1.0 % [facility] Metamyelocytes 0 % [facility] Promyelocytes 0 % [facility] Platelet slide Palmer adequate [facility] review [facility] Specimen Performing Organization Address City/[facility] P nisha Number [address] [place], [place] [address] PATHOLOGY AND GENOMIC MEDICINE [address] * CBC with platelet and differential (12/25/2019 11:05 PM CDT) [facility] WBC 6.15 4.50 - 11.00 k/uL [facility] RBC 4.07 (L) 4.20 - 5.50 m/uL [facility] HGB 14.0 12.0 - 16.0 g/dL [facility] HCT 41.5 37.0 - 47.0 % [facility] MCV 102.0 (H) 82.0 - 100.0 fL [facility] MCH 34.4 (H) 27.0 - 34.0 pg [facility] MCHC 33.7 31.0 - 37.0 g/dL [facility] RDW - SD 50.3 37.0 - 55.0 fL [facility] MPV 9.9 8.8 - 13.2 fL [facility] Platelet count 359 150 - 400 k/uL [facility] Nucleated RBC 0.00 /100 WBC [facility] Neutrophils 76.0 (H) 39.0 - 69.0 % [facility] Lymphocytes 23.0 (L) 25.0 - 45.0 % [facility] Monocytes 1.0 0.0 - 10.0 % [facility] Eosinophils 0.0 0.0 - 5.0 % [facility] Basophils 0.0 0.0 - 1.0 % [facility] Specimen Blood Performing Organization Address City/[facility] Code P nisha Number [address] [address] PATHOLOGY AND GENOMIC MEDICINE [address] * Lipase level (12/25/2019 11:05 PM CDT) Lipase 41 13 - 60 U/L [facility] Specimen Blood Performing Organization Address [facility]/ZIP [facility] P nisha Number [address] [place], [place] [address] PATHOLOGY AND GENOMIC MEDICINE [address] after 07/16/2019 Advance Directives For more information, please contact: [phone] 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
[2020-07-16] MEDS ORDERED: SODIUM CHLORIDE 0.9% 1000ML 1,000 ML IV STA (14:02)
--- OUTSIDE RECORDS SUMMARY | 2020-07-16 14:03 | XMS REPORT | Continuity of Care Document ---
Author Author [facility] t Organization [facility] Address [address] [place] [address] Phone Unavailable Care Team Providers Care Neuropathologist Name Role Phone NO, PCP PCP Unavailable Noemi Heath MD Attphys MuraliBhargavi king DO Attphys ARMANI ARREOLA Attphys Unavailable Marie KAPADIA Attphys Unavailable NOEMI HEATH Admphys Unavailable RAMANI ARREOLA Admphys Unavailable Payers Payer Name Policy Type Policy Number Effective Date Expiration Date S [facility] [employer] [facility] Problems Condition Name Condition Details Condition [...] 00:00:00 Gabriel Sorensen Dehydration Dehydration Problem Active [facility] Hypokalemia Hypokalemia Problem Active [facility] Hypomagnesemia Hypomagnesemia Problem Active [facility] Allergies, Adverse Reactions, Alerts Allergy Name Allergy Type Status Severity Reaction(s) Onset Date Inacti ve Date Treating Clinician Comments Source No Known Allergies DA Active U 2019-02-03 00:00:00 [facility] No Known Allergies DA Active U 2017-05-19 00:00:00 [facility] Social History Social Habit Start Date Stop Date Quantity Comments Source Sex Assigned At Leo Sorensen Cigarettes smoked current (pack per day) - Reported 00:00:00 2019-12-26 00:00:00 Gabriel Sorensen Tobacco use and exposure 2019-12-26 00:00:00 2019-12-26 00:00:00 Roe r used Gabriel Sorensen Alcohol intake 2019-12-26 00:00:00 2019-12-26 00:00:00 Current drinker of alcohol (finding) Gabriel Sorensen Tobacco Comment 2019-12-26 00:00:00 2019-12-26 00:00:00 started whe n pt was 13 [place] [employer] Alcohol Comment 2019-12-25 00:00:00 2019-12-25 00:00:00 a pint of vod ka [place] [employer] Smoking Status Start Date Stop Date Source Current every day smoker 2019-12-26 00:00:00 Leo Sorensen Medications This patient has no known medications. Vital Signs Vital Name Observation Time Observation Value Comments Source Body Temperature 2020-02-04 20:41:00 99.8 [degF] [facility] BMI (Body Mass Index) 2020-02-04 11:03:00 18.8 kg/m2 [facility] Weight 2020-02-04 10:30:00 99.44 [lb_av] [facility] Systolic blood pressure 2019-12-28 19:42:32 117 mm[Hg] Gabriel Sorensen Diastolic blood pressure 2019-12-28 19:42:32 64 mm[Hg] Gabriel Sorensen Heart rate 2019-12-28 19:42:32 101 /min [facility] Body temperature 2019-12-28 19:42:32 36.89 [place]elle [place] [employer] Respiratory rate 2019-12-28 19:42:32 16 /min [place] [employer] Oxygen saturation in Arterial blood by Pulse oximetry 12-27 19:42:32 99 /min Gabriel Sorensen Body height 2019-12-26 00:41:00 157.5 cm Gabriel Sorensen Body weight 2019-12-26 00:41:00 49.896 kg Gabriel Sorensen BMI 2019-12-26 00:41:00 20.12 kg/m2 Gabriel Sorensen Procedures Procedure Date / Time Performed Performing Clinician Sour e BASIC METABOLIC PANEL 2019-12-28 05:40:00 Noemi Heath [employer] ESTIMATED GFR 2019-12-28 05:40:00 Noemi Heath Meth odparminder MAGNESIUM LEVEL 2019-12-28 05:40:00 Noemi Heath odparminder COMPREHENSIVE METABOLIC PANEL 2019-12-27 05:00:00 Noemi Heath [employer] ESTIMATED GFR 2019-12-27 05:00:00 JulesNoemi Mae Meth odparminder BASIC METABOLIC PANEL 2019-12-26 05:15:00 Darrin Lopez [employer] ESTIMATED GFR 2019-12-26 05:15:00 Darrin Lopez [employer] PHOSPHORUS LEVEL 2019-12-26 05:15:00 Noemi Heath ALCOHOL LEVEL, BLOOD 2019-12-25 23:54:00 Darrin Lopez [employer] CBC WITH PLATELET AND DIFFERENTIAL 2019-12-25 23:05:00 Hanh Lopez COMPREHENSIVE METABOLIC PANEL 2019-12-25 23:05:00 Elsa Lopez LIPASE LEVEL 2019-12-25 23:05:00 Darrin Lopez [employer] MAGNESIUM LEVEL 2019-12-25 23:05:00 Darrin Lopezto ragini [employer] ESTIMATED GFR 2019-12-25 23:05:00 Darrin Lopezto ragini [employer] MANUAL DIFFERENTIAL 2019-12-25 23:05:00 Darrin Lopez [employer] Computed tomography of brain without radiopaque contrast 00:00:00 HOWARD, ALYCIA [facility] US abdomen complete 2019-06-19 00:00:00 ARMANI ARREOLA [facility] Plan of Care Planned Activity Planned Date Details Comments Source Instructions Alcohol Abuse [facility] Instructions Alcohol Intoxication [facility] Encounters Start Date/Time End Date/Time Encounter Type Admission Type [facility] Care Department Encounter ID Source 2020-02-04 05:27:00 2020-02-05 00:44:00 Discharged Inpatient (obs) [facility] [id number] [facility] 2019-12-25 00:00:00 2019-12-28 00:00:00 Inpatient NOEMI HEATH [facility] [id number] [facility] 2019-12-14 21:19:00 2019-12-15 20:17:00 Discharged Inpatient 1 ARMANI ARREOLA [facility] [id number] [facility] 2019-10-11 10:30:00 2019-10-11 17:36:00 Departed Emergency Room 1 [facility] [id number] [facility] 2019-07-06 09:04:00 2019-07-06 11:47:00 Departed Emergency Room 1 [facility] [id number] [facility] 2019-06-18 12:05:00 2019-06-20 20:10:00 Discharged Inpatient 1 ARMANI ARREOLA [facility] [id number] [facility] 2019-01-18 19:47:00 2019-01-19 17:50:00 Discharged Inpatient (obs) 1 [facility] [id number] [facility] 2018-12-28 08:47:00 2018-12-28 16:15:00 Departed Emergency Room [facility] [id number] [facility] Results Test Description Test Time Test Comments Results Result Comments Source Blood leukocytes automated count (number/volume) 2020-02-04 04:02:00 Test Item White Blood Count (test code = 6690-2) 3.76 4.8-10.8 [facility] erythrocytes automated count (number/volume)2020-02-04 04:02:00* Test Item Value Reference Range Interpretation Comments Red Blood Count (test code = 789-8) 3.87 3.6-5.1 [facility] hemoglobin measurement (moles/volume)2020-02-04 04:02:00* Test Item Value Reference Range Interpretation Comments Hemoglobin (test code = 22109-9) 13.2 12.0-16.0 [facility] HospitalAutomated blood hematocrit (volume fraction)2020-02-04 04:02:00* Test Item Value Reference Range Interpretation Comments Hematocrit (test code = 4544-3) 38.8 34.2-44.1 [facility] HospitalAutomated erythrocyte mean corpuscular slmnzu6853-69-76 04:02:00* Test Item Value Reference Range Interpretation Comments Mean Corpuscular Volume (test code = 787-2) 100.3 81-99 [facility] HospitalAutomated erythrocyte mean corpuscular hemoglobin (mass per erythrocyte)2020-02-04 04:02:00* Test Item Value Reference Range Interpretation Comments Mean Corpuscular Hemoglobin (test code = 785-6) 34.1 28-32 [facility] HospitalAutomated erythrocyte mean corpuscular hemoglobin concentration measurement (mass/volume)2020-02-04 04:02:00* Test Item Value Reference Range Interpretation Comments Mean Corpuscular Hemoglobin Concent (test code = 786-4) 34.0 31-35 [facility] HospitalRDW XtbOm-Rjl7581-57-30 04:02:00* Test Item Value Reference Range Interpretation Comments Red Cell Distribution Width (test code = 59164-4) 12.5 11.7 -14.4 [facility] HospitalAutomated blood platelet count (count/volume)2020-02-04 04:02:00* Test Item Value Reference Range Interpretation Comments Platelet Count (test code = 777-3) 143 140-360 [facility] HospitalAutomated blood segmented neutrophil count as percentage of total vfyopyulev8954-54-60 04:02:00* Test Item Value Reference Range Interpretation Comments Neutrophils (%) (Auto) (test code = 02175-2) 61.9 38.7-80.0 [facility] HospitalAutomated blood lymphocyte count as percentage ot total xxxaplyvdj1152-41-08 04:02:00* Test Item Value Reference Range Interpretation Comments Lymphocytes (%) (Auto) (test code = 736-9) 30.1 18.0-39.1 [facility] HospitalAutomated blood monocyte count as percentage of total pvgloqfwof5354-69-98 04:02:00* Test Item Value Reference Range Interpretation Comments Monocytes (%) (Auto) (test code = 5905-5) 7.2 4.4-11.3 [facility] HospitalAutomated blood eosinophil count as percentage of total zawoivjkir6155-74-49 04:02:00* Test Item Value Reference Range Interpretation Comments Eosinophils (%) (Auto) (test code = 713-8) 0.0 0.0-6.0 [facility] HospitalAutomated blood basophil count as percentage of total emiwzvqxsc8184-76-11 04:02:00* Test Item Value Reference Range Interpretation Comments Basophils (%) (Auto) (test code = 706-2) 0.3 0.0-1.0 [facility] HospitalFluoroscopic procedure less than one hour lieghvaq4951-99-57 04:02:00* Test Item Value Reference Range Interpretation Comments IM GRANULOCYTES % (test code = IM GRANULOCYTES %) 0.5 0.0- 1.0 [facility] HospitalAutomated blood neutrophil count 2020-02-04 04:02:00* Test Item Value Reference Range Interpretation Comments Neutrophils # (Auto) (test code = 751-8) 2.3 2.1-6.9 [facility] HospitalBlood lymphocytes count (number/volume) 2020-02-04 04:02:00* Test Item Value Reference Range Interpretation Comments Lymphocytes # (Auto) (test code = 04836-0) 1.1 1.0-3.2 [facility] HospitalBlood monocytes automated count (number/volume)2020-02-04 04:02:00* Test Item Value Reference Range Interpretation Comments Monocytes # (Auto) (test code = 742-7) 0.3 0.2-0.8 [facility] HospitalAutomated blood eosinophil count 2020-02-04 04:02:00* Test Item Value Reference Range Interpretation Comments Eosinophils # (Auto) (test code = 711-2) 0.0 0.0-0.4 [facility] HospitalAutomated blood basophil count (count/volume)2020-02-04 04:02:00* Test Item Value Reference Range Interpretation Comments Basophils # (Auto) (test code = 704-7) 0.0 0.0-0.1 [facility] HospitalFluoroscopic procedure less than one hour plrcidvk8985-66-96 04:02:00* Test Item Value Reference Range Interpretation Comments Absolute Immature Granulocyte (auto (zenaida t code = Absolute Immature Granulocyte (auto) 0.02 0-0.1 [facility] sodium measurement (moles/volume)2020-02-04 04:02:00* Test Item Value Reference Range Interpretation Comments Sodium Level (test code = 2951-2) 141 136-145 [facility] plasma potassium measurement (moles/volume)2020-02-04 04:02:00* Test Item Value Reference Range Interpretation Comments Potassium Level (test code = 2823-3) 2.5 3.5-5.1 Results repeated and called to GRICEL Cowart at 0518 on 02/04/20 by Aly Cee. Read back and verified.[facility] or plasma chloride measurement (moles/volume)2020-02-04 04:02:00* Test Item Value Reference Range Interpretation Comments Chloride Level (test code = 2075-0) 87 98-107 [facility] or plasma carbon dioxide, total measurement (moles/volume)2020-02-04 04:02:00* Test Item Value Reference Range Interpretation Comments Carbon Dioxide Level (test code = 2028-9) 31 22-29 [facility] or plasma anion mes3180-58-04 04:02:00* Test Item Value Reference Range Interpretation Comments Anion Gap (test code = 87124-2) 25.5 8-16 [facility] plasma urea nitrogen measurement (mass/volume)2020-02-04 04:02:00* Test Item Value Reference Range Interpretation Comments Blood Urea Nitrogen (test code = 3094-0) 13 7-26 [facility] plasma creatinine measurement (mass/volume)2020-02-04 04:02:00* Test Item Value Reference Range Interpretation Comments Creatinine (test code = 2160-0) 0.90 0.57-1.11 [facility] or plasma urea nitrogen/creatinine mass gwbpz7019-11-70 04:02:00* Test Item Value Reference Range Interpretation Comments BUN/Creatinine Ratio (test code = 3097-3) 14 6-25 [facility] HospitalEstimated glomerular filtration rate (GFR) rbxjwqqywthxs0216-42-76 04:02:00* Test Item Value Reference Range Interpretation Comments Estimat Glomerular Filtration Rate (test code = 361795323) > 60 >60 Ranges were taken from the National Kidney Disease Education Program and the [facility] literature.Reference ranges:60 or greater: Nooipz45-11 ( for 3 consecutive months): Chronic kidney disease 15 or less: Kidney failureHarris Health System Ben Taub HospitalGlucose lxyehgbkanc3129-49-69 04:02:00* Test Item Value Reference Range Interpretation Comments Glucose Level (test code = HYS4964) 110 74-118 [facility] plasma calcium measurement (mass/volume)2020-02-04 04:02:00* Test Item Value Reference Range Interpretation Comments Calcium Level (test code = 70852-9) 9.3 8.4-10.2 [facility] plasma total bilirubin measurement (mass/volume)2020-02-04 04:02:00* Test Item Value Reference Range Interpretation Comments Total Bilirubin (test code = 1975-2) 1.7 0.2-1.2 [facility] HospitalFluoroscopic procedure less than one hour phigdrje9741-32-40 04:02:00* Test Item Value Reference Range Interpretation Comments Aspartate Amino Transf (AST/SGOT) (test code = Aspartate Amino Transf (AST/SGOT)) 180 5-34 [facility] or plasma alanine aminotransferase measurement (enzymatic activity/volume)2020-02-04 04:02:00* Test Item Value Reference Range Interpretation Comments Alanine Aminotransferase (ALT/SGPT) (test code = 1742-6) 105 0-55 [facility] or plasma protein measurement (mass/volume)2020-02-04 04:02:00* Test Item Value Reference Range Interpretation Comments Total Protein (test code = 2885-2) 8.3 6.5-8.1 [facility] plasma albumin measurement (mass/volume)2020-02-04 04:02:00* Test Item Value Reference Range Interpretation Comments Albumin (test code = 1751-7) 4.3 3.5-5.0 [facility] HospitalPlasma globulin measurement (mass/volume) 2020-02-04 04:02:00* Test Item Value Reference Range Interpretation Comments Globulin (test code = 61355-9) 4.0 2.3-3.5 [facility] or plasma albumin/globulin mass lczbt1086-62-71 04:02:00* Test Item Value Reference Range Interpretation Comments Albumin/Globulin Ratio (test code = 1759-0) 1.1 0.8-2.0 [facility] plasma alkaline phosphatase measurement (enzymatic activity/volume)2020-02-04 04:02:00* Test Item Value Reference Range Interpretation Comments Alkaline Phosphatase (test code = 6768-6) 98 40-150 [facility] or plasma lipase measurement (enzymatic activity/volume)2020-02-04 04:02:00* Test Item Value Reference Range Interpretation Comments Lipase (test code = 3040-3) 18 8-78 [facility] or plasma ethanol measurement (mass/volume)2020-02-04 04:02:00* Test Item Value Reference Range Interpretation Comments Ethyl Alcohol Level (test code = 5643-2) < 10.0 0.0-10.0 [facility] HospitalMagnesium vaqhi1785-33-32 10:18:06* Test Item Value Reference Range Interpretation Comments Magnesium (test code = 05617-2) 1.4 mg/dL 1.6-2.6 L Lab Interpretation (test code = 74559-9) Abnormal [place] MethodistBasic metabolic soozk7681-75-34 06:38:54* Test Item Value Reference Range Interpretation Comments Sodium (test code = 2951-2) 135 135- 148 mEq/L Potassium (test code = 2823-3) 2.9 3.5- 5.0 mEq/L LL Results called to and read back by BUNNY VALVERDE @ [facility] at 12/28/2019 06:38 by _NR_. Chloride (test code = 2075-0) 96 98- 112 mEq/L L CO2 (test code = 2027-9) 26 24- 31 mEq/L Anion gap (test code = 63879-1) 13@ANIO 7- 15 mEq/L BUN (test code = 3094-0) 9 mg/dL 6-20 Creatinine (test code = 2160-0) 0.40 mg/dL 0.5-0.9 L Glucose (test code = 2345-7) 110 mg/dL 65-99 H Calcium (test code = 97549-9) 9.9 mg/dL 8.3-10.2 Lab Interpretation (test code = 95248-6) Abnormal [place] MethodistEstimated [id number] 06:38:54* Test Item Value Reference Range Interpretation Comments Estimated GFR (test code = 5488) >=90 mL/min/1.73 m2 Catergory Units InterpretationG1 >=90 Normal or highG2 60-89 Mildly owaygqvxiL9a 45-59 Mildly to moderately oluebirpxT1b 30-44 Moderately to severely decreasedG4 15-29 Severely decreasedG5 <15 Kidney failureThe eGFR was calculated using the Chronic Kidney Disease Epidemiology Collaboration (CKD-EPI) equation. Interpretation is based on recommendations of the National Kidney Foundation-Kidney Disease Outcomes Quality Initiative (NKF-KDOQI) published in 2014. [place] MethodistComprehensive metabolic lhvcj0943-39-34 06:12:15* Test Item Value Reference Range Interpretation Comments Sodium (test code = 2951-2) 133 135- 148 mEq/L L Potassium (test code = 2823-3) 2.8 3.5- 5.0 mEq/L LL Results called to and read back by OSMIN VELOZ @ [facility] at 12/27/2019 06:11 by __NR. Chloride (test code = 2075-0) 91 98- 112 mEq/L L CO2 (test code = 2027-9) 24 24- 31 mEq/L Anion gap (test code = 57430-4) 18@ANIO 7- 15 mEq/L H BUN (test code = 3094-0) 13 mg/dL 6-20 Creatinine (test code = 2160-0) 0.60 mg/dL 0.5-0.9 Glucose (test code = 2345-7) 94 mg/dL 65-99 Calcium (test code = 29410-4) 9.8 mg/dL 8.3-10.2 Protein (test code = 2885-2) 7.4 g/dL 6.3-8.3 -[place] 4.6- 7.0 g/dL1 week 4.4-7.6 g/dL7 months-1year 5.1-7.3 g/dL1-2 years 5.6-7.5 g/dL>3 years 6.0-8.0 g/iR28-321 6.3-8.3 g/dL Albumin (test code = 1751-7) 4.5 g/dL 3.5-5 A/G ratio (test code = 1759-0) 1.6 0.7-3.8 Alkaline phosphatase (test code = 6768-6) 90 U/L 35-104 AST (test code = 1920-8) 152 U/L 10-35 H ALT (test code = 1742-6) 150 U/L 5-50 H Total bilirubin (test code = 1974-2) 1.3 mg/dL 0-1.2 H Lab Interpretation (test code = 41328-4) Abnormal [facility] MethodistPhosphorus fjcbf1781-68-23 10:20:20* Test Item Value Reference Range Interpretation Comments Phosphorus (test code = 2777-1) 2.7 mg/dL 2.4-4.5 [facility] MethodistAlcohol level, gilzv6490-51-84 00:02:11* Test Item Value Reference Range Interpretation Comments Alcohol percent (test code = 5643-2) 0.106 % Normal None DetectedLegal Intoxication in [place] 80 mg/dL (0.08%) - Whole BloodToxic Concentration 200 mg/dL (0.2%)Potentially Fatal 350 - 500 mg/dL (0.35 - 0.5%) [place] MethodistCBC with platelet and mhzxwprdmjje5523-56-37 23:51:51* Test Item Value Reference Range Interpretation Comments WBC (test code = 57067-1) 6.15 4.50- 11.00 k/uL RBC (test code = 33959-9) 4.07 m/uL 4.2-5.5 L HGB (test code = 718-7) 14.0 g/dL 12-16 HCT (test code = 4544-3) 41.5 % 37-47 MCV (test code = 787-2) 102.0 fL 82-100 H MCH (test code = 785-6) 34.4 pg 27-34 H MCHC (test code = 786-4) 33.7 g/dL 31-37 RDW - SD (test code = 64585-4) 50.3 fL 37-55 MPV (test code = 74469-7) 9.9 fL 8.8-13.2 Platelet count (test code = 64179-6) 359 150- 400 k/uL Nucleated RBC (test code = 86253-4) 0.00 /100 WBC Neutrophils (test code = 71391-2) 76.0 % 39-69 H Lymphocytes (test code = 27514-2) 23.0 % 25-45 L Monocytes (test code = 61876-9) 1.0 % 0-10 Eosinophils (test code = 92767-3) 0.0 % 0-5 Basophils (test code = 24971-9) 0.0 % 0-1 Lab Interpretation (test code = 04466-3) Abnormal [place] MethodistManual zufjsxzgdksc6579-38-07 23:51:51* Test Item Value Reference Range Interpretation Comments Manual differential (test code = 61470-8) PERFORMED Neutrophils (test code = 54474-3) 76.0 % 39-69 H Lymphocytes (test code = 08159-4) 23.0 % 25-45 L Monocytes (test code = 35624-0) 1.0 % 0-10 Eosinophils (test code = 37012-9) 0.0 % 0-5 Basophils (test code = 70225-8) 0.0 % 0-1 Metamyelocytes (test code = 740-1) 0 % Promyelocytes (test code = 783-1) 0 % Platelet slide review (test code = 94462-9) Palmer adequate Lab Interpretation (test code = 48445-4) Abnormal [place] MethodistLipase dcbik8768-98-93 23:35:59* Test Item Value Reference Range Interpretation Comments Lipase (test code = 3040-3) 41 U/L 13-60 [facility] Hrtxdzr2598-08-22 20:41:00* Test Item Value Reference Range Interpretation Comments Bedside Glucose (test code = 67206-4) 176 70-120 H Meter ID: [id number] Health System [facility] HospitalCapillary blood glucose measurement by glucometer (mass/volume)2019-12-15 20:07:00* Test Item Value Reference Range Interpretation Comments Bedside Glucose (test code = 76022-0) 176 70-120 Meter ID: [id number] Health System Ben [facility] HospitalPotassium Level 2019-12-15 15:04:00* Test Item Value Reference Range Interpretation Comments Potassium Level (test code = 2823-3) 3.1 3.5-5.1 L [facility] HospitalMagnesium Dnfio9824-77-24 06:25:00* Test Item Value Reference Range Interpretation Comments Magnesium Level (test code = 81771-5) 1.2 1.3-2.1 L [facility] Systemodium Kfimu3641-89-26 05:54:00* Test Item Value Reference Range Interpretation Comments Sodium Level (test code = 2951-2) 137 136-145 [facility] HospitalChloride Rwefp0076-73-06 05:54:00* Test Item Value Reference Range Interpretation Comments Chloride Level (test code = 2075-0) 101 98-107 [facility] HospitalCarbon Dioxide Vchqw4969-13-75 05:54:00* Test Item Value Reference Range Interpretation Comments Carbon Dioxide Level (test code = 2028-9) 28 22-29 [facility] HospitalAnion Yps6494-03-44 05:54:00* Test Item Value Reference Range Interpretation Comments Anion Gap (test code = 18766-4) 10.4 8-16 [facility] HospitalBlood Urea Xcnzqvap5125-05-79 05:54:00* Test Item Value Reference Range Interpretation Comments Blood Urea Nitrogen (test code = 3094-0) 10 7-26 [facility] HospitalCreatinine2020-04-09 05:54:00* Test Item Value Reference Range Interpretation Comments Creatinine (test code = 2160-0) 0.63 0.57-1.11 [facility] HospitalBUN/Creatinine Swdaa5527-78-76 05:54:00* Test Item Value Reference Range Interpretation Comments BUN/Creatinine Ratio (test code = 3097-3) 16 6- [facility] HospitalEstimat Glomerular Filtration Rate 2019-12-15 05:54:00* Test Item Value Reference Range Interpretation Comments Estimat Glomerular Filtration Rate (test code = 795132228) > 60 >60 Ranges were taken from the National Kidney Disease Education Program and the [facility] Kidney Foundation literature.Reference ranges:60 or greater: Uoaqjp38-80 ( for 3 consecutive months): Chronic kidney disease 15 or less: Kidney failureHarris Health System Ben Taub HospitalGlucose Cxjch7764-19-52 05:54:00* Test Item Value Reference Range Interpretation Comments Glucose Level (test code = QYS5466) 85 74-118 [facility] HospitalCalcium Sdjth8160-31-35 05:54:00* Test Item Value Reference Range Interpretation Comments Calcium Level (test code = 08663-0) 7.6 8.4-10.2 L [facility] HospitalTotal Uurqajqfo3384-27-72 05:54:00* Test Item Value Reference Range Interpretation Comments Total Bilirubin (test code = 1975-2) 1.0 0.2-1.2 [facility] HospitalAspartate Amino Transf (AST/SGOT) 2019-12-15 05:54:00* Test Item Value Reference Range Interpretation Comments Aspartate Amino Transf (AST/SGOT) (test code = Aspartate Amino Transf (AST/SGOT)) 242 5-34 H [facility] HospitalAlanine Aminotransferase (ALT/SGPT) 2019-12-15 05:54:00* Test Item Value Reference Range Interpretation Comments Alanine Aminotransferase (ALT/SGPT) (test code = 1742-6) 186 0-55 H [facility] HospitalTotal Ziwoqri7466-47-46 05:54:00* Test Item Value Reference Range Interpretation Comments Total Protein (test code = 2885-2) 6.0 6.5-8.1 L [facility] HospitalAlbumin2020-04-09 05:54:00* Test Item Value Reference Range Interpretation Comments Albumin (test code = 1751-7) 3.2 3.5-5.0 L [facility] HospitalGlobulin2020-04-09 05:54:00* Test Item Value Reference Range Interpretation Comments Globulin (test code = 49432-3) 2.8 2.3-3.5 [facility] HospitalAlbumin/Globulin Ojsst7524-26-63 05:54:00 * Test Item Value Reference Range Interpretation Comments Albumin/Globulin Ratio (test code = 1759-0) 1.1 0.8-2.0 [facility] HospitalAlkaline Cadlybgywts0618-32-48 05:54:00* Test Item Value Reference Range Interpretation Comments Alkaline Phosphatase (test code = 6768-6) 79 40-150 [facility] HospitalWhite Blood Vmlkh3881-82-17 05:39:00* Test Item Value Reference Range Interpretation Comments White Blood Count (test code = 6690-2) 7.05 4.8-10.8 [facility] HospitalRed Blood Ralrk1598-49-42 05:39:00* Test Item Value Reference Range Interpretation Comments Red Blood Count (test code = 789-8) 3.37 3.6-5.1 L [facility] HospitalHemoglobin2020-04-09 05:39:00* Test Item Value Reference Range Interpretation Comments Hemoglobin (test code = 64355-8) 11.9 12.0-16.0 L [facility] HospitalHematocrit2020-04-09 05:39:00* Test Item Value Reference Range Interpretation Comments Hematocrit (test code = 4544-3) 33.6 34.2-44.1 L [facility] HospitalMean Corpuscular Lfamne0234-30-17 05:39:00* Test Item Value Reference Range Interpretation Comments Mean Corpuscular Volume (test code = 787-2) 99.7 81-99 H [facility] HospitalMean Corpuscular Orqagixojg6009-02-45 05:39:00* Test Item Value Reference Range Interpretation Comments Mean Corpuscular Hemoglobin (test code = 785-6) 35.3 28-32 H [facility] HospitalMean Corpuscular Hemoglobin Concent 2019-12-15 05:39:00* Test Item Value Reference Range Interpretation Comments Mean Corpuscular Hemoglobin Concent (test code = 786-4) 35.4 31-35 H [facility] HospitalRed Cell Distribution Aieyb8522-10-88 05:39:00* Test Item Value Reference Range Interpretation Comments Red Cell Distribution Width (test code = 38082-2) 12.2 11.7 -14.4 [facility] HospitalPlatelet Xypha4292-96-00 05:39:00* Test Item Value Reference Range Interpretation Comments Platelet Count (test code = 777-3) 140 140-360 [facility] HospitalNeutrophils (%) (Auto)2019-12-15 05:39:00 * Test Item Value Reference Range Interpretation Comments Neutrophils (%) (Auto) (test code = 00282-7) 70.7 38.7-80.0 [facility] HospitalLymphocytes (%) (Auto)2019-12-15 05:39:00 * Test Item Value Reference Range Interpretation Comments Lymphocytes (%) (Auto) (test code = 736-9) 24.7 18.0-39.1 [facility] HospitalMonocytes (%) (Auto)2019-12-15 05:39:00* Test Item Value Reference Range Interpretation Comments Monocytes (%) (Auto) (test code = 5905-5) 3.8 4.4-11.3 L [facility] HospitalEosinophils (%) (Auto)2019-12-15 05:39:00 * Test Item Value Reference Range Interpretation Comments Eosinophils (%) (Auto) (test code = 713-8) 0.1 0.0-6.0 [facility] HospitalBasophils (%) (Auto)2019-12-15 05:39:00* Test Item Value Reference Range Interpretation Comments Basophils (%) (Auto) (test code = 706-2) 0.1 0.0-1.0 [facility] HospitalIM GRANULOCYTES %2019-12-15 05:39:00* Test Item Value Reference Range Interpretation Comments IM GRANULOCYTES % (test code = IM GRANULOCYTES %) 0.6 0.0- 1.0 [facility] HospitalNeutrophils # (Auto)2019-12-15 05:39:00* Test Item Value Reference Range Interpretation Comments Neutrophils # (Auto) (test code = 751-8) 5.0 2.1-6.9 [facility] HospitalLymphocytes # (Auto)2019-12-15 05:39:00* Test Item Value Reference Range Interpretation Comments Lymphocytes # (Auto) (test code = 68933-7) 1.7 1.0-3.2 [facility] HospitalMonocytes # (Auto)2019-12-15 05:39:00* Test Item Value Reference Range Interpretation Comments Monocytes # (Auto) (test code = 742-7) 0.3 0.2-0.8 [facility] HospitalEosinophils # (Auto)2019-12-15 05:39:00* Test Item Value Reference Range Interpretation Comments Eosinophils # (Auto) (test code = 711-2) 0.0 0.0-0.4 [facility] HospitalBasophils # (Auto)2019-12-15 05:39:00* Test Item Value Reference Range Interpretation Comments Basophils # (Auto) (test code = 704-7) 0.0 0.0-0.1 [facility] HospitalAbsolute Immature Granulocyte (auto 2019-12-15 05:39:00* Test Item Value Reference Range Interpretation Comments Absolute Immature Granulocyte (auto (zenaida t code = Absolute Immature Granulocyte (auto) 0.04 0-0.1 [facility] Systemerum or plasma magnesium measurement (mass/volume)2019-12-15 04:55:00* Test Item Value Reference Range Interpretation Comments Magnesium Level (test code = 59294-2) 1.2 1.3-2.1 [facility] HospitalCT BRAIN SP6373-41-11 01:43:00 [facility] [address] [address] Patient Name: AMILCAR CELIS MR #: [id number] : 1970 Age/Sex: 49/F Req #: [id number] Adm Physician: ARMANI ARREOLA MD Ordered by: ALYCIA HOWARD DO Report #: [id number] Location: [facility]/Bed: ICU [facility] Procedure: [id number] CT/CT ARABELLA BAKER WO Exam Date: 12/14/19 [...] 12/15/19144 COPY TO: ALYCIA ZHU DO Urine [id number] 22:31:00* Test Item Value Reference Range Interpretation Comments Urine WBC (test code = 5821-4) 0-5 0-5 [facility] HospitalUrine [id number] 22:31:00* Test Item Value Reference Range Interpretation Comments Urine RBC (test code = 33170-9) 0-5 0-5 [facility] HospitalUrine Auzlcves0842-61-47 22:31:00* Test Item Value Reference Range Interpretation Comments Urine Bacteria (test code = 45731-1) RARE NONE [facility] HospitalUrine Epithelial Uulhx5346-87-68 22:31:00 * Test Item Value Reference Range Interpretation Comments Urine Epithelial Cells (test code = 23608-5) FEW NONE [facility] HospitalUrine Transitional Epithelial Cells 2019-12-14 22:31:00* Test Item Value Reference Range Interpretation Comments Urine Transitional Epithelial Cells (test code = 8249-5) FEW NONE H [facility] HospitalUrine Aolrk0679-45-65 22:31:00* Test Item Value Reference Range Interpretation Comments Urine Mucus (test code = 8247-9) FEW RARE H [facility] HospitalUrine Lmurp0279-51-65 21:59:00* Test Item Value Reference Range Interpretation Comments Urine Color (test code = 5778-6) YELLOW YELLOW [facility] HospitalUrine Pkqajza4209-68-44 21:59:00* Test Item Value Reference Range Interpretation Comments Urine Clarity (test code = 47846-1) CLOUDY CLEAR H [facility] HospitalUrine Specific Msgcwue9739-10-76 21:59:00 * Test Item Value Reference Range Interpretation Comments Urine Specific [place] (test code = 5811-5) 1.020 1.010-1.02 5 [facility] HospitalUrine gC9051-60-75 21:59:00* Test Item Value Reference Range Interpretation Comments Urine pH (test code = 18695-6) 7.5 5-7 [facility] HospitalUrine Leukocyte Ipjrghfp0192-82-37 21:59:00* Test Item Value Reference Range Interpretation Comments Urine Leukocyte Esterase (test code = 5799-2) NEGATIVE NEGATIVE [facility] HospitalUrine Efeskrv0655-42-97 21:59:00* Test Item Value Reference Range Interpretation Comments Urine Nitrite (test code = 11361-5) NEGATIVE NEGATIVE [facility] HospitalUrine Ppfoqxm9902-01-40 21:59:00* Test Item Value Reference Range Interpretation Comments Urine Protein (test code = 5804-0) 2+ NEGATIVE H [facility] HospitalUrine Glucose (UA)2019-12-14 21:59:00* Test Item Value Reference Range Interpretation Comments Urine Glucose (UA) (test code = 2349-9) NEGATIVE NEGATIVE [facility] HospitalUrine [place]7674-14-41 21:59:00* Test Item Value Reference Range Interpretation Comments Urine Ketones (test code = 43111-3) TRACE NEGATIVE H [facility] HospitalUrine Hcrbvycneuwb5367-17-02 21:59:00* Test Item Value Reference Range Interpretation Comments Urine Urobilinogen (test code = 79407-1) 4 0.2-1 [facility] HospitalUrine Mmycejepj2128-68-01 21:59:00* Test Item Value Reference Range Interpretation Comments Urine Bilirubin (test code = 1978-6) MODERATE NEGATIVE [facility] HospitalUrine Cqwfi8475-32-49 21:59:00* Test Item Value Reference Range Interpretation Comments Urine Blood (test code = 97728-7) TRACE NEGATIVE H [facility] HospitalUrine color seuejiptshukx0923-85-68 21:50:00* Test Item Value Reference Range Interpretation Comments Urine Color (test code = 5778-6) YELLOW YELLOW [facility] HospitalUrine yuhrtna8650-21-95 21:50:00* Test Item Value Reference Range Interpretation Comments Urine Clarity (test code = 82581-4) CLOUDY CLEAR [facility] Systempecific gravity of Urine by Test strip 2019-12-14 21:50:00* Test Item Value Reference Range Interpretation Comments Urine Specific [place] (test code = 5811-5) 1.020 1.010-1.02 5 [facility] HospitalUrine pH measurement by automated test kkten8503-97-76 21:50:00* Test Item Value Reference Range Interpretation Comments Urine pH (test code = 57448-4) 7.5 5-7 [facility] HospitalUrine leukocyte esterase detection by cekdbaof1850-15-24 21:50:00* Test Item Value Reference Range Interpretation Comments Urine Leukocyte Esterase (test code = 5799-2) NEGATIVE NEGATIVE [facility] HospitalUrine nitrite hwmmqjjhb1583-22-19 21:50:00* Test Item Value Reference Range Interpretation Comments Urine Nitrite (test code = 67176-3) NEGATIVE NEGATIVE [facility] HospitalUrine protein measurement by test strip (mass/volume)2019-12-14 21:50:00* Test Item Value Reference Range Interpretation Comments Urine Protein (test code = 5804-0) 2+ NEGATIVE [facility] HospitalUrine glucose hspksccns2048-04-30 21:50:00* Test Item Value Reference Range Interpretation Comments Urine Glucose (UA) (test code = 2349-9) NEGATIVE NEGATIVE [facility] HospitalUrine ketones detection by automated test aqtwn6837-23-98 21:50:00* Test Item Value Reference Range Interpretation Comments Urine Ketones (test code = 53916-2) TRACE NEGATIVE [facility] HospitalUrine urobilinogen measurement by test strip (mass/volume)2019-12-14 21:50:00* Test Item Value Reference Range Interpretation Comments Urine Urobilinogen (test code = 51650-5) 4 0.2-1 [facility] HospitalUrine total bilirubin measurement (mass/volume)2019-12-14 21:50:00* Test Item Value Reference Range Interpretation Comments Urine Bilirubin (test code = 1978-6) MODERATE NEGATIVE [facility] HospitalUrine erythrocytes flurylexy7587-95-49 21:50:00* Test Item Value Reference Range Interpretation Comments Urine Blood (test code = 79508-6) TRACE NEGATIVE [facility] HospitalAutomated urine sediment leukocyte count by microscopy (number/high power field)2019-12-14 21:50:00* Test Item Value Reference Range Interpretation Comments Urine WBC (test code = 5821-4) 0-5 0-5 [facility] HospitalErythrocytes detection in urine sediment by light fqtrtfhivw0766-49-84 21:50:00* Test Item Value Reference Range Interpretation Comments Urine RBC (test code = 80497-5) 0-5 0-5 [facility] HospitalBacteria detection in urine sediment by light hvpmvqycbe4146-04-67 21:50:00* Test Item Value Reference Range Interpretation Comments Urine Bacteria (test code = 54824-6) RARE NONE [facility] HospitalEpithelial cells detection in urine sediment by light szzcetbwge3664-88-71 21:50:00* Test Item Value Reference Range Interpretation Comments Urine Epithelial Cells (test code = 34148-8) FEW NONE [facility] HospitalTransitional cells detection in urine sediment by light ijgqjwgrya6833-97-99 21:50:00* Test Item Value Reference Range Interpretation Comments Urine Transitional Epithelial Cells (test code = 8249-5) FEW NONE [facility] HospitalMucus detection in urine sediment by light bwssfwwsuw6458-83-86 21:50:00* Test Item Value Reference Range Interpretation Comments Urine Mucus (test code = 8247-9) FEW RARE [facility] HospitalEthyl Alcohol Qfyzy9722-59-08 21:26:00* Test Item Value Reference Range Interpretation Comments Ethyl Alcohol Level (test code = 5643-2) < 10.0 0.0-10.0 [facility] HospitalCHEST SINGLE (PORTABLE)2019-12-14 21:22:00 [facility] [address] [address] Patient Name: AMILCAR CELIS MR #: [id number] : 1970 Age/Sex: 49/F Req #: [id number] Adm Physician: Ordered by: ALYCIA HOWARD DO Report #: [id number] Location: ER Room/Bed: Procedure: [id number] DX/CHEST SINGLE (PORTABLE) Exam Date: 12/14/19 Exam [...] COPY TO: ALYCIA HOWARD DO Creatine Kinase IB0149-14-24 21:14:00* Test Item Value Reference Range Interpretation Comments Creatine Kinase MB (test code = 93968-9) 0.70 0-5.0 [facility] HospitalTroponin K7704-20-19 21:14:00* Test Item Value Reference Range Interpretation Comments Troponin I (test code = 17983-3) < 0.001 0-0.300 [facility] HospitalB-Type Natriuretic Byvocll9854-17-94 21:12:00* Test Item Value Reference Range Interpretation Comments B-Type Natriuretic Peptide (test code = 06157-5) 19.6 0-100 [facility] HospitalCreatine Zrdnut2415-23-15 21:09:00* Test Item Value Reference Range Interpretation Comments Creatine Kinase (test code = 2157-6) 88 29-168 [facility] HospitalBNP Lcv-yZfi5263-65-08 20:33:00* Test Item Value Reference Range Interpretation Comments B-Type Natriuretic Peptide (test code = 30658-5) 19.6 0-100 [facility] Systemerum or plasma creatine kinase measurement (enzymatic activity/volume)2019-12-14 20:33:00* Test Item Value Reference Range Interpretation Comments Creatine Kinase (test code = 2157-6) 88 29-168 [facility] Systemerum or plasma creatine kinase MB measurement (mass/volume)2019-12-14 20:33:00* Test Item Value Reference Range Interpretation Comments Creatine Kinase MB (test code = 09334-8) 0.70 0-5.0 [facility] HospitalTroponin I measurement by highly sensitive enzyme nklpqhtcmvq3693-68-87 20:33:00* Test Item Value Reference Range Interpretation Comments Troponin I (test code = 47216-1) < 0.001 0-0.300 [facility] HospitalUrine REN5339-04-84 15:03:00* Test Item Value Reference Range Interpretation Comments Urine WBC (test code = 5821-4) NONE 0-5 [facility] HospitalUrine BHQ4354-04-29 15:03:00* Test Item Value Reference Range Interpretation Comments Urine RBC (test code = 79225-3) NONE 0-5 [facility] HospitalUrine Hyykfpty0685-11-71 15:03:00* Test Item Value Reference Range Interpretation Comments Urine Bacteria (test code = 35399-4) MODERATE NONE H [facility] HospitalUrine Epithelial Atzeh6751-33-37 15:03:00 * Test Item Value Reference Range Interpretation Comments Urine Epithelial Cells (test code = 89691-4) FEW NONE [facility] HospitalUrine Amorphous Xevlcwnw8883-25-46 15:03:00* Test Item Value Reference Range Interpretation Comments Urine Amorphous Sediment (test code = 8246-1) MODERATE FEW H [facility] HospitalUrine Amorphous Fvsjnqnh3848-75-79 15:03:00* Test Item Value Reference Range Interpretation Comments Urine Amorphous Sediment (test code = 8246-1) MODERATE FEW H [facility] HospitalUrine Ydswo0857-82-68 14:56:00* Test Item Value Reference Range Interpretation Comments Urine Color (test code = 5778-6) ELLY YELLOW H [facility] HospitalUrine Ixzykhw4298-85-63 14:56:00* Test Item Value Reference Range Interpretation Comments Urine Clarity (test code = 94732-0) SL CLOUDY CLEAR [facility] HospitalUrine Specific Hfodwsb8112-41-65 14:56:00 * Test Item Value Reference Range Interpretation Comments Urine Specific [place] (test code = 5811-5) 1.020 1.010-1.02 5 [facility] HospitalUrine cJ8464-42-31 14:56:00* Test Item Value Reference Range Interpretation Comments Urine pH (test code = 02586-5) 8.5 5-7 [facility] HospitalUrine Leukocyte Tqnjdpyl4181-16-18 14:56:00* Test Item Value Reference Range Interpretation Comments Urine Leukocyte Esterase (test code = 5799-2) NEGATIVE NEGATIVE [facility] HospitalUrine Pwbxqre5502-29-08 14:56:00* Test Item Value Reference Range Interpretation Comments Urine Nitrite (test code = 56906-0) NEGATIVE NEGATIVE [facility] HospitalUrine Lbcjdjv7871-37-78 14:56:00* Test Item Value Reference Range Interpretation Comments Urine Protein (test code = 5804-0) 3+ NEGATIVE H [facility] HospitalUrine Glucose (UA)2019-10-11 14:56:00* Test Item Value Reference Range Interpretation Comments Urine Glucose (UA) (test code = 2349-9) NEGATIVE NEGATIVE [facility] HospitalUrine Itcafpv6126-25-41 14:56:00* Test Item Value Reference Range Interpretation Comments Urine Ketones (test code = 05182-6) 2+ NEGATIVE H [facility] HospitalUrine Opiates Lrrixg3873-22-13 14:56:00* Test Item Value Reference Range Interpretation Comments Urine Opiates Screen (test code = 38430-9) NEGATIVE NEGATIVE ALL TESTS PERFORMED MANUALLY ON [email or web address] TOX/SEE TESTHarris Health System Ben [facility] HospitalUrine Barbiturates Lthopq0631-02-04 14:56:00* Test Item Value Reference Range Interpretation Comments Urine Barbiturates Screen (test code = 026076317) NEGATIVE NEGA TIVE [facility] HospitalUrine Phencyclidine Zvfnmz1744-18-01 14:56:00* Test Item Value Reference Range Interpretation Comments Urine Phencyclidine Screen (test code = 81693-2) NEGATIVE NEGAT MERCEDEZ [facility] HospitalUrine Amphetamines Nrjofa6604-34-31 14:56:00* Test Item Value Reference Range Interpretation Comments Urine Amphetamines Screen (test code = 81746-2) NEGATIVE NEGATI VE [facility] HospitalUrine Methamphetamines Pxxxmx4247-93-78 14:56:00* Test Item Value Reference Range Interpretation Comments Urine Methamphetamines Screen (test code = Urine Metha mphetamines Screen) NEGATIVE NEGATIVE [facility] HospitalUrine Benzodiazepines Wdjxyb3775-50-63 14:56:00* Test Item Value Reference Range Interpretation Comments Urine Benzodiazepines Screen (test code = 78322-1) NEGATIVE NEG ATIVE [facility] HospitalUrine Cocaine Tnrdsl5141-58-98 14:56:00* Test Item Value Reference Range Interpretation Comments Urine Cocaine Screen (test code = 3398-5) NEGATIVE NEGATIVE [facility] HospitalUrine Cannabinoids Ndzvkw9677-11-52 14:56:00* Test Item Value Reference Range Interpretation Comments Urine Cannabinoids Screen (test code = 23788-7) NEGATIVE NEGATI VE THESE RESULTS ARE FOR MEDICAL TREATMENT ONLYTHIS REPORT CONTAINS UNCONFIR MED SCREENING RESULTS*POSITIVE RESULTS WILL BE CONFIRMED BY REFERENCE LAB UPON R EQUEST CUT-OFFDRUG CLASS CONCENTRATION ng/mLAmphetamines 1000Methamphetamines 1000Cocaine 300Opiate 300Phencyc lidine 25Cannabinoid 50Barbiturates 300Benzodiazepine 300Methadone 300[facility] HospitalUrine Methadone Bzvnop2049-80-07 14:56:00* Test Item Value Reference Range Interpretation Comments Urine Methadone Screen (test code = 10849-9) NEGATIVE NEGATIVE THESE RESULTS ARE FOR MEDICAL TREATMENT ONLYTHIS REPORT CONTAINS UNCONFIR MED SCREENING RESULTS*POSITIVE RESULTS WILL BE CONFIRMED BY REFERENCE LAB UPON R EQUEST CUT-OFFDRUG CLASS CONCENTRATION ng/mLAmphetamines 1000Methamphetamines 1000Cocaine Metabolite 300Opiate 300Phencyc lidine 25Cannabinoid 50Barbiturates 300Benzodiazepine 300Methadone 300[facility] CenterU[facility] Khmvhaxqnyrb2151-33-69 14:56:00* Test Item Value Reference Range Interpretation Comments Urine Urobilinogen (test code = 46992-9) 1 0.2-1 [facility] HospitalUrine Ybltjmqls5754-28-55 14:56:00* Test Item Value Reference Range Interpretation Comments Urine Bilirubin (test code = 1978-6) 3+ NEGATIVE H [facility] HospitalUrine Uewsw2080-98-77 14:56:00* Test Item Value Reference Range Interpretation Comments Urine Blood (test code = 69108-4) NEGATIVE NEGATIVE [facility] HospitalUrine Opiates Fgvnmb4081-06-19 14:56:00* Test Item Value Reference Range Interpretation Comments Urine Opiates Screen (test code = 45892-0) NEGATIVE NEGATIVE ALL TESTS PERFORMED MANUALLY ON [email or web address] TOX/SEE TESTHarris Health System Ben [facility] HospitalUrine Barbiturates Wcaaez6540-84-24 14:56:00* Test Item Value Reference Range Interpretation Comments Urine Barbiturates Screen (test code = 436793648) NEGATIVE NEGA TIVE [facility] HospitalUrine Phencyclidine Wyplko2147-86-97 14:56:00* Test Item Value Reference Range Interpretation Comments Urine Phencyclidine Screen (test code = 99422-5) NEGATIVE NEGAT MERCEDEZ [facility] HospitalUrine Amphetamines Faalhe6358-59-31 14:56:00* Test Item Value Reference Range Interpretation Comments Urine Amphetamines Screen (test code = 74294-1) NEGATIVE NEGATI VE [facility] HospitalUrine Methamphetamines Hlcihi9952-99-52 14:56:00* Test Item Value Reference Range Interpretation Comments Urine Methamphetamines Screen (test code = Urine Metha mphetamines Screen) NEGATIVE NEGATIVE [facility] HospitalUrine Benzodiazepines Untywm1247-12-29 14:56:00* Test Item Value Reference Range Interpretation Comments Urine Benzodiazepines Screen (test code = 43545-2) NEGATIVE NEG ATIVE [facility] HospitalUrine Cocaine Vgjazo1665-66-45 14:56:00* Test Item Value Reference Range Interpretation Comments Urine Cocaine Screen (test code = 3398-5) NEGATIVE NEGATIVE [facility] HospitalUrine Cannabinoids Lpytez4411-02-33 14:56:00* Test Item Value Reference Range Interpretation Comments Urine Cannabinoids Screen (test code = 30097-4) NEGATIVE NEGATI VE THESE RESULTS ARE FOR MEDICAL TREATMENT ONLYTHIS REPORT CONTAINS UNCONFIR MED SCREENING RESULTS*POSITIVE RESULTS WILL BE CONFIRMED BY REFERENCE LAB UPON R EQUEST CUT-OFFDRUG CLASS CONCENTRATION ng/mLAmphetamines 1000Methamphetamines 1000Cocaine 300Opiate 300Phencyc lidine 25Cannabinoid 50Barbiturates 300Benzodiazepine 300Methadone 300[facility] HospitalUrine Methadone Fhnasz1401-88-59 14:56:00* Test Item Value Reference Range Interpretation Comments Urine Methadone Screen (test code = 71031-7) NEGATIVE NEGATIVE THESE RESULTS ARE FOR MEDICAL TREATMENT ONLYTHIS REPORT CONTAINS UNCONFIR MED SCREENING RESULTS*POSITIVE RESULTS WILL BE CONFIRMED BY REFERENCE LAB UPON R EQUEST CUT-OFFDRUG CLASS CONCENTRATION ng/mLAmphetamines 1000Methamphetamines 1000Cocaine Metabolite 300Opiate 300Phencyc lidine 25Cannabinoid 50Barbiturates 300Benzodiazepine 300Methadone 300[facility] HospitalEthyl Alcohol Kymjw1925-07-78 13:40:00* Test Item Value Reference Range Interpretation Comments Ethyl Alcohol Level (test code = 5643-2) < 10.0 0.0-10.0 [facility] HospitalUrine opiates screening llzp5391-89-10 13:36:00* Test Item Value Reference Range Interpretation Comments Urine Opiates Screen (test code = 91366-2) NEGATIVE NEGATIVE ALL TESTS PERFORMED MANUALLY ON [employer] TOX/SEE TESTHarris Health System Ben [facility] HospitalBarbiturates screen, nwtoc9851-29-45 13:36:00* Test Item Value Reference Range Interpretation Comments Urine Barbiturates Screen (test code = 050345800) NEGATIVE NEGA TIVE [facility] HospitalUrine phencyclidine detection by screening fkbugh4850-55-48 13:36:00* Test Item Value Reference Range Interpretation Comments Urine Phencyclidine Screen (test code = 45092-9) NEGATIVE NEGAT MERCEDEZ [facility] HospitalUrine amphetamines detection by screen method > 1000 ng/wC7563-81-40 13:36:00* Test Item Value Reference Range Interpretation Comments Urine Amphetamines Screen (test code = 12585-0) NEGATIVE NEGATI VE [facility] HospitalFluoroscopic procedure less than one hour bayyweec6413-69-10 13:36:00* Test Item Value Reference Range Interpretation Comments Urine Methamphetamines Screen (test code = Urine Metha mphetamines Screen) NEGATIVE NEGATIVE [facility] HospitalUrine benzodiazepines detection by screening smhrha8547-33-18 13:36:00* Test Item Value Reference Range Interpretation Comments Urine Benzodiazepines Screen (test code = 56111-1) NEGATIVE NEG ATIVE [facility] HospitalUrine cocaine measurement (mass/volume) 2019-10-11 13:36:00* Test Item Value Reference Range Interpretation Comments Urine Cocaine Screen (test code = 3398-5) NEGATIVE NEGATIVE [facility] HospitalUrine cannabinoids detection by screening sgmvzi3681-80-13 13:36:00* Test Item Value Reference Range Interpretation Comments Urine Cannabinoids Screen (test code = 24179-2) NEGATIVE NEGATI VE THESE RESULTS ARE FOR MEDICAL TREATMENT ONLYTHIS REPORT CONTAINS UNCONFIR MED SCREENING RESULTS*POSITIVE RESULTS WILL BE CONFIRMED BY REFERENCE LAB UPON R EQUEST CUT-OFFDRUG CLASS CONCENTRATION ng/mLAmphetamines 1000Methamphetamines 1000Cocaine 300Opiate 300Phencyc lidine 25Cannabinoid 50Barbiturates 300Benzodiazepine 300Methadone 300[facility] CenterUrine methadone dsblus0449-02-77 13:36:00* Test Item Value Reference Range Interpretation Comments Urine Methadone Screen (test code = 76012-7) NEGATIVE NEGATIVE THESE RESULTS ARE FOR MEDICAL TREATMENT ONLYTHIS REPORT CONTAINS UNCONFIR MED SCREENING RESULTS*POSITIVE RESULTS WILL BE CONFIRMED BY REFERENCE LAB UPON R EQUEST CUT-OFFDRUG CLASS CONCENTRATION ng/mLAmphetamines 1000Methamphetamines 1000Cocaine Metabolite 300Opiate 300Phencyc lidine 25Cannabinoid 50Barbiturates 300Benzodiazepine 300Methadone 300[facility] CenterAmorphous sediment detection in urine sediment by light jtkzrzyqal7595-55-68 13:36:00* Test Item Value Reference Range Interpretation Comments Urine Amorphous Sediment (test code = 8246-1) MODERATE FEW [facility] Systemodium Ozycd6013-87-94 13:23:00* Test Item Value Reference Range Interpretation Comments Sodium Level (test code = 2951-2) 136 136-145 [facility] HospitalPotassium Wsdwq0823-99-89 13:23:00* Test Item Value Reference Range Interpretation Comments Potassium Level (test code = 2823-3) 2.7 3.5-5.1 LL Results repeated and called to Sirena Mckinley at 1321 on 10/11/19 by Nolvia edwards. Read back and verified.[facility] HospitalChloride Level 2019-10-11 13:23:00* Test Item Value Reference Range Interpretation Comments Chloride Level (test code = 2075-0) 85 98-107 L [facility] HospitalCarbon Dioxide Lwuuf3612-45-30 13:23:00* Test Item Value Reference Range Interpretation Comments Carbon Dioxide Level (test code = 2028-9) 29 22-29 [facility] HospitalAnion Tee2111-48-72 13:23:00* Test Item Value Reference Range Interpretation Comments Anion Gap (test code = 84678-9) 24.7 8-16 H [facility] HospitalBlood Urea Tbzfatco3551-55-73 13:23:00* Test Item Value Reference Range Interpretation Comments Blood Urea Nitrogen (test code = 3094-0) 27 7-26 H [facility] HospitalCreatinine2020-02-04 13:23:00* Test Item Value Reference Range Interpretation Comments Creatinine (test code = 2160-0) 1.09 0.57-1.11 [facility] HospitalBUN/Creatinine Eyuwh1115-92-11 13:23:00* Test Item Value Reference Range Interpretation Comments BUN/Creatinine Ratio (test code = 3097-3) 25 6-25 [facility] HospitalEstimat Glomerular Filtration Rate 2019-10-11 13:23:00* Test Item Value Reference Range Interpretation Comments Estimat Glomerular Filtration Rate (test code = 344049543) 53 >60 L Ranges were taken from the National Kidney Disease Education Program and the [facility] Kidney Foundation literature.Reference ranges:60 or greater: Xayabn19-85 ( for 3 consecutive months): Chronic kidney disease 15 or less: Kidney failureHarris [facility] System Ben [facility] HospitalGlucose Ynkfl8316-36-41 13:23:00* Test Item Value Reference Range Interpretation Comments Glucose Level (test code = IGN9623) 92 74-118 [facility] HospitalCalcium Yjwvg8351-13-10 13:23:00* Test Item Value Reference Range Interpretation Comments Calcium Level (test code = 90852-5) 8.7 8.4-10.2 [facility] HospitalMagnesium Quxye1672-71-14 13:23:00* Test Item Value Reference Range Interpretation Comments Magnesium Level (test code = 02633-3) 1.2 1.3-2.1 L [facility] HospitalTotal Lvuauzisb5466-99-22 13:23:00* Test Item Value Reference Range Interpretation Comments Total Bilirubin (test code = 1975-2) 2.0 0.2-1.2 H [facility] HospitalAspartate Amino Transf (AST/SGOT) 2019-10-11 13:23:00* Test Item Value Reference Range Interpretation Comments Aspartate Amino Transf (AST/SGOT) (test code = Aspartate Amino Transf (AST/SGOT)) 99 5-34 H [facility] HospitalAlanine Aminotransferase (ALT/SGPT) 2019-10-11 13:23:00* Test Item Value Reference Range Interpretation Comments Alanine Aminotransferase (ALT/SGPT) (test code = 1742-6) 71 0-55 H [facility] HospitalTotal Vamlotk8812-46-37 13:23:00* Test Item Value Reference Range Interpretation Comments Total Protein (test code = 2885-2) 6.8 6.5-8.1 [facility] HospitalAlbumin2020-02-04 13:23:00* Test Item Value Reference Range Interpretation Comments Albumin (test code = 1751-7) 4.0 3.5-5.0 [facility] HospitalGlobulin2020-02-04 13:23:00* Test Item Value Reference Range Interpretation Comments Globulin (test code = 89232-7) 2.8 2.3-3.5 [facility] HospitalAlbumin/Globulin Bdtyb4720-15-04 13:23:00 * Test Item Value Reference Range Interpretation Comments Albumin/Globulin Ratio (test code = 1759-0) 1.4 0.8-2.0 [facility] HospitalAlkaline Tmrvwqqncos7586-79-90 13:23:00* Test Item Value Reference Range Interpretation Comments Alkaline Phosphatase (test code = 6768-6) 72 40-150 [facility] HospitalCreatine Vckicl4981-77-91 13:23:00* Test Item Value Reference Range Interpretation Comments Creatine Kinase (test code = 2157-6) 224 29-168 H [facility] HospitalCreatine Kinase QQ6730-26-14 13:23:00* Test Item Value Reference Range Interpretation Comments Creatine Kinase MB (test code = 68436-8) 0.60 0-5.0 [facility] HospitalTroponin B5504-82-94 13:23:00* Test Item Value Reference Range Interpretation Comments Troponin I (test code = SAK4140) < 0.001 0-0.300 [facility] HospitalWhite Blood Hzqax5549-81-73 12:50:00* Test Item Value Reference Range Interpretation Comments White Blood Count (test code = 6690-2) 7.54 4.8-10.8 [facility] HospitalRed Blood Jbvpm9403-73-49 12:50:00* Test Item Value Reference Range Interpretation Comments Red Blood Count (test code = 789-8) 3.48 3.6-5.1 L [facility] HospitalHemoglobin2020-02-04 12:50:00* Test Item Value Reference Range Interpretation Comments Hemoglobin (test code = 03849-7) 12.1 12.0-16.0 [facility] HospitalHematocrit2020-02-04 12:50:00* Test Item Value Reference Range Interpretation Comments Hematocrit (test code = 4544-3) 34.1 34.2-44.1 L [facility] HospitalMean Corpuscular Tbmcrs8681-44-67 12:50:00* Test Item Value Reference Range Interpretation Comments Mean Corpuscular Volume (test code = 787-2) 98.0 81-99 [facility] HospitalMean Corpuscular Cozlbccoaa1274-67-45 12:50:00* Test Item Value Reference Range Interpretation Comments Mean Corpuscular Hemoglobin (test code = 785-6) 34.8 28-32 H [facility] HospitalMean Corpuscular Hemoglobin Concent 2019-10-11 12:50:00* Test Item Value Reference Range Interpretation Comments Mean Corpuscular Hemoglobin Concent (test code = 786-4) 35.5 31-35 H [facility] HospitalRed Cell Distribution Ikyvw6448-83-72 12:50:00* Test Item Value Reference Range Interpretation Comments Red Cell Distribution Width (test code = 97704-6) 12.2 11.7 -14.4 [facility] HospitalPlatelet Jipmf7636-64-00 12:50:00* Test Item Value Reference Range Interpretation Comments Platelet Count (test code = 777-3) 170 140-360 [facility] HospitalNeutrophils (%) (Auto)2019-10-11 12:50:00 * Test Item Value Reference Range Interpretation Comments Neutrophils (%) (Auto) (test code = 65792-5) 86.4 38.7-80.0 H [facility] HospitalLymphocytes (%) (Auto)2019-10-11 12:50:00 * Test Item Value Reference Range Interpretation Comments Lymphocytes (%) (Auto) (test code = 736-9) 8.1 18.0-39.1 L [facility] HospitalMonocytes (%) (Auto)2019-10-11 12:50:00* Test Item Value Reference Range Interpretation Comments Monocytes (%) (Auto) (test code = 5905-5) 4.6 4.4-11.3 [facility] HospitalEosinophils (%) (Auto)2019-10-11 12:50:00 * Test Item Value Reference Range Interpretation Comments Eosinophils (%) (Auto) (test code = 713-8) 0.0 0.0-6.0 [facility] HospitalBasophils (%) (Auto)2019-10-11 12:50:00* Test Item Value Reference Range Interpretation Comments Basophils (%) (Auto) (test code = 706-2) 0.1 0.0-1.0 [facility] HospitalIM GRANULOCYTES %2019-10-11 12:50:00* Test Item Value Reference Range Interpretation Comments IM GRANULOCYTES % (test code = IM GRANULOCYTES %) 0.8 0.0- 1.0 [facility] HospitalNeutrophils # (Auto)2019-10-11 12:50:00* Test Item Value Reference Range Interpretation Comments Neutrophils # (Auto) (test code = 751-8) 6.5 2.1-6.9 [facility] HospitalLymphocytes # (Auto)2019-10-11 12:50:00* Test Item Value Reference Range Interpretation Comments Lymphocytes # (Auto) (test code = 77141-2) 0.6 1.0-3.2 L [facility] HospitalMonocytes # (Auto)2019-10-11 12:50:00* Test Item Value Reference Range Interpretation Comments Monocytes # (Auto) (test code = 742-7) 0.4 0.2-0.8 [facility] HospitalEosinophils # (Auto)2019-10-11 12:50:00* Test Item Value Reference Range Interpretation Comments Eosinophils # (Auto) (test code = 711-2) 0.0 0.0-0.4 [facility] HospitalBasophils # (Auto)2019-10-11 12:50:00* Test Item Value Reference Range Interpretation Comments Basophils # (Auto) (test code = 704-7) 0.0 0.0-0.1 [facility] HospitalAbsolute Immature Granulocyte (auto 2019-10-11 12:50:00* Test Item Value Reference Range Interpretation Comments Absolute Immature Granulocyte (auto (zenaida t code = Absolute Immature Granulocyte (auto) 0.06 0-0.1 [facility] SINGLE (PORTABLE)2019-10-11 12:19:00 [facility] [address], [place] [address] Patient Name: AMILCAR CELIS MR #: [id number] : 1970 Age/Sex: 49/F Req #: [id number] Adm Physician: Ordered by: SIRENA MCKINLEY NP Report #: [id number] Location: ER Room/Bed: Procedure: [id number] DX/CH EST SINGLE (PORTABLE) Exam Date: 10/11/19 [...] SIRENA MCKINLEY NP CHEST SINGLE (PORTABLE)2019-07-06 11:10:00 [facility] [address] [address] Patient Name: AMILCAR CELIS MR #: [id number] : 1970 Age/Sex: 49/F Req #: [id number] Adm Physician: Ordered by: DARIEL KAPADIA MD Report #: [id number] Location: ER Room/Bed: Procedure: [id number] DX/CHES T SINGLE (PORTABLE) Exam Date: 07/06/19 [...] Interpretation Comments Troponin I (test code = XDT3306) < 0.001 0-0.300 [facility] HospitalThyroid Stimulating Hormone (TSH) 2019-07-06 10:37:00* Test Item Value Reference Range Interpretation Comments Thyroid Stimulating Hormone (TSH) (test code = 38427-1) 0.454 0.350-4.940 [facility] HospitalThyroid Stimulating Hormone (TSH) 2019-07-06 10:37:00* Test Item Value Reference Range Interpretation Comments Thyroid Stimulating Hormone (TSH) (test code = 86827-0) 0.454 0.350-4.940 [facility] HospitalThyroid Stimulating Hormone (TSH) 2019-07-06 10:37:00* Test Item Value Reference Range Interpretation Comments Thyroid Stimulating Hormone (TSH) (test code = 68188-0) 0.454 0.350-4.940 [facility] HospitalD-Dimer Quantitative (PE/DVT)2019-07-06 10:16:00* Test Item Value Reference Range Interpretation Comments D-Dimer Quantitative (PE/DVT) (test code = 70771-8) 0.40 0. 00-0.45 As with all in vitro diagnostic tests, the test results should be interpreted by the physician in conjunction with clinical findings and other test results.Test results are reported in NEW D-dimer units(ug/mLFEU).[facility] HospitalUrine FZI1800-97-73 10:16:00* Test Item Value Reference Range Interpretation Comments Urine WBC (test code = 5821-4) 0-5 0-5 [facility] HospitalUrine WED5333-32-88 10:16:00* Test Item Value Reference Range Interpretation Comments Urine RBC (test code = 54288-3) 0-5 0-5 [facility] HospitalUrine Qhjyhxrd4448-35-17 10:16:00* Test Item Value Reference Range Interpretation Comments Urine Bacteria (test code = 73411-6) MODERATE NONE H [facility] HospitalUrine Epithelial Ykvds0384-05-82 10:16:00 * Test Item Value Reference Range Interpretation Comments Urine Epithelial Cells (test code = 59640-4) MODERATE NONE [facility] HospitalUrine Transitional Epithelial Cells 2019-07-06 10:16:00* Test Item Value Reference Range Interpretation Comments Urine Transitional Epithelial Cells (test code = 8249-5) NONE NONE [facility] HospitalUrine Amorphous Fvwxecfc7534-95-66 10:16:00* Test Item Value Reference Range Interpretation Comments Urine Amorphous Sediment (test code = 8246-1) MANY FEW H [facility] HospitalB-Type Natriuretic Hxtsteh4538-21-74 10:16:00* Test Item Value Reference Range Interpretation Comments B-Type Natriuretic Peptide (test code = 05649-7) < 10.0 0-100 [facility] HospitalD-Dimer Quantitative (PE/DVT)2019-07-06 10:16:00* Test Item Value Reference Range Interpretation Comments D-Dimer Quantitative (PE/DVT) (test code = 12693-9) 0.40 0. 00-0.45 As with all in vitro diagnostic tests, the test results should be interpreted by the physician in conjunction with clinical findings and other test results.Test results are reported in NEW D-dimer units(ug/mLFEU).[facility] HospitalUrine Transitional Epithelial Yoevc6141-19-97 10:16:00* Test Item Value Reference Range Interpretation Comments Urine Transitional Epithelial Cells (test code = 8249-5) NONE NONE [facility] HospitalB-Type Natriuretic Gcewmti2570-71-73 10:16:00* Test Item Value Reference Range Interpretation Comments B-Type Natriuretic Peptide (test code = 16766-8) < 10.0 0-100 [facility] HospitalD-Dimer Quantitative (PE/DVT)2019-07-06 10:16:00* Test Item Value Reference Range Interpretation Comments D-Dimer Quantitative (PE/DVT) (test code = 91474-2) 0.40 0. 00-0.45 As with all in vitro diagnostic tests, the test results should be interpreted by the physician in conjunction with clinical findings and other test results.Test results are reported in NEW D-dimer units(ug/mLFEU).[facility] HospitalProthrombin Skjv4243-02-57 10:06:00* Test Item Value Reference Range Interpretation Comments Prothrombin Time (test code = 5902-2) 11.2 11.9-14.5 L [facility] HospitalProthromb Time International Ratio 2019-07-06 10:06:00* Test Item Value Reference Range Interpretation Comments Prothromb Time International Ratio (test code = 6301-6) 0.77 Oral Anticoagulant Therapy INR Values:1. Low Intensity Therapy 1.5 - 2.02 . Moderate Intensity Therapy 2.0 - 3.03. High Intensity Therapy(1) 2.5 - 3. 54. High Intensity Therapy(2) 3.0 - 4.05. Panic Value INR > 5.0 [facility] HospitalActivated Partial Thromboplast Time 2019-07-06 10:06:00* Test Item Value Reference Range Interpretation Comments Activated Partial Thromboplast Time (test code = 81034-7) 23.6 23.8-35.5 L [facility] HospitalProthrombin Shid4897-40-85 10:06:00* Test Item Value Reference Range Interpretation Comments Prothrombin Time (test code = 5902-2) 11.2 11.9-14.5 L [facility] HospitalProthromb Time International Ratio 2019-07-06 10:06:00* Test Item Value Reference Range Interpretation Comments Prothromb Time International Ratio (test code = 6301-6) 0.77 Oral Anticoagulant Therapy INR Values:1. Low Intensity Therapy 1.5 - 2.02 . Moderate Intensity Therapy 2.0 - 3.03. High Intensity Therapy(1) 2.5 - 3. 54. High Intensity Therapy(2) 3.0 - 4.05. Panic Value INR > 5.0 [facility] HospitalActivated Partial Thromboplast Time 2019-07-06 10:06:00* Test Item Value Reference Range Interpretation Comments Activated Partial Thromboplast Time (test code = 38250-0) 23.6 23.8-35.5 L [facility] HospitalProthrombin Sdef7855-02-91 10:06:00* Test Item Value Reference Range Interpretation Comments Prothrombin Time (test code = 5902-2) 11.2 11.9-14.5 L [facility] HospitalProthromb Time International Ratio 2019-07-06 10:06:00* Test Item Value Reference Range Interpretation Comments Prothromb Time International Ratio (test code = 6301-6) 0.77 Oral Anticoagulant Therapy INR Values:1. Low Intensity Therapy 1.5 - 2.02 . Moderate Intensity Therapy 2.0 - 3.03. High Intensity Therapy(1) 2.5 - 3. 54. High Intensity Therapy(2) 3.0 - 4.05. Panic Value INR > 5.0 [facility] HospitalActivated Partial Thromboplast Time 2019-07-06 10:06:00* Test Item Value Reference Range Interpretation Comments Activated Partial Thromboplast Time (test code = 44906-6) 23.6 23.8-35.5 L [facility] Systemodium Ixlzl6652-93-71 10:00:00* Test Item Value Reference Range Interpretation Comments Sodium Level (test code = 2951-2) 143 136-145 [facility] HospitalPotassium Kjyyu0198-07-96 10:00:00* Test Item Value Reference Range Interpretation Comments Potassium Level (test code = 2823-3) 3.0 3.5-5.1 L [facility] HospitalChloride Zgpmc8744-49-60 10:00:00* Test Item Value Reference Range Interpretation Comments Chloride Level (test code = 2075-0) 101 98-107 [facility] HospitalCarbon Dioxide Iikvg9324-03-26 10:00:00* Test Item Value Reference Range Interpretation Comments Carbon Dioxide Level (test code = 2028-9) 28 22-29 [facility] HospitalAnion Rop9106-69-37 10:00:00* Test Item Value Reference Range Interpretation Comments Anion Gap (test code = 43787-8) 17.0 8-16 H [facility] HospitalBlood Urea Nxfkmoei4798-95-28 10:00:00* Test Item Value Reference Range Interpretation Comments Blood Urea Nitrogen (test code = 3094-0) 6 7-26 L [facility] HospitalCreatinine2019-10-30 10:00:00* Test Item Value Reference Range Interpretation Comments Creatinine (test code = 2160-0) 0.69 0.57-1.11 [facility] HospitalBUN/Creatinine Woplm9087-26-95 10:00:00* Test Item Value Reference Range Interpretation Comments BUN/Creatinine Ratio (test code = 3097-3) 9 6-25 [facility] HospitalEstimat Glomerular Filtration Rate 2019-07-06 10:00:00* Test Item Value Reference Range Interpretation Comments Estimat Glomerular Filtration Rate (test code = 516903022) > 60 >60 Ranges were taken from the National Kidney Disease Education Program and the [facility] Foundation literature.Reference ranges:60 or greater: Ghweuu18-07 ( for 3 consecutive months): Chronic kidney disease 15 or less: Kidney failureHarris Health System Ben Taub HospitalGlucose Fwtlt2884-98-03 10:00:00* Test Item Value Reference Range Interpretation Comments Glucose Level (test code = WLV7635) 104 74-118 [facility] HospitalCalcium Qrmiv6806-12-42 10:00:00* Test Item Value Reference Range Interpretation Comments Calcium Level (test code = 40772-0) 9.7 8.4-10.2 [facility] HospitalMagnesium Tydup3177-46-31 10:00:00* Test Item Value Reference Range Interpretation Comments Magnesium Level (test code = 01830-0) 1.9 1.3-2.1 [facility] HospitalTotal Cidlhymug9650-01-28 10:00:00* Test Item Value Reference Range Interpretation Comments Total Bilirubin (test code = 1975-2) 0.3 0.2-1.2 [facility] HospitalAspartate Amino Transf (AST/SGOT) 2019-07-06 10:00:00* Test Item Value Reference Range Interpretation Comments Aspartate Amino Transf (AST/SGOT) (test code = Aspartate Amino Transf (AST/SGOT)) 166 5-34 H [facility] HospitalAlanine Aminotransferase (ALT/SGPT) 2019-07-06 10:00:00* Test Item Value Reference Range Interpretation Comments Alanine Aminotransferase (ALT/SGPT) (test code = 1742-6) 112 0-55 H [facility] HospitalTotal Zpnbplk1712-88-88 10:00:00* Test Item Value Reference Range Interpretation Comments Total Protein (test code = 2885-2) 7.6 6.5-8.1 [facility] HospitalAlbumin2019-10-30 10:00:00* Test Item Value Reference Range Interpretation Comments Albumin (test code = 1751-7) 3.8 3.5-5.0 [facility] HospitalGlobulin2019-10-30 10:00:00* Test Item Value Reference Range Interpretation Comments Globulin (test code = 30360-9) 3.8 2.3-3.5 H [facility] HospitalAlbumin/Globulin Vwlxc7599-91-40 10:00:00 * Test Item Value Reference Range Interpretation Comments Albumin/Globulin Ratio (test code = 1759-0) 1.0 0.8-2.0 [facility] HospitalAlkaline Hdvaczpknxp0452-39-32 10:00:00* Test Item Value Reference Range Interpretation Comments Alkaline Phosphatase (test code = 6768-6) 93 40-150 [facility] HospitalCreatine Miesqf1105-81-81 10:00:00* Test Item Value Reference Range Interpretation Comments Creatine Kinase (test code = 2157-6) 122 29-168 [facility] HospitalEthyl Alcohol Agpea6355-82-37 09:59:00* Test Item Value Reference Range Interpretation Comments Ethyl Alcohol Level (test code = 5643-2) 265.2 0.0-10.0 H [facility] HospitalUrine Opiates Sllgar8860-07-99 09:53:00* Test Item Value Reference Range Interpretation Comments Urine Opiates Screen (test code = 79218-9) NEGATIVE NEGATIVE ALL TESTS PERFORMED MANUALLY ON [email or web address] TOX/SEE TESTHarris Health System Ben Taub HospitalUrine Barbiturates Dozlhp4648-71-71 09:53:00* Test Item Value Reference Range Interpretation Comments Urine Barbiturates Screen (test code = 058389229) NEGATIVE NEGA TIVE [facility] HospitalUrine Phencyclidine Vfmstl5696-41-90 09:53:00* Test Item Value Reference Range Interpretation Comments Urine Phencyclidine Screen (test code = 59927-5) NEGATIVE NEGAT MERCEDEZ [facility] HospitalUrine Amphetamines Oporss4929-65-05 09:53:00* Test Item Value Reference Range Interpretation Comments Urine Amphetamines Screen (test code = 83228-3) NEGATIVE NEGATI VE [facility] HospitalUrine Methamphetamines Dstjny5551-64-73 09:53:00* Test Item Value Reference Range Interpretation Comments Urine Methamphetamines Screen (test code = Urine Metha mphetamines Screen) NEGATIVE NEGATIVE [facility] HospitalUrine Benzodiazepines Nrqdby5861-87-35 09:53:00* Test Item Value Reference Range Interpretation Comments Urine Benzodiazepines Screen (test code = 72524-0) NEGATIVE NEG ATIVE [facility] HospitalUrine Cocaine Nvbjeb7192-73-79 09:53:00* Test Item Value Reference Range Interpretation Comments Urine Cocaine Screen (test code = 3398-5) NEGATIVE NEGATIVE [facility] HospitalUrine Cannabinoids Jtrqst0667-75-59 09:53:00* Test Item Value Reference Range Interpretation Comments Urine Cannabinoids Screen (test code = 95492-4) NEGATIVE NEGATI VE THESE RESULTS ARE FOR MEDICAL TREATMENT ONLYTHIS REPORT CONTAINS UNCONFIR MED SCREENING RESULTS*POSITIVE RESULTS WILL BE CONFIRMED BY REFERENCE LAB UPON R EQUEST CUT-OFFDRUG CLASS CONCENTRATION ng/mLAmphetamines 1000Methamphetamines 1000Cocaine 300Opiate 300Phencyc lidine 25Cannabinoid 50Barbiturates 300Benzodiazepine 300Methadone 300[facility] HospitalUrine Methadone Wffhzn7993-13-41 09:53:00* Test Item Value Reference Range Interpretation Comments Urine Methadone Screen (test code = 28567-0) NEGATIVE NEGATIVE THESE RESULTS ARE FOR MEDICAL TREATMENT ONLYTHIS REPORT CONTAINS UNCONFIR MED SCREENING RESULTS*POSITIVE RESULTS WILL BE CONFIRMED BY REFERENCE LAB UPON R EQUEST CUT-OFFDRUG CLASS CONCENTRATION ng/mLAmphetamines 1000Methamphetamines 1000Cocaine Metabolite 300Opiate 300Phencyc lidine 25Cannabinoid 50Barbiturates 300Benzodiazepine 300Methadone 300[facility] HospitalUrine Ccvfe0410-70-05 09:50:00* Test Item Value Reference Range Interpretation Comments Urine Color (test code = 5778-6) YELLOW YELLOW [facility] HospitalUrine Udltoxo8822-89-43 09:50:00* Test Item Value Reference Range Interpretation Comments Urine Clarity (test code = 50021-2) SL CLOUDY CLEAR [facility] HospitalUrine Specific Ddflrkh4669-84-41 09:50:00 * Test Item Value Reference Range Interpretation Comments Urine Specific [place] (test code = 5811-5) 1.015 1.010-1.02 5 [facility] HospitalUrine [id number] 09:50:00* Test Item Value Reference Range Interpretation Comments Urine pH (test code = 52232-9) 7 5-7 [facility] HospitalUrine Leukocyte Slhyrbeq4256-58-64 09:50:00* Test Item Value Reference Range Interpretation Comments Urine Leukocyte Esterase (test code = 25257-5) NEGATIVE NEGATIV E [facility] Dgzavwq7387-01-85 09:50:00* Test Item Value Reference Range Interpretation Comments Urine Nitrite (test code = 64422-2) NEGATIVE NEGATIVE [facility] HospitalUrine Qkvtxoo3896-28-19 09:50:00* Test Item Value Reference Range Interpretation Comments Urine Protein (test code = 91094-2) NEGATIVE NEGATIVE [facility] Glucose (UA)2019-07-06 09:50:00* Test Item Value Reference Range Interpretation Comments Urine Glucose (UA) (test code = 10884-4) NEGATIVE NEGATIVE [facility] HospitalUrine Tgpchfo8208-34-31 09:50:00* Test Item Value Reference Range Interpretation Comments Urine Ketones (test code = 28555-0) NEGATIVE NEGATIVE [facility] Wozuqjdkkmrs1219-03-99 09:50:00* Test Item Value Reference Range Interpretation Comments Urine Urobilinogen (test code = 32272-5) 0.2 0.2-1 [facility] HospitalUrine Dparpchao8061-39-32 09:50:00* Test Item Value Reference Range Interpretation Comments Urine Bilirubin (test code = 1977-8) NEGATIVE NEGATIVE [facility] HospitalUrine Sspyp6458-15-35 09:50:00* Test Item Value Reference Range Interpretation Comments Urine Blood (test code = 15459-5) NEGATIVE NEGATIVE [facility] HospitalWhite Blood Ddkkb8694-95-60 09:37:00* Test Item Value Reference Range Interpretation Comments White Blood Count (test code = 6690-2) 4.18 4.8-10.8 L [facility] HospitalRed Blood Yadts4391-44-36 09:37:00* Test Item Value Reference Range Interpretation Comments Red Blood Count (test code = 789-8) 3.67 3.6-5.1 [facility] HospitalHemoglobin2019-10-30 09:37:00* Test Item Value Reference Range Interpretation Comments Hemoglobin (test code = 79646-8) 12.8 12.0-16.0 [facility] HospitalHematocrit2019-10-30 09:37:00* Test Item Value Reference Range Interpretation Comments Hematocrit (test code = 4544-3) 37.2 34.2-44.1 [facility] HospitalMean Corpuscular Panmiu6793-78-56 09:37:00* Test Item Value Reference Range Interpretation Comments Mean Corpuscular Volume (test code = 787-2) 101.4 81-99 H [facility] HospitalMean Corpuscular Owyagcunqp3033-09-83 09:37:00* Test Item Value Reference Range Interpretation Comments Mean Corpuscular Hemoglobin (test code = 785-6) 34.9 28-32 H [facility] HospitalMean Corpuscular Hemoglobin Concent 2019-07-06 09:37:00* Test Item Value Reference Range Interpretation Comments Mean Corpuscular Hemoglobin Concent (test code = 786-4) 34.4 31-35 [facility] HospitalRed Cell Distribution Olexn3930-03-93 09:37:00* Test Item Value Reference Range Interpretation Comments Red Cell Distribution Width (test code = 86171-5) 13.1 11.7 -14.4 [facility] HospitalPlatelet Yhajn3159-03-29 09:37:00* Test Item Value Reference Range Interpretation Comments Platelet Count (test code = 777-3) 240 140-360 [facility] HospitalNeutrophils (%) (Auto)2019-07-06 09:37:00 * Test Item Value Reference Range Interpretation Comments Neutrophils (%) (Auto) (test code = 92307-6) 40.4 38.7-80.0 [facility] HospitalLymphocytes (%) (Auto)2019-07-06 09:37:00 * Test Item Value Reference Range Interpretation Comments Lymphocytes (%) (Auto) (test code = 736-9) 51.2 18.0-39.1 H [facility] HospitalMonocytes (%) (Auto)2019-07-06 09:37:00* Test Item Value Reference Range Interpretation Comments Monocytes (%) (Auto) (test code = 5905-5) 6.7 4.4-11.3 [facility] HospitalEosinophils (%) (Auto)2019-07-06 09:37:00 * Test Item Value Reference Range Interpretation Comments Eosinophils (%) (Auto) (test code = 713-8) 0.5 0.0-6.0 [facility] HospitalBasophils (%) (Auto)2019-07-06 09:37:00* Test Item Value Reference Range Interpretation Comments Basophils (%) (Auto) (test code = 706-2) 1.0 0.0-1.0 [facility] HospitalIM GRANULOCYTES %2019-07-06 09:37:00* Test Item Value Reference Range Interpretation Comments IM GRANULOCYTES % (test code = IM GRANULOCYTES %) 0.2 0.0- 1.0 [facility] HospitalNeutrophils # (Auto)2019-07-06 09:37:00* Test Item Value Reference Range Interpretation Comments Neutrophils # (Auto) (test code = 751-8) 1.7 2.1-6.9 L [facility] HospitalLymphocytes # (Auto)2019-07-06 09:37:00* Test Item Value Reference Range Interpretation Comments Lymphocytes # (Auto) (test code = 63602-0) 2.1 1.0-3.2 [facility] HospitalMonocytes # (Auto)2019-07-06 09:37:00* Test Item Value Reference Range Interpretation Comments Monocytes # (Auto) (test code = 742-7) 0.3 0.2-0.8 [facility] HospitalEosinophils # (Auto)2019-07-06 09:37:00* Test Item Value Reference Range Interpretation Comments Eosinophils # (Auto) (test code = 711-2) 0.0 0.0-0.4 [facility] HospitalBasophils # (Auto)2019-07-06 09:37:00* Test Item Value Reference Range Interpretation Comments Basophils # (Auto) (test code = 704-7) 0.0 0.0-0.1 [facility] HospitalAbsolute Immature Granulocyte (auto 2019-07-06 09:37:00* Test Item Value Reference Range Interpretation Comments Absolute Immature Granulocyte (auto (zenaida t code = Absolute Immature Granulocyte (auto) 0.01 0-0.1 [facility] HospitalProthrombin time (PT) in platelet poor plasma by coagulation ppzjw0313-10-51 09:13:00* Test Item Value Reference Range Interpretation Comments Prothrombin Time (test code = 5902-2) 11.2 11.9-14.5 [facility] HospitalINR in Platelet poor plasma by Coagulation rylue1099-75-61 09:13:00* Test Item Value Reference Range Interpretation Comments Prothromb Time International Ratio (test code = 6301-6) 0.77 Oral Anticoagulant Therapy INR Values:1. Low Intensity Therapy 1.5 - 2.02 . Moderate Intensity Therapy 2.0 - 3.03. High Intensity Therapy(1) 2.5 - 3. 54. High Intensity Therapy(2) 3.0 - 4.05. Panic Value INR > 5.0 [facility] HospitalActivated partial thromboplastin time (aPTT) in platelet poor plasma by coagulation lmjdx9465-43-30 09:13:00* Test Item Value Reference Range Interpretation Comments Activated Partial Thromboplast Time (test code = 45593-9) 23.6 23.8-35.5 [facility] HospitalFibrin D-dimer DDU measurement in platelet poor plasma (mass/volume)2019-07-06 09:13:00* Test Item Value Reference Range Interpretation Comments D-Dimer Quantitative (PE/DVT) (test code = 90514-7) 0.40 0. 00-0.45 As with all in vitro diagnostic tests, the test results should be interpreted by the physician in conjunction with clinical findings and other test results.Test results are reported in NEW D-dimer units(ug/mLFEU).[facility] Systemerum or plasma thyrotropin measurement by detection limit <= 0.005 miu/l (units/volume)2019-07-06 09:13:00* Test Item Value Reference Range Interpretation Comments Thyroid Stimulating Hormone (TSH) (test code = 62065-2) 0.454 0.350-4.940 [facility] HospitalMagnesium Ovruy4195-20-56 19:25:00* Test Item Value Reference Range Interpretation Comments Magnesium Level (test code = 91936-0) 1.6 1.3-2.1 [facility] Systemodium Khzjw4669-00-91 18:59:00* Test Item Value Reference Range Interpretation Comments Sodium Level (test code = 2951-2) 134 136-145 L [facility] HospitalPotassium Yloit1158-25-26 18:59:00* Test Item Value Reference Range Interpretation Comments Potassium Level (test code = 2823-3) 3.2 3.5-5.1 L [facility] HospitalChloride Wokub1763-21-26 18:59:00* Test Item Value Reference Range Interpretation Comments Chloride Level (test code = 2075-0) 100 98-107 [facility] HospitalCarbon Dioxide Melqa4900-76-43 18:59:00* Test Item Value Reference Range Interpretation Comments Carbon Dioxide Level (test code = 2028-9) 25 22-29 [facility] HospitalAnion Ria6611-33-11 18:59:00* Test Item Value Reference Range Interpretation Comments Anion Gap (test code = 21066-9) 12.2 8-16 [facility] HospitalBlood Urea Htmxvspb3974-68-44 18:59:00* Test Item Value Reference Range Interpretation Comments Blood Urea Nitrogen (test code = 3094-0) 10 7-26 [facility] HospitalCreatinine2019-10-14 18:59:00* Test Item Value Reference Range Interpretation Comments Creatinine (test code = 2160-0) 0.74 0.57-1.11 [facility] HospitalBUN/Creatinine Nibhg9310-59-92 18:59:00* Test Item Value Reference Range Interpretation Comments BUN/Creatinine Ratio (test code = 3097-3) 14 6-25 [facility] HospitalEstimat Glomerular Filtration Rate 2019-06-20 18:59:00* Test Item Value Reference Range Interpretation Comments Estimat Glomerular Filtration Rate (test code = 790869924) > 60 >60 Ranges were taken from the National Kidney Disease Education Program and the [facility] [employer] literature.Reference ranges:60 or greater: Hgwqgh11-97 ( for 3 consecutive months): Chronic kidney disease 15 or less: Kidney failureHarris Health System Ben Taub HospitalGlucose Uxuxu4470-48-97 18:59:00* Test Item Value Reference Range Interpretation Comments Glucose Level (test code = ZIJ4812) 110 74-118 [facility] HospitalCalcium Xvmef4765-28-99 18:59:00* Test Item Value Reference Range Interpretation Comments Calcium Level (test code = 84056-6) 8.8 8.4-10.2 [facility] HospitalTotal Kmxahjksd4817-36-85 18:59:00* Test Item Value Reference Range Interpretation Comments Total Bilirubin (test code = 1975-2) 0.5 0.2-1.2 [facility] HospitalAspartate Amino Transf (AST/SGOT) 2019-06-20 18:59:00* Test Item Value Reference Range Interpretation Comments Aspartate Amino Transf (AST/SGOT) (test code = Aspartate Amino Transf (AST/SGOT)) 153 5-34 H [facility] HospitalAlanine Aminotransferase (ALT/SGPT) 2019-06-20 18:59:00* Test Item Value Reference Range Interpretation Comments Alanine Aminotransferase (ALT/SGPT) (test code = 1742-6) 225 0-55 H [facility] HospitalTotal Pwceqcu4158-38-76 18:59:00* Test Item Value Reference Range Interpretation Comments Total Protein (test code = 2885-2) 5.9 6.5-8.1 L [facility] HospitalAlbumin2019-10-14 18:59:00* Test Item Value Reference Range Interpretation Comments Albumin (test code = 1751-7) 3.1 3.5-5.0 L [facility] HospitalGlobulin2019-10-14 18:59:00* Test Item Value Reference Range Interpretation Comments Globulin (test code = 33945-4) 2.8 2.3-3.5 [facility] HospitalAlbumin/Globulin Gwtfk0374-33-98 18:59:00 * Test Item Value Reference Range Interpretation Comments Albumin/Globulin Ratio (test code = 1759-0) 1.1 0.8-2.0 [facility] HospitalAlkaline Oztyrqwiwgo4572-62-59 18:59:00* Test Item Value Reference Range Interpretation Comments Alkaline Phosphatase (test code = 6768-6) 62 40-150 [facility] HospitalWhite Blood Uoeik2670-81-71 06:17:00* Test Item Value Reference Range Interpretation Comments White Blood Count (test code = 6690-2) 6.94 4.8-10.8 [facility] HospitalRed Blood Ukkxo7056-91-62 06:17:00* Test Item Value Reference Range Interpretation Comments Red Blood Count (test code = 789-8) 3.32 3.6-5.1 L [facility] HospitalHemoglobin2019-10-14 06:17:00* Test Item Value Reference Range Interpretation Comments Hemoglobin (test code = 55728-4) 11.4 12.0-16.0 L [facility] HospitalHematocrit2019-10-14 06:17:00* Test Item Value Reference Range Interpretation Comments Hematocrit (test code = 4544-3) 33.9 34.2-44.1 L [facility] HospitalMean Corpuscular Iazoud0060-34-78 06:17:00* Test Item Value Reference Range Interpretation Comments Mean Corpuscular Volume (test code = 787-2) 102.1 81-99 H [facility] HospitalMean Corpuscular Noemxeoqmm8187-53-48 06:17:00* Test Item Value Reference Range Interpretation Comments Mean Corpuscular Hemoglobin (test code = 785-6) 34.3 28-32 H [facility] HospitalMean Corpuscular Hemoglobin Concent 2019-06-20 06:17:00* Test Item Value Reference Range Interpretation Comments Mean Corpuscular Hemoglobin Concent (test code = 786-4) 33.6 31-35 [facility] HospitalRed Cell Distribution Pdqjy8770-82-71 06:17:00* Test Item Value Reference Range Interpretation Comments Red Cell Distribution Width (test code = 50920-2) 11.7 11.7 -14.4 [facility] HospitalPlatelet Dtulq2890-79-62 06:17:00* Test Item Value Reference Range Interpretation Comments Platelet Count (test code = 777-3) 130 140-360 L [facility] HospitalNeutrophils (%) (Auto)2019-06-20 06:17:00 * Test Item Value Reference Range Interpretation Comments Neutrophils (%) (Auto) (test code = 77365-9) 54.5 38.7-80.0 [facility] HospitalLymphocytes (%) (Auto)2019-06-20 06:17:00 * Test Item Value Reference Range Interpretation Comments Lymphocytes (%) (Auto) (test code = 736-9) 37.3 18.0-39.1 [facility] HospitalMonocytes (%) (Auto)2019-06-20 06:17:00* Test Item Value Reference Range Interpretation Comments Monocytes (%) (Auto) (test code = 5905-5) 6.3 4.4-11.3 [facility] HospitalEosinophils (%) (Auto)2019-06-20 06:17:00 * Test Item Value Reference Range Interpretation Comments Eosinophils (%) (Auto) (test code = 713-8) 0.9 0.0-6.0 [facility] HospitalBasophils (%) (Auto)2019-06-20 06:17:00* Test Item Value Reference Range Interpretation Comments Basophils (%) (Auto) (test code = 706-2) 0.6 0.0-1.0 [facility] HospitalIM GRANULOCYTES %2019-06-20 06:17:00* Test Item Value Reference Range Interpretation Comments IM GRANULOCYTES % (test code = IM GRANULOCYTES %) 0.4 0.0- 1.0 [facility] HospitalNeutrophils # (Auto)2019-06-20 06:17:00* Test Item Value Reference Range Interpretation Comments Neutrophils # (Auto) (test code = 751-8) 3.8 2.1-6.9 [facility] HospitalLymphocytes # (Auto)2019-06-20 06:17:00* Test Item Value Reference Range Interpretation Comments Lymphocytes # (Auto) (test code = 44988-9) 2.6 1.0-3.2 [facility] HospitalMonocytes # (Auto)2019-06-20 06:17:00* Test Item Value Reference Range Interpretation Comments Monocytes # (Auto) (test code = 742-7) 0.4 0.2-0.8 [facility] HospitalEosinophils # (Auto)2019-06-20 06:17:00* Test Item Value Reference Range Interpretation Comments Eosinophils # (Auto) (test code = 711-2) 0.1 0.0-0.4 [facility] HospitalBasophils # (Auto)2019-06-20 06:17:00* Test Item Value Reference Range Interpretation Comments Basophils # (Auto) (test code = 704-7) 0.0 0.0-0.1 [facility] HospitalAbsolute Immature Granulocyte (auto 2019-06-20 06:17:00* Test Item Value Reference Range Interpretation Comments Absolute Immature Granulocyte (auto (zenaida t code = Absolute Immature Granulocyte (auto) 0.03 0-0.1 [facility] HospitalUS ABDOMEN RUEERYOZ1231-25-08 10:03:00 [place] [address] Patient Name: AMILCAR CELIS MR #: [id number] : 1970 Age/Sex: 49/F Req #: [id number] Adm Physician: ARMANI ARREOLA MD Ordered by: ARMANI ARREOLA MD Report #: [id number] Location: MED/SURG2 [facility]/Bed: 215-1 Procedure: [id number] US/US AB DARDEN COMPLETE Exam Date: 06/19/19 Exam Time: 928 REPORT STATUS: Signed EXAM: US AB DOMEN COMPLETE INDICATION: Elevated LFTs. COMPARISON: None OMID [...] 1006 COPY TO: ARMANI ARREOLA MD Creatine Fzbzoh5177-10-76 04:17:00* Test Item Value Reference Range Interpretation Comments Creatine Kinase (test code = 2157-6) 54 29-168 [facility] HospitalCreatine Kinase OM6582-38-91 04:17:00* Test Item Value Reference Range Interpretation Comments Creatine Kinase MB (test code = 12050-5) 0.60 0-5.0 [facility] HospitalTroponin E2385-66-00 04:17:00* Test Item Value Reference Range Interpretation Comments Troponin I (test code = BRR7237) 0.002 0-0.300 [facility] HospitalCreatine Kinase DJ5620-12-14 04:17:00* Test Item Value Reference Range Interpretation Comments Creatine Kinase MB (test code = 24081-0) 0.60 0-5.0 [facility] HospitalLipase2019-10-12 10:46:00* Test Item Value Reference Range Interpretation Comments Lipase (test code = 3040-3) 98 8-78 H [facility] HospitalLipase2019-10-12 10:46:00* Test Item Value Reference Range Interpretation Comments Lipase (test code = 3040-3) 98 8-78 H [facility]2019-10-12 10:46:00* Test Item Value Reference Range Interpretation Comments Lipase (test code = 3040-3) 98 8-78 H [facility] HospitalLipase2019-10-12 10:46:00* Test Item Value Reference Range Interpretation Comments Lipase (test code = 3040-3) 98 8-78 H [facility] HospitalHuthayne Chorionic Gonadotropin, Qual 2019-06-18 10:44:00* Test Item Value Reference Range Interpretation Comments Human Chorionic Gonadotropin, Qual (test code = 2118-8) NEGATIVE NEGATIVE [facility] Chorionic Gonadotropin, Qual 2019-06-18 10:44:00* Test Item Value Reference Range Interpretation Comments Human Chorionic Gonadotropin, Qual (test code = 2118-8) NEGATIVE NEGATIVE [facility] Chorionic Gonadotropin, Qual 2019-06-18 10:44:00* Test Item Value Reference Range Interpretation Comments Human Chorionic Gonadotropin, Qual (test code = 2118-8) NEGATIVE NEGATIVE [facility] Chorionic Gonadotropin, Qual 2019-06-18 10:44:00* Test Item Value Reference Range Interpretation Comments Human Chorionic Gonadotropin, Qual (test code = 2118-8) NEGATIVE NEGATIVE [facility] HospitalEthyl Alcohol Tpyhw1818-44-43 10:33:00* Test Item Value Reference Range Interpretation Comments Ethyl Alcohol Level (test code = 5643-2) < 10.0 0.0-10.0 [facility] Systemerum or plasma choriogonadotropin ( test) abkucanmn0640-53-31 09:58:00* Test Item Value Reference Range Interpretation Comments Human Chorionic Gonadotropin, Qual (test code = 2118-8) NEGATIVE NEGATIVE [facility] HospitalBASIC METABOLIC YXTGC7578-47-90 18:02:00 * Test Item Value Reference Range Interpretation Comments SODIUM (test code = NA) 144 mmol/L 136-145 N POTASSIUM (test code = K) 2.7 mmol/L 3.5-5.1 Re sults called to [id number] by V.LAB. 05/02/19 1801Critical results verified and [...] CA) 9.4 mg/dL 8.5-10.1 N HEPATIC FUNCTION [id number] 18:02:00* Test Item Value Reference Range Interpretation [...] reference range due to change in reagent. [id number] 18:02:00* Test Item Value Reference Range Interpretation Comments LIPASE (test code = LIP) 203 U/L 73.0-393.0 N HCG SERUM [id number] 18:02:00* Test Item Value Reference Range Interpretation Comments HCG SERUM QUAL (test code = HCGQL) NEGATIVE NEGATIVE This HCGQL test is NOT applicable for MALE patients.Check with nurse about probable order error.If Tumor Marker Test needed, nurse should order test "HCGTU"(Test #550.43041) [id number] 18:02:00* Test Item Value Reference Range Interpretation Comments TROPONIN-I (test code = TROPI) <0.015 ng/mL 0-0.045 N CBC W/O [id number] 17:57:00* Test Item Value Reference Range Interpretation [...] MPV) 10.1 fL 6.7-11.0 N BASIC METABOLIC KEWVC5018-91-66 17:44:00* Test Item Value Reference Range Interpretation [...] code = CA) mg/dL 8.5-10.1 HEPATIC FUNCTION [id number] 17:44:00* Test Item Value Reference Range Interpretation [...] TOTAL (test code = ALKP) IUnit/L 45-117 MAJJMZ5475-07-74 17:44:00* Test Item Value Reference Range Interpretation Comments LIPASE (test code = LIP) U/L 73.0-393.0 HCG SERUM PTIE2344-02-26 17:44:00* Test Item Value Reference Range Interpretation Comments HCG SERUM QUAL (test code = HCGQL) NEGATIVE NEGATIVE This HCGQL test is NOT applicable for MALE patients.Check with nurse about probable order error.If Tumor Marker Test needed, nurse should order test "HCGTU"(Test #550.95413) [id number] 17:44:00* Test Item Value Reference Range Interpretation Comments TROPONIN-I (test code = TROPI) ng/mL 0-0.045 CBC W/O [id number] 17:31:00* Test Item Value Reference Range Interpretation [...] code = MPV) fL 6.7-11.0 BASIC METABOLIC [id number] 19:52:00* Test Item Value Reference Range Interpretation Comments SODIUM (test code = NA) 139 mmol/L 136-145 N POTASSIUM (test code = K) 2.7 mmol/L 3.5-5.1 Re lucillets called to [id number] by THIAGO 03/02/19 1952Critical results verified and read back [...] CA) 8.1 mg/dL 8.5-10.1 L COMPREHENSIVE METABOLIC [id number] 09:51:00* Test Item Value Reference Range Interpretation Comments SODIUM (test code = NA) 138 mmol/L 136-145 N POTASSIUM (test code = K) 2.5 mmol/L 3.5-5.1 Re sults called to [id number] by YAN 03/02/19 0951Critical results verified and [...] reference range due to change in reagent. [id number] 09:38:00* Test Item Value Reference Range Interpretation Comments PHOSPHORUS (test code = PHOS) mg/dL 2.5-4.9 [id number] 09:38:00* Test Item Value Reference Range Interpretation Comments MAGNESIUM (test code = MAG) 2.0 mg/dL 1.8-2.4 N [id number] 09:38:00* Test Item Value Reference Range Interpretation Comments PHOSPHORUS (test code = PHOS) 2.4 mg/dL 2.5-4.9 L [id number] 09:38:00* Test Item Value Reference Range Interpretation Comments MAGNESIUM (test code = MAG) 2.0 mg/dL 1.8-2.4 N URINALYSIS [id number] 07:59:00* Test Item Value Reference Range Interpretation Comments UA COLOR (test code = COLU) [place] YELLOW UA APPEARANCE (test code = APPU) [...] per HPF NONE Urine Source? Clean CatchURINALYSIS [id number] 07:59:00* Test Item Value Reference Range Interpretation Comments UA COLOR (test code = COLU) [place] YELLOW UA APPEARANCE (test code = APPU) [...] FEW A Urine Source? Clean CatchBASIC METABOLIC [id number] 21:49:00* Test Item Value Reference Range Interpretation Comments SODIUM (test code = NA) 137 mmol/L 136-145 N POTASSIUM (test code = K) 2.2 mmol/L 3.5-5.1 Re sults called to KEITH/[id number] V.LAB. 03/01/192148Critical results verified and read back [...] CA) 8.3 mg/dL 8.5-10.1 L HEPATIC FUNCTION [id number] 21:49:00* Test Item Value Reference Range Interpretation [...] reference range due to change in reagent. [id number] 21:49:00* Test Item Value Reference Range Interpretation Comments PHOSPHORUS (test code = PHOS) 1.7 mg/dL 2.5-4.9 L CREATINE KINASE (CK)2019-03-01 21:49:00* Test Item Value Reference Range Interpretation Comments CREATINE KINASE (CK) (test code = CK) 354 IUnit/L 26-208 H [id number] 21:49:00* Test Item Value Reference Range Interpretation Comments LIPASE (test code = LIP) 184 U/L 73.0-393.0 N [id number] 21:49:00* Test Item Value Reference Range Interpretation Comments MAGNESIUM (test code = MAG) 1.4 mg/dL 1.8-2.4 L CBC W/O [id number] 21:12:00* Test Item Value Reference Range Interpretation [...] MPV) 10.3 fL 6.7-11.0 N CBC W/O [id number] 21:00:00* Test Item Value Reference Range Interpretation [...] code = MPV) fL 6.7-11.0 TROPONIN I JTQGV0134-36-14 09:50:00* Test Item Value Reference Range Interpretation [...] only if similarmethodology is used. BASIC METABOLIC WAQSH6313-01-65 08:06:00* Test Item Value Reference Range Interpretation [...] code = CA) 8.9 mg/dL 8.5-10.1 N [id number]-[id number] 08:06:00* Test Item Value Reference Range Interpretation Comments TROPONIN-I (test code = TROPI) <0.015 ng/mL 0-0.045 N [id number] 08:06:00* Test Item Value Reference Range Interpretation Comments ALCOHOL (test code = ALC) 223 mg/dL 0.0-3.0 H -- INTERPRETIVE DATA NOTE: POSITIVE SCREENING RESULTS SHOULD BE CONSIDERED PRESUMPTIVE.WHEN COLLECTED FOR MEDICAL PURPOSES ONLY. SPECIMEN WILL NOTBE COLLECTED BY CHAIN OF CUSTODY.IF A CONFIRMATION OF POSITIVE RESULTS IS DESIRED, ACONFIRMATION TEST MUST BE REQUESTED BY THE PHYSICIAN AT ANADDITIONAL CHARGE TO THE PATIENT. [id number] 07:57:00* Test Item Value Reference Range Interpretation Comments MAGNESIUM (test code = MAG) 1.9 mg/dL 1.8-2.4 N BASIC METABOLIC [id number] 07:55:00* Test Item Value Reference Range Interpretation [...] CALCIUM (test code = CA) mg/dL 8.5-10.1 TPQGGYPS-[id number] 07:55:00* Test Item Value Reference Range Interpretation Comments TROPONIN-I (test code = TROPI) ng/mL 0-0.045 [id number] 07:55:00* Test Item Value Reference Range Interpretation Comments ALCOHOL (test code = ALC) mg/dL 0-3 CBC W/O JLQR8022-94-13 07:47:00* Test Item Value Reference Range Interpretation [...] fL 6.7-11.0 N - XR CHEST 1 [id number] 07:37:00 FAX: Ankur Sinclair DO [place]: B St: PRE Name: AMILCAR [facility] : [birth year] 66 Age/S: 48/F [address] [facility] Unit #: [id number] Loc: [place] [address] Phys: Ankur Sinclair DO Acct: [id number] Dis Date: Status: PRE ER PHONE #: [phone] Exam Date: 02/03/2019 0720 FAX #: [phone] Reason: CHEST PAIN EXAMS: CPT CODE: [id number] XR CHEST 1 V 71345 HISTORY: CHEST PAIN TECHNIQUE: AP chest x-ray [...] : By: [email or web address] Orig Print D/T: S: (0743) PAGE 1 Signed Repo rt Bedside Aiexusl1298-06-05 08:31:00* Test Item Value Reference Range Interpretation Comments Bedside Glucose (test code = 57274-4) 299 70-120 H Meter ID: [id number] Glucose 2019-01-21 08:31:00* Test Item Value Reference Range Interpretation Comments Bedside Glucose (test code = 47296-7) 299 70-120 H Meter ID: [id number] [facility] Glucose 2019-01-21 08:31:00* Test Item Value Reference Range Interpretation Comments Bedside Glucose (test code = 07623-8) 299 70-120 H Meter ID: [id number] [facility] HospitalMagnesium Level 2019-01-19 16:03:00* Test Item Value Reference Range Interpretation Comments Magnesium Level (test code = 01689-0) 1.8 1.3-2.1 [facility] HospitalPotassium Vlnxp9978-87-86 16:02:00* Test Item Value Reference Range Interpretation Comments Potassium Level (test code = 2823-3) 3.6 3.5-5.1 [facility] HospitalUrine Sxpyc8099-77-20 10:42:00* Test Item Value Reference Range Interpretation Comments Urine Color (test code = 5778-6) YELLOW YELLOW [facility] HospitalUrine Lrncscw5893-94-75 10:42:00* Test Item Value Reference Range Interpretation Comments Urine Clarity (test code = 48437-9) SL CLOUDY CLEAR [facility] HospitalUrine Specific Tjddjsf1206-84-32 10:42:00 * Test Item Value Reference Range Interpretation Comments Urine Specific [place] (test code = 5811-5) 1.020 1.010-1.02 5 [facility] HospitalUrine [id number] 10:42:00* Test Item Value Reference Range Interpretation Comments Urine pH (test code = 89924-4) 8 5-7 H [facility] HospitalU[facility] Leukocyte Ipmxmwng6890-59-10 10:42:00* Test Item Value Reference Range Interpretation Comments Urine Leukocyte Esterase (test code = 5799-2) NEGATIVE NEGATIVE [facility] Vwlrzty5316-31-35 10:42:00* Test Item Value Reference Range Interpretation Comments Urine Nitrite (test code = 13693-9) NEGATIVE NEGATIVE [facility] Exnvkjq3284-47-03 10:42:00* Test Item Value Reference Range Interpretation Comments Urine Protein (test code = 5804-0) NEGATIVE NEGATIVE [facility] Glucose (UA)2019-01-19 10:42:00* Test Item Value Reference Range Interpretation Comments Urine Glucose (UA) (test code = 2349-9) NEGATIVE NEGATIVE [facility] Oawhpqz4891-43-03 10:42:00* Test Item Value Reference Range Interpretation Comments Urine Ketones (test code = 57898-3) NEGATIVE NEGATIVE [facility] Saolrbsnbivi4113-05-66 10:42:00* Test Item Value Reference Range Interpretation Comments Urine Urobilinogen (test code = 69494-0) 0.2 0.2-1 [facility] HospitalU[facility] Szczuyres1552-77-53 10:42:00* Test Item Value Reference Range Interpretation Comments Urine Bilirubin (test code = 1978-6) NEGATIVE NEGATIVE [facility] Hospital[facility] Rrfye1310-78-00 10:42:00* Test Item Value Reference Range Interpretation Comments Urine Blood (test code = 98950-1) NEGATIVE NEGATIVE [facility] HospitalU[facility] [id number] 10:42:00* Test Item Value Reference Range Interpretation Comments Urine WBC (test code = 5821-4) NONE 0-5 [facility] HospitalU[facility] RBA5333-73-48 10:42:00* Test Item Value Reference Range Interpretation Comments Urine RBC (test code = 23695-6) NONE 0-5 [facility] HospitalU[facility] Scaqompu1607-21-24 10:42:00* Test Item Value Reference Range Interpretation Comments Urine Bacteria (test code = 49929-0) NONE NONE [facility] Hospital[facility] Epithelial Whrfs9417-27-38 10:42:00 * Test Item Value Reference Range Interpretation Comments Urine Epithelial Cells (test code = 96470-9) RARE NONE [facility] HospitalU[facility] Mbxlj5748-29-03 10:42:00* Test Item Value Reference Range Interpretation Comments Urine Color (test code = 5778-6) YELLOW YELLOW [facility] HospitalUrine Sxnpsys4665-63-12 10:42:00* Test Item Value Reference Range Interpretation Comments Urine Clarity (test code = 42650-5) SL CLOUDY CLEAR [facility] HospitalUrine Specific Seznlpn3564-92-07 10:42:00 * Test Item Value Reference Range Interpretation Comments Urine Specific [place] (test code = 5811-5) 1.020 1.010-1.02 5 [facility] HospitalUrine cR2186-21-30 10:42:00* Test Item Value Reference Range Interpretation Comments Urine pH (test code = 38412-3) 8 5-7 H [facility] HospitalU[facility] Leukocyte Uwwyyxcr4149-98-83 10:42:00* Test Item Value Reference Range Interpretation Comments Urine Leukocyte Esterase (test code = 5799-2) NEGATIVE NEGATIVE [facility] HospitalU[facility] Fbwwseh7303-89-81 10:42:00* Test Item Value Reference Range Interpretation Comments Urine Nitrite (test code = 73732-7) NEGATIVE NEGATIVE [facility] HospitalU[facility] Adxuwse7002-76-48 10:42:00* Test Item Value Reference Range Interpretation Comments Urine Protein (test code = 5804-0) NEGATIVE NEGATIVE [facility] HospitalUrine Glucose (UA)2019-01-19 10:42:00* Test Item Value Reference Range Interpretation Comments Urine Glucose (UA) (test code = 2349-9) NEGATIVE NEGATIVE [facility] Phpbfiq0658-14-83 10:42:00* Test Item Value Reference Range Interpretation Comments Urine Ketones (test code = 78262-1) NEGATIVE NEGATIVE [facility] Mwfnjpzqxfvu1798-26-96 10:42:00* Test Item Value Reference Range Interpretation Comments Urine Urobilinogen (test code = 81104-9) 0.2 0.2-1 [facility] HospitalU[facility] Fzqlitawf2940-14-71 10:42:00* Test Item Value Reference Range Interpretation Comments Urine Bilirubin (test code = 1978-6) NEGATIVE NEGATIVE [facility] Iahjo9773-58-86 10:42:00* Test Item Value Reference Range Interpretation Comments Urine Blood (test code = 58088-9) NEGATIVE NEGATIVE [facility] Hospital[facility] KJW7119-43-70 10:42:00* Test Item Value Reference Range Interpretation Comments Urine WBC (test code = 5821-4) NONE 0-5 [facility] HospitalU[facility] [id number] 10:42:00* Test Item Value Reference Range Interpretation Comments Urine RBC (test code = 85625-6) NONE 0-5 [facility] HospitalU[facility] Wlkntkyt7431-84-58 10:42:00* Test Item Value Reference Range Interpretation Comments Urine Bacteria (test code = 64932-1) NONE NONE [facility] HospitalU[facility] Epithelial Kzgqb3292-85-29 10:42:00 * Test Item Value Reference Range Interpretation Comments Urine Epithelial Cells (test code = 24064-6) RARE NONE [facility] HospitalUrine Opiates Dipqje8891-74-83 10:36:00* Test Item Value Reference Range Interpretation Comments Urine Opiates Screen (test code = 14051-9) NEGATIVE NEGATIVE ALL TESTS PERFORMED MANUALLY ON nodishes.[email or web address] TOX/SEE TESTHarris Health System Ben Taub HospitalUrine Barbiturates Sfceny2246-27-05 10:36:00* Test Item Value Reference Range Interpretation Comments Urine Barbiturates Screen (test code = 550109339) POSITIVE NEGA TIVE H This test provides only a screen. Positive results should be repeated by a confi rmatory test.[facility] HospitalUrine Phencyclidine Screen 2019-01-19 10:36:00* Test Item Value Reference Range Interpretation Comments Urine Phencyclidine Screen (test code = 03048-0) NEGATIVE NEGAT MERCEDEZ [facility] HospitalUrine Amphetamines Mrtvwq7848-78-71 10:36:00* Test Item Value Reference Range Interpretation Comments Urine Amphetamines Screen (test code = 25869-4) NEGATIVE NEGATI VE [facility] HospitalUrine Methamphetamines Gakgnb3434-72-66 10:36:00* Test Item Value Reference Range Interpretation Comments Urine Methamphetamines Screen (test code = Urine Metha mphetamines Screen) NEGATIVE NEGATIVE [facility] HospitalUrine Benzodiazepines Nivfts2777-53-44 10:36:00* Test Item Value Reference Range Interpretation Comments Urine Benzodiazepines Screen (test code = 47915-0) POSITIVE NEG ATIVE H This test provides only a screen. Positive results should be repeated by a confi rmatory test.[facility] HospitalUrine Cocaine Screen 2019-01-19 10:36:00* Test Item Value Reference Range Interpretation Comments Urine Cocaine Screen (test code = 3398-5) NEGATIVE NEGATIVE [facility] HospitalUrine Cannabinoids Qqyjua3800-45-35 10:36:00* Test Item Value Reference Range Interpretation Comments Urine Cannabinoids Screen (test code = 01588-4) NEGATIVE NEGATI VE THESE RESULTS ARE FOR MEDICAL TREATMENT ONLYTHIS REPORT CONTAINS UNCONFIR MED SCREENING RESULTS*POSITIVE RESULTS WILL BE CONFIRMED BY REFERENCE LAB UPON R EQUEST CUT-OFFDRUG CLASS CONCENTRATION ng/mLAmphetamines 1000Methamphetamines 1000Cocaine 300Opiate 300Phencyc lidine 25Cannabinoid 50Barbiturates 300Benzodiazepine 300Methadone 300[facility] Center[facility] Methadone Xjnjdx4158-33-57 10:36:00* Test Item Value Reference Range Interpretation Comments Urine Methadone Screen (test code = 20103-7) NEGATIVE NEGATIVE This test provides only a screen. Positive results should be repeated by a confi rmatory test.THESE RESULTS ARE FOR MEDICAL TREATMENT ONLYTHIS REPORT CONT AINS UNCONFIRMED SCREENING RESULTS*POSITIVE RESULTS WILL BE CONFIRMED BY REFEREN CE LAB UPON REQUEST CUT-OFFDRUG CLASS CON CENTRATION ng/mLAmphetamines 1000Methamp hetamines 1000Cocaine Metabolite 300Opiate 300Phencyclidine 25Cannabinoid 50Barbiturates 300Benzodiazepine 300Methadone 30 0[facility] HospitalUrine Opiates Bttxin5872-26-55 10:36:00 * Test Item Value Reference Range Interpretation Comments Urine Opiates Screen (test code = 29273-6) NEGATIVE NEGATIVE ALL TESTS PERFORMED MANUALLY ON [employer]ishes[email or web address]uk TOX/SEE TESTHarris Health System Ben Taub HospitalUrine Barbiturates Seytiz0893-15-76 10:36:00* Test Item Value Reference Range Interpretation Comments Urine Barbiturates Screen (test code = 428204065) POSITIVE NEGA TIVE H This test provides only a screen. Positive results should be repeated by a confi rmatory test.[facility] HospitalUrine Phencyclidine Screen 2019-01-19 10:36:00* Test Item Value Reference Range Interpretation Comments Urine Phencyclidine Screen (test code = 19272-0) NEGATIVE NEGAT MERCEDEZ [facility] HospitalUrine Amphetamines Fkxtps4716-60-22 10:36:00* Test Item Value Reference Range Interpretation Comments Urine Amphetamines Screen (test code = 10590-3) NEGATIVE NEGATI VE [facility] HospitalUrine Methamphetamines Wpxwpr3770-78-56 10:36:00* Test Item Value Reference Range Interpretation Comments Urine Methamphetamines Screen (test code = Urine Metha mphetamines Screen) NEGATIVE NEGATIVE [facility] HospitalUrine Benzodiazepines Oyjkwx6046-32-27 10:36:00* Test Item Value Reference Range Interpretation Comments Urine Benzodiazepines Screen (test code = 33681-4) POSITIVE NEG ATIVE H This test provides only a screen. Positive results should be repeated by a confi rmatory test.[facility] HospitalUrine Cocaine Screen 2019-01-19 10:36:00* Test Item Value Reference Range Interpretation Comments Urine Cocaine Screen (test code = 3398-5) NEGATIVE NEGATIVE [facility] HospitalUrine Cannabinoids Jwiuly0538-22-75 10:36:00* Test Item Value Reference Range Interpretation Comments Urine Cannabinoids Screen (test code = 29648-5) NEGATIVE NEGATI VE THESE RESULTS ARE FOR MEDICAL TREATMENT ONLYTHIS REPORT CONTAINS UNCONFIR MED SCREENING RESULTS*POSITIVE RESULTS WILL BE CONFIRMED BY REFERENCE LAB UPON R EQUEST CUT-OFFDRUG CLASS CONCENTRATION ng/mLAmphetamines 1000Methamphetamines 1000Cocaine 300Opiate 300Phencyc lidine 25Cannabinoid 50Barbiturates 300Benzodiazepine 300Methadone 300[facility] CenterUrine Methadone Glfvfk3866-78-64 10:36:00* Test Item Value Reference Range Interpretation Comments Urine Methadone Screen (test code = 71485-7) NEGATIVE NEGATIVE This test provides only a screen. Positive results should be repeated by a confi rmatory test.THESE RESULTS ARE FOR MEDICAL TREATMENT ONLYTHIS REPORT CONT AINS UNCONFIRMED SCREENING RESULTS*POSITIVE RESULTS WILL BE CONFIRMED BY REFEREN CE LAB UPON REQUEST CUT-OFFDRUG CLASS CON CENTRATION ng/mLAmphetamines 1000Methamp hetamines 1000Cocaine Metabolite 300Opiate 300Phencyclidine 25Cannabinoid 50Barbiturates 300Benzodiazepine 300Methadone 30 0[facility] Hospitalodium Yxzhf3104-94-46 06:41:00* Test Item Value Reference Range Interpretation Comments Sodium Level (test code = 2951-2) 138 136-145 [facility] HospitalChloride Fxoqo7065-17-23 06:41:00* Test Item Value Reference Range Interpretation Comments Chloride Level (test code = 2075-0) 102 98-107 [facility] HospitalCarbon Dioxide Syjuw4571-67-92 06:41:00* Test Item Value Reference Range Interpretation Comments Carbon Dioxide Level (test code = 2028-9) 29 22-29 [facility] HospitalAnion Zye9798-99-52 06:41:00* Test Item Value Reference Range Interpretation Comments Anion Gap (test code = 42313-1) 9.9 8-16 [facility] HospitalBlood Urea Jafqndme6529-96-84 06:41:00* Test Item Value Reference Range Interpretation Comments Blood Urea Nitrogen (test code = 3094-0) 8 7-26 [facility] HospitalCreatinine2019-05-15 06:41:00* Test Item Value Reference Range Interpretation Comments Creatinine (test code = 2160-0) 0.68 0.57-1.11 [facility] HospitalBUN/Creatinine Kzbnw0206-51-78 06:41:00* Test Item Value Reference Range Interpretation Comments BUN/Creatinine Ratio (test code = 3097-3) 12 6-25 [facility] HospitalEstimat Glomerular Filtration Rate 2019-01-19 06:41:00* Test Item Value Reference Range Interpretation Comments Estimat Glomerular Filtration Rate (test code = 376181383) > 60 >60 Ranges were taken from the National Kidney Disease Education Program and the [facility] Kidney Foundation literature.Reference ranges:60 or greater: Fsllxg38-53 ( for 3 consecutive months): Chronic kidney disease 15 or less: Kidney failureHarris Health System Ben Taub HospitalGlucose Mjmoy9252-34-90 06:41:00* Test Item Value Reference Range Interpretation Comments Glucose Level (test code = MLN7722) 83 74-118 [facility] HospitalCalcium Hktad6661-13-85 06:41:00* Test Item Value Reference Range Interpretation Comments Calcium Level (test code = 07461-4) 8.6 8.4-10.2 [facility] HospitalB-Type Natriuretic Txbiouc0751-34-40 18:49:00* Test Item Value Reference Range Interpretation Comments B-Type Natriuretic Peptide (test code = 45553-1) 10.9 0-100 [facility] HospitalB-Type Natriuretic Gurdlyh9678-61-06 18:49:00* Test Item Value Reference Range Interpretation Comments B-Type Natriuretic Peptide (test code = 92259-8) 10.9 0-100 [facility] HospitalAmylase Dbaod0776-02-19 18:44:00* Test Item Value Reference Range Interpretation Comments Amylase Level (test code = 1798-8) 116 25-125 [facility] HospitalLipase2019-05-14 18:44:00* Test Item Value Reference Range Interpretation Comments Lipase (test code = 3040-3) 33 8-78 [facility] HospitalAmylase Kkwup1925-39-73 18:44:00* Test Item Value Reference Range Interpretation Comments Amylase Level (test code = 1798-8) 116 25-125 [facility] HospitalAmylase Lyadt6094-77-30 18:44:00* Test Item Value Reference Range Interpretation Comments Amylase Level (test code = 1798-8) 116 25-125 [facility] HospitalAmylase Ztvje1893-61-03 18:44:00* Test Item Value Reference Range Interpretation Comments Amylase Level (test code = 1798-8) 116 25-125 [facility] HospitalCreatine Kinase FW3115-27-24 18:38:00* Test Item Value Reference Range Interpretation Comments Creatine Kinase MB (test code = 82410-7) 1.10 0-5.0 [facility] HospitalTroponin X7845-71-11 18:38:00* Test Item Value Reference Range Interpretation Comments Troponin I (test code = IFV7864) < 0.001 0-0.300 [facility] HospitalTotal Wztbduhli5889-31-73 18:37:00* Test Item Value Reference Range Interpretation Comments Total Bilirubin (test code = 1975-2) 1.8 0.2-1.2 H [facility] HospitalAspartate Amino Transf (AST/SGOT) 2019-01-18 18:37:00* Test Item Value Reference Range Interpretation Comments Aspartate Amino Transf (AST/SGOT) (test code = Aspartate Amino Transf (AST/SGOT)) 105 5-34 H [facility] HospitalAlanine Aminotransferase (ALT/SGPT) 2019-01-18 18:37:00* Test Item Value Reference Range Interpretation Comments Alanine Aminotransferase (ALT/SGPT) (test code = 1742-6) 88 0-55 H [facility] HospitalTotal Nivtykz7276-21-40 18:37:00* Test Item Value Reference Range Interpretation Comments Total Protein (test code = 2885-2) 8.3 6.5-8.1 H [facility] HospitalAlbumin2019-05-14 18:37:00* Test Item Value Reference Range Interpretation Comments Albumin (test code = 1751-7) 4.3 3.5-5.0 [facility] HospitalGlobulin2019-05-14 18:37:00* Test Item Value Reference Range Interpretation Comments Globulin (test code = 08057-5) 4.0 2.3-3.5 H [facility] HospitalAlbumin/Globulin Bxrjt6092-36-89 18:37:00 * Test Item Value Reference Range Interpretation Comments Albumin/Globulin Ratio (test code = 1759-0) 1.1 0.8-2.0 [facility] HospitalAlkaline Mclkkytmqgy2718-28-01 18:37:00* Test Item Value Reference Range Interpretation Comments Alkaline Phosphatase (test code = 6768-6) 141 40-150 [facility] HospitalCreatine Zuwphg4540-06-63 18:37:00* Test Item Value Reference Range Interpretation Comments Creatine Kinase (test code = 2157-6) 243 29-168 H [facility] HospitalHuman Chorionic Gonadotropin, Qual 2019-01-18 18:31:00* Test Item Value Reference Range Interpretation Comments Human Chorionic Gonadotropin, Qual (test code = 2118-8) NEGATIVE NEGATIVE [facility] HospitalProthrombin Jvdt0935-94-41 18:27:00* Test Item Value Reference Range Interpretation Comments Prothrombin Time (test code = 5902-2) 12.6 11.9-14.5 [facility] HospitalProthromb Time International Ratio 2019-01-18 18:27:00* Test Item Value Reference Range Interpretation Comments Prothromb Time International Ratio (test code = 6301-6) 0.90 Oral Anticoagulant Therapy INR Values:1. Low Intensity Therapy 1.5 - 2.02 . Moderate Intensity Therapy 2.0 - 3.03. High Intensity Therapy(1) 2.5 - 3. 54. High Intensity Therapy(2) 3.0 - 4.05. Panic Value INR > 5.0 [facility] HospitalActivated Partial Thromboplast Time 2019-01-18 18:27:00* Test Item Value Reference Range Interpretation Comments Activated Partial Thromboplast Time (test code = 85334-8) 20.4 23.8-35.5 L NO CLOT DETECTED [facility] HospitalProthrombin Time 2019-01-18 18:27:00* Test Item Value Reference Range Interpretation Comments Prothrombin Time (test code = 5902-2) 12.6 11.9-14.5 [facility] HospitalProthromb Time International Ratio 2019-01-18 18:27:00* Test Item Value Reference Range Interpretation Comments Prothromb Time International Ratio (test code = 6301-6) 0.90 Oral Anticoagulant Therapy INR Values:1. Low Intensity Therapy 1.5 - 2.02 . Moderate Intensity Therapy 2.0 - 3.03. High Intensity Therapy(1) 2.5 - 3. 54. High Intensity Therapy(2) 3.0 - 4.05. Panic Value INR > 5.0 [facility] HospitalActivated Partial Thromboplast Time 2019-01-18 18:27:00* Test Item Value Reference Range Interpretation Comments Activated Partial Thromboplast Time (test code = 27526-0) 20.4 23.8-35.5 L NO CLOT DETECTED [facility] HospitalCHES SINGLE (PORTABLE) 2019-01-18 18:19:00 [facility] [address] [place] [address] Patient Name: AMILCAR CELIS MR #: [id number] : 1970 Age/Sex: 48/F Req #: [id number] Adm Physician: Ordered by: DARIEL KAPADIA MD Report #: [id number] Location: ER Room/Bed: Procedure: [id number] DX/CHES T SINGLE (PORTABLE) Exam Date: 01/18/19 [...] COPY TO: DARIEL SHEIKH MD White Blood Tqrvn3509-76-87 18:15:00* Test Item Value Reference Range Interpretation Comments White Blood Count (test code = 6690-2) 8.73 4.8-10.8 [facility] HospitalRed Blood Eyphu4809-74-04 18:15:00* Test Item Value Reference Range Interpretation Comments Red Blood Count (test code = 789-8) 4.57 3.6-5.1 [facility] HospitalHemoglobin2019-05-14 18:15:00* Test Item Value Reference Range Interpretation Comments Hemoglobin (test code = 41400-8) 16.0 12.0-16.0 [facility] HospitalHematocrit2019-05-14 18:15:00* Test Item Value Reference Range Interpretation Comments Hematocrit (test code = 4544-3) 44.4 34.2-44.1 H [facility] HospitalMean Corpuscular Kqxfyh8692-14-23 18:15:00* Test Item Value Reference Range Interpretation Comments Mean Corpuscular Volume (test code = 787-2) 97.2 81-99 [facility] HospitalMean Corpuscular Wopbdcnzgz6159-02-18 18:15:00* Test Item Value Reference Range Interpretation Comments Mean Corpuscular Hemoglobin (test code = 785-6) 35.0 28-32 H [facility] HospitalMean Corpuscular Hemoglobin Concent 2019-01-18 18:15:00* Test Item Value Reference Range Interpretation Comments Mean Corpuscular Hemoglobin Concent (test code = 786-4) 36.0 31-35 H [facility] HospitalRed Cell Distribution Rbsug5920-06-99 18:15:00* Test Item Value Reference Range Interpretation Comments Red Cell Distribution Width (test code = 20460-8) 13.0 11.7 -14.4 [facility] HospitalPlatelet Ltcsp5148-40-46 18:15:00* Test Item Value Reference Range Interpretation Comments Platelet Count (test code = 777-3) 256 140-360 [facility] HospitalNeutrophils (%) (Auto)2019-01-18 18:15:00 * Test Item Value Reference Range Interpretation Comments Neutrophils (%) (Auto) (test code = 66396-9) 85.7 38.7-80.0 H [facility] HospitalLymphocytes (%) (Auto)2019-01-18 18:15:00 * Test Item Value Reference Range Interpretation Comments Lymphocytes (%) (Auto) (test code = 736-9) 6.6 18.0-39.1 L [facility] HospitalMonocytes (%) (Auto)2019-01-18 18:15:00* Test Item Value Reference Range Interpretation Comments Monocytes (%) (Auto) (test code = 5905-5) 5.2 4.4-11.3 [facility] HospitalEosinophils (%) (Auto)2019-01-18 18:15:00 * Test Item Value Reference Range Interpretation Comments Eosinophils (%) (Auto) (test code = 713-8) 1.8 0.0-6.0 [facility] HospitalBasophils (%) (Auto)2019-01-18 18:15:00* Test Item Value Reference Range Interpretation Comments Basophils (%) (Auto) (test code = 706-2) 0.2 0.0-1.0 [facility] HospitalIM GRANULOCYTES %2019-01-18 18:15:00* Test Item Value Reference Range Interpretation Comments IM GRANULOCYTES % (test code = IM GRANULOCYTES %) 0.5 0.0- 1.0 [facility] HospitalNeutrophils # (Auto)2019-01-18 18:15:00* Test Item Value Reference Range Interpretation Comments Neutrophils # (Auto) (test code = 751-8) 7.5 2.1-6.9 H [facility] HospitalLymphocytes # (Auto)2019-01-18 18:15:00* Test Item Value Reference Range Interpretation Comments Lymphocytes # (Auto) (test code = 49701-8) 0.6 1.0-3.2 L [facility] HospitalMonocytes # (Auto)2019-01-18 18:15:00* Test Item Value Reference Range Interpretation Comments Monocytes # (Auto) (test code = 742-7) 0.5 0.2-0.8 [facility] HospitalEosinophils # (Auto)2019-01-18 18:15:00* Test Item Value Reference Range Interpretation Comments Eosinophils # (Auto) (test code = 711-2) 0.2 0.0-0.4 [facility] HospitalBasophils # (Auto)2019-01-18 18:15:00* Test Item Value Reference Range Interpretation Comments Basophils # (Auto) (test code = 704-7) 0.0 0.0-0.1 [facility] HospitalAbsolute Immature Granulocyte (auto 2019-01-18 18:15:00* Test Item Value Reference Range Interpretation Comments Absolute Immature Granulocyte (auto (zenaida t code = Absolute Immature Granulocyte (auto) 0.04 0-0.1 [facility]odium Midfi7513-31-02 15:38:00* Test Item Value Reference Range Interpretation Comments Sodium Level (test code = 2951-2) 135 136-145 L [facility] HospitalPotassium Vnltj4737-63-50 15:38:00* Test Item Value Reference Range Interpretation Comments Potassium Level (test code = 2823-3) 2.5 3.5-5.1 LL Results repeated and called to CRISTIAN MOISE at 1536 on 12/28/18 by DANE GAGNON. Read back and verified.[facility] HospitalChloride Sdfrf7175-41-50 15:38:00* Test Item Value Reference Range Interpretation Comments Chloride Level (test code = 2075-0) 94 98-107 L [facility] HospitalCarbon Dioxide Acxtw7243-94-13 15:38:00* Test Item Value Reference Range Interpretation Comments Carbon Dioxide Level (test code = 2028-9) 30 22-29 H [facility] HospitalAnion Wbk9564-71-96 15:38:00* Test Item Value Reference Range Interpretation Comments Anion Gap (test code = 65989-5) 13.5 8-16 [facility] HospitalBlood Urea Uulrulol3246-15-92 15:38:00* Test Item Value Reference Range Interpretation Comments Blood Urea Nitrogen (test code = 3094-0) 12 7-26 [facility] HospitalCreatinine2019-04-23 15:38:00* Test Item Value Reference Range Interpretation Comments Creatinine (test code = 2160-0) 0.72 0.57-1.11 [facility] HospitalBUN/Creatinine Ifaxz9149-38-37 15:38:00* Test Item Value Reference Range Interpretation Comments BUN/Creatinine Ratio (test code = 3097-3) 17 6-25 [facility] HospitalEstimat Glomerular Filtration Rate 2018-12-28 15:38:00* Test Item Value Reference Range Interpretation Comments Estimat Glomerular Filtration Rate (test code = 159045109) > 60 >60 Ranges were taken from the National Kidney Disease Education Program and the [facility] [employer] literature.Reference ranges:60 or greater: Mcbaei00-52 ( for 3 consecutive months): Chronic kidney disease 15 or less: Kidney failureHarris Health System Ben [facility] HospitalGlucose Uoigt3914-90-53 15:38:00* Test Item Value Reference Range Interpretation Comments Glucose Level (test code = JOD7870) 101 74-118 [facility] HospitalCalcium Ahmpq2177-33-77 15:38:00* Test Item Value Reference Range Interpretation Comments Calcium Level (test code = 04306-4) 8.3 8.4-10.2 L [facility] HospitalThyroid Stimulating Hormone (TSH) 2018-12-28 12:09:00* Test Item Value Reference Range Interpretation Comments Thyroid Stimulating Hormone (TSH) (test code = 87671-3) 1.087 0.350-4.940 [facility] HospitalThyroid Stimulating Hormone (TSH) 2018-12-28 12:09:00* Test Item Value Reference Range Interpretation Comments Thyroid Stimulating Hormone (TSH) (test code = 15256-6) 1.087 0.350-4.940 [facility] HospitalThyroid Stimulating Hormone (TSH) 2018-12-28 12:09:00* Test Item Value Reference Range Interpretation Comments Thyroid Stimulating Hormone (TSH) (test code = 90200-3) 1.087 0.350-4.940 [facility] HospitalUrine [id number] 11:45:00* Test Item Value Reference Range Interpretation Comments Urine WBC (test code = 5821-4) 21-50 0-5 H [facility] HospitalUrine [id number] 11:45:00* Test Item Value Reference Range Interpretation Comments Urine RBC (test code = 68794-4) 21-50 0-5 H [facility] HospitalUrine Axkybhhs9960-81-77 11:45:00* Test Item Value Reference Range Interpretation Comments Urine Bacteria (test code = 71681-5) MANY NONE H [facility] HospitalUrine Epithelial Hmdqf4323-26-17 11:45:00 * Test Item Value Reference Range Interpretation Comments Urine Epithelial Cells (test code = 73780-3) MANY NONE [facility] HospitalUrine Kjnbe3202-27-18 11:30:00* Test Item Value Reference Range Interpretation Comments Urine Color (test code = 5778-6) YELLOW YELLOW [facility] HospitalUrine Mpmvdft8464-85-76 11:30:00* Test Item Value Reference Range Interpretation Comments Urine Clarity (test code = 25054-1) SL CLOUDY CLEAR [facility] HospitalUrine Specific Xnnfqfq7859-73-94 11:30:00 * Test Item Value Reference Range Interpretation Comments Urine Specific [place] (test code = 5811-5) 1.025 1.010-1.02 5 [facility] HospitalUrine [id number] 11:30:00* Test Item Value Reference Range Interpretation Comments Urine pH (test code = 11857-8) 5 5-7 [facility] HospitalUrine Leukocyte Udmcwnqd8221-67-74 11:30:00* Test Item Value Reference Range Interpretation Comments Urine Leukocyte Esterase (test code = 5799-2) 1+ NEGATIVE H [facility] Hoenlzy0372-28-96 11:30:00* Test Item Value Reference Range Interpretation Comments Urine Nitrite (test code = 78633-9) NEGATIVE NEGATIVE [facility] HospitalUrine Bajatxj4204-89-92 11:30:00* Test Item Value Reference Range Interpretation Comments Urine Protein (test code = 5804-0) 1+ NEGATIVE H [facility] Glucose (UA)2018-12-28 11:30:00* Test Item Value Reference Range Interpretation Comments Urine Glucose (UA) (test code = 2349-9) NEGATIVE NEGATIVE [facility] Reytpix9469-22-83 11:30:00* Test Item Value Reference Range Interpretation Comments Urine Ketones (test code = 84331-6) NEGATIVE NEGATIVE [facility] Bfzbqmdixsec8059-10-55 11:30:00* Test Item Value Reference Range Interpretation Comments Urine Urobilinogen (test code = 01511-8) 0.2 0.2-1 [facility] HospitalUrine Gcoambnxh3416-48-55 11:30:00* Test Item Value Reference Range Interpretation Comments Urine Bilirubin (test code = 1978-6) NEGATIVE NEGATIVE [facility] HospitalUrine Uijdq0500-99-24 11:30:00* Test Item Value Reference Range Interpretation Comments Urine Blood (test code = 79249-1) 3+ NEGATIVE H [facility] HospitalUrine Efch8830-81-07 11:30:00* Test Item Value Reference Range Interpretation Comments Urine Test (test code = 2106-3) NEGATIVE NEGATIVE [facility] HospitalUrine Sjbt2960-13-52 11:30:00* Test Item Value Reference Range Interpretation Comments Urine Test (test code = 2106-3) NEGATIVE NEGATIVE [facility] HospitalUrine Jmuo9408-74-57 11:30:00* Test Item Value Reference Range Interpretation Comments Urine Test (test code = 2106-3) NEGATIVE NEGATIVE [facility] HospitalUrine Pazt5184-27-23 11:30:00* Test Item Value Reference Range Interpretation Comments Urine Test (test code = 2106-3) NEGATIVE NEGATIVE [facility] HospitalUrine Tkwz3952-18-15 11:30:00* Test Item Value Reference Range Interpretation Comments Urine Test (test code = 2106-3) NEGATIVE NEGATIVE [facility] HospitalMagnesium Avdar8884-66-32 11:17:00* Test Item Value Reference Range Interpretation Comments Magnesium Level (test code = 79534-8) 1.5 1.3-2.1 [facility] HospitalTotal Aiqaklstw0398-76-06 09:56:00* Test Item Value Reference Range Interpretation Comments Total Bilirubin (test code = 1975-2) 1.9 0.2-1.2 H [facility] HospitalAspartate Amino Transf (AST/SGOT) 2018-12-28 09:56:00* Test Item Value Reference Range Interpretation Comments Aspartate Amino Transf (AST/SGOT) (test code = Aspartate Amino Transf (AST/SGOT)) 70 5-34 H [facility] HospitalAlanine Aminotransferase (ALT/SGPT) 2018-12-28 09:56:00* Test Item Value Reference Range Interpretation Comments Alanine Aminotransferase (ALT/SGPT) (test code = 1742-6) 51 0-55 [facility] HospitalTotal Fyhbycs7077-15-80 09:56:00* Test Item Value Reference Range Interpretation Comments Total Protein (test code = 2885-2) 8.3 6.5-8.1 H [facility] HospitalAlbumin2019-04-23 09:56:00* Test Item Value Reference Range Interpretation Comments Albumin (test code = 1751-7) 4.0 3.5-5.0 [facility] HospitalGlobulin2019-04-23 09:56:00* Test Item Value Reference Range Interpretation Comments Globulin (test code = 66223-0) 4.3 2.3-3.5 H [facility] HospitalAlbumin/Globulin Auujm5177-37-74 09:56:00 * Test Item Value Reference Range Interpretation Comments Albumin/Globulin Ratio (test code = 1759-0) 0.9 0.8-2.0 [facility] HospitalAlkaline Umpxefwevzt4957-93-01 09:56:00* Test Item Value Reference Range Interpretation Comments Alkaline Phosphatase (test code = 6768-6) 117 40-150 [facility] HospitalWhite Blood Mthri0626-38-77 09:38:00* Test Item Value Reference Range Interpretation Comments White Blood Count (test code = 6690-2) 7.74 4.8-10.8 [facility] HospitalRed Blood Wpsrn7135-92-91 09:38:00* Test Item Value Reference Range Interpretation Comments Red Blood Count (test code = 789-8) 4.54 3.6-5.1 [facility] HospitalHemoglobin2019-04-23 09:38:00* Test Item Value Reference Range Interpretation Comments Hemoglobin (test code = 27497-2) 15.7 12.0-16.0 [facility] HospitalHematocrit2019-04-23 09:38:00* Test Item Value Reference Range Interpretation Comments Hematocrit (test code = 4544-3) 45.4 34.2-44.1 H [facility] HospitalMean Corpuscular Sjqtnf4736-81-43 09:38:00* Test Item Value Reference Range Interpretation Comments Mean Corpuscular Volume (test code = 787-2) 100.0 81-99 H [facility] HospitalMean Corpuscular Wemzzyiwyk4484-64-20 09:38:00* Test Item Value Reference Range Interpretation Comments Mean Corpuscular Hemoglobin (test code = 785-6) 34.6 28-32 H [facility] HospitalMean Corpuscular Hemoglobin Concent 2018-12-28 09:38:00* Test Item Value Reference Range Interpretation Comments Mean Corpuscular Hemoglobin Concent (test code = 786-4) 34.6 31-35 [facility] HospitalRed Cell Distribution Agdtp6466-96-21 09:38:00* Test Item Value Reference Range Interpretation Comments Red Cell Distribution Width (test code = 85716-0) 13.0 11.7 -14.4 [facility] HospitalPlatelet Ehhns4907-36-26 09:38:00* Test Item Value Reference Range Interpretation Comments Platelet Count (test code = 777-3) 272 140-360 [facility] HospitalNeutrophils (%) (Auto)2018-12-28 09:38:00 * Test Item Value Reference Range Interpretation Comments Neutrophils (%) (Auto) (test code = 28403-7) 83.2 38.7-80.0 H [facility] HospitalLymphocytes (%) (Auto)2018-12-28 09:38:00 * Test Item Value Reference Range Interpretation Comments Lymphocytes (%) (Auto) (test code = 736-9) 10.3 18.0-39.1 L [facility] HospitalMonocytes (%) (Auto)2018-12-28 09:38:00* Test Item Value Reference Range Interpretation Comments Monocytes (%) (Auto) (test code = 5905-5) 5.8 4.4-11.3 [facility] HospitalEosinophils (%) (Auto)2018-12-28 09:38:00 * Test Item Value Reference Range Interpretation Comments Eosinophils (%) (Auto) (test code = 713-8) 0.0 0.0-6.0 [facility] HospitalBasophils (%) (Auto)2018-12-28 09:38:00* Test Item Value Reference Range Interpretation Comments Basophils (%) (Auto) (test code = 706-2) 0.3 0.0-1.0 [facility] HospitalIM GRANULOCYTES %2018-12-28 09:38:00* Test Item Value Reference Range Interpretation Comments IM GRANULOCYTES % (test code = IM GRANULOCYTES %) 0.4 0.0- 1.0 [facility] HospitalNeutrophils # (Auto)2018-12-28 09:38:00* Test Item Value Reference Range Interpretation Comments Neutrophils # (Auto) (test code = 751-8) 6.4 2.1-6.9 [facility] HospitalLymphocytes # (Auto)2018-12-28 09:38:00* Test Item Value Reference Range Interpretation Comments Lymphocytes # (Auto) (test code = 72119-0) 0.8 1.0-3.2 L [facility] HospitalMonocytes # (Auto)2018-12-28 09:38:00* Test Item Value Reference Range Interpretation Comments Monocytes # (Auto) (test code = 742-7) 0.5 0.2-0.8 [facility] HospitalEosinophils # (Auto)2018-12-28 09:38:00* Test Item Value Reference Range Interpretation Comments Eosinophils # (Auto) (test code = 711-2) 0.0 0.0-0.4 [facility] HospitalBasophils # (Auto)2018-12-28 09:38:00* Test Item Value Reference Range Interpretation Comments Basophils # (Auto) (test code = 704-7) 0.0 0.0-0.1 [facility] HospitalAbsolute Immature Granulocyte (auto 2018-12-28 09:38:00* Test Item Value Reference Range Interpretation Comments Absolute Immature Granulocyte (auto (zenaida t code = Absolute Immature Granulocyte (auto) 0.03 0-0.1 [facility]
--- NOTE | 2020-07-16 14:04 | Emergency Department Note ---
History of Present Illnes History of Present Illness Chief Complaint: General Medicine Complaints History of Present Illness This is a 50 year old female . 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 Any updates have been documented here. (JOEL KLINE DO) Past Medical History Recent Fever: No Clinical Suspicion of Infectio: No New/Unexplained Change in Ment: No Past Medical History: None Other Medical History: ETOH ABUSE Past Surgical History: None Other Surgery: UTERINE SURGERY (JOEL KLINE DO) Other Last Tetanus: UNK (JOEL KLINE DO) Physical Exam Related Data Allergies: Coded Allergies: No Known Allergies (Unverified , 01/18/19) Triage Vital Signs Vital Signs Date Time Temp Pulse Resp B/P (MAP) Pulse Ox O2 Delivery O2 Flow Rate FiO2 07/16/20 13:56 99.0 90 18 147/80 98 (JOEL KLINE DO) Physical Exam CONSTITUTIONAL HENT EYES NECK PULMONARY CARDIOVASCULAR GASTROINTESTINAL GENITOURINARY SKIN MUSCULOSKELETAL NEUROLOGICAL PSYCHOLOGICAL (JOEL KLINE DO) Assessment & Plan Medical Decision Making MDM pt's potassium only increased to 2.6 after treatment in the ed will place pt in obs for iv potassium replacement no beds available at this facility, pt will require transfer to another hospital for further care dr val[facility] accepts pt transfer ([facility] IJ MD) Assessment & Plan Final Impression: (1) ETOH abuse (2) Hypokalemia ([facility] JI MD) Depart Disposition: TRANS TO OTHER [facility] Last Vital Signs Date Time Temp Pulse Resp B/P (MAP) Pulse Ox O2 Delivery O2 Flow Rate FiO2 07/16/20 13:56 99.0 90 18 147/80 98 (JOEL KLINE, ) JOEL KLINE DO Jul 16, 2020 14:04 [facility] JI MD Jul 16, 2020 18:37
[2020-07-16] MEDS ORDERED: LORAZEPAM INJ 2 MG/ML VIAL IV ONE (14:15)
[2020-07-16 14:29] LABS: BASOPHILS % 0.5 % (0.0-1.0); HEMATOCRIT 33.6 % (34.2-44.1); HEMOGLOBIN 11.6 g/dL (12.0-16.0); LYMPHOCYTES # (AUTO) 0.9 (1.0-3.2); LYMPHOCYTES % 20.8 % (18.0-39.1); MEAN CORPUSCULAR HEMOGLOBIN 34.1 pg (28-32); MEAN CORPUSCULAR HGB CONC 34.5 g/dL (31-35); MEAN CORPUSCULAR VOLUME 98.8 fL (81-99); MONOCYTES # (AUTO) 0.4 (0.2-0.8); MONOCYTES % 9.4 % (4.4-11.3); NEUTROPHILS % 69.1 % (38.7-80.0); PLATELET COUNT 164 x10e3/uL (140-360); RED CELL DISTRIBUTION WIDTH 13.7 % (11.7-14.4)
[2020-07-16] MEDS ORDERED: MULTIVITAMINS- 12 INJECTION 10 ML, FOLIC ACID MDV 5 MG, THIAMINE HCL INJ 100 MG in SODI... IV ONE (14:45)
[2020-07-16 14:47] LABS: ALANINE AMINOTRANSFERASE 115 IU/L (0-55); ALBUMIN 3.9 g/dL (3.5-5.0); ALBUMIN/GLOBULIN RATIO 1.1 (0.8-2.0); ALKALINE PHOSPHATASE 89 IU/L (40-150); ANION GAP 28.1 mmol/L (8-16); BLOOD UREA NITROGEN 15 mg/dL (7-26); BUN/CREATININE RATIO 18 (6-25); CALCIUM 8.3 mg/dL (8.4-10.2); CARBON DIOXIDE 27 mmol/L (22-29); CHLORIDE 88 mmol/L (98-107); CREATINE KINASE 108 IU/L (29-168); CREATININE, SERUM 0.84 mg/dL (0.57-1.11); EST GLOMERULAR FILTRATION RATE > 60 ML/MIN (60-); GLUCOSE 79 mg/dL (74-118); SODIUM 141 mmol/L (136-145)
[2020-07-16 14:50] LABS: POTASSIUM 2.1 mmol/L (3.5-5.1)
[2020-07-16] MEDS ORDERED: POTASSIUM CHLORIDE 20 MEQ TAB CR PO ONE (15:45)
[2020-07-16] MEDS ORDERED: POTASSIUM CHLORIDE 10MEQ/100ML 100 ML IV ONE (16:00)
[2020-07-16 18:28] LABS: ANION GAP 20.6 mmol/L (8-16); BLOOD UREA NITROGEN 15 mg/dL (7-26); BUN/CREATININE RATIO 18 (6-25); CALCIUM 8.1 mg/dL (8.4-10.2); CARBON DIOXIDE 32 mmol/L (22-29); CHLORIDE 88 mmol/L (98-107); CREATININE, SERUM 0.85 mg/dL (0.57-1.11); EST GLOMERULAR FILTRATION RATE > 60 ML/MIN (60-); GLUCOSE 98 mg/dL (74-118); SODIUM 138 mmol/L (136-145)
[2020-07-16 18:32] LABS: POTASSIUM 2.6 mmol/L (3.5-5.1)
[2020-07-16] MEDS ORDERED: KCL 20MEQ/.9 SOD CHL 1,000 ML IV ONE (19:15)
--- NOTE | 2020-07-16 19:19 | NUR ---
TRANSFER INITIATED TO [facility]
[2020-07-16 21:56] VITALS: BP 123/86
== END 2020-07-16 21:58 | disposition other institution (70) ==
LOC: ER 13:59
DX: F10.10 Alcohol abuse, uncomplicated (principal); E87.6 Hypokalemia; Z11.59 Encounter for screening for other viral diseases
CPT/HCPCS: 36415; 80048; 80053; 80320; 82550; 82553; 84484; 85025; 99284; J2060; J3411; J3480; J7030; U0002

== ENCOUNTER 2020-10-11 10:47 | Emergency (ER) | payer SELFPAY ==
[~2020-10-11] VITALS: Ht 157.5 cm; Wt 52.2 kg
[2020-10-11] MEDS ORDERED: SODIUM CHLORIDE 0.9% 1000ML 1,000 ML IV STA (11:09)
[2020-10-11 11:23] LABS: BASOPHILS % 0.2 % (0.0-1.0); HEMATOCRIT 37.4 % (34.2-44.1); HEMOGLOBIN 13.2 g/dL (12.0-16.0); LYMPHOCYTES # (AUTO) 1.3 (1.0-3.2); LYMPHOCYTES % 22.3 % (18.0-39.1); MEAN CORPUSCULAR HEMOGLOBIN 34.4 pg (28-32); MEAN CORPUSCULAR HGB CONC 35.3 g/dL (31-35); MEAN CORPUSCULAR VOLUME 97.4 fL (81-99); MONOCYTES # (AUTO) 0.3 (0.2-0.8); MONOCYTES % 4.9 % (4.4-11.3); NEUTROPHILS # (AUTO) 4.1 (2.1-6.9); NEUTROPHILS % 72.1 % (38.7-80.0); PLATELET COUNT 117 x10e3/uL (140-360); RED BLOOD COUNT 3.84 x10e6/uL (3.6-5.1); RED CELL DISTRIBUTION WIDTH 12.5 % (11.7-14.4)
[2020-10-11] MEDS ORDERED: CHLORDIAZEPOXIDE HCL 25 MG CAP PO ONE (11:30)
[2020-10-11 11:39] LABS: ALBUMIN 4.4 g/dL (3.5-5.0); ALBUMIN/GLOBULIN RATIO 1.1 (0.8-2.0); ANION GAP 35.7 mmol/L (8-16); CALCIUM 9.1 mg/dL (8.4-10.2); CREATININE, SERUM 1.11 mg/dL (0.57-1.11)
[2020-10-11 11:43] LABS: POTASSIUM 2.7 mmol/L (3.5-5.1)
[2020-10-11] MEDS ORDERED: MULTIVITAMINS- 12 INJECTION 10 ML, FOLIC ACID MDV 5 MG, THIAMINE HCL INJ 100 MG in SODI... IV ONE (11:45)
[2020-10-11 11:46] LABS: CREATINE KINASE MB 0.7 ng/mL (0-5.0)
[2020-10-11] MEDS ORDERED: POTASSIUM CHLORIDE 20 MEQ TAB CR PO STA (11:59)
[2020-10-11] MEDS ORDERED: POTASSIUM CHLORIDE 10MEQ/100ML 100 ML IV ONE (12:00)
== END 2020-10-11 15:06 | disposition other institution (70) ==
LOC: ER 11:01
DX: F10.231 Alcohol dependence with withdrawal delirium (principal); E87.6 Hypokalemia; E83.42 Hypomagnesemia; Z11.52 Encounter for screening for COVID-19
CPT/HCPCS: 36415; 80053; 80320; 82140; 82550; 82553; 84484; 85025; 93005; 99284; J3411; J3480; J7030; U0002